=== PATIENT | male | born 1980 ===

== ENCOUNTER 2021-02-21 17:43 | Emergency (ER) | payer OTHER, SELFPAY ==
[2021-02-21 18:40] VITALS: BP 128/92; PULSE 79; RESP 18; TEMP 36.8; O2SAT 98
--- NOTE | 2021-02-21 20:00 | ED.MALEGU ---
HPI - Male Genitourinary General Chief complaint: Urogenital-Male Stated complaint: Groin pain Time Seen by Provider: 02/21/21 20:00 Source: patient Mode of arrival: ambulatory Limitations: no limitations History of Present Illness HPI Narrative: Patient complaining of pain in the left testicle for last 1 week after 2 lb dog jumped on his testicle no significant swelling patient does have history of epididymitis in the past pain got worse since yesterday no penile discharge no history of STDs lately no urinary complaint Related Data Previous Rx's Medication Instructions Recorded ciprofloxacin HCl 500 mg tablet 500 mg PO BID #20 tab 02/21/21 (Cipro) doxycycline hyclate 100 mg tablet 100 mg PO BID #20 tab 02/21/21 Allergies Allergy/AdvReac Type Severity Reaction Status Date / Time carisoprodol [From SOMA] Allergy Unknown SYNCOPE Unverified 02/21/21 18:39 Review of Systems Review of Systems: Yes all other systems are reviewed and are negative PMFSH Social History Social History Advance Directives: No Advance Directives Information Provided: Yes Physical Exam Vital Signs: Vital Signs: Last Vital Signs Temp 98.3 F 02/21/21 18:40 Pulse 79 02/21/21 18:40 Resp 18 02/21/21 18:40 BP 128/92 H 02/21/21 18:40 Pulse Ox 98 02/21/21 18:40 BMI result Body Mass Index 0.1 Const: General: healthy appearing, comfortable and no acute distress : Male genitals images: 1. Tenderness left epididymis area testicles are normal no fluid collection skin is normal no swelling or erythema no mass palpable no penile discharge MDM - Male Genitourinary MDM Narrative Medical decision making narrative: Patient clinically with left epididymitis will give him Cipro and doxycycline for broad coverage low risk for STDs discharge patient Discharge Plan Discharge Clinical Impression: Epididymitis Patient Disposition: Home, Self-Care Instructions: Epididymitis (ED) Additional Instructions: Scrotal support as advised Antibiotic as prescribed Ibuprofen for pain Report to the ER/PCP if worsening of swelling or pain Prescriptions: New doxycycline hyclate 100 mg tablet 100 mg PO BID Qty: 20 RF: 0 ciprofloxacin HCl [Cipro] 500 mg tablet 500 mg PO BID Qty: 20 RF: 0 Stand Alone Forms: Work/School Release Interventions: ED Discharge Assessment Last Done: 02/21/21 21:14 Discharge Date/Time: 02/21/21 21:20
[2021-02-21] MEDS: levoFLOXacin 500 MG TABLET PO (20:30)
== END 2021-02-21 21:20 | disposition home or self-care (01) ==
PROVIDERS: Emergency Provider Internal Medicine
DX: N45.1 Epididymitis (principal); N50.812 Left testicular pain
CPT/HCPCS: 99283

== ENCOUNTER 2021-06-23 10:19 | Outpatient (REF) | payer OTHER, SELFPAY ==
[2021-06-23 12:22] LABS: Prostate Specific Antigen Scr 2.62 ng/mL (<0.05-4.0)
== END 2021-06-23 10:20 | disposition home or self-care (01) ==
LOC: HO.HMGCLDS 10:19
PROVIDERS: Visit Provider Internal Medicine
DX: Z12.5 Encounter for screening for malignant neoplasm of prostate (principal); Z80.42 Family history of malignant neoplasm of prostate
CPT/HCPCS: 36415; 84153

== ENCOUNTER 2021-11-09 08:34 | Emergency (ER) | payer MEDICAID, SELFPAY ==
--- NOTE | ~2021-11-09 | XR_ITS ---
EXAMINATION: XR CHEST CLINICAL INFORMATION: Status post COVID. COMPARISON: 10/14/2014 chest radiographs. TECHNIQUE: 2 views of the chest were obtained. FINDINGS: No significant abnormality is noted involving the heart, lungs, mediastinum, bony thorax or soft tissues. XR/XR chest 2V IMPRESSION: No acute cardiopulmonary process.
[2021-11-09 08:50] VITALS: BP 141/89; PULSE 106; RESP 19; TEMP 36.6; O2SAT 94; BMI 19.8
[2021-11-09 10:17] LABS: MANUAL DIFF FLAG NO
[2021-11-09 10:19] LABS: Basophils Percent Auto 0.3 % (0-2); Eosinophils Percent Auto 0.2 % (0-4); Hematocrit 42.1 % (42.0-52.0); Hemoglobin 15.1 g/dl (14.0-18.0); Imm Gran Abs Auto 0.05 X10*3/uL (0.00-0.03); Imm Gran Pct Auto 0.5 % (0.0-0.4); Lymphocytes Absolute Auto 1.7 X10*3/uL (1.2-4.9); Lymphocytes Percent Auto 17.9 % (20-40); Mean Corpuscular HGB Conc 35.9 g/dl (31.0-36.0); Mean Corpuscular Hemoglobin 33.9 pg (27.0-33.0); Mean Corpuscular Volume 94.4 fL (80.0-98.0); Mean Platelet Volume 9.6 fL (9.4-12.4); Monocytes Absolute Auto 0.6 X10*3/uL (0.1-1.2); Monocytes Percent Auto 6.7 % (2-11); Neutrophils Absolute Auto 6.9 x10*3/uL (2.0-8.3); Neutrophils Percent Auto 74.4 % (45-73); Platelet Count 221 X10*3/uL (160-400); Red Blood Count 4.46 X10*6/uL (4.60-5.80); Red Cell Distribution Width 11.9 % (11.0-16.0); White Blood Count 9.3 X10*3/uL (4.8-10.8)
[2021-11-09 10:36] LABS: Alanine Aminotransferase 21 U/L (0-40); Albumin Level 4.5 g/dL (3.5-5.0); Alkaline Phosphatase 75 U/L (39-117); Anion Gap 19 (12-20); Aspartate Amino Transferase 36 U/L (5-37); Bilirubin Direct 0.2 mg/dL (0.0-0.5); Bilirubin Total 0.6 mg/dL (0.0-1.0); Blood Urea Nitrogen 15 mg/dL (9-16); Calcium 9.3 mg/dL (8.4-10.2); Carbon Dioxide 25 mmol/L (22-29); Chloride 100 mmol/L (96-108); Creatinine Clr Calc Pharmacy 86.4; Estimated Glomerular Filt Rate > 60; Glucose Random 176 mg/dL (60-115); Sodium 139 mmol/L (135-145); Total Protein 7.2 g/dL (6.5-8.0)
--- NOTE | 2021-11-09 11:14 | ECG_ITS ---
Test Reason : syncope Blood Pressure : / mmHG Vent. Rate : 075 BPM Atrial Rate : 075 BPM P-R Int : 160 ms QRS Dur : 098 ms QT Int : 382 ms P-R-T Axes : 072 070 060 degrees QTc Int : 426 ms Normal sinus rhythm Normal ECG When compared with ECG of 14-OCT-2014 21:10, No significant change was found Referred By: Zonia Cerda Electronically Signed By:CHARLES LAI
[2021-11-09 12:03] LABS: Troponin-I High Sensitivity 5.1 ng/L (<3.5-35.0)
[2021-11-09 12:38] LABS: D Dimer High Sensitivity 213 NG/ML
[2021-11-09 12:41] LABS: COVID-19 Test Positive (Negative)
--- NOTE | 2021-11-09 17:12 | ED_ITS ---
HPI - General Adult General Chief complaint: General Medical Stated complaint: COVID+ 8/12/Headache/body aches/Syncope Time Seen by Provider: 11/09/21 11:13 Source: patient Mode of arrival: ambulatory Limitations: no limitations History of Present Illness HPI narrative: Patient comes to the emergency room complaining of feeling weak. Patient states that about 10 days ago, he was informed that his friend who gives him a ride to work tested positive for COVID-19. Patient took a home test, unclear if it was positive. Patient states that he has been asymptomatic. However, yesterday patient started having nausea, headache, no chest pain or shortness of breath. This morning patient had 1 episode of vomiting, no diarrhea. In total, patient has been asymptomatic for 2 days. Starting yesterday. Related Data Previous Rx's Medication Instructions Recorded ibuprofen 600 mg tablet 600 mg PO TID PRN fever or pain 11/09/21 #20 tabs nirmatrelvir 300 mg (150 mg See Rx Instructions PO .COMPLEX 11/09/21 x2)-ritonavir 100 mg tablet,dose #30 ea pack(EUA) (Paxlovid) Allergies Allergy/AdvReac Type Severity Reaction Status Date / Time carisoprodol [From SOMA] Allergy Unknown SYNCOPE Unverified 06/23/21 09:50 Review of Systems Review of Systems: Constitutional : No Weight loss, No Fever, No Chills, No Night Sweats, complaining of fatigue and generalized malaise, generalized weakness ENT/Mouth : No Hearing loss, No Ear Pain, No Nasal Congestion, No Sinus Pain, No Hoarseness, No sore throat, No Rhinorrhea, No Swallowing Difficulty Eyes: No Eye Pain, No Swelling, No Redness, No Foreign Body, No Discharge, No Vision Changes Cardiovascular : No Chest Pain, No SOB, No Dyspnea on Exertion, No Orthopnea, No Edema, No Palpitations Respiratory : No Cough, No Sputum, No Wheezing, No Smoke Exposure, No Dyspnea Gastrointestinal : Nauseous, 1 episode of vomiting No Diarrhea, No Constipation, No abdominal Pain, No Hematochezia, No Melena Genitourinary : no irregular bleeding, No Dysuria, No Urinary Frequency, No He maturia, No Urinary Incontinence, No Urgency, No Flank Pain, No Urinary Flow Changes, No Hesitancy Musculoskeletal : No joint pain, No Myalgias, No Joint Swelling Skin : No Skin Lesions, No rash Neuro : No Weakness, No Numbness, No Paresthesias, No Loss of Consciousness, No Dizziness, No Headache Psych : No Anxiety/Panic, No Depression, No SI/HI/AH/VH, No Social Issues, Heme/Lymph: No Bruising, No Bleeding,No Lymphadenopathy Endocrine : No Polyuria, No Polydipsia, No Temperature Intolerance Physical Exam ED Vital Signs: Vital Signs - 24 hr 11/09/21 08:50 Temperature 98 F Pulse Rate 106 H Respiratory Rate 19 Blood Pressure 141/89 H Pulse Oximetry 94 Oxygen Delivery Method Room Air BMI result Body Mass Index 19.8 Const Other: Appearance: Alert. Oriented X3. No acute distress. Eyes: Pupils equal, round and reactive to light. ENT: Pharynx normal. Neck: Normal inspection. Neck supple. No lymph nodes noted. No crepitus CVS: Normal heart rate and rhythm. Pulses normal. Normal S1 and S2 Respiratory: No respiratory distress. Breath sounds normal. No Wheezing. No rales Abdomen: Soft and nontender. No rigidity. No distention. Skin: Skin warm and dry. Normal skin color. Normal skin turgor. Extremities: No lower extremity edema. No Lacerations. No Rash Neuro: Oriented X 3. No motor deficit. No sensory deficit. Moving all extremit ies. No slurred speech. CN 2 through 12 grossly intact Psych: calm, cooperative, normal affect Course Course Course Narrative: I discussed with the patient that he tested positive for COVID-19. Patient has been truly symptomatic for 2 days. Patient may benefit from Paxlovid Chest x-ray negative Medical Decision Making Lab Data Result diagrams: 11/09/21 10:06 11/09/21 10:06 Labs: Lab Results 11/09/21 11/09/21 11/09/21 Range/Units 10:06 10:06 10:06 WBC 9.3 (4.8-10.8) X10*3/uL RBC 4.46 L (4.60-5.80) X10*6/uL Hgb 15.1 (14.0-18.0) g/dl Hct 42.1 (42.0-52.0) % MCV 94.4 (80.0-98.0) fL MCH 33.9 H (27.0-33.0) pg MCHC 35.9 (31.0-36.0) g/dl RDW 11.9 (11.0-16.0) % Plt Count 221 (160-400) X10*3/uL MPV 9.6 (9.4-12.4) fL Immature Gran % (Auto) 0.5 H (0.0-0.4) % Neut % (Auto) 74.4 H (45-73) % Lymph % (Auto) 17.9 L (20-40) % [place] % (Auto) 6.7 (2-11) % Eos % (Auto) 0.2 (0-4) % Baso % (Auto) 0.3 (0-2) % Lymph # (Auto) 1.7 (1.2-4.9) X10*3/uL [place] # (Auto) 0.6 (0.1-1.2) X10*3/uL Eos # (Auto) 0.0 (0.0-0.4) X10*3/uL Baso # (Auto) 0.0 (0.0-0.2) X10*3/uL Abs Immat Gran (auto) 0.05 H (0.00-0.03) X10*3/uL Absolute Neuts (auto) 6.9 (2.0-8.3) x10*3/uL Absolute Nucleated RBC 0.000 (0.0-0.012) X10*3/uL Nucleated RBC % (auto) 0.0 (0.0-0.2) /100WBC D-Dimer High Sensitivty NG/ML Sodium 139 (135-145) mmol/L Potassium 5.0 (3.3-5.1) mmol/L Chloride 100 (96-108) mmol/L Carbon Dioxide 25 (22-29) mmol/L Anion Gap 19 (12-20) BUN 15 (9-16) mg/dL Creatinine 1.06 (0.5-1.4) mg/dL Estim Creat Clear Calc 86.4 Estimated GFR > 60 Random Glucose 176 H (60-115) mg/dL Calcium 9.3 (8.4-10.2) mg/dL Total Bilirubin 0.6 (0.0-1.0) mg/dL Direct Bilirubin 0.2 (0.0-0.5) mg/dL AST 36 (5-37) U/L ALT 21 (0-40) U/L Alkaline Phosphatase 75 (39-117) U/L Troponin I High Sens 5.1 (<3.5-35.0) ng/L Total Protein 7.2 (6.5-8.0) g/dL Albumin 4.5 (3.5-5.0) g/dL COVID-19 ([place]) (Negative) COVID-19 Clin Com 11/09/21 11/09/21 Range/Units 12:18 12:18 WBC (4.8-10.8) X10*3/uL RBC (4.60-5.80) X10*6/uL Hgb (14.0-18.0) g/dl Hct (42.0-52.0) % MCV (80.0-98.0) fL MCH (27.0-33.0) pg MCHC (31.0-36.0) g/dl RDW (11.0-16.0) % Plt Count (160-400) X10*3/uL MPV (9.4-12.4) fL Immature Gran % (Auto) (0.0-0.4) % Neut % (Auto) (45-73) % Lymph % (Auto) (20-40) % [place] % (Auto) (2-11) % Eos % (Auto) (0-4) % Baso % (Auto) (0-2) % Lymph # (Auto) (1.2-4.9) X10*3/uL [place] # (Auto) (0.1-1.2) X10*3/uL Eos # (Auto) (0.0-0.4) X10*3/uL Baso # (Auto) (0.0-0.2) X10*3/uL Abs Immat Gran (auto) (0.00-0.03) X10*3/uL Absolute Neuts (auto) (2.0-8.3) x10*3/uL Absolute Nucleated RBC (0.0-0.012) X10*3/uL Nucleated RBC % (auto) (0.0-0.2) /100WBC D-Dimer High Sensitivty 213 NG/ML Sodium (135-145) mmol/L Potassium (3.3-5.1) mmol/L Chloride (96-108) mmol/L Carbon Dioxide (22-29) mmol/L Anion Gap (12-20) BUN (9-16) mg/dL Creatinine (0.5-1.4) mg/dL Estim Creat Clear Calc Estimated GFR Random Glucose (60-115) mg/dL Calcium (8.4-10.2) mg/dL Total Bilirubin (0.0-1.0) mg/dL Direct Bilirubin (0.0-0.5) mg/dL AST (5-37) U/L ALT (0-40) U/L Alkaline Phosphatase (39-117) U/L Troponin I High Sens (<3.5-35.0) ng/L Total Protein (6.5-8.0) g/dL Albumin (3.5-5.0) g/dL COVID-19 ([place]) Positive A (Negative) COVID-19 Clin Com See Note Imaging Data Chest x-ray: Radiologist's impression: FINDINGS: No significant abnormality is noted involving the heart, lungs, mediastinum, bony thorax or soft tissues. XR/XR chest 2V IMPRESSION: No acute cardiopulmonary process. Discharge Plan Discharge Clinical Impression: COVID-19 Patient Disposition: Home, Self-Care Instructions: COVID-19 (Coronavirus Disease 2019) (ED) Additional Instructions: Please follow-up with your primary care physician tomorrow. If you have any worsening or new symptoms, please return to the emergency room or call 911 Prescriptions: New Paxlovid (EUA) 300 mg (150 mg x 2)-100 mg tablets,dose pack See Rx Instructions .ROUTE .COMPLEX Qty: 30 0RF Rx Instructions: take TWO 150 mg tablets of nirmatrelvir with ONE 100 mg tablet of ritonavir twice daily for 5 days ibuprofen 600 mg tablet 600 mg PO TID PRN (Reason: fever or pain) Qty: 20 0RF
[2021-11-09 19:52] VITALS: BP 132/84; PULSE 93; RESP 16; TEMP 37.1; O2SAT 98
== END 2021-11-09 19:52 | disposition home or self-care (01) ==
PROVIDERS: Emergency Provider Emergency Medicine
DX: U07.1 COVID-19 (principal); R51.9 Headache, unspecified
CPT/HCPCS: 36415; 71046; 80048; 80076; 84484; 85025; 85379; 87635; 93005; 99282; 99283

== ENCOUNTER 2022-09-24 11:39 | Outpatient (REF) | payer OTHER, SELFPAY ==
[2022-09-24 14:38] LABS: Basophils Percent Auto 0.3 % (0-2); Eosinophils Percent Auto 0.5 % (0-4); Hematocrit 44.9 % (42.0-52.0); Hemoglobin 15.4 g/dl (14.0-18.0); Imm Gran Abs Auto 0.02 X10*3/uL (0.00-0.03); Imm Gran Pct Auto 0.3 % (0.0-0.4); Lymphocytes Percent Auto 16.4 % (20-40); MANUAL DIFF FLAG SCAN; Mean Corpuscular HGB Conc 34.3 g/dl (31.0-36.0); Mean Corpuscular Hemoglobin 33.8 pg (27.0-33.0); Mean Corpuscular Volume 98.7 fL (80.0-98.0); Mean Platelet Volume 11.2 fL (9.4-12.4); Monocytes Absolute Auto 1.3 X10*3/uL (0.1-1.2); Monocytes Percent Auto 21.7 % (2-11); Neutrophils Absolute Auto 3.6 x10*3/uL (2.0-8.3); Neutrophils Percent Auto 60.8 % (45-73); Platelet Count 182 X10*3/uL (160-400); Red Blood Count 4.55 X10*6/uL (4.60-5.80); Red Cell Distribution Width 11.9 % (11.0-16.0); SCAN SMEAR FLAG 1; White Blood Count 5.9 X10*3/uL (4.8-10.8)
[2022-09-24 14:59] LABS: SLIDE REVIEW VERIFIED
== END 2022-09-24 11:40 | disposition home or self-care (01) ==
LOC: HO.HMGCLDS 11:39
PROVIDERS: PCP Nurse Practitioner Family; Visit Provider Nurse Practitioner Family
DX: Z00.00 Encounter for general adult medical examination without abnormal findings (principal); Z80.42 Family history of malignant neoplasm of prostate
CPT/HCPCS: 36415; 80053; 80061; 81001; 84153; 84443; 85025

== ENCOUNTER 2022-10-04 15:05 | Outpatient (AMB) | payer OTHER, SELFPAY ==
--- NOTE | 2022-10-04 12:11 | A.OFFVIS_ITS ---
Intake Vital Signs 10/04/22 15:09 Height 6 ft 1 in Weight 164 lb BMI 21.6 Intake Visit Reasons: family history of malignant neoplasm of prostate Intake Note: Ronald a 42 year old male presents today for a family history of malignant neoplasm of prostate. Patient states father diagnosed with prostate cancer and 2 uncles from prostate cancer. Allergies carisoprodol [From SOMA] Allergy (Unknown, Unverified 10/04/22 15:11) SYNCOPE HPI HPI Comments History of Present Illness Details 10/04/22? Ronald is a 42-year-old male who presents to the clinic for a family history of prostate cancer. Patient has a family history of prostate cancer in his father and 2 uncles. He had a PSA done on 04/20/18 which was 2.62 and a PSA done 09/24/22 which is 3.35. He states that he wakes up about 1 to 2 times to urinate at night. He admits that he drinks a lot of alcohol. He denies noticing any hematuria during the daytime. He denies any dysuria. Evaluation today?UA -- leukocytes: negative. Blood: negative. Prostate exam-- The prostate was mildly enlarged and an irregular area noted on the left apex. AUA symptom score -- 19 Plan: Start him on alfuzosin 10 mg daily. I discussed that his PSA?level at 3.35 is at higher limits of normal, and for his age, it is elevated. I recommend doing a prostate biopsy to identify if there is any cancer cells given his family history. We discussed in detail with the patient about the prostate biopsy and its possible outcomes and he voiced understanding. Patient would be given antibiotic therapy as an infection prophylaxis before the procedure. I am going to send Cipro to his pharmacy to start 24 hours before the prostate biopsy. Will repeat PSA. However will proceed with scheduling the biopsy will be scheduled pending blood work results. Recommended to limit his alcohol use. [facility] Family History Mother Substance use disorder Mental health disorder Father Substance use disorder Mental health disorder Maternal Aunt Substance use disorder Mental health disorder Paternal Uncle Substance use disorder Mental health disorder Paternal Aunt Substance use disorder Mental health disorder Maternal Uncle Substance use disorder Mental health disorder Brother Substance use disorder Mental health disorder Sister Substance use disorder Mental health disorder Social History Housing: House Patient Tobacco Use Status: Current everyday Tobacco user Cigarette Packs Per Day: 1 e-Cigarette/Vaping Use: Never Used Second Hand Smoke Exposure: Yes service: No Current occupational status: employed 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 Current occupational exposures/hazards: No Cognitive needs: No Hearing needs: No Vision needs: No Questionnaire AUA Symptom Score AUA Incomplete emptying - It does not feel like I empty my bladder all the way.: 0 - Not at all Frequency - I have to go again less than two hours after I finish urinating.: 3 - About half the time Intermittency - I stop and start again several times when I urinate.: 5 - Almost always Urgency - It is hard to wait when I have to urinate.: 5 - Almost always Weak stream - I have a weak urinary stream.: 3 - About half the time Straining - I have to push or strain to begin urination.: 2 - Less than half the time Nocturia - I get up to urinate after I go to bed until the time I get up in the morning.: 1 time AUA Symptom Score: 19 Quality of life due to urinary symptoms: If you were to spend the rest of your life with your urinary condition the way it is now, how would you feel about that?: Mixed: about equally satisfied and dissatisfied Source: Terry JIMENEZ, Fly TOBIN Jr, O'Stephanie MP, et al, and the Measurement Committee of the [employer]. The [place] [employer] symptom index for benign prostatic hyperplasia. J Urol. 1992; 148: 0327-3519. Copyright 1992 [place] [employer] Review of Systems Const All systems reviewed & are unremarkable except as noted in HPI and below Reports no additional complaints Eyes Reports no additional complaints ENT Reports no additional complaints Card Denies dyspnea Resp Denies cough and Denies dyspnea GI Reports no additional complaints Musc Reports no additional complaints Skin/Breast Denies rash and Denies unusual bruising Neuro Reports no additional complaints Psych Reports no additional complaints Endo Reports no additional complaints Ray/Lymph Reports no additional complaints Aller/Immun Reports no additional complaints Physical Exam Vital Signs: BMI result Body Mass Index 21.6 Const General: healthy appearing, no acute distress and well developed Orientation/consciousness: patient oriented x3 HEENT Head: Yes normocephalic and Yes atraumatic Eyes Conjunctivae: conjunctivae normal Neck Neck: Yes normal visual inspection Chest Chest palpation & inspection: normal inspection of the chest Resp Effort & Inspection: normal respiratory effort Cardio Rate: regular rate GI Inspection: Yes normal to inspection Palpation (GI): Soft to palpation Other: Prostate exam-- The prostate was mildly enlarged and an irregular area noted on the left apex. Skin General skin exam: no rashes or lesions noted Neuro General: patient oriented x3 Extrem General: No pedal edema Psych Appearance: grossly normal Affect: normal affect Office Procedures Post Void Residual Post Residual Void Post Void Residual (PVR): 9 49675-[id number] Void Residual by ultrasound Results AMB Urinalysis, Automated UA Leukoctes 0 Sabrina/uL Last Edit by Yadira Sheehan Bri on 10/04/22 15:25 UA Nitrite Negative Last Edit by Yadira Sheehan [facility] on 10/04/22 15:25 UA Urobilinogen 0.2 mg/dL Last Edit by Yadira Sheehan [facility] on 10/04/22 15:25 UA Protein 15 mg/dL Last Edit by Yadira Sheehan [facility] on 10/04/22 15:25 UA pH 6.0 Last Edit by Yadira Sheehan [facility] on 10/04/22 15:25 UA Blood 0 Balaji/uL Last Edit by Yadira Sheehan [facility] on 10/04/22 15:25 UA Specific [place] 1.010 Last Edit by Yadira Sheehan [facility] on 10/04/22 15:2 5 UA Ketone Negative Last Edit by Yadira Sheehan Bri on 10/04/22 15:25 UA Bilirubin 0 mg/dL Last Edit by Yadira Sheehan [facility] on 10/04/22 15:25 UA Glucose 0 mg/dL Last Edit by Yadira Sheehan [facility] on 10/04/22 15:25 Results Reviewed Results Reviewed: Laboratory Last Values Urine pH (Auto) 6.0 10/04/22 15:22 Specific [place] (Auto) 1.010 10/04/22 15:22 Urine Protein (Auto) 15 mg/dL 10/04/22 15:22 Glucose (UA)(Auto) 0 mg/dL 10/04/22 15:22 Urine Ketones (Auto) Negative 10/04/22 15:22 Urine Blood (Auto) 0 Balaji/uL 10/04/22 15:22 Urine Nitrite (Auto) Negative 10/04/22 15:22 Urine Bilirubin (Auto) 0 mg/dL 10/04/22 15:22 Urine Urobilinogen (Auto) 0.2 mg/dL 10/04/22 15:22 Leukocyte Esterase (Auto) 0 Sabrina/uL 10/04/22 15:22 Assessment & Plan Assessment & Plan (1) Family history of prostate cancer: Code(s): Z80.42 - Family history of malignant neoplasm of prostate (2) Elevated PSA: Code(s): R97.20 - Elevated prostate specific antigen [PSA] (3) BPH (benign prostatic hyperplasia): Code(s): N40.0 - Benign prostatic hyperplasia without lower urinary tract symptoms (4) History of prostatitis: Code(s): Z87.438 - Personal history of other diseases of male genital organs Plan Alfuzosin 10 mg daily. I discussed that his PSA?level at 3.35 is at higher limits of normal, and for his age, it is elevated. I recommend doing a prostate biopsy to identify if there is any cancer cells given his family history. We discussed in detail with the patient about the prostate biopsy and its possible outcomes and he voiced understanding. Patient would be given antibiotic therapy as an infection prophylaxis before the procedure. I am going to send Cipro to his pharmacy to start 24 hours before the prostate biopsy. Will repeat PSA. However will proceed with scheduling the biopsy will be scheduled pending blood work results. Recommended to limit his alcohol use. Orders: Orders Prothrombin Time INR 10/04/22 F10.10 - Alcohol abuse, uncomplicated AMB Urinalysis Automated 10/04/22 Z13.9 - Encounter for screening, unspecified AMB Post Void Residual by ultrasound 10/04/22 Z80.42 - Family history of malignant neoplasm of prostate Patient Instructions: The patient had an opportunity to ask questions regarding treatment plan. All questions were answered. Imaging, Laboratory studies and physical exam results were discussed and reviewed in detail. No major barriers to understanding were identified. The patient expressed understanding and agreement with the above treatment plan. The patient is aware they should contact our office by phone for worsening of their current condition or the appearance of new symptoms. Compliance is encouraged with any medications and followup testing that is ordered. It is a privilege to be allowed the opportunity to participate in the urologic care of your patient. If you have any questions or concerns regarding treatment for the above conditions please do not hesitate to contact me. The office telephone contact is [phone]. This note is constructed in part using voice recognition software. While every effort has been made to ensure accuracy manager radio errors may have been included. Yours sincerely, Kristopher Reza MD Quality Reporting (2019) Benign Prostatic Hyperplasia ([facility] 771) AUA symptom score: 19 Quality of life due to urinary symptoms: If you were to spend the rest of your life with your urinary condition the way it is now, how would you feel about that?: Mixed: about equally satisfied and dissatisfied Coding Level of Care Code New Pt Level 4 (34774) Diagnoses Family history of prostate cancer Z80.42 Elevated PSA R97.20 BPH (benign prostatic hyperplasia) N40.0 History of prostatitis Z87.438 CPT Codes Post Residual Void - PVR CPT Code: 13001-Ssod Void Residual by ultrasound ([id number])
[2022-10-04 15:09] VITALS: BMI 21.6
== END 2022-10-04 16:01 | disposition home or self-care (01) ==
PROVIDERS: PCP Nurse Practitioner Family; Visit Provider Urology
DX: Z80.42 Family history of malignant neoplasm of prostate (principal); R97.20 Elevated prostate specific antigen [PSA]; N40.0 Benign prostatic hyperplasia without lower urinary tract symptoms; Z87.438 Personal history of other diseases of male genital organs
CPT/HCPCS: 99204

== ENCOUNTER → 2022-10-04 15:05 | Outpatient (BNVA) | payer OTHER, SELFPAY | PROVIDERS: PCP Nurse Practitioner Family; Visit Provider Urology | DX: R97.20 Elevated prostate specific antigen [PSA] (principal); N40.0 Benign prostatic hyperplasia without lower urinary tract symptoms; Z87.438 Personal history of other diseases of male genital organs; Z80.42 Family history of malignant neoplasm of prostate; Z79.899 Other long term (current) drug therapy | CPT/HCPCS: 51798; 99202 ==

== ENCOUNTER 2022-10-06 08:40 | Outpatient (REF) | payer OTHER, SELFPAY ==
--- NOTE | ~2022-10-06 | US_ITS ---
EXAMINATION: US ABDOMEN COMPLETE CLINICAL INFORMATION: Elevated liver enzymes. COMPARISON: None available. TECHNIQUE: Real-time imaging of the abdominal viscera. FINDINGS: PANCREAS: Normal. ABDOMINAL AORTA: The abdominal aorta is normal caliber. There is mild atherosclerotic plaque seen within the distal abdominal aorta. INFERIOR VENA CAVA: Visualized portions are normal. LIVER: The liver is enlarged. The liver contour is normal. There is diffuse increased liver parenchymal echogenicity, consistent with hepatic steatosis. 1.4 x 1.5 x 1.4 cm simple cyst is seen in the right lobe. No imaging follow-up of this finding is recommended. There is no intrahepatic biliary duct dilatation seen. GALLBLADDER: Normal. The gallbladder is physiologically distended without evidence of stones, sludge, polyps, wall thickening or pericholecystic fluid. COMMON BILE DUCT: Normal in caliber measuring 0.43 cm in diameter. RIGHT KIDNEY: Normal. No hydronephrosis. No renal calculi or focal parenchymal lesions. The kidney measures 12.1 cm in maximum dimension. LEFT KIDNEY: Normal. No hydronephrosis. No renal calculi or focal parenchymal lesions. The kidney measures 10.6 cm in maximum dimension. SPLEEN: Normal. The spleen measures 9.4 cm in maximum dimension. FREE FLUID: None. US/US abdomen complete IMPRESSION: 1. Hepatic steatosis. 2. Mild atherosclerotic plaque is seen within the distal abdominal aorta.
== END 2022-10-06 08:41 | disposition home or self-care (01) ==
LOC: HO.HMGCX 08:40
PROVIDERS: PCP Nurse Practitioner Family; Visit Provider Nurse Practitioner Family
DX: R74.8 Abnormal levels of other serum enzymes (principal)
CPT/HCPCS: 76700

== ENCOUNTER 2022-10-19 08:00 | Outpatient (REF) | payer OTHER, SELFPAY ==
[2022-10-19 11:34] LABS: INTERNATIONAL NORM RATIO 0.8 (0.9-1.1); Prothrombin Time 9.8 SEC (11.1-13.3)
[2022-10-19 11:38] LABS: Hematocrit 44.8 % (42.0-52.0); Hemoglobin 15.5 g/dl (14.0-18.0); Imm Gran Pct Auto 0.3 % (0.0-0.4); Mean Corpuscular HGB Conc 34.6 g/dl (31.0-36.0); Mean Corpuscular Hemoglobin 34.1 pg (27.0-33.0); Mean Corpuscular Volume 98.7 fL (80.0-98.0); Mean Platelet Volume 10.5 fL (9.4-12.4); Neutrophils Percent Auto 33.2 % (45-73); Platelet Count 241 X10*3/uL (160-400); Red Blood Count 4.54 X10*6/uL (4.60-5.80); Red Cell Distribution Width 11.9 % (11.0-16.0); White Blood Count 3.9 X10*3/uL (4.8-10.8)
[2022-10-19 11:39] LABS: Basophils Absolute Auto 0.1 X10*3/uL (0.0-0.2); Basophils Percent Auto 1.3 % (0-2); Eosinophils Absolute Auto 0.1 X10*3/uL (0.0-0.4); Imm Gran Abs Auto 0.01 X10*3/uL (0.00-0.03); Immature Retic Fraction 5.8 % (2.3-13.4); Lymphocytes Absolute Auto 1.5 X10*3/uL (1.2-4.9); Lymphocytes Percent Auto 38.6 % (20-40); MANUAL DIFF FLAG SCAN; Monocytes Absolute Auto 0.9 X10*3/uL (0.1-1.2); Monocytes Percent Auto 23.6 % (2-11); Neutrophils Absolute Auto 1.3 x10*3/uL (2.0-8.3); Retic HGB Equivalent 38.8 pg (30.0-35.0); Reticulocyte Percent 1.3 % (0.5-1.8); Reticulocytes Absolute 0.059 X10*6/uL (0.026-0.095); SCAN SMEAR FLAG 1
[2022-10-19 11:58] LABS: Bilirubin Total 0.5 mg/dL (0.0-1.0)
[2022-10-19 12:18] LABS: SLIDE REVIEW VERIFIED
[2022-10-19 12:24] LABS: HBc Num1 0.11 S/CO (0.00-0.79); HBsAGNum1 0.39 S/CO (0.00-0.99); Hepatitis A Antibody IgM 0.18 Index (0-0.79); Hepatitis B Core Antibody Nonreactive (Nonreactive); Hepatitis B Surface Antigen Negative (Negative); ~HepC Num1 0.07 S/CO (0.00-0.79); ~Hepatitis A Antibody IgM Nonreactive (Nonreactive); ~Hepatitis B Surface Antibody NONREACTIVE (Nonreactive); ~Hepatitis C Antibody Nonreactive (Nonreactive)
[2022-10-19 12:30] LABS: Alanine Aminotransferase 60 U/L (0-40); Alkaline Phosphatase 64 U/L (39-117); Anion Gap 20 (12-20); Aspartate Amino Transferase 76 U/L (5-37); Bilirubin Direct 0.2 mg/dL (0.0-0.5); Bilirubin Total 0.5 mg/dL (0.0-1.0); Blood Urea Nitrogen 12 mg/dL (9-16); Calcium 10.1 mg/dL (8.4-10.2); Carbon Dioxide 25 mmol/L (22-29); Chloride 101 mmol/L (96-108); Estimated Glomerular Filt Rate > 60; Gamma Glutamyl Transpeptidase 79 U/L (11-51); Glucose Random 90 mg/dL (60-115); Potassium 3.4 mmol/L (3.3-5.1); Sodium 143 mmol/L (135-145); Total Protein 8.3 g/dL (6.5-8.0)
[2022-10-19 12:50] LABS: Appearance Urine Turbid; Color Urine Dark Yellow; Glucose Urine UA Negative (Negative); Leukocyte Esterase Urine Negative (Negative); Nitrite Urine Negative (Negative); Specific Gravity - Urine 1.025 (1.005-1.025); UMIC TRIGGER UACC YES; Urine Blood Negative (Negative); Urine Ketones Trace mg/dL (Negative); Urine Protein 30 (1+) mg/dL (Neg-Trace)
[2022-10-19 13:00] LABS: Lactate Dehydrogenase 262 U/L (118-273)
[2022-10-19 13:00] LABS: Bacteria Urine None Seen (None Seen); Calcium Oxalate Crystals Urine Present; Hyaline Casts Urine 0-2 /LPF (0-2); RBC Urine 0-2 /HPF (0-2); Squamous Epithelial Cell Urine 0-2 /HPF (0-2); WBC Urine 0-5 /HPF (0-5)
[2022-10-22 17:59] LABS: Hematocrit 43.5 % (38.5-50.0); Hemoglobin 15.5 g/dL (13.2-17.1); MCH 34.8 pg (27.0-33.0); MCV 97.8 fL (80.0-100.0); RBC 4.45 Million/uL (4.20-5.80); RDW 12.1 % (11.0-15.0)
[2022-10-24 20:23] LABS: Haptoglobin 127 mg/dL (43-212)
== END 2022-10-19 08:01 | disposition home or self-care (01) ==
LOC: HO.HMGCLDS 08:00
PROVIDERS: Absent Provider Urology; PCP Nurse Practitioner Family; Visit Provider Nurse Practitioner Family
DX: F10.10 Alcohol abuse, uncomplicated (principal); R17 Unspecified jaundice; R74.8 Abnormal levels of other serum enzymes
CPT/HCPCS: 36415; 80053; 81001; 81003; 82247; 82248; 82977; 83010; 83020; 83615; 85014; 85018; 85025; 85041; 85045; 85610; 86704; 86706; 86709; 86803; 86880; 87340

== ENCOUNTER 2022-10-20 14:32 | Outpatient (AMB) | payer OTHER, SELFPAY ==
[2022-10-20 14:41] VITALS: BP 111/77; PULSE 68; BMI 20.8
--- NOTE | 2022-10-20 14:41 | A.OFFVIS_ITS ---
Intake Vital Signs 10/20/22 14:41 Height 6 ft 1 in Weight 157 lb 6.561 oz BMI 20.8 BP 111/77 Blood Pressure Location Lt brachial Position Sitting Pulse 68 Intake Visit Reasons: colonoscopy screening Intake Note: venu presents in office as a new.patient for a colonoscopy screening PT CC: pt reports having diarrhea/constipation pt denies any other GI Issues Piper Installer Required: No Accompanied by: Mother Allergies carisoprodol [From [facility]] Allergy (Unknown, Unverified 11/02/22 14:50) SYNCOPE HPI colonoscopy screening HPI Details 42 year old? male with past medical history of ETOH use, history of prostatitis, BPH, family history of prostate CA is here today for pre colonoscopy screening.? Patient was sent to us by his PCP.? Patient denies any gastrointestinal symptoms in the past or at present.? Symptoms of IBS. Occasional postprandial loose stool and then constipation. Denies any personal or family history of gastrointestinal disease, colon polyps, or cancer.? Patient never been under anesthesia. ? Negative for history of sleep apnea.? Denies any history of cardiac, renal, pulmonary, or hepatic disease.?? No history of infectious? diseases like hepatitis A, B, C, HIV or tuberculosis.? Patient is not on any anticoagulation therapy. PFSH Family History Mother Substance use disorder Mental health disorder Father Substance use disorder Mental health disorder Maternal Aunt Substance use disorder Mental health disorder Paternal Uncle Substance use disorder Mental health disorder Paternal Aunt Substance use disorder Mental health disorder Maternal Uncle Substance use disorder Mental health disorder Brother Substance use disorder Mental health disorder Sister Substance use disorder Mental health disorder Social History Housing: House Patient Tobacco Use Status: Current everyday Tobacco user Cigarette Packs Per Day: 1 e-Cigarette/Vaping Use: Never Used Second Hand Smoke Exposure: Yes service: No Current occupational status: employed 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 Current occupational exposures/hazards: No Cognitive needs: No Hearing needs: No Vision needs: No Review of Systems Const Denies weight gain and Denies weight loss ENT Reports no additional complaints, Denies dysphagia and Denies odynophagia Card Reports no additional complaints Resp Reports no additional complaints GI Denies abdominal pain, Denies belching, Denies melena, Denies bloating, Reports constipation (Occasional), Denies dysphagia, Denies excessive flatus, Denies dyspepsia, Denies heartburn, Denies diarrhea, Reports loose stools (Occasional), Denies nausea, Denies odynophagia and Denies vomiting Reports no additional complaints Musc Reports no additional complaints Neuro Reports no additional complaints Psych Reports no additional complaints Endo Reports no additional complaints Physical Exam Vital Signs: Last Vital Signs Pulse 68 10/20/22 14:41 BP 111/77 10/20/22 14:41 BMI result Body Mass Index 20.8 Const General: healthy appearing, no acute distress and well developed Nutritional Appearance: well nourished Orientation/consciousness: patient oriented x3 HEENT Head: Yes normal to inspection, Yes normocephalic and Yes atraumatic Face and sinus: Yes normal facial exam Mouth: Normal oral and palatal mucosa present Throat: Yes posterior oropharynx normal, Yes tonsils normal and Yes uvula midline Eyes General: appearance normal, both eyes and all related structures Neck Neck: Yes normal visual inspection, Yes full ROM and Yes trachea midline Thyroid: Thyroid normal Resp Effort & Inspection: normal respiratory effort, able to speak in complete sentences, no tracheal deviation and symmetric chest movement Auscultation: clear to auscultation bilaterally Cardio Rate: regular rate Heart sounds: S1 normal heart sound present and S2 normal heart sound present GI Inspection: Yes normal to inspection and No distended Palpation (GI): Soft to palpation, not firm, nontender and No hepatosplenomegaly present Auscultation: normal bowel sounds General: Yes no CVA tenderness Back/Spine/Pelvis Back: no CVA tenderness Skin General skin exam: elasticity normal, turgor normal and dry skin Neuro General: patient oriented x3 Psych Appearance: grossly normal Mental Status: mental status grossly normal Speech and movement: Normal speech and movement present Assessment & Plan Assessment & Plan (1) Screening for colon cancer: Code(s): Z12.11 - Encounter for screening for malignant neoplasm of colon Plan: Patient denies any family history of colorectal cancer. No melena, hematochezia, unintentional weight loss or ribbon like stools per patient will return in 3 months so we can discuss prep. Patient will be due to go for colorectal screening in March. Patient was encouraged to stop drinking as he will be due to go for colonoscopy and he will need to be sober. Recommended to see someone to help him stop drinking like addiction medicine or go to inpatient detox if unable quit drinking on his own. (2) Elevated liver enzymes: Code(s): R74.8 - Abnormal levels of other serum enzymes Plan: Patient reports that he drinks alcohol on a daily basis. Patient was encouraged to try to quit. Elevated liver enzymes. Lab work done yesterday. I will see patient in 3 months, sooner on as needed basis. Patient is agreeable to this plan and verbalizes understanding of instructions. He was given the opportunity to ask questions and all questions answered. Thank you for allowing me to participate in his care Coding Level of Care Code New Pt Level 4 (64081) Diagnoses Screening for colon cancer Z12.11 Elevated liver enzymes R74.8 Time Spent (min) 45 Comment 30 minutes spent with patient and additional 15 minutes spent reviewing his records
== END 2022-10-20 15:11 | disposition home or self-care (01) ==
PROVIDERS: PCP Nurse Practitioner Family; Visit Provider Nurse Practitioner Family
DX: Z01.818 Encounter for other preprocedural examination (principal); Z12.11 Encounter for screening for malignant neoplasm of colon; R74.8 Abnormal levels of other serum enzymes
CPT/HCPCS: 99203

== ENCOUNTER → 2022-10-20 14:32 | Outpatient (BNVA) | payer OTHER, SELFPAY | PROVIDERS: PCP Nurse Practitioner Family; Visit Provider Nurse Practitioner Family ==

== ENCOUNTER 2022-11-02 14:42 | Outpatient (AMB) | payer OTHER, SELFPAY ==
--- NOTE | 2022-11-02 14:45 | A.OFFVIS_ITS ---
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 Treatment History: -No formal treatment history -Did abstain from alcohol for a few months a year or 2 ago after PCP reported elevated liver enzymes. Strong family history of AUD and RYAN Medical History -Denies seizure history -no chronic health issues -reports he has an upcoming prostate biopsy scheduled Denies any other substance use Occasional marijuana OUI when he was 18 years old Reports occasional tremors, sleep okay, appetite decreased at times PFS Family History Mother Substance use disorder Mental health disorder Father Substance use disorder Mental health disorder Maternal Aunt Substance use disorder Mental health disorder Paternal Uncle Substance use disorder Mental health disorder Paternal Aunt Substance use disorder Mental health disorder Maternal Uncle Substance use disorder Mental health disorder Brother Substance use disorder Mental health disorder Sister Substance use disorder Mental health disorder Social History Housing: House Patient Tobacco Use Status: Current everyday Tobacco user Cigarette Packs Per Day: 1 e-Cigarette/Vaping Use: Never Used Second Hand Smoke Exposure: Yes service: No Current occupational status: employed 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 Current occupational exposures/hazards: No Cognitive needs: No Hearing needs: No Vision needs: No Review of Systems Const Reports as per HPI and Reports no additional complaints Physical Exam Vital Signs: Last Vital Signs Pulse 74 11/02/22 14:48 BP 106/68 11/02/22 14:48 Pulse Ox 97 11/02/22 14:48 Oxygen Delivery Method Room Air 11/02/22 14:48 Const General: cooperative and no acute distress Nutritional Appearance: thin Orientation/consciousness: patient oriented x3 Neuro General: patient oriented x3 Psych Appearance: well kempt Mental Status: mental status grossly normal Speech and movement: Clear speech present Affect: normal affect Attitude: cooperative Thought process: Normal thought process present Thought content: Normal thought content present Insight: Fair insight present (Psych) Judgement: Good judgement present (Psych) Assessment & Plan Assessment & Plan (1) Alcohol use disorder, moderate, dependence: Code(s): F10.20 - Alcohol dependence, uncomplicated Plan: * reviewed medication treatment options. Patient agreeable to Naltrexone trial. Questions answered * risk reduction discussion and information provided * follow up 12/03 Medications: New naltrexone take 1/2 tab daily for 3 days then increase to one full tab daily 50 mg PO DAILY 30 tabs 1RF Coding Level of Care Code New Pt Level 4 (41866) Diagnoses Alcohol use disorder, moderate, dependence F10.20
[2022-11-02 14:48] VITALS: BP 106/68; PULSE 74; O2SAT 97
== END 2022-11-02 15:41 | disposition home or self-care (01) ==
LOC: HO.HCC 14:42
PROVIDERS: PCP Nurse Practitioner Family; Visit Provider Nurse Practitioner Psychiatric/Mental Health
DX: F10.20 Alcohol dependence, uncomplicated (principal)
CPT/HCPCS: 99204

== ENCOUNTER → 2022-11-02 14:42 | Outpatient (BNVA) | payer OTHER, SELFPAY | PROVIDERS: PCP Nurse Practitioner Family; Visit Provider Nurse Practitioner Psychiatric/Mental Health | DX: F10.20 Alcohol dependence, uncomplicated (principal) | CPT/HCPCS: 99202 ==

== ENCOUNTER 2022-11-12 07:14 | Outpatient (REF) | payer OTHER, SELFPAY ==
[2022-11-12 07:42] VITALS: BP 119/75; PULSE 86; RESP 16; TEMP 36.9; O2SAT 96; BMI 21.1
[2022-11-12 08:40] VITALS: BP 128/77; PULSE 94; RESP 16; O2SAT 97
--- NOTE | 2022-11-12 15:06 | W.PM.OPN ---
Operative Note Operative Note Date of Service: 11/12/22 Narrative: PreOperative Diagnosis:? ? Elevated PSA Post Operative Diagnosis:??Elevated PSA Procedure:?1. Transrectal ultrasound guided biopsy of the prostate 12 core 2. Transrectal ultrasound measurement of prostate 3. Transrectal ultrasound guided pudendal nerve block Surgeon:?Dr Kristopher Reza Anesthesia:? Local, Valium 5 mg PO Indications for procedure: Elevated PSA, FH prostate cancer Procedure: Preoperative antibiotics confirmed. After informed consent was verified the patient was placed on the procedure table in left lateral position. Patient identity confirmed. Safety pause time-out performed. Digital rectal exam performed to dilate rectal sphincter, iodine mixed with lubricant jelly 30 cc placed per rectum. Ultrasound probe was placed per rectum. The prostate was visualized. The prostate was measured width 4.18 cm, height 2.57 cm, length 4.05 cm with a volume of 22.8 mL. An ultrasound guided pudendal nerve block was performed using 10 cc of 1% lidocaine. A 12 core biopsy was performed from the left base, left mid, left apex and right base, mid, apex 2 biopsies from each section. The ultrasound probe was removed and digital palpation of the prostate for 1-2 minutes for hemostasis was performed. The patient tolerated the procedure well. Complications: None
== END 2022-11-12 07:15 | disposition home or self-care (01) ==
LOC: HO.MS 07:14
PROVIDERS: PCP Nurse Practitioner Family; Visit Provider Urology
PROC: (CPT 55700; principal; 2022-11-12 08:00)
DX: C61 Malignant neoplasm of prostate (principal); N42.32 Atypical small acinar proliferation of prostate; R97.20 Elevated prostate specific antigen [PSA]; Z80.42 Family history of malignant neoplasm of prostate
CPT/HCPCS: 55700; 76942; 88305; 88344

== ENCOUNTER → 2022-11-12 07:14 | Outpatient (BNV) | payer OTHER, SELFPAY | PROVIDERS: PCP Nurse Practitioner Family; Visit Provider Urology | DX: R97.20 Elevated prostate specific antigen [PSA] (principal) | CPT/HCPCS: 55700; 76942 ==

== ENCOUNTER 2022-11-26 11:51 | Outpatient (AMB) | payer OTHER, SELFPAY ==
--- NOTE | 2022-11-26 11:53 | A.OFFVIS_ITS ---
Intake Intake Visit Reasons: Biopsy results Intake Note: Patient presents today for a follow-up on Post Op, Biopsy Results: Meds- Alfuzosin Allergies to Antibiotic- No Known Allergies Blood Thinner- None Patient declined urinalysis Research Lab Assistant Required: No Accompanied by: Family/Other Allergies carisoprodol [From [facility]] Allergy (Unknown, Unverified 11/26/22 11:57) SYNCOPE HPI HPI Comments History of Present Illness Details Ronald is a 42-year-old male who presents today to the office for a follow-up. 11/26/2022? He is followed today for biopsy results. He was last seen by me on 10/04/2022 for benign prostatic hyperplasia. He was started on alfuzosin 10 mg daily at that time. He was educated that his PSA level at 3.35 is at higher limits of normal, for his age. He was recommend doing a prostate biopsy to identify if there is any cancer cells given his family history of prostate cancer in his father and uncle. He mentions having mild burning with urination post prostate bx. I reviewed the abdomen US results from 10/06/2022 Kidneys WNL I reviewed the prostate biopsy results from 11/12/2022 revealed low grade kady 3+3 +6 in the left base and right apex, atypical small acinar proliferation suspicious for prostatic adenocarcinoma. Discussed treatment options to include active surveillance, surgery, radical prostatectomy, radiation. Review of charts: Last visit: 10/04/2022? Patient has a family history of prostate cancer in his father and 2 uncles. He had a PSA done on 04/20/18 which was 2.62 and a PSA done 09/24/22 which is 3.35. He states that he wakes up about 1 to 2 times to urinate at night. He admits that he drinks a lot of alcohol. He denies noticing any hematuria during the daytime. He denies any dysuria. Evaluation today?UA -- leukocytes: negative. Blood: negative. Prostate exam-- The prostate was mildly enlarged and an irregular area noted on the left apex. AUA symptom score -- 19 Plan: Start him on alfuzosin 10 mg daily. Will repeat PSA. However will proceed with scheduling the biopsy will be scheduled pending blood work results. Recommended to limit his alcohol use. 11/26/2022: Plan: Prostate Cancer. Alberto son 3+3= 6 Active Surveillance discussed MRI of the prostate in 4 months, repeat PSA prior. Will send the prostate biopsy specimen to the Prolaris gene testing. I will call the patient once he gets the Prolaris gene testing results. [facility] Surgical History Hx of prostate biopsy Family History Mother Substance use disorder Mental health disorder Father Substance use disorder Mental health disorder Maternal Aunt Substance use disorder Mental health disorder Paternal Uncle Substance use disorder Mental health disorder Paternal Aunt Substance use disorder Mental health disorder Maternal Uncle Substance use disorder Mental health disorder Brother Substance use disorder Mental health disorder Sister Substance use disorder Mental health disorder Social History Housing: House Patient Tobacco Use Status: Current everyday Tobacco user Cigarette Packs Per Day: 1 e-Cigarette/Vaping Use: Never Used Second Hand Smoke Exposure: Yes service: No Current occupational status: employed 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 Current occupational exposures/hazards: No Cognitive needs: No Hearing needs: No Vision needs: No Review of Systems Const All systems reviewed & are unremarkable except as noted in HPI and below Reports no additional complaints Eyes Reports no additional complaints ENT Reports no additional complaints Card Denies dyspnea Resp Denies cough and Denies dyspnea GI Reports no additional complaints Musc Reports no additional complaints Skin/Breast Denies rash and Denies unusual bruising Neuro Reports no additional complaints Psych Reports no additional complaints Endo Reports no additional complaints Ray/Lymph Reports no additional complaints Aller/Immun Reports no additional complaints Results AMB Urinalysis, Automated UA Leukoctes 0 Sabrina/uL Last Edit by Marycarmen Simon Bri on 11/26/22 13:22 UA Nitrite Negative Last Edit by Marycarmen Simon COUNTS INCLUDE 234 BEDS AT THE [facility] on 11/26/22 13:22 UA Urobilinogen 0.2 mg/dL Last Edit by Marycarmen Simon COUNTS INCLUDE 234 BEDS AT THE [facility] on 11/26/22 13:2 2 UA Protein 15 mg/dL Last Edit by Marycarmen Simon COUNTS INCLUDE 234 BEDS AT THE [facility] on 11/26/22 13:22 UA pH 6.0 Last Edit by Marycarmen Simon COUNTS INCLUDE 234 BEDS AT THE [facility] on 11/26/22 13:22 UA Blood 200 Balaji/uL Last Edit by Marycarmen Simon COUNTS INCLUDE 234 BEDS AT THE [facility] on 11/26/22 13:22 3+ Marycarmen Simon 11/26/22 13:22 UA Specific Guild 1.015 Last Edit by Marycarmen Simon COUNTS INCLUDE 234 BEDS AT THE [facility] on 11/26/22 13: 22 UA Ketone Negative Last Edit by Marycarmen Simon COUNTS INCLUDE 234 BEDS AT THE [facility] on 11/26/22 13:22 UA Bilirubin 0 mg/dL Last Edit by Marycarmen Simon COUNTS INCLUDE 234 BEDS AT THE [facility] on 11/26/22 13:22 UA Glucose 0 mg/dL Last Edit by Marycarmen Simon COUNTS INCLUDE 234 BEDS AT THE [facility] on 11/26/22 13:22 Results Reviewed Results Reviewed: Laboratory Last Values Urine pH (Auto) 6.0 11/26/22 13:21 Specific Guild (Auto) 1.015 11/26/22 13:21 Urine Protein (Auto) 15 mg/dL 11/26/22 13:21 Glucose (UA)(Auto) 0 mg/dL 11/26/22 13:21 Urine Ketones (Auto) Negative 11/26/22 13:21 Urine Blood (Auto) 200 Balaji/uL 11/26/22 13:21 Urine Nitrite (Auto) Negative 11/26/22 13:21 Urine Bilirubin (Auto) 0 mg/dL 11/26/22 13:21 Urine Urobilinogen (Auto) 0.2 mg/dL 11/26/22 13:21 Leukocyte Esterase (Auto) 0 Sabrina/uL 11/26/22 13:21 Date of Service: 10/06/22 EXAMINATION: US ABDOMEN COMPLETE CLINICAL INFORMATION:? Elevated liver enzymes. COMPARISON:? None available. FINDINGS: PANCREAS: Normal. ABDOMINAL AORTA: The abdominal aorta is normal caliber. There is mild atherosclerotic plaque seen within the distal abdominal aorta. INFERIOR VENA CAVA: Visualized portions are normal. LIVER: The liver is enlarged. The liver contour is normal. There is diffuse increased liver parenchymal echogenicity, consistent with hepatic steatosis.? 1.4 x 1.5 x 1.4 cm simple cyst is seen in the right lobe. No imaging follow-up of this finding is recommended. There is no intrahepatic biliary duct dilatation seen. GALLBLADDER: Normal. The gallbladder is physiologically distended without evidence of stones, sludge, polyps, wall thickening or pericholecystic fluid. COMMON BILE DUCT: Normal in caliber measuring 0.43 cm in diameter. RIGHT KIDNEY: Normal. No hydronephrosis. No renal calculi or focal parenchymal lesions. The kidney measures 12.1 cm in maximum dimension. LEFT KIDNEY: Normal. No hydronephrosis. No renal calculi or focal parenchymal lesions. The kidney measures 10.6 cm in maximum dimension. SPLEEN: Normal. The spleen measures 9.4 cm in maximum dimension.? FREE FLUID: None. IMPRESSION:? 1.? Hepatic steatosis. 2.? Mild atherosclerotic plaque is seen within the distal abdominal aorta. Date of service: 11/12/2022-- Diagnosis A: Left base lateral: Benign prostatic tissue; no malignancy identified. B: Left base medial: Atypical small acinar proliferation suspicious for prostatic adenocarcinoma, Angela score 3+3=6. C: Left mid lateral: Benign prostatic tissue; no malignancy identified. D: Left mid medial: Benign prostatic tissue; no malignancy identified. E: Left apex lateral: Benign prostatic tissue; no malignancy identified. F: Left apex medial: Benign prostatic tissue; no malignancy identified. G: Right base lateral: Benign prostatic tissue; no malignancy identified. H: Right base medial: Benign prostatic tissue; no malignancy identified. I: Right mid lateral: Benign prostatic tissue; no malignancy identified. J: Right mid medial: Benign prostatic tissue; no malignancy identified. K: Right apex lateral: Benign prostatic tissue; no malignancy identified. L: Right apex medial: Atypical small acinar proliferation suspicious for prostatic adenocarcinoma, Angela score 3+3=6. Clinical History Elevated PSA Microscopic Description A-L. Microscopic sections reviewed. PIN4 multiplex immunostains support the diagnoses in B and L. Material Received A: Left base lateral B: Left base medial C: Left mid lateral D: Left mid medial Assessment & Plan Assessment & Plan (1) Adenocarcinoma of prostate: Code(s): C61 - Malignant neoplasm of prostate (2) BPH (benign prostatic hyperplasia): Code(s): N40.0 - Benign prostatic hyperplasia without lower urinary tract symptoms Plan MRI of the prostate in 4 months, repeat PSA prior. Will send the prostate biopsy specimen to the Prolaris gene testing. I will call the patient once he gets the Prolaris gene testing results. Orders: Orders AMB Urinalysis Automated 11/26/22 Z13.9 - Encounter for screening, unspecified PSA,Total (Free>4and<10) 4 Months C61 - Malignant neoplasm of prostate, N40.0 - Benign prostatic hyperplasia without lower urinary tract symptoms MR pelvis wo/w con 4 Months C61 - Malignant neoplasm of prostate Patient Instructions: The patient had an opportunity to ask questions regarding treatment plan. All questions were answered. Imaging, Laboratory studies and physical exam results were discussed and reviewed in detail. No major barriers to understanding were identified. The patient expressed understanding and agreement with the above treatment plan.? ? ? The patient is aware they should contact our office by phone for worsening of their current condition or the appearance of new symptoms. Compliance is encouraged with any medications and followup testing that is ordered.? ? ? It is a privilege to be allowed the opportunity to participate in the urologic care of your patient. If you have any questions or concerns regarding treatment for the above conditions please do not hesitate to contact me. The office telephone contact is [phone].? ? ? This note is constructed in part using voice recognition software. While every effort has been made to ensure accuracy tank car repairer errors may have been included.? ? ? Yours sincerely,? ? ? Kristopher Reza MD? ? Coding Level of Care Code Est Pt Level 4 (90895) Diagnoses Adenocarcinoma of prostate C61 BPH (benign prostatic hyperplasia) N40.0 Time Spent (min) 29
== END 2022-11-26 12:33 | disposition home or self-care (01) ==
PROVIDERS: PCP Nurse Practitioner Family; Visit Provider Urology
DX: Z13.9 Encounter for screening, unspecified (principal)
CPT/HCPCS: 99214

== ENCOUNTER → 2022-11-26 11:51 | Outpatient (BNVA) | payer OTHER, SELFPAY | PROVIDERS: PCP Nurse Practitioner Family; Visit Provider Urology | DX: C61 Malignant neoplasm of prostate (principal); N40.0 Benign prostatic hyperplasia without lower urinary tract symptoms | CPT/HCPCS: 81003; 99212 ==

== ENCOUNTER 2022-12-03 16:10 | Outpatient (AMB) | payer OTHER, SELFPAY ==
--- NOTE | 2022-12-03 16:11 | A.OFFVIS_ITS ---
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 Has decreased drinking substantially and is no longer drinking daily Did however have 2 very serious life events occur---his father and he was told he has prostate cancer. He is reporting complete surprise with himself that he didn't dive into the bottle after both of those things Discussed leaning on family for support [facility] Surgical History Hx of prostate biopsy Family History Mother Substance use disorder Mental health disorder Father Substance use disorder Mental health disorder Maternal Aunt Substance use disorder Mental health disorder Paternal Uncle Substance use disorder Mental health disorder Paternal Aunt Substance use disorder Mental health disorder Maternal Uncle Substance use disorder Mental health disorder Brother Substance use disorder Mental health disorder Sister Substance use disorder Mental health disorder Social History Housing: House Patient Tobacco Use Status: Current everyday Tobacco user Cigarette Packs Per Day: 1 e-Cigarette/Vaping Use: Never Used Second Hand Smoke Exposure: Yes service: No Current occupational status: employed 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 Current occupational exposures/hazards: No Cognitive needs: No Hearing needs: No Vision needs: No Review of Systems Const Reports as per HPI and Reports no additional complaints Physical Exam Vital Signs: Last Vital Signs Pulse 64 12/03/22 16:17 BP 122/70 12/03/22 16:17 Pulse Ox 99 12/03/22 16:17 Oxygen Delivery Method Room Air 12/03/22 16:17 Const General: cooperative and no acute distress Nutritional Appearance: thin Orientation/consciousness: patient oriented x3 Neuro General: patient oriented x3 Psych Appearance: well kempt Mental Status: mental status grossly normal Speech and movement: Clear speech present Affect: normal affect Attitude: cooperative Thought process: Normal thought process present Thought content: Normal thought content present Insight: Fair insight present (Psych) Judgement: Good judgement present (Psych) Assessment & Plan Assessment & Plan (1) Alcohol use disorder, moderate, dependence: Code(s): F10.20 - Alcohol dependence, uncomplicated Plan: * continue nal;trexone * risk reduction discussion * follow up 2 weeks Coding Level of Care Code Est Pt Level 3 (91856) Diagnoses Alcohol use disorder, moderate, dependence F10.20
[2022-12-03 16:17] VITALS: BP 122/70; PULSE 64; O2SAT 99
== END 2022-12-03 16:42 | disposition home or self-care (01) ==
LOC: HO.HCC 16:10
PROVIDERS: PCP Nurse Practitioner Family; Visit Provider Nurse Practitioner Psychiatric/Mental Health
DX: F10.20 Alcohol dependence, uncomplicated (principal)
CPT/HCPCS: 99213

== ENCOUNTER → 2022-12-03 16:10 | Outpatient (BNVA) | payer OTHER, SELFPAY | PROVIDERS: PCP Nurse Practitioner Family; Visit Provider Nurse Practitioner Psychiatric/Mental Health | DX: F10.20 Alcohol dependence, uncomplicated (principal) | CPT/HCPCS: 99212 ==

== ENCOUNTER 2023-01-07 15:51 | Outpatient (AMB) | payer OTHER, SELFPAY ==
--- NOTE | 2023-01-07 15:52 | MHC.OFFVIS ---
Intake Vital Signs 01/07/23 15:56 BP 136/84 Blood Pressure Location Lt radial Position Sitting Pulse 91 Pulse Source Pulse Oximeter Pulse Oximetry (%) 97 Oxygen Delivery Method Room Air Intake Visit Reasons: MAT Visit Intake Note: the patient present for a mat visit Face Burler Required: No Allergies carisoprodol [From SOMA] Allergy (Unknown, Unverified 01/07/23 15:57) SYNCOPE Do you need a note to return to daycare/school/sports/work: No HPI MAT Visit HPI Details Pt presents for follow up for AUD. States past month has been ok for him, states he had a moment of clarity of this sucks States this happened after he attempted to take a shower in an all glass shower, states he had the realization that he could have fallen and seriously hurt himself. Reports he has not had a drink in over a week and is now taking his naltrexone every day. Reports he is sleeping better, and food tastes better. Discussed vivitrol with pt and provided education about it, pt going to think about it. [facility] Surgical History Hx of prostate biopsy Family History Mother Substance use disorder Mental health disorder Father Substance use disorder Mental health disorder Maternal Aunt Substance use disorder Mental health disorder Paternal Uncle Substance use disorder Mental health disorder Paternal Aunt Substance use disorder Mental health disorder Maternal Uncle Substance use disorder Mental health disorder Brother Substance use disorder Mental health disorder Sister Substance use disorder Mental health disorder Social History Housing: House Patient Tobacco Use Status: Current everyday Tobacco user Cigarette Packs Per Day: 1 e-Cigarette/Vaping Use: Never Used Second Hand Smoke Exposure: Yes service: No Current occupational status: employed 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 Current occupational exposures/hazards: No Cognitive needs: No Hearing needs: No Vision needs: No Review of Systems Const Reports as per HPI Physical Exam Vital Signs: Last Vital Signs Pulse 91 01/07/23 15:56 BP 136/84 01/07/23 15:56 Pulse Ox 97 01/07/23 15:56 Oxygen Delivery Method Room Air 10/20/23 15:56 Const General: cooperative, no acute distress and alert Nutritional Appearance: average body habitus Orientation/consciousness: patient oriented x3 Resp Effort & Inspection: normal respiratory effort Skin General skin exam: no rashes or lesions noted Neuro General: patient oriented x3 Psych Appearance: grossly normal Mental Status: mental status grossly normal Speech and movement: Normal speech and movement present and Clear speech present Affect: normal affect Attitude: cooperative Assessment & Plan Assessment & Plan (1) Alcohol use disorder, moderate, dependence: Code(s): F10.20 - Alcohol dependence, uncomplicated Plan: Continue taking naltrexone. Risk reduction discussed, discussed incorporating thiamine and folate into daily regimen. Follow up in 2 weeks. Plan reviewed with FRAN Mcdonald Coding Level of Care Code Est Pt Level 3 (93746) Diagnoses Alcohol use disorder, moderate, dependence F10.20
[2023-01-07 15:56] VITALS: BP 136/84; PULSE 91; O2SAT 97
== END 2023-01-07 16:27 | disposition home or self-care (01) ==
PROVIDERS: PCP Nurse Practitioner Family; Visit Provider Nurse Practitioner Psychiatric/Mental Health
DX: F10.20 Alcohol dependence, uncomplicated (principal)
CPT/HCPCS: 99213

== ENCOUNTER → 2023-01-07 15:51 | Outpatient (BNVA) | payer OTHER, SELFPAY | PROVIDERS: PCP Nurse Practitioner Family; Visit Provider Nurse Practitioner Psychiatric/Mental Health | DX: F10.20 Alcohol dependence, uncomplicated (principal) | CPT/HCPCS: 99212 ==

== ENCOUNTER 2023-02-04 16:04 | Outpatient (AMB) | payer OTHER, SELFPAY ==
[2023-02-04 16:13] VITALS: BP 126/82; PULSE 74; O2SAT 99
--- NOTE | 2023-02-04 16:13 | A.OFFVIS_ITS ---
Intake Vital Signs 02/04/23 16:13 BP 126/82 Blood Pressure Location Lt radial Position Sitting Pulse 74 Pulse Source Pulse Oximeter Pulse Oximetry (%) 99 Oxygen Delivery Method Room Air Intake Visit Reasons: MAT Visit Intake Note: the patient presents for a mat visit Maritime Officer Required: No Allergies carisoprodol [From SOMA] Allergy (Unknown, Unverified 02/04/23 16:14) SYNCOPE Do you need a note to return to daycare/school/sports/work: No HPI MAT Visit HPI Details Pt presents for AUD follow up and tx States he has thought this past month about getting the vivitrol shot and would like to move forward with getting it. He feels as though the naltrexone has been effective for him when he takes it, but has not been taking it consistently. He is desiring to get the shot to maintain a consistent level of the medication in his system. Denies side effects, reports his cravings have greatly decreased, says his desire is low and tolerance is low Expressing hope that the vivitrol will help continue the progress he is making. T/w reminded pt that the injection is not a magic bullet and it will take some work as well. [facility] Surgical History Hx of prostate biopsy Family History Mother Substance use disorder Mental health disorder Father Substance use disorder Mental health disorder Maternal Aunt Substance use disorder Mental health disorder Paternal Uncle Substance use disorder Mental health disorder Paternal Aunt Substance use disorder Mental health disorder Maternal Uncle Substance use disorder Mental health disorder Brother Substance use disorder Mental health disorder Sister Substance use disorder Mental health disorder Social History Housing: House Patient Tobacco Use Status: Current everyday Tobacco user Cigarette Packs Per Day: 1 e-Cigarette/Vaping Use: Never Used Second Hand Smoke Exposure: Yes service: No Current occupational status: employed 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 Current occupational exposures/hazards: No Cognitive needs: No Hearing needs: No Vision needs: No Review of Systems Const Reports as per HPI Physical Exam Vital Signs: Last Vital Signs Pulse 74 02/04/23 16:13 BP 126/82 11/17/23 16:13 Pulse Ox 99 02/04/23 16:13 Oxygen Delivery Method Room Air 02/04/23 16:13 Const General: cooperative, comfortable and no acute distress Resp Effort & Inspection: normal respiratory effort Skin General skin exam: no rashes or lesions noted Psych Appearance: grossly normal Mental Status: mental status grossly normal Affect: normal affect Assessment & Plan Assessment & Plan (1) Alcohol use disorder, moderate, dependence: Code(s): F10.20 - Alcohol dependence, uncomplicated Plan: Continue taking naltrexone, and office will contact pt when injection arrives to make an appointment. Risk reduction discussed with pt Medications: New naltrexone microspheres ER (Vivitrol) 380 mg IM Q4W 5 ea 0RF Coding Level of Care Code Est Pt Level 3 (97979) Diagnoses Alcohol use disorder, moderate, dependence F10.20
== END 2023-02-04 16:26 | disposition home or self-care (01) ==
PROVIDERS: PCP Nurse Practitioner Family; Visit Provider Nurse Practitioner Psychiatric/Mental Health
DX: F10.20 Alcohol dependence, uncomplicated (principal)
CPT/HCPCS: 99213

== ENCOUNTER → 2023-02-04 16:04 | Outpatient (BNVA) | payer OTHER, SELFPAY | PROVIDERS: PCP Nurse Practitioner Family; Visit Provider Nurse Practitioner Psychiatric/Mental Health | DX: F10.20 Alcohol dependence, uncomplicated (principal) | CPT/HCPCS: 99212 ==

== ENCOUNTER 2023-02-17 14:47 | Outpatient (AMB) | payer OTHER, SELFPAY ==
[2023-02-17 15:15] VITALS: BP 128/70; PULSE 85; O2SAT 97
--- NOTE | 2023-02-17 15:15 | MHC.AM.SUB ---
Intake Vital Signs 02/17/23 15:15 BP 128/70 Blood Pressure Location Lt brachial Position Sitting Pulse 85 Pulse Source Pulse Oximeter Pulse Oximetry (%) 97 Oxygen Delivery Method Room Air Intake Visit Reasons: Lina Inj Allergies carisoprodol [From SOMA] Allergy (Unknown, Unverified 02/23/23 13:09) SYNCOPE HPI Lina Inj HPI Details Pt presents for his first lina injection Has been tolerating the natrexone well Reports he had a few drinks over gi, but that was all. He states that he has all but lost interest in drinking. PFSH Surgical History Hx of prostate biopsy Family History Mother Substance use disorder Mental health disorder Father Substance use disorder Mental health disorder Maternal Aunt Substance use disorder Mental health disorder Paternal Uncle Substance use disorder Mental health disorder Paternal Aunt Substance use disorder Mental health disorder Maternal Uncle Substance use disorder Mental health disorder Brother Substance use disorder Mental health disorder Sister Substance use disorder Mental health disorder Social History Housing: House Patient Tobacco Use Status: Current everyday Tobacco user Cigarette Packs Per Day: 1 e-Cigarette/Vaping Use: Never Used Second Hand Smoke Exposure: Yes service: No Current occupational status: employed 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 Current occupational exposures/hazards: No Cognitive needs: No Hearing needs: No Vision needs: No Review of Systems Const Reports as per HPI Physical Exam Vital Signs: Last Vital Signs Pulse 85 02/17/23 15:15 BP 128/70 02/17/23 15:15 Pulse Ox 97 02/17/23 15:15 Oxygen Delivery Method Room Air 02/17/23 15:15 Const General: cooperative and no acute distress Nutritional Appearance: average body habitus Resp Effort & Inspection: normal respiratory effort Psych Appearance: grossly normal Mental Status: mental status grossly normal Speech and movement: Normal speech and movement present Affect: normal affect Office Meds Vivitrol 380 mg intramuscular suspension,extended release Performing Provider: Libia Mcdonald NP Performing Location: [facility] Administered by: Libia Mcdonald NP on 02/17/23 15:21 Dose Route Admin Location Dispensed Lot Number Expiration Date NDC Hydrological Technical Officer 380 mg IM RG 380 mg 2023-3015t 03/20/25 95089-883-70 [employer] Comments: Pt tolerated injection well, reviewed signs of infection, encouraged to call [facility] with questions or concerns. Assessment & Plan Assessment & Plan (1) Alcohol use disorder, moderate, dependence: Code(s): F10.20 - Alcohol dependence, uncomplicated Plan Tolerated injection Follow up in 4 weeks Orders: Orders AMB Naltrexone Injection Patient Supplied 02/17/23 F10.20 - Alcohol dependence, uncomplicated Coding Level of Care Code Est Pt Level 3 (96984) Diagnoses Alcohol use disorder, moderate, dependence F10.20
== END 2023-02-17 16:21 | disposition home or self-care (01) ==
PROVIDERS: PCP Nurse Practitioner Family; Visit Provider Nurse Practitioner Family
DX: F10.20 Alcohol dependence, uncomplicated (principal)
CPT/HCPCS: 99213

== ENCOUNTER → 2023-02-17 14:47 | Outpatient (BNVA) | payer OTHER, SELFPAY | PROVIDERS: PCP Nurse Practitioner Family; Visit Provider Nurse Practitioner Family | DX: F10.20 Alcohol dependence, uncomplicated (principal); F17.210 Nicotine dependence, cigarettes, uncomplicated; Z51.81 Encounter for therapeutic drug level monitoring; Z79.899 Other long term (current) drug therapy | CPT/HCPCS: 96372; 99212; J2315 ==

== ENCOUNTER 2023-02-23 13:02 | Outpatient (AMB) | payer OTHER, SELFPAY ==
--- NOTE | 2023-02-23 13:05 | MHC.OFFVIS ---
Intake Vital Signs 02/23/23 13:09 Height 6 ft 1 in Weight 165 lb 5.547 oz BMI 21.8 BP 97/64 Blood Pressure Location Lt brachial Position Sitting Respiration 71 H Intake Visit Reasons: re-discuss colonoscopy Intake Note: Ronald presents in the office as a follow up. CC: He has had so many appts that he is a little confused. He states that his PCP ordered blood work and was told he needs to have a colonoscopy. His urologist told him that he needed a biopsy - he had his prostate biopsy and just a little confused as to why he is here. Allergies carisoprodol [From SOMA] Allergy (Unknown, Unverified 02/23/23 13:09) SYNCOPE HPI re-discuss colonoscopy HPI Details LAST VISIT Screening for colon cancer Patient denies any family history of colorectal cancer. No melena, hematochezia, unintentional weight loss or ribbon like stools per patient will return in 3 months so we can discuss prep. Patient will be due to go for colorectal screening in March. Patient was encouraged to stop drinking as he will be due to go for colonoscopy and he will need to be sober. Recommended to see someone to help him stop drinking like addiction medicine or go to inpatient detox if unable quit drinking on his own. Elevated liver enzymes Patient reports that he drinks alcohol on a daily basis. Patient was encouraged to try to quit. Elevated liver enzymes. Lab work done yesterday. I will see patient in 3 months, sooner on as needed basis. Patient is agreeable to this plan and verbalizes understanding of instructions. He was given the opportunity to ask questions and all questions answered. TODAY'S VISIT Patient is here today for follow-up and to discuss going for colonoscopy. Patient reports that he started seeing Addiction Medicine where he is getting his Vivitrol injections. Patient reports that he has been feeling better. Has trying to stop drinking alcohol. Only has few naps a week. Patient has been seen by urologist and is scheduled in near future for MRI to evaluate his prostate. Patient might need to go for surgery. No family history colorectal cancer. Family history of prostate CA. Patient denies any melena, hematochezia, unintentional weight loss or ribbon like stools. Patient reports occasional dyspepsia without dysphagia or odynophagia. Patient denies any nausea or vomiting. No history of sleep apnea. Not on any anticoagulation medication. Denies any cardiac or respiratory symptoms. ? PFSH Surgical History Hx of prostate biopsy Family History Mother Substance use disorder Mental health disorder Father Substance use disorder Mental health disorder Maternal Aunt Substance use disorder Mental health disorder Paternal Uncle Substance use disorder Mental health disorder Paternal Aunt Substance use disorder Mental health disorder Maternal Uncle Substance use disorder Mental health disorder Brother Substance use disorder Mental health disorder Sister Substance use disorder Mental health disorder Social History Housing: House Patient Tobacco Use Status: Current everyday Tobacco user Cigarette Packs Per Day: 1 e-Cigarette/Vaping Use: Never Used Second Hand Smoke Exposure: Yes service: No Current occupational status: employed 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 Current occupational exposures/hazards: No Cognitive needs: No Hearing needs: No Vision needs: No Review of Systems Const Denies weight gain and Denies weight loss ENT Reports no additional complaints, Denies dysphagia and Denies odynophagia Card Reports no additional complaints Resp Reports no additional complaints GI Denies abdominal pain, Denies belching, Denies melena, Reports bloating, Denies change in bowel habits, Denies dysphagia, Denies excessive flatus, Denies dyspepsia, Denies heartburn, Denies diarrhea, Denies loose stools, Denies nausea, Denies odynophagia and Denies vomiting Reports difficulty urinating Musc Reports no additional complaints Neuro Reports no additional complaints Psych Reports no additional complaints Endo Reports no additional complaints Physical Exam Vital Signs: Last Vital Signs Resp 71 H 02/23/23 13:09 BP 97/64 02/23/23 13:09 BMI result Body Mass Index 21.8 Const General: healthy appearing, no acute distress and well developed Nutritional Appearance: well nourished Orientation/consciousness: patient oriented x3 HEENT Head: Yes normal to inspection, Yes normocephalic and Yes atraumatic Face and sinus: Yes normal facial exam Mouth: Normal oral and palatal mucosa present Throat: Yes posterior oropharynx normal, Yes tonsils normal and Yes uvula midline Eyes General: appearance normal, both eyes and all related structures Neck Neck: Yes normal visual inspection, Yes full ROM and Yes trachea midline Thyroid: Thyroid normal Resp Effort & Inspection: normal respiratory effort, able to speak in complete sentences, no tracheal deviation and symmetric chest movement Auscultation: clear to auscultation bilaterally Cardio Rate: regular rate GI Inspection: Yes normal to inspection and No distended Palpation (GI): Soft to palpation, not firm, nontender and No hepatosplenomegaly present Auscultation: normal bowel sounds General: Yes no CVA tenderness Back/Spine/Pelvis Back: no CVA tenderness Skin General skin exam: elasticity normal, turgor normal and dry skin Neuro General: patient oriented x3 Psych Appearance: grossly normal Mental Status: mental status grossly normal Speech and movement: Normal speech and movement present Affect: normal affect Attitude: cooperative Thought process: Normal thought process present Thought content: Normal thought content present Insight: Good insight present (Psych) Judgement: Good judgement present (Psych) Results Reviewed Results Reviewed: Laboratory Tests 10/19/22 08:18 GGT 79 H AST 76 H ALT 60 H Assessment & Plan Assessment & Plan (1) Screening for colon cancer: Code(s): Z12.11 - Encounter for screening for malignant neoplasm of colon (2) GERD (gastroesophageal reflux disease): Code(s): K21.9 - Gastro-esophageal reflux disease without esophagitis Qualifiers: Esophagitis presence: esophagitis presence not specified Qualified Code(s): K21.9 - Gastro-esophageal reflux disease without esophagitis (3) Alcohol use disorder, moderate, dependence: Code(s): F10.20 - Alcohol dependence, uncomplicated (4) Elevated liver enzymes: Code(s): R74.8 - Abnormal levels of other serum enzymes Plan Patient will be sent for upper endoscopy as well. To rule out esophagitis, gastritis, duodenitis, duodenal, gastric ulcers, Chaudhari's. Patient might need to be put on PPI. Currently he only has symptoms of acid reflux and dyspepsia occasionally. Encouraged to stop drinking. Continue with addiction medicine for Vivitrol injections. Will recheck his liver enzymes after the procedure. Patient was also encouraged to stay away from cocaine. He is aware that he will be tested before going for the procedure. Patient was encouraged to avoid dietary triggers. What to expect before during and after the procedure discussed with patient. He is agreeable to this plan and verbalizes understanding of instructions. Clear liquid diet and good bowel prep discussed with patient. He was given the opportunity to ask questions and all questions answered. Thank you for allowing me to participate in his care Medications: New polyethylene glycol 3350 (Miralax) As directed by gastroenterology department at [facility] 238 grams PO ONCE 238 grams 0RF Z12.11 - Encounter for screening for malignant neoplasm of colon bisacodyl (Dulcolax (bisacodyl)) take 4 tabs at noon the day before your colonoscopy 20 mg (4 x 5 mg) PO ONCE 4 tabs 0RF 1 day Z12.11 - Encounter for screening for malignant neoplasm of colon Coding Level of Care Code Est Pt Level 4 (57988) Diagnoses Screening for colon cancer Z12.11 Gastroesophageal reflux disease, unspecified whether esophagitis present K21.9 Esophagitis presence: esophagitis presence not specified Alcohol use disorder, moderate, dependence F10.20 Elevated liver enzymes R74.8 Time Spent (min) 45 Comment 25 minutes spent with patient and additional 10 minutes spent reviewing his records
[2023-02-23 13:09] VITALS: BP 97/64; RESP 71; BMI 21.8
== END 2023-02-23 13:45 | disposition home or self-care (01) ==
PROVIDERS: PCP Nurse Practitioner Family; Visit Provider Nurse Practitioner Family
DX: Z12.11 Encounter for screening for malignant neoplasm of colon (principal); K21.9 Gastro-esophageal reflux disease without esophagitis; F10.20 Alcohol dependence, uncomplicated; R74.8 Abnormal levels of other serum enzymes; Z01.818 Encounter for other preprocedural examination
CPT/HCPCS: 99214

== ENCOUNTER → 2023-02-23 13:02 | Outpatient (BNVA) | payer OTHER, SELFPAY | PROVIDERS: PCP Nurse Practitioner Family; Visit Provider Nurse Practitioner Family | DX: Z12.11 Encounter for screening for malignant neoplasm of colon (principal); K21.9 Gastro-esophageal reflux disease without esophagitis; R74.8 Abnormal levels of other serum enzymes; F10.20 Alcohol dependence, uncomplicated | CPT/HCPCS: 99212 ==

== ENCOUNTER 2023-03-17 16:00 | Outpatient (AMB) | payer OTHER, SELFPAY ==
--- NOTE | 2023-03-17 16:00 | AM.OFFVISNUR ---
Intake Vital Signs 03/17/23 16:06 BP 114/72 Blood Pressure Location Lt radial Position Sitting Pulse 76 Pulse Source Pulse Oximeter Pulse Oximetry (%) 98 Oxygen Delivery Method Room Air Intake Visit Reasons: Lina Inj Intake Note: The patient presents for a lina inj Sandblaster Stone Required: No Allergies carisoprodol [From [facility]] Allergy (Unknown, Unverified 03/17/23 16:08) SYNCOPE Do you need a note to return to daycare/school/sports/work: No Office Meds Vivitrol 380 mg intramuscular suspension,extended release Performing Provider: Libia Mdconald NP Performing Location: [facility] Administered by: Ofe Kirby RN on 03/17/23 16:36 Dose Route Admin Location Dispensed Lot Number Expiration Date [facility] Outside Sales Representative Insurance 380 mg IM LG 380 mg 2023-3020T 06/18/25 79201-695-20 [employer] Comments: Patient denies concerns about previous injection and tolerated injection well. Educated on signs and symptoms of infection, encouraged to call [facility] with any questions or concerns, Pt verbalized understanding. Coding Assessment & Plan Assessment & Plan Orders: Orders AMB Naltrexone Injection Patient Supplied Today F10.20 - Alcohol dependence, uncomplicated Medications: New folic acid 1 mg PO DAILY 30 tabs 3RF thiamine HCl (vitamin B1) 100 mg PO DAILY 30 tabs 3RF
[2023-03-17 16:06] VITALS: BP 114/72; PULSE 76; O2SAT 98
--- NOTE | 2023-03-17 16:39 | AM.OFFVISNUR ---
Intake Vital Signs 03/17/23 16:06 BP 114/72 Blood Pressure Location Lt radial Position Sitting Pulse 76 Pulse Source Pulse Oximeter Pulse Oximetry (%) 98 Oxygen Delivery Method Room Air Intake Visit Reasons: Lina Inj Allergies carisoprodol [From SOMA] Allergy (Unknown, Unverified 03/17/23 16:08) SYNCOPE Nursing Note Pt presented today for 4 week AUD follow-up and Vivitrol injection. Pt reports that he feels that the past month has been a breeze especially for being February. Pt has attended a couple of holiday parties and had a max of 2 drinks and reports that his last drink was 5 days ago. Pt states that he doesn't know if the injection is the reason but will continue with injections with the hope that it is. Pt educated on timing of the injections and vitamin supplements to take in conjunction with the injection (folic acid and vitamin B), which were called into the pharmacy and he will potato picker. Follow up appointment in 4 weeks. Office Meds Vivitrol 380 mg intramuscular suspension,extended release Performing Provider: Libia Mcdonald NP Performing Location: [facility] Administered by: Ofe Kirby RN on 03/17/23 16:36 Dose Route Admin Location Dispensed Lot Number Expiration Date [facility] Store Mgr 380 mg IM LG 380 mg 2023-3020T 06/18/25 [id number] [employer] Comments: Patient denies concerns about previous injection and tolerated injection well. Educated on signs and symptoms of infection, encouraged to call [facility] with any questions or concerns, Pt verbalized understanding. Coding Assessment & Plan Assessment & Plan Orders: Orders AMB Naltrexone Injection Patient Supplied Today F10.20 - Alcohol dependence, uncomplicated Medications: New folic acid 1 mg PO DAILY 30 tabs 3RF thiamine HCl (vitamin B1) 100 mg PO DAILY 30 tabs 3RF
== END 2023-03-17 16:39 | disposition home or self-care (01) ==
PROVIDERS: PCP Nurse Practitioner Family
DX: F10.20 Alcohol dependence, uncomplicated (principal)

== ENCOUNTER → 2023-03-17 16:00 | Outpatient (BNVA) | payer OTHER, SELFPAY | PROVIDERS: PCP Nurse Practitioner Family | DX: F10.20 Alcohol dependence, uncomplicated (principal); Z79.899 Other long term (current) drug therapy | CPT/HCPCS: 96372; J2315 ==

== ENCOUNTER 2023-04-19 15:57 | Outpatient (AMB) | payer OTHER, SELFPAY ==
--- NOTE | 2023-04-19 16:07 | A.OFFVISCC_ITS ---
Intake Vital Signs 04/19/23 16:12 BP 136/74 Blood Pressure Location Lt radial Position Sitting Pulse 70 Pulse Source Pulse Oximeter Pulse Oximetry (%) 98 Oxygen Delivery Method Room Air Intake Visit Reasons: diamante inj Intake Note: THE PATIENT PRESENTS FOR A DIAMANTE INJ Bisque Kiln Placer Required: No Allergies carisoprodol [From [facility]OMA] Allergy (Unknown, Unverified 04/19/23 16:08) SYNCOPE Do you need a note to return to daycare/school/sports/work: No HPI diamante inj HPI Details Patient presents for vivitrol injection He reports he has had a few beers over the past month, has only had 1-2 at any given time He expressed shame over this, and was reminded by t/w how far he has come He has no concerns related to the injection at this time [facility] Surgical History Hx of prostate biopsy Family History Mother Substance use disorder Mental health disorder Father Substance use disorder Mental health disorder Maternal Aunt Substance use disorder Mental health disorder Paternal Uncle Substance use disorder Mental health disorder Paternal Aunt Substance use disorder Mental health disorder Maternal Uncle Substance use disorder Mental health disorder Brother Substance use disorder Mental health disorder Sister Substance use disorder Mental health disorder Social History Housing: House Patient Tobacco Use Status: Current everyday Tobacco user Cigarette Packs Per Day: 1 e-Cigarette/Vaping Use: Never Used Second Hand Smoke Exposure: Yes service: No Current occupational status: employed 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 Current occupational exposures/hazards: No Cognitive needs: No Hearing needs: No Vision needs: No Review of Systems Const Reports as per HPI Physical Exam Vital Signs: Last Vital Signs Pulse 70 04/19/23 16:12 BP 136/74 04/19/23 16:12 Pulse Ox 98 04/19/23 16:12 Oxygen Delivery Method Room Air 04/19/23 16:12 Const General: cooperative and no acute distress Resp Effort & Inspection: normal respiratory effort Psych Appearance: grossly normal Mental Status: mental status grossly normal Speech and movement: Normal speech and movement present Affect: normal affect Attitude: cooperative Office Meds Vivitrol 380 mg intramuscular suspension,extended release Performing Provider: Libia Mcdonald NP Performing Location: [facility] Administered by: Libia Mcdonald NP on 04/19/23 16:30 Dose Route Admin Location Dispensed Lot Number Expiration Date NDC Supervising Editor News Reel 380 mg IM RG 380 mg 2023-3023T 06/18/25 [id number] [employer] Comments: Pt tolerated injection well. Reviewed signs and symptoms of infection with him, instructed him to call [facility] with any questions or concerns. Assessment & Plan Assessment & Plan (1) Alcohol use disorder, moderate, dependence: Code(s): F10.20 - Alcohol dependence, uncomplicated Plan -Tolerated injection well -Relapse prevention discussed -Follow up in 4 weeks Orders: Orders AMB Naltrexone Injection Patient Supplied 04/19/23 F10.20 - Alcohol dependence, uncomplicated Coding Level of Care Code Est Pt Level 3 (19728) Diagnoses Alcohol use disorder, moderate, dependence F10.20
[2023-04-19 16:12] VITALS: BP 136/74; PULSE 70; O2SAT 98
== END 2023-04-19 16:39 | disposition home or self-care (01) ==
PROVIDERS: PCP Nurse Practitioner Family
DX: F10.20 Alcohol dependence, uncomplicated (principal)
CPT/HCPCS: 99213

== ENCOUNTER → 2023-04-19 15:57 | Outpatient (BNVA) | payer OTHER, SELFPAY | PROVIDERS: PCP Nurse Practitioner Family | DX: F10.20 Alcohol dependence, uncomplicated (principal) | CPT/HCPCS: 96372; 99212; J2315 ==

== ENCOUNTER 2023-05-02 19:49 | Emergency (ER) | payer OTHER, SELFPAY ==
[2023-05-02 19:52] VITALS: BP 152/90; PULSE 87; RESP 18; TEMP 36.4; O2SAT 98; BMI 19.8
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
[2023-05-02] MEDS: cefuroxime axetiL 250 MG TABLET PO (20:10)
[2023-05-02] MEDS: Diphth,Pertus(ACell),Tet Adult 0.5 ML SYRINGE IM (20:10)
[2023-05-02] MEDS: Bacitracin Oint 0.9 GM PACKET 1 APPL TOPICAL (20:14)
--- NOTE | 2023-05-02 20:19 | PC.NURSE ---
hand cleaned up and placed in dressing, first dose antibiotic given in ED , discharged from triage room
== END 2023-05-02 20:20 | disposition home or self-care (01) ==
PROVIDERS: Emergency Provider Emergency Medicine Emergency Medical Services; PCP Nurse Practitioner Family
DX: S60.512A Abrasion of left hand, initial encounter (principal); T23.102A Burn of first degree of left hand, unspecified site, initial encounter; X08.8XXA Exposure to other specified smoke, fire and flames, initial encounter; Y92.9 Unspecified place or not applicable; Y99.8 Other external cause status; Z23 Encounter for immunization
CPT/HCPCS: 16025; 90471; 90715; 99282; 99284

== ENCOUNTER 2023-05-13 09:19 | Outpatient (AMB) | payer OTHER, SELFPAY ==
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
== END 2023-05-13 10:10 | disposition home or self-care (01) ==
PROVIDERS: PCP Nurse Practitioner Family; Visit Provider Urology
DX: C61 Malignant neoplasm of prostate (principal)
CPT/HCPCS: 99214

== ENCOUNTER → 2023-05-13 09:19 | Outpatient (BNVA) | payer OTHER, SELFPAY | PROVIDERS: PCP Nurse Practitioner Family; Visit Provider Urology | DX: C61 Malignant neoplasm of prostate (principal) | CPT/HCPCS: 81003; 99212 ==

== ENCOUNTER 2023-05-13 10:17 | Outpatient (REF) | payer OTHER, SELFPAY ==
[2023-05-13 14:16] LABS: PSA,Total (Free>4and<10) 2.09 ng/mL (0.00-4.00)
== END 2023-05-13 10:18 | disposition home or self-care (01) ==
LOC: HO.10HDL 10:17
PROVIDERS: Visit Provider Urology
DX: C61 Malignant neoplasm of prostate (principal)
CPT/HCPCS: 36415; 84153

== ENCOUNTER 2023-05-19 12:50 | Day surgery (SDC) | payer OTHER, SELFPAY ==
[2023-05-17 14:47] VITALS: BMI 21.8
--- NOTE | 2023-05-18 10:56 | P.CONAN_ITS ---
Documented by User: Ana Marinelli NP 05/18/23 10:56 HPI - Anesthesia Eval Consult details Narrative: 43yo M for Upper Endoscopy and Colonoscopy Naltrexone injection for ETOH use disorder. Last injection 04/19/23 [facility] Active Problems Active Problems: All Active Problems (Updated 05/17/23 @ 14:48 by Pina Muñoz, BEN) Adenocarcinoma of prostate (Acute) Alcohol use disorder, moderate, dependence (Acute) History of prostatitis (Acute) BPH (benign prostatic hyperplasia) (Acute) Elevated PSA (Acute) Elevated bilirubin (Acute) Elevated liver enzymes (Acute) Alcohol abuse (Acute) Screening for colon cancer (Acute) Physical exam (Acute) COVID-19 (Acute) Family history of prostate cancer (Acute) Past Medical History Medical History Tobacco dependence Alcohol dependence BPH (benign prostatic hyperplasia) Family History Family History Mother Substance use disorder Mental health disorder Father Substance use disorder Mental health disorder Maternal Aunt Substance use disorder Mental health disorder Paternal Uncle Substance use disorder Mental health disorder Paternal Aunt Substance use disorder Mental health disorder Maternal Uncle Substance use disorder Mental health disorder Brother Substance use disorder Mental health disorder Sister Substance use disorder Mental health disorder Surgical History Surgical History Hx of prostate biopsy Social History Social History Housing: House Patient Tobacco Use Status: Current everyday Tobacco user Cigarette Packs Per Day: 1 Cigarettes Per Day: 20.0 e-Cigarette/Vaping Use: Never Used Second Hand Smoke Exposure: Yes Use of substances other than those prescribed or required for medical reasons: Yes Are you DNR?: No Advance Directives: No Advance Directives Information Provided: Yes service: No Current occupational status: employed 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 Last injection 04/19/23 [facility] Active Problems Active Problems: All Active Problems (Updated 05/19/23 @ 13:36 by Ingrid Whitt MD) Adenocarcinoma of prostate (Acute) Alcohol use disorder, moderate, dependence (Acute) History of prostatitis (Acute) BPH (benign prostatic hyperplasia) (Acute) Elevated PSA (Acute) Elevated bilirubin (Acute) Elevated liver enzymes (Acute) Alcohol abuse (Acute). On naltrexone Screening for colon cancer (Acute) Physical exam (Acute) COVID-19 (Acute) Family history of prostate cancer (Acute) Past Medical History Medical History Tobacco dependence Alcohol dependence BPH (benign prostatic hyperplasia) Family History Family History Mother Substance use disorder Mental health disorder Father Substance use disorder Mental health disorder Maternal Aunt Substance use disorder Mental health disorder Paternal Uncle Substance use disorder Mental health disorder Paternal Aunt Substance use disorder Mental health disorder Maternal Uncle Substance use disorder Mental health disorder Brother Substance use disorder Mental health disorder Sister Substance use disorder Mental health disorder Family history of problems with anesthesia: No Surgical History Surgical History Hx of prostate biopsy History of Problems with Anesthesia: No (Never had general anesthesia. 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 Current occupational exposures/hazards: No Cognitive needs: No Hearing needs: No Vision needs: No Meds Allergies Allergy/AdvReac Type Severity Reaction Status Date / Time carisoprodol [From SOMA] Allergy Unknown SYNCOPE Verified 05/19/23 13:15 Exam Height,Weight and Vital Signs: Height 6 ft 1 in Weight 74.843 kg Vital Signs Temp Pulse Resp BP Pulse Ox O2 Del Method 05/19/23 13:42 99.0 F 85 16 144/85 H 100 Room Air Airway Mallampati Class: II TM Dist: >3cm Neck ROM: Full Heart: RRR Lungs: CTAB Assessment and Plan Assessment Anesthesia Assessment: Anesthesia Plan Discussed and Chart Reviewed Final Anesthetic Review Family History of Problems with Anesthesia: No History of Problems with Anesthesia: No (Never had general anesthesia. Just local.) NPO: Yes ASA Class: III Final Preanesthetic Review: No Changes in Pt Med Stat, Meds/Allgs Chart Reviewed, Consent Obtained/Reviewed and Anes Risks/Benef Reviewed Patient Risk: Intermediate Procedure Risk: Low Assessment/Block/Sedation in SS: Assess/Block/Sedation-SS Anesthetic Plan Anesthetic Plan: MAC: and TIVA Disposition: Standard PACU
[2023-05-19 13:41] VITALS: BMI 20.4
[2023-05-19 13:42] VITALS: BP 144/85; PULSE 85; RESP 16; TEMP 37.2; O2SAT 100
--- NOTE | 2023-05-19 13:48 | MHC.SHP ---
Pre-Procedural Eval Section A - 24 Hr Update-Section A only Date of Service: 05/19/23 Section B - Complete if H&P > 30 days Chief Complaint: Encounter for screening for malignant neoplasm of Details of Present Illness: gerd and screening Relevant Family History (Specify if Yes): Yes Relevant Social History: Tobacco Use (alcohol use and smoker ) Present Medications: see Short Stay Collaborative assessment Medical History: Significant History (Tobacco dependence Alcohol dependence BPH (benign prostatic hyperplasia)) History of Previous Operations: Relevant previous surgery/procedure and date(s) (Hx of prostate biopsy) Allergies: Allergies Allergy/AdvReac Type Severity Reaction Status Date / Time carisoprodol [From SOMA] Allergy Unknown SYNCOPE Verified 05/19/23 13:15 Review of Systems Sugical H&P ROS: Negative: Constitution, Cardiovascular, Respiratory, Neurological, Psychiatric, Hem-Onc, Allergic/Immunologic, Gastrointestinal, Genitourinary, Musculoskeletal, Integumentary, Endocrine and Eyes/Ears/Nose/Throat Exam Surgical H&P Exam: Normal: HEENT, Normal: Heart, Normal: Lungs, Normal: Extremities, Normal: Abdomen, Normal: Skin and Normal: Neurological Plan Diagnosis/Plan: Unchanged I have reviewed the history and physical and performed a pertinent physical examination on my patient. No changes have occurred unless specified. EGD for GERD Time Spent With Patient Time: Total time managing care of this patient today ____ minutes.
[2023-05-19] MEDS: Lactated Ringers 1,000 ML 100 ML IVCONT (14:03)
--- NOTE | 2023-05-19 14:24 | P.OP_ITS ---
Operative Note Operative Note Date of Service: 05/19/23 Narrative: Operative Information Procedure Description: EGD, Colonoscopy Indication: GERD< screening Anesthesia: MAC FLEXIBLE TRANSORAL UPPER GASTROINTESTINAL ENDOSCOPY AND COLONOSCOPY PROCEDURE NOTE UPPER ENDOSCOPY Consent: Indications for the procedure and potential complications of bleeding, perforation, reaction to medications and missed diagnosis were discussed with the patient and informed consent was obtained. Instrument: Olympus GIF H 190 J mid size upper endoscope Monitoring: Vital signs and clinical assessment, continuous EKG monitoring, Pulse oximetry, Carbon Dioxide monitoring and blood pressure monitoring were done throughout the procedure. Procedure: The patient was placed in the left lateral decubitis position and pre-procedure medications were administered and a bite block was placed. The endoscope was inserted into the mouth and advanced under direct vision to the third part of duodenum. A careful inspection was made as the upper endoscope was withdrawn including a retroflexed examination of the proximal stomach; Findings and interventions are described below. Findings: Larynx:normal Esophagus: GE junction at 44 cm, diaphragm hiatus at 47 cm, normal mucosa, 3 cm sliding hiatal hernia noted Stomach: Mild gastritis. Grade 3 flap valve on retroflexed examination of the cardia. Duodenum: Normal bulb and descending duodenum, Intervention: none COLONOSCOPY Instrument: Olympus variable stiffness pediatric scope 190L Colonoscopy Monitoring: Vital signs and clinical assessment, continuous EKG monitoring, Pulse oximetry, Carbon Dioxide monitoring and blood pressure monitoring were done throughout the procedure. Colon withdrawal time was 30 minutes. Procedure: The patient was placed in the left lateral decubitis position and pre-procedure medications were administered. After a digital rectal examination of the ano-rectum, the video colonoscope was inserted into the rectum and advanced through the colon to the cecum/TI. The colonoscope was slowly withdrawn in a retrograde panoramic fashion and the colon mucosa was carefully examined including a retroflexed view of the rectum. Findings and interventions are described below. Procedure Difficulty:moderate Findings: Terminal Ileum-normal Cecum: x 2 sessile polyps 8-9 mm removed with cold snare Ascending Colon: x2 sessile polyps 10 mm removed with cold snare Transverse Colon -normal Descending Colon:normal Sigmoid Colon: mild diverticulosis, 10 mm semi peducnulated polyp injected with 1 cc of epinephrine and removed with cold snare Rectum: Retroflexion with medium sized internal hemorrhoids, grade I, proximal pedunculated polyp 15-18 mm removed with hot snare with x 2 clips applied to base of stalk Anorectum - normal Colon preparation: [place] Bowel Preparation Scale Right colon; 2 Transverse colon: 2 Left colon; 2 (0 = Unprepared colon segment with mucosa not seen due to solid stool that cannot be cleared. 1 = Portion of mucosa of the colon segment seen, but other areas of the colon segment not well seen due to staining, residual stool and/or opaque liquid. 2 = Minor amount of residual staining, small fragments of stool and/or opaque liquid, but mucosa of colon segment seen well. 3 = Entire mucosa of colon segment seen well with no residual staining, small fragments of stool or opaque liquid) Impression and Post Procedure Diagnosis: Endoscopy Findings: hiatal hernia mild gastritis Colonoscopy Findings: diverticulosis colon polyps internal hemorrhoids Plan: Await Pathology results Repeat Colonoscopy in 6 months due to large polyp or earlier if clinically indicated High fiber diet leaflet avoid straining at stool, epsom salts and sitz bath, anusol supps or cream reflux precautions Above findings were reviewed with the patient and relevant handouts were provided if indicated.
[2023-05-19 15:30] VITALS: BP 108/69; PULSE 74; RESP 16; TEMP 36.4; O2SAT 99
[2023-05-19 15:45] VITALS: BP 127/82; PULSE 64; RESP 16; O2SAT 99
[2023-05-19 16:00] VITALS: BP 137/88; PULSE 58; RESP 16; TEMP 36.1; O2SAT 99
[2023-05-19 16:12] VITALS: BP 136/90; PULSE 53; RESP 16; TEMP 36.1; O2SAT 99
== END 2023-05-19 16:23 | disposition home or self-care (01) ==
PROVIDERS: PCP Nurse Practitioner Family; Visit Provider Internal Medicine Gastroenterology
PROC: (CPT 43235; principal; 2023-05-19 15:00)
DX: K29.60 Other gastritis without bleeding (principal); K44.9 Diaphragmatic hernia without obstruction or gangrene; K21.9 Gastro-esophageal reflux disease without esophagitis; Z12.11 Encounter for screening for malignant neoplasm of colon; D12.0 Benign neoplasm of cecum; D12.4 Benign neoplasm of descending colon; D12.5 Benign neoplasm of sigmoid colon; D12.8 Benign neoplasm of rectum; K57.30 Diverticulosis of large intestine without perforation or abscess without bleeding; K64.0 First degree hemorrhoids; C61 Malignant neoplasm of prostate; R74.8 Abnormal levels of other serum enzymes; F10.20 Alcohol dependence, uncomplicated; F17.210 Nicotine dependence, cigarettes, uncomplicated
CPT/HCPCS: 43235; 45385; 45381; 88305; J0171; J1596; J2250; J2704

== ENCOUNTER → 2023-05-19 12:50 | Outpatient (BNV) | payer OTHER, SELFPAY | PROVIDERS: PCP Nurse Practitioner Family; Visit Provider Internal Medicine Gastroenterology | DX: K44.9 Diaphragmatic hernia without obstruction or gangrene (principal); K29.70 Gastritis, unspecified, without bleeding; Z12.11 Encounter for screening for malignant neoplasm of colon; K63.5 Polyp of colon; K57.90 Diverticulosis of intestine, part unspecified, without perforation or abscess without bleeding; K64.8 Other hemorrhoids | CPT/HCPCS: 43235; 45381; 45385 ==

== ENCOUNTER 2023-06-29 14:58 | Outpatient (AMB) | payer OTHER, SELFPAY ==
[2023-06-29 15:02] VITALS: BP 113/69; PULSE 64; BMI 22.3
--- NOTE | 2023-06-29 15:02 | A.OFFVIS_ITS ---
Intake Vital Signs 06/29/23 15:02 Height 6 ft 1 in Weight 169 lb 5.04 oz BMI 22.3 BP 113/69 Blood Pressure Location Lt brachial Position Sitting Pulse 64 Intake Visit Reasons: s/p egd/colon Intake Note: Patient returns in follow up s/p EGD and colonoscopy on 05/19/[address] Juan. CC: Patient reports a lot of gas after procedure but states other than that he has been doing well. Denies any new GI concerns today. 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 To rule out esophagitis, gastritis, duodenitis, duodenal, gastric ulcers, Chaudhari's. Patient might need to be put on PPI. Currently he only has symptoms of acid reflux and dyspepsia occasionally. Encouraged to stop drinking. Continue with addiction medicine for Vivitrol injections. Will recheck his liver enzymes after the procedure. Patient was also encouraged to stay away from cocaine. He is aware that he will be tested before going for the procedure. Patient was encouraged to avoid dietary triggers. What to expect before during and after the procedure discussed with patient. He is agreeable to this plan and verbalizes understanding of instru ctions. Clear liquid diet and good bowel prep discussed with patient. He was given the opportunity to ask questions and all questions answered. ? Thank you for allowing me to participate in his care Medications New polyethylene glycol 3350 (Miralax) As directed by gastroenterology department at [facility] 238 grams PO ONCE 238 grams 0RF Z12.11 bisacodyl (Dulcolax (bisacodyl)) take 4 tabs at noon the day before your colonoscopy 20 mg (4 x 5 mg) PO ONCE 4 tabs 0RF 1 da y Z12.11 UPPER ENDOSCOPY AND COLONOSCOPY Findings: Larynx:normal Esophagus: GE junction at 44 cm, diaphragm hiatus at 47 cm, normal mucosa, 3 cm sliding hiatal hernia noted Stomach: Mild gastritis. Grade 3 flap valve on retroflexed examination of the cardia. Duodenum: Normal bulb and descending duodenum, Intervention: none COLONOSCOPY Instrument: Olympus variable stiffness pediatric scope 190L Colonoscopy Monitoring: Vital signs and clinical assessment, continuous EKG monitoring, Pulse oximetry, Carbon Dioxide monitoring and blood pressure monitoring were done throughout the procedure. Colon withdrawal time was 30 minutes. Procedure: The patient was placed in the left lateral decubitis position and pre-procedure medications were administered. After a digital rectal examination of the ano-rectum, the video colonoscope was inserted into the rectum and advanced through the colon to the cecum/TI. The colonoscope was slowly withdrawn in a retrograde panoramic fashion and the colon mucosa was carefully examined including a retroflexed view of the rectum. Findings and interventions are described below. Procedure Difficulty:moderate Findings: Terminal Ileum-normal Cecum: x 2 sessile polyps 8-9 mm removed with cold snare Ascending Colon: x2 sessile polyps 10 mm removed with cold snare Transverse Colon -normal Descending Colon:normal Sigmoid Colon: mild diverticulosis, 10 mm semi peducnulated polyp injected with 1 cc of epinephrine and removed with cold snare Rectum: Retroflexion with medium sized internal hemorrhoids, grade I, proximal pedunculated polyp 15-18 mm removed with hot snare with x 2 clips applied to base of stalk Anorectum - normal Colon preparation: [place] Bowel Preparation Scale Right colon; 2 Transverse colon: 2 Left colon; 2 (0 = Unprepared colon segment with mucos a not seen due to solid stool that cannot be cleared. 1 = Portion of mucosa of the colon segme nt seen, but other areas of the colon segment not well seen due to staining, residual stool and/or opaque liquid. 2 = Minor amount of residual staining, s mall fragments of stool and/or opaque liquid, but mucosa of colon segment seen well. 3 = Entire mucosa of colon segment seen well with no residual staining, small fragments of stool or opaque liquid) Impression and Post Procedure Diagnosis: Endoscopy Findings: hiatal hernia mild gastritis Colonoscopy Findings: diverticulosis colon polyps internal hemorrhoids Plan: Await Pathology results Repeat Colonoscopy in 6 months due to large polyp or earlier if clinically indicated High fiber diet leaflet avoid straining at stool, epsom salts and sitz bath, anusol supps or cream reflux precautions PATHOLOGY RESULTS Diagnosis A. Colon, cecal polyp: Tubular adenoma; negative for high-grade dysplasia and carcinoma. B. Colon, descending, polyps: Tubular adenomas (multiple pieces); negative for high-grade dysplasia and carcinoma. C. Colon, sigmoid, polyps: Tubular adenomas with serrated features (2 pieces); negative for high-grade dysplasia and carcinoma. D. Colon, rectal polyp: Tubular adenoma with hemorrhage, hyperplastic epithelium, and features of mucosal prolapse, completely excised; negative for high-grade dysplasia and carc inoma TODAY'S VISIT Patient is here today for follow-up and to discuss colonoscopy and upper endoscopy results. Patient denies any ill effects from the prep, anesthesia or procedure itself. Reports to be feeling well. Upper endoscopy and colonoscopy discussed with patient. Mild gastritis found and 3 cm sliding hiatal hernia. Patient reports occasional dyspepsia without dysphagia or odynophagia. Occasional epigastric burning. Not on any PPI or H2 helen currently. History of alcohol dependence. Currently patient reports that he is drinking alcohol. History of smoking and current tobacco use. Five tubular adenomas found 1 large in the rectum without high-grade dysplasia or carcinoma. Recommendation was made for patient to return for colonoscopy in 6 months to re-evaluate the polypectomy sites. Patient denies any melena, hematochezia, unintentional weight loss or ribbon like stools. Denies any abdominal pain or discomfort. [facility], [facility] Medical History (Updated 06/29/23 @ 15:32 by Jannet Moon, [facility]-) Sliding hiatal hernia Tubular adenoma of colon Tobacco dependence Alcohol dependence BPH (benign prostatic hyperplasia) Surgical History (Updated 06/29/23 @ 15:07 by WINSOME Moreira) History of esophagogastroduodenoscopy (EGD) H/O colonoscopy Hx of prostate biopsy Family History Mother Substance use disorder Mental health disorder Father Substance use disorder Mental health disorder Maternal Aunt Substance use disorder Mental health disorder Paternal Uncle Substance use disorder Mental health disorder Paternal Aunt Substance use disorder Mental health disorder Maternal Uncle Substance use disorder Mental health disorder Brother Substance use disorder Mental health disorder Sister Substance use disorder Mental health disorder Social History (Reviewed 06/29/23 @ 15:04 by HOLLIE Moreira Housing: House Patient Tobacco Use Status: Current everyday Tobacco user Cigarette Packs Per Day: 1 Cigarettes Per Day: 20.0 e-Cigarette/Vaping Use: Never Used Second Hand Smoke Exposure: Yes service: No Current occupational status: employed 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 Current occupational exposures/hazards: No Cognitive needs: No Hearing needs: No Vision needs: No Review of Systems Const Denies weight gain and Denies weight loss ENT Reports no additional complaints, Denies dysphagia and Denies odynophagia Card Reports no additional complaints Resp Reports no additional complaints GI Denies abdominal pain, Denies belching, Denies melena, Denies bloating, Denies change in bowel habits, Denies dysphagia, Denies excessive flatus, Denies dyspepsia, Denies heartburn, Denies diarrhea, Denies loose stools, Denies nausea, Denies odynophagia and Denies vomiting Reports no additional complaints Musc Reports no additional complaints Neuro Reports no additional complaints Psych Reports no additional complaints Endo Reports no additional complaints Physical Exam Vital Signs: BMI result Body Mass Index 22.3 Const General: healthy appearing, no acute distress and well developed Nutritional Appearance: well nourished Orientation/consciousness: patient oriented x3 Resp Effort & Inspection: normal respiratory effort, able to speak in complete sentences, no tracheal deviation and symmetric chest movement Auscultation: clear to auscultation bilaterally Cardio Rate: regular rate GI Inspection: Yes normal to inspection and No distended Palpation (GI): Soft to palpation, not firm, nontender and No hepatosplenomegaly present Auscultation: normal bowel sounds General: Yes no CVA tenderness Back/Spine/Pelvis Back: no CVA tenderness Skin General skin exam: elasticity normal, turgor normal and dry skin Neuro General: patient oriented x3 Psych Appearance: grossly normal Mental Status: mental status grossly normal Assessment & Plan Assessment & Plan (1) Tubular adenoma of colon: Code(s): D12.6 - Benign neoplasm of colon, unspecified (2) Sliding hiatal hernia: Code(s): K44.9 - Diaphragmatic hernia without obstruction or gangrene (3) GERD (gastroesophageal reflux disease): Code(s): K21.9 - Gastro-esophageal reflux disease without esophagitis (4) Status post colonoscopy: Code(s): Z98.890 - Other specified postprocedural states Plan Moderate-sized tubular adenoma in the rectum, 2 clips placed, 5 more tubular adenomas found 2 in ascending colon and 2 in the cecum. No high-grade dysplasia or carcinoma found. Recommendation was made to repeat colonoscopy in 6 months for surveillance. Mild gastritis found, will start patient on omeprazole in the morning and famotidine at bedtime. Currently patient does not have symptoms daily, however occasional. Patient had no issues with prep. What to expect before during and after procedure discussed with patient. Stressed the importance of good bowel prep and clear liquid diet. I will see patient after the procedure, sooner on as needed basis. Patient is agreeable to this plan and verbalizes understanding of instructions. He was given the opportunity to ask questions all questions answered. Thank you for allowing me to participate in his care Medications: New famotidine (Pepcid) 20 mg PO BEDTIME 30 tabs 3RF K21.9 - Gastro-esophageal reflux disease without esophagitis omeprazole 20 mg PO DAILY 30 caps 3RF K21.9 - Gastro-esophageal reflux disease without esophagitis bisacodyl (Dulcolax (bisacodyl)) take 4 tabs at noon the day before your colonoscopy 20 mg (4 x 5 mg) PO ONCE 1 day 4 tabs 0RF Z12.11 - Encounter for screening for malignant neoplasm of colon polyethylene glycol 3350 (Miralax) As directed by gastroenterology department at [facility] 238 grams PO ONCE 238 grams 0RF Z12.11 - Encounter for screening for malignant neoplasm of colon Coding Level of Care Code Est Pt Level 3 (25763) Diagnoses Tubular adenoma of colon D12.6 Sliding hiatal hernia K44.9 GERD (gastroesophageal reflux disease) K21.9 Status post colonoscopy Z98.890 Time Spent (min) 25 Comment 15 minutes spent with patient and additional 10 minutes spent reviewing his records
== END 2023-06-29 15:34 | disposition home or self-care (01) ==
PROVIDERS: PCP Nurse Practitioner Family; Visit Provider Nurse Practitioner Family
DX: D12.6 Benign neoplasm of colon, unspecified (principal); K44.9 Diaphragmatic hernia without obstruction or gangrene; K21.9 Gastro-esophageal reflux disease without esophagitis; Z98.890 Other specified postprocedural states
CPT/HCPCS: 99213

== ENCOUNTER → 2023-06-29 14:58 | Outpatient (BNVA) | payer OTHER, SELFPAY | PROVIDERS: PCP Nurse Practitioner Family; Visit Provider Nurse Practitioner Family | DX: D12.6 Benign neoplasm of colon, unspecified (principal); K44.9 Diaphragmatic hernia without obstruction or gangrene; K21.9 Gastro-esophageal reflux disease without esophagitis; Z98.890 Other specified postprocedural states | CPT/HCPCS: 99212 ==

== ENCOUNTER 2023-09-06 14:55 | Outpatient (AMB) | payer OTHER, SELFPAY ==
[2023-09-06 15:03] VITALS: BP 120/80; PULSE 68; O2SAT 97; BMI 20.6
--- NOTE | 2023-09-06 15:03 | MHC.PC.OV ---
Vital Signs 09/06/23 15:03 Height 6 ft 1 in Weight 156 lb BMI 20.6 BP 120/80 Blood Pressure Location Rt brachial Position Sitting Pulse 68 Pulse Source Pulse Oximeter Pulse Oximetry (%) 97 Oxygen Delivery Method Room Air Intake Visit Reasons: Annual PE- NEEDS PHQ9 Intake Note: Patient here for physical exam. Colon: 2023 Allergies carisoprodol [From SOMA] Allergy (Unknown, Verified 09/06/23 15:14) SYNCOPE Medication List - Last Reconciled 09/06/23 by ALEXSANDRA Kapoor bisacodyl (Dulcolax (bisacodyl)) 20 mg (4 x 5 mg) PO ONCE 1 day famotidine (Pepcid) 20 mg PO BEDTIME fluticasone propionate 50 mcg/actuation (Allergy Relief (fluticasone)) 1 spray intranasal BID folic acid 1 mg PO DAILY naltrexone microspheres ER (Vivitrol) 380 mg IM Q4W omeprazole 20 mg PO DAILY polyethylene glycol 3350 (Miralax) 238 grams PO ONCE thiamine HCl (vitamin B1) 100 mg PO DAILY Tobacco use date assessed: 09/06/23 Dental Screening Dental Screen Date: 09/06/23 Did you have a dental visit in the last 12 months?: No Did you have a dental problem in the last 6 months where you did not have access to dental care?: No Was dental information given to patient?: No HPI Annual PE- NEEDS PHQ9 HPI Details Pt is here for a PE. Will order labs. Colon screen is scheduled. Pt follows up with urology. Pt reports dermatitis to his upper mid back. Will send betamethasone. 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 abuse) [facility] Medical History Sliding hiatal hernia Tubular adenoma of colon Tobacco dependence Alcohol dependence BPH (benign prostatic hyperplasia) Surgical History History of esophagogastroduodenoscopy (EGD) H/O colonoscopy Hx of prostate biopsy Family History Mother Substance use disorder Mental health disorder Father Substance use disorder Mental health disorder Maternal Aunt Substance use disorder Mental health disorder Paternal Uncle Substance use disorder Mental health disorder Paternal Aunt Substance use disorder Mental health disorder Maternal Uncle Substance use disorder Mental health disorder Brother Substance use disorder Mental health disorder Sister Substance use disorder Mental health disorder Social History Housing: House Patient Tobacco Use Status: Current everyday Tobacco user Cigarette Packs Per Day: 1 Cigarettes Per Day: 20.0 e-Cigarette/Vaping Use: Never Used Second Hand Smoke Exposure: Yes service: No Current occupational status: employed 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 60794 - PHQ-9 Billing: Patient declined-do not bill Source: Developed by Drs. Gary Flores, Steph Marc, Robert Solis and colleagues, with an educational jennie from [employer]. Thrive Questionnaire Date Thrive assessed: 09/01/22 AUDIT C Alcohol Use Questionnaire (AUDIT-C) 1. How often do you have a drink containing alcohol?: Never 3. How often do you have six or more drinks on one occasion?: Never Total Score: 0 Score Reviewed/Action Taken: No ADAIR-7 AMB Questionnaire ADAIR-7 Date ADAIR - 7 assessed: 09/01/22 Source: Developed by Drs. Gary Flores, Steph Marc, Robert Solis and colleagues, with an educational jennie from [employer]. ADAIR-7 Assessment Billing ADAIR-7 Assessment Tool: pt declined-do not bill Review of Systems Const Denies chills and Denies fever(s) Eyes Denies blurry vision ENT Denies vertigo, Denies dizziness and Denies sore throat Card Denies chest pain at rest, Denies chest pain with activity, Denies diaphoresis, Denies dyspnea and Denies dyspnea on exertion Resp Denies cough, Denies dyspnea, Denies dyspnea on exertion and Denies wheezing GI Denies abdominal pain, Denies melena, Denies hematochezia, Denies constipation, Denies diarrhea and Denies loose stools Denies hematuria Musc Denies numbness and Denies tingling Skin/Breast Denies lesions Neuro Denies vertigo, Denies dizziness, Denies numbness and Denies tingling Psych Denies anxiety, Denies depression, Denies homicidal ideation, Denies suicidal ideation and Denies other (substance abuse) Aller/Immun Denies wheezing Physical exam (Primary Care) Vital Signs: Last Vital Signs Pulse 68 09/06/23 15:03 BP 120/80 09/06/23 15:03 Pulse Ox 97 09/06/23 15:03 Oxygen Delivery Method Room Air 09/06/23 15:03 BMI result Body Mass Index 20.6 Tobacco/Smoking Status: Tobacco use Status Tobacco use date assessed 09/06/23 09/06/23 15:06 Patient Tobacco Use Status Current everyday Tobacco 09/06/23 15:03 e-Cigarette/Vaping Use Never Used 09/06/23 15:03 Thrive Assessment: Date of Thrive Assessment Date Thrive assessed 09/01/22 09/06/23 15:03 Const General: cooperative Nutritional Appearance: well nourished Orientation/consciousness: patient oriented x3 HENMT Head: Yes normal to inspection, Yes normocephalic and Yes atraumatic Ears: TM's normal bilaterally Eyes General: appearance normal, both eyes and all related structures Alignment and Position: alignment normal and position normal Neck Neck: Yes normal visual inspection and Yes no lymphadenopathy Thyroid: Thyroid normal Resp Effort & Inspection: normal respiratory effort Auscultation: clear to auscultation bilaterally Cardio Rate: regular rate Rhythm: regular rhythm Heart sounds: S1 normal heart sound present, S2 normal heart sound present and no murmurs GI Palpation (GI): Soft to palpation and nontender Auscultation: normal bowel sounds Male General Exam: Yes normal external exam Penis: normal penis Scrotum: scrotum normal, testes descended bilaterally and no inguinal hernias Testes: no testicular mass Skin Other: upper mid back with large macular, faintly erythematous dry patch Rashes: no rashes Neuro General: patient oriented x3, moves all extremities, no focal motor deficits and deep tendon reflexes 2+ bilaterally Romberg Test: Negative Psych Appearance: grossly normal Mental Status: mental status grossly normal Speech and movement: Normal speech and movement present Affect: normal affect Attitude: cooperative Thought process: Normal thought process present Thought content: Normal thought content present Insight: Good insight present (Psych) Judgement: Good judgement present (Psych) Assessment and Plan Assessment & Plan (1) Encounter for routine adult physical exam with abnormal findings: Code(s): Z00.01 - Encounter for general adult medical examination with abnormal findings Plan: Labs ordered (2) Dermatitis: Code(s): L30.9 - Dermatitis, unspecified Plan: Betamethasone sent Plan The patient agreed to the use of a medical authorization specialist for this encounter. Scribed for KAMILA Chinchilla-TORIBIO by Angelia Shore medical authorization specialist, on 09/06/2023 at 15:10 EST. Orders: Orders UA CC w/rflx Micro + Cult Today Z00.00 - Encounter for general adult medical examination without abnormal findings Lipid Panel Today Z00.00 - Encounter for general adult medical examination without abnormal findings Complete Blood Count Auto Diff Today Z00.00 - Encounter for general adult medical examination without abnormal findings Comprehensive [place]. Panel Fast Today Z00.00 - Encounter for general adult medical examination without abnormal findings TSH reflex Free T4 Today Z00.00 - Encounter for general adult medical examination without abnormal findings Medications: New betamethasone valerate 0.1% 1 appl topical DAILY PRN 45 grams 1RF skin irritation Coding Level of Care Code Est Pt Prev Care 40-64y(85421) Diagnoses Encounter for routine adult physical exam with abnormal findings Z00.01 Dermatitis L30.9
== END 2023-09-06 15:42 | disposition home or self-care (01) ==
PROVIDERS: PCP Nurse Practitioner Family; Visit Provider Nurse Practitioner Family
DX: Z00.01 Encounter for general adult medical examination with abnormal findings (principal); L30.9 Dermatitis, unspecified
CPT/HCPCS: 99212; 99396

== ENCOUNTER 2023-10-02 13:06 | Emergency (ER) | payer OTHER, SELFPAY ==
--- NOTE | ~2023-10-02 | CT_ITS ---
CT HEAD WITHOUT CONTRAST CLINICAL HISTORY: Headache TECHNIQUE: CT of the brain was performed from the skull base through the vertex using a routine non-contrast protocol. All CT exams at this location are performed using dose optimization techniques as appropriate to a performed exam including at least one of the following: * Automated exposure control * Adjustment of the mA and/or kV according to patient size (this includes techniques or standardized protocols for targeted exams where dose is matched to indication / reason for exam; i/e/ extremities or head) * Use of iterative reconstructive technique DLP: 759 mGy-cm COMPARISON: 12/30/2015 RESULTS: There is no evidence of acute intracranial hemorrhage, acute large vessel infarct, midline shift or mass effect. The erwin-white differentiation is preserved. The ventricles and sulci are within normal limits in size and configuration. There is no evidence of hydrocephalus. There are no extraaxial collections. Osseous structures are intact. Paranasal sinuses and mastoid air cells are well aerated. CT/CT head/brain wo IV con IMPRESSION: Unremarkable non-contrast CT of the brain.
[2023-10-02 13:14] VITALS: BP 149/69; PULSE 108; RESP 18; TEMP 36.9; O2SAT 100; BMI 19.0
--- NOTE | 2023-10-02 13:18 | ECG_ITS ---
Test Reason : left sided neck pain with headache Blood Pressure : / mmHG Vent. Rate : 081 BPM Atrial Rate : 081 BPM P-R Int : 148 ms QRS Dur : 100 ms QT Int : 370 ms P-R-T Axes : 072 070 067 degrees QTc Int : 429 ms Normal sinus rhythm with sinus arrhythmia Normal ECG When compared with ECG of 09-NOV-2021 12:10, No significant change was found Referred By: Gianfranco Velazquez Electronically Signed By:RIA DE LEON MD
--- NOTE | 2023-10-02 13:20 | ED_ITS ---
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 He takes no thinners and denies falls. He was told by a carlos his head looked swollen he denies known rash or bite. He had a very severe headache that woke him up at 5am yesterday and resolved 7am this morning. The headache is now gone. He has never had a headache before. MD complaint: headache, swollen scalp Onset (ago): day(s) (yesterday AM) Location: head Radiation: non-radiation Severity: moderate Quality: other (pain resolved) Pain Consistency: now resolved Relieving factors: none Exacerbating factors: none Associated symptoms: other (rash and had neck pain) Treatments prior to arrival: none Related Data Previous Rx's ?Medication ?Instructions ?Recorded fluticasone propionate 50 1 spray intranasal BID #16 grams 09/01/22 mcg/actuation nasal spray,suspension (Allergy Relief (fluticasone)) naltrexone microspheres 380 mg 380 mg IM Q4W #1 ea 02/24/23 intramuscular suspension,extended release (Vivitrol) thiamine HCl (vitamin B1) 100 mg 100 mg PO DAILY #30 tabs 03/17/23 tablet folic acid 1 mg tablet 1 mg PO DAILY #90 tabs 06/14/23 bisacodyl 5 mg tablet,delayed 20 mg (4 x 5 mg) PO ONCE 1 day #4 06/29/23 release (Dulcolax (bisacodyl)) tabs famotidine 20 mg tablet (Pepcid) 20 mg PO BEDTIME #30 tabs 06/29/23 omeprazole 20 mg capsule,delayed 20 mg PO DAILY #30 caps 06/29/23 release polyethylene glycol 3350 17 238 g PO ONCE #238 grams 06/29/23 gram/dose oral powder (Miralax) betamethasone valerate 0.1 % 1 appl topical DAILY PRN skin 09/06/23 topical cream irritation #45 grams cephalexin 500 mg capsule 500 mg PO QID 7 days #28 caps 10/02/23 prednisone 20 mg tablet 40 mg (2 x 20 mg) PO DAILY 5 days 10/02/23 #10 tabs Allergies Allergy/AdvReac Type Severity Reaction Status Date / Time carisoprodol [From SOMA] Allergy Unknown SYNCOPE Verified 10/02/23 13:17 Review of Systems 2 Review of Systems: Constitutional : No Fever, No Chills, No Fatigue ENT/Mouth : No sore throat, No Rhinorrhea Eyes: No Eye Pain, No Swelling, No Redness Cardiovascular : No Chest Pain, No SOB, No Dyspnea on Exertion Respiratory : No Cough, No Sputum Gastrointestinal : No Nausea, No Vomiting, No Diarrhea, No abdominal Pain Genitourinary : No Dysuria, No Urinary Frequency, No Hematuria, Musculoskeletal : No joint pain, No Myalgias, No Joint Swelling, pos neck pain Skin : No Skin Lesions, pos rash Neuro : No Weakness, No Numbness, No Dizziness, positive Headache Psych : No Anxiety/Panic, No Depression All other systems reviewed and are negative [facility] Past Medical History Attestation statement: The following information was validated with the patient. Source: old records reviewed Medical History Sliding hiatal hernia Tubular adenoma of colon Tobacco dependence Alcohol dependence BPH (benign prostatic hyperplasia) Surgical History History of esophagogastroduodenoscopy (EGD) H/O colonoscopy Hx of prostate biopsy Family History Family History Mother Substance use disorder Mental health disorder Father Substance use disorder Mental health disorder Maternal Aunt Substance use disorder Mental health disorder Paternal Uncle Substance use disorder Mental health disorder Paternal Aunt Substance use disorder Mental health disorder Maternal Uncle Substance use disorder Mental health disorder Brother Substance use disorder Mental health disorder Sister Substance use disorder Mental health disorder Social History Social History Housing: House Patient Tobacco Use Status: Current everyday Tobacco user Cigarette Packs Per Day: 1 Cigarettes Per Day: 20.0 e-Cigarette/Vaping Use: Never Used Second Hand Smoke Exposure: Yes Advance Directives: No Advance Directives Information Provided: No service: No Current occupational status: employed 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 Oriented X3. No acute distress. Eyes: Pupils equal, round and reactive to light. ENT: Pharynx normal. scalp red raised large area on scalp - there are no vesicles there is one punctate red open area near the scalp it is red and warm to touch Neck: Normal inspection. Neck supple. no meningeal signs CVS: Normal heart rate and rhythm. Pulses normal. Respiratory: No respiratory distress. Breath sounds normal. Abdomen: Soft and nontender. Skin: Skin warm and dry. Normal skin color. Normal skin turgor. Extremities: No lower extremity edema. No calf ttp Neuro: Oriented X 3. No motor deficit. No sensory deficit. Course Course Course Narrative: rme: DONE BY KATHY HUYNH. PATIENT STATES WORST HEADACHE OF HIS LIFE BEGAN LAST NIGHT AROUND 17:00. PATIENT STATES CRYING KNEELING TO THE GROUND COLOR SEVERITY OF THE HEADACHE. PATIENT STATES PAIN HEADACHE NOW OR 2. PATIENT WAS SEEN AT URGENT CARE REFERRED TO ED FOR EVALUATION. PATIENT STATES HEAD HAD FELT SWOLLEN. ON EXAM SCALP LOOK ERYTHEMATOUS PATIENT STATES HISTORY OF ROSACEA PROBABLY MILD ROSACEA EXACERBATION. WILL DO LABS AND HEAD CT SCAN ORDERED. PATIENT STATES LEFT-SIDED NECK PAIN SO WILL ADD EKG. NO CERVICAL SPINE TENDERNESS ON PALPATION. VITAL SIGNS STABLE. NIH SCORE IS 0. Medications Administered Discontinued Medications Generic Name Dose Route Start Last Admin Trade Name Freq PRN Reason Stop Dose Admin Cephalexin HCl 500 mg 10/02/23 15:08 10/02/23 15:20 Cephalexin 500 Mg Capsule PO 10/02/23 15:09 500 mg ONCE ONE Administration Prednisone 40 mg 10/02/23 15:08 10/02/23 15:20 Prednisone 20 Mg Tablet PO 10/02/23 15:09 40 mg ONCE ONE Administration Medical Decision Making Medical Decision Making [facility] Narrative: 43 yo male with PMH of alcohol use disorder denies withdrawal symptoms, BPH, rosacea, GERD here with headache yesterday that was severe now resolved without deficits, trauma, meningeal signs - CT head ordered he denies falls and reports his pain resolved at 7am today. He also has area on scalp that is concerning for localized reaction that may have turned cellulitic he denies systemic symptoms, denies ETOH withdrawal symptoms. At this time labs, CT head possible start on prednisone/abx pending CT scan work up. May need further workup of headache given he states it was severe will discuss with patient. Differential Diagnosis Differential Diagnoses: The differential diagnosis associated with the presentation includes ICH, allergic rxn/cellulitis Admission/Observation Consideration of admission/observation: Escalation of care including admission/observation considered work up reassuring but did discuss LP and further workup for SAH he declines he states he wants to go home with medications will return for worsening symptoms and will not be alone Lab Data [facility] Lab Attestation statement: I reviewed the patient's lab results. 10/02/23 13:30 10/02/23 13:30 Labs: Lab Results 10/02/23 Range/Units 13:30 WBC 8.8 (4.8-10.8) X10*3/uL RBC 4.44 L (4.60-5.80) X10*6/uL Hgb 15.6 (14.0-18.0) g/dl Hct 42.6 (42.0-52.0) % MCV 95.9 (80.0-98.0) fL MCH 35.1 H (27.0-33.0) pg MCHC 36.6 H (31.0-36.0) g/dl RDW 12.3 (11.0-16.0) % Plt Count 119 L D (160-400) X10*3/uL MPV 9.6 (9.4-12.4) fL Immature Gran % (Auto) 0.5 H (0.0-0.4) % Neut % (Auto) 78.0 H (45-73) % Lymph % (Auto) 7.4 L (20-40) % [place] % (Auto) 13.9 H (2-11) % Eos % (Auto) 0.0 (0-4) % Baso % (Auto) 0.2 (0-2) % Lymph # (Auto) 0.7 L (1.2-4.9) X10*3/uL [place] # (Auto) 1.2 (0.1-1.2) X10*3/uL Eos # (Auto) 0.0 (0.0-0.4) X10*3/uL Baso # (Auto) 0.0 (0.0-0.2) X10*3/uL Abs Immat Gran (auto) 0.04 H (0.00-0.03) X10*3/uL Absolute Neuts (auto) 6.9 (2.0-8.3) x10*3/uL Absolute Nucleated RBC 0.000 (0.0-0.012) X10*3/uL Nucleated RBC % (auto) 0.0 (0.0-0.2) /100WBC PT 9.7 L (11.1-13.3) SEC INR 0.8 L (0.9-1.1) APTT 25.2 L (26.0-36.8) SEC Sodium 136 (135-145) mmol/L Potassium 3.5 (3.3-5.1) mmol/L Chloride 97 (96-108) mmol/L Carbon Dioxide 27 (22-29) mmol/L Anion Gap 16 (12-20) BUN 10 (9-16) mg/dL Creatinine 0.84 (0.5-1.4) mg/dL Estim Creat Clear Calc 105.5 Estimated GFR > 60 Random Glucose 110 (60-115) mg/dL Calcium 10.2 (8.4-10.2) mg/dL Total Bilirubin 1.1 H (0.0-1.0) mg/dL AST 33 (5-37) U/L ALT 20 (0-40) U/L Alkaline Phosphatase 78 (39-117) U/L Troponin I High Sens 4.2 (<3.5-35.0) ng/L Total Protein 8.1 H (6.5-8.0) g/dL Albumin 4.9 (3.5-5.0) g/dL Ethyl Alcohol 37 mg/dL Independent Interpretation I performed an independent interpretation of an: EKG and CT Scan (no bleeding) Interpretation: Rate: 81 Rhythm: NSR [place]: normal Normal P waves. Normal JACKI. Normal QRS complex. ST T wave : normal no NIKITA qTC: 429 prior studies: The study has been interpreted contemporaneously by me. . Radiology Impression Discussion of test interpretation with radiology: I have reviewed the radiologist's reading. External Record Review External record reviewed: Inpatient record Prescription Management I considered prescription management with: Antibiotic and Other Discharge Plan Discharge Clinical Impression: Superficial swelling of scalp Acute headache Qualifiers: Headache type: unspecified Intractability: not intractable Qualified Code(s): R 51.9 - Headache, unspecified Patient Disposition: Home, Self-Care Instructions: Acute Headache (ED), Dermatitis (ED) Additional Instructions: labs reassuring very small drop in platelets can be related to illness or alcohol use - repeat next week with primary care doctor CT head negative but we discussed further workup of possible bleeding in brain but you declined - you can return for any worsening symptoms or concerns such as worsening headache, confusion, fainting, numbness, weakness or any other concerns start prednisone tomorrow. 2nd dose of cephalexin tomorrow. Prescriptions: New prednisone 20 mg tablet 40 mg PO DAILY 5 Days Qty: 10 0RF cephalexin 500 mg capsule 500 mg PO QID 7 Days Qty: 28 0RF No Action Vivitrol 380 mg suspension,extended rel recon 380 mg IM Q4W Qty: 1 5RF folic acid 1 mg tablet 1 mg PO DAILY Qty: 90 1RF fluticasone propionate [Allergy Relief (fluticasone)] 50 mcg/actuation spray,suspension 1 spray intranasal BID Qty: 16 3RF Rx Instructions: administer into each nostril betamethasone valerate 0.1 % cream 1 appl topical DAILY PRN (Reason: skin irritation) Qty: 45 1RF thiamine HCl (vitamin B1) 100 mg tablet 100 mg PO DAILY Qty: 30 3RF famotidine [Pepcid] 20 mg tablet 20 mg PO BEDTIME Qty: 30 3RF omeprazole 20 mg capsule,delayed release(DR/EC) 20 mg PO DAILY Qty: 30 3RF bisacodyl [Dulcolax (bisacodyl)] 5 mg tablet,delayed release (DR/EC) 20 mg PO ONCE 1 Days Qty: 4 0RF Rx Instructions: take 4 tabs at noon the day before your colonoscopy polyethylene glycol 3350 [Miralax] 17 gram/dose powder 238 g PO ONCE Qty: 238 0RF Rx Instructions: As directed by gastroenterology department at [facility] Stand Alone Forms: Work/School Release Interventions: ED Discharge Assessment Last Done: 10/02/23 15:29 Discharge Date/Time: 10/02/23 15:30 Print Language: Sami
[2023-10-02 13:37] LABS: MANUAL DIFF FLAG NO
[2023-10-02 13:44] LABS: INTERNATIONAL NORM RATIO 0.8 (0.9-1.1); Prothrombin Time 9.7 SEC (11.1-13.3)
[2023-10-02 13:46] LABS: Partial Thromboplastin Time 25.2 SEC (26.0-36.8)
[2023-10-02 13:48] LABS: Basophils Percent Auto 0.2 % (0-2); Hematocrit 42.6 % (42.0-52.0); Hemoglobin 15.6 g/dl (14.0-18.0); Imm Gran Abs Auto 0.04 X10*3/uL (0.00-0.03); Imm Gran Pct Auto 0.5 % (0.0-0.4); Lymphocytes Absolute Auto 0.7 X10*3/uL (1.2-4.9); Lymphocytes Percent Auto 7.4 % (20-40); Mean Corpuscular HGB Conc 36.6 g/dl (31.0-36.0); Mean Corpuscular Hemoglobin 35.1 pg (27.0-33.0); Mean Corpuscular Volume 95.9 fL (80.0-98.0); Monocytes Absolute Auto 1.2 X10*3/uL (0.1-1.2); Monocytes Percent Auto 13.9 % (2-11); Neutrophils Absolute Auto 6.9 x10*3/uL (2.0-8.3); Red Blood Count 4.44 X10*6/uL (4.60-5.80); Red Cell Distribution Width 12.3 % (11.0-16.0); White Blood Count 8.8 X10*3/uL (4.8-10.8)
--- NOTE | 2023-10-02 13:56 | PC.NURSE ---
Pt comes from home for a headache, he states its the worst headache he's had in his life and that he normally doesn't get headaches. Started yesterday around 5pm and feels tight around his entire head. Redness/swelling noted to the top of his head, pt states he sometimes hits his head on the ceiling at home because he is tall and thinks it could possibly be from that. Denies cp/sob/dizziness, he is eating/drinking and going to the bathroom ok, no bladder problems. A/ox4, respirations even and unlabored, lung sounds cta bilaterally, s1 and s2 heard, abdomen soft and non-tender, labs drawn and sent, awaiting further orders at this time.
[2023-10-02 13:58] LABS: Alanine Aminotransferase 20 U/L (0-40); Albumin Level 4.9 g/dL (3.5-5.0); Alkaline Phosphatase 78 U/L (39-117); Anion Gap 16 (12-20); Aspartate Amino Transferase 33 U/L (5-37); Bilirubin Total 1.1 mg/dL (0.0-1.0); Blood Urea Nitrogen 10 mg/dL (9-16); Calcium 10.2 mg/dL (8.4-10.2); Carbon Dioxide 27 mmol/L (22-29); Chloride 97 mmol/L (96-108); Creatinine Clr Calc Pharmacy 105.5; Estimated Glomerular Filt Rate > 60; Glucose Random 110 mg/dL (60-115); Potassium 3.5 mmol/L (3.3-5.1); Sodium 136 mmol/L (135-145); Total Protein 8.1 g/dL (6.5-8.0)
[2023-10-02 14:05] LABS: Troponin-I High Sensitivity 4.2 ng/L (<3.5-35.0)
[2023-10-02 14:13] LABS: Mean Platelet Volume 9.6 fL (9.4-12.4); Platelet Count 119 X10*3/uL (160-400)
[2023-10-02 14:22] LABS: Ethanol 37 mg/dL
[2023-10-02] MEDS: cephALEXin 500 MG CAPSULE PO (15:20)
[2023-10-02] MEDS: predniSONE 20 MG TABLET 40 MG PO (15:20)
[2023-10-02 15:22] VITALS: BP 139/83; PULSE 84; RESP 18; TEMP 36.6; O2SAT 100
[2023-10-02 15:29] VITALS: BP 139/83; PULSE 84; RESP 18; TEMP 36.7; O2SAT 98
== END 2023-10-02 15:30 | disposition home or self-care (01) ==
PROVIDERS: Physician Assistant; Emergency Provider Emergency Medicine; PCP Nurse Practitioner Family
DX: R22.0 Localized swelling, mass and lump, head (principal); I49.9 Cardiac arrhythmia, unspecified; R51.9 Headache, unspecified; M54.2 Cervicalgia; R21 Rash and other nonspecific skin eruption; F17.210 Nicotine dependence, cigarettes, uncomplicated; Z79.899 Other long term (current) drug therapy
CPT/HCPCS: 36415; 70450; 80053; 80307; 84484; 85025; 85610; 85730; 93005; 99284; 99285

== ENCOUNTER → 2023-10-02 13:18 | Outpatient (BNV) | payer OTHER, SELFPAY | PROVIDERS: Emergency Provider Emergency Medicine; PCP Nurse Practitioner Family; Visit Provider Internal Medicine Cardiovascular Disease | DX: M54.2 Cervicalgia (principal); R51.9 Headache, unspecified | CPT/HCPCS: 93010 ==

== ENCOUNTER 2023-10-20 08:40 | Outpatient (AMB) | payer OTHER, SELFPAY ==
--- NOTE | 2023-10-20 08:47 | MHC.OFFVIS ---
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 The patient is on active surveillance, he had MRI done which did not indicate any clinically significant lesions. He had blood work done on 10/02/2023 however the PSA was not evaluated. He will have a PSA done today. He denies any urinary symptoms. Review of chart: 05/13/2023-- Ronald is a 42-year-old male who presents today to the office for a follow-up. He presents with his mother to discuss MRI of the prostate results. The patient did not have blood work for PSA done. I have discussed with the patient that the MRI does not note any clinically significant lesion in the area the prior positive prostate biopsies. There are no clinically significant lesions noted on the MRI of the prostate. I have discussed continued active surveillance. The patient has a history of alcohol dependence disorder and anxiety. I have discussed that he would like to have a 2nd opinion that we can do a referral. Right now he is comfortable with the treatment plan. 11/26/2022? He is followed today for biopsy results. He was last seen by me on 10/04/2022 for benign prostatic hyperplasia. He was started on alfuzosin 10 mg daily at that time. He was educated that his PSA level at 3.35 is at higher limits of normal, for his age. He was recommend doing a prostate biopsy to identify if there is any cancer cells given his family history of prostate cancer in his father and uncle. He mentions having mild burning with urination post prostate bx. I reviewed the abdomen US results from 10/06/2022 Kidneys WNL I reviewed the prostate biopsy results from 11/12/2022 revealed low grade kady 3+3 +6 in the left base and right apex, atypical small acinar proliferation suspicious for prostatic adenocarcinoma. Discussed treatment options to include active surveillance, surgery, radical prostatectomy, radiation. 10/04/2022? Patient has a family history of prostate cancer in his father and 2 uncles. He had a PSA done on 04/20/18 which was 2.62 and a PSA done 09/24/22 which is 3.35. He states that he wakes up about 1 to 2 times to urinate at night. He admits that he drinks a lot of alcohol. He denies noticing any hematuria during the daytime. He denies any dysuria. Evaluation today?UA -- leukocytes: negative. Blood: negative. Prostate exam-- The prostate was mildly enlarged and an irregular area noted on the left apex. AUA symptom score -- 19 Plan: Start him on alfuzosin 10 mg daily. Will repeat PSA. However will proceed with scheduling the biopsy will be scheduled pending blood work results. Recommended to limit his alcohol use. PFSH Medical History Sliding hiatal hernia Tubular adenoma of colon Tobacco dependence Alcohol dependence BPH (benign prostatic hyperplasia) Surgical History History of esophagogastroduodenoscopy (EGD) H/O colonoscopy Hx of prostate biopsy Family History Mother Substance use disorder Mental health disorder Father Substance use disorder Mental health disorder Maternal Aunt Substance use disorder Mental health disorder Paternal Uncle Substance use disorder Mental health disorder Paternal Aunt Substance use disorder Mental health disorder Maternal Uncle Substance use disorder Mental health disorder Brother Substance use disorder Mental health disorder Sister Substance use disorder Mental health disorder Social History Housing: House Patient Tobacco Use Status: Current everyday Tobacco user Cigarette Packs Per Day: 1 Cigarettes Per Day: 20.0 e-Cigarette/Vaping Use: Never Used Second Hand Smoke Exposure: Yes service: No Current occupational status: employed 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 Current occupational exposures/hazards: No Cognitive needs: No Hearing needs: No Vision needs: No Review of Systems Const All systems reviewed & are unremarkable except as noted in HPI and below Reports no additional complaints Eyes Reports no additional complaints ENT Reports no additional complaints Card Reports no additional complaints Resp Reports no additional complaints GI Reports no additional complaints Reports as per HPI Musc Reports no additional complaints Skin/Breast Reports system reviewed and no additional complaints, except as documented Neuro Reports no additional complaints Psych Reports no additional complaints Endo Reports no additional complaints Ray/Lymph Reports no additional complaints Aller/Immun Reports no additional complaints Results AMB Urinalysis, Automated UA Leukoctes 0 Asbrina/uL Last Edit by WINSOME Bailey on 10/20/23 09:13 UA Nitrite Negative Last Edit by Natasha Rodriguez CCM on 10/20/23 09:13 UA Urobilinogen 0.2 mg/dL Last Edit by WINSOME Bailey on 10/20/23 09:13 UA Protein 30 mg/dL Last Edit by Natasha Rodriguez CCM on 10/20/23 09:13 UA pH 5.5 Last Edit by Natasha Rodriguez [facility] on 10/20/23 09:13 UA Blood 0 Balaji/uL Last Edit by Natasha Rodriguez [facility] on 10/20/23 09:13 UA Specific [place] 1.030 Last Edit by Natasha Rodriguez CCM on 10/20/23 09:13 UA Ketone Negative Last Edit by WINSOME Bailey on 10/20/23 09:13 UA Bilirubin 1 mg/dL Last Edit by Natasha Rodriguez [facility] on 10/20/23 09:13 UA Glucose 0 mg/dL Last Edit by Natasha Rodriguez [facility] on 10/20/23 09:13 Results Reviewed Results Reviewed: Laboratory Last Values Urine pH (Auto) 5.5 10/20/23 09:12 Specific [place] (Auto) 1.030 10/20/23 09:12 Urine Protein (Auto) 30 mg/dL 10/20/23 09:12 Glucose (UA)(Auto) 0 mg/dL 10/20/23 09:12 Urine Ketones (Auto) Negative 10/20/23 09:12 Urine Blood (Auto) 0 Balaji/uL 10/20/23 09:12 Urine Nitrite (Auto) Negative 10/20/23 09:12 Urine Bilirubin (Auto) 1 mg/dL 10/20/23 09:12 Urine Urobilinogen (Auto) 0.2 mg/dL 10/20/23 09:12 Leukocyte Esterase (Auto) 0 Sabrina/uL 10/20/23 09:12 Assessment & Plan Assessment & Plan (1) Adenocarcinoma of prostate: Code(s): C61 - Malignant neoplasm of prostate Category: Medical Plan Prostate Cancer. [place] 3+3= 6 diagnosed 11/12/2022 Active Surveillance PSA today. Orders: Orders AMB Urinalysis Automated Today Z13.9 - Encounter for screening, unspecified PSA,Total (Free>4and<10) Today C61 - Malignant neoplasm of prostate Patient Instructions: The patient had an opportunity to ask questions regarding treatment plan. The patient expressed understanding and agreement with the above treatment plan. The patient is aware they should contact our office by phone for worsening of their current condition or the appearance of new symptoms. Compliance is encouraged with any medications and followup testing that is ordered. It is a privilege to be allowed the opportunity to participate in the urologic care of your patient. If you have any questions or concerns regarding treatment for the above conditions please do not hesitate to contact me. The office telephone contact is [phone]. This note is constructed in part using voice recognition software. While every effort has been made to ensure accuracy um specialist errors may have been included. Yours sincerely, Kristopher Reza MD Coding Level of Care Code Est Pt Level 3 (21127) Diagnoses Adenocarcinoma of prostate C61
== END 2023-10-20 09:38 | disposition home or self-care (01) ==
PROVIDERS: PCP Nurse Practitioner Family; Visit Provider Urology
DX: Z13.9 Encounter for screening, unspecified (principal); C61 Malignant neoplasm of prostate
CPT/HCPCS: 99213

== ENCOUNTER → 2023-10-20 08:40 | Outpatient (BNVA) | payer OTHER, SELFPAY | PROVIDERS: PCP Nurse Practitioner Family; Visit Provider Urology | DX: C61 Malignant neoplasm of prostate (principal) | CPT/HCPCS: 81003; 99212 ==

== ENCOUNTER 2023-10-20 10:13 | Outpatient (REF) | payer OTHER, SELFPAY ==
[2023-10-20 13:40] LABS: PSA,Total (Free>4and<10) 3.17 ng/mL (0.00-4.00)
== END 2023-10-20 10:14 | disposition home or self-care (01) ==
LOC: HO.HMGCLDS 10:13
PROVIDERS: PCP Nurse Practitioner Family; Visit Provider Urology
DX: C61 Malignant neoplasm of prostate (principal)
CPT/HCPCS: 36415; 84153

== ENCOUNTER 2023-12-09 06:02 | Inpatient (IN) | payer OTHER, SELFPAY ==
[2023-12-09] VITALS (13 sets, daily range): BP systolic 108–164; BP diastolic 64–85; PULSE 57–80; RESP 14–20; TEMP 36.4–37.6; O2SAT 96–100; BMI 19.3
--- NOTE | ~2023-12-09 | CT_ITS ---
EXAMINATION: CT ABDOMEN AND PELVIS WITH CONTRAST CLINICAL INFORMATION: Lower abdominal pain. Leukocytosis. COMPARISON: Abdominal ultrasound October 06, 2022 TECHNIQUE: Multidetector volumetric images were obtained from the superior aspect of the liver through the pubic symphysis following administration 85 mL of Omnipaque 350 intravenous contrast. Sagittal and coronal reformatted images were obtained on the technologist's workstation. Oral contrast: No This CT examination was performed using dose optimization techniques as appropriate, variously including the following: *Automated exposure control *Adjustment of mA and/or kV according to patient size (this includes techniques or standardized protocols for targeted exams where dose is matched to indication/reason for exam; i.e. extremities or head) *Use of iterative reconstruction technique DLP: 395 mGy-cm FINDINGS: LUNG BASES: No pleural or pericardial effusion. LIVER, GALLBLADDER, AND BILIARY TREE: The liver is normal in size and contour. Several scattered hypodensities too small to characterize. No biliary ductal dilatation is present. The gallbladder is unremarkable with no evidence of radiopaque gallstones, gallbladder wall thickening, or obvious pericholecystic inflammatory changes. PANCREAS: Suspected pancreas divisum. SPLEEN: Not enlarged. ADRENAL GLANDS: No adrenal mass. KIDNEYS AND URETERS: The kidneys are normal in size, shape, and attenuation. No hydronephrosis, hydroureter, or calculi seen. No perinephric stranding. BLADDER: Relatively decompressed. GASTROINTESTINAL TRACT: Irregular soft tissue thickening involving the rectosigmoid colon with pericolonic inflammatory changes. There is an intramural abscess measuring 4.4 x 3.7 cm containing gas. There is underlying diverticular disease of the colon. No small bowel obstruction. Appendix is within normal limits. ABDOMINAL WALL: No significant hernia is appreciated. LYMPH NODES: There is haziness of the omentum and peritoneum. Few subcentimeter retroperitoneal and mesenteric lymph nodes. VASCULAR: Normal caliber abdominal aorta. PELVIC VISCERA: Unremarkable. OSSEOUS STRUCTURES: No destructive bone lesions. CT/CT abdomen pelvis w IV con IMPRESSION: Irregular soft tissue thickening of the rectosigmoid colon with mild pericolonic inflammatory changes. There is an intramural abscess measuring 4.4 x 3.7 x 4.8 cm containing gas. While this could represent acute diverticulitis with superimposed intramural abscess one cannot exclude the possibility of a necrotic tumor particularly given the lack of extensive surrounding inflammatory changes. PET/CT may be considered. Findings were reviewed and discussed with the ordering physician Caro Rodriguez DO at 11:30 AM on 12/09/2023. Electronically signed by: Randall Foster MD 12/09/2023 11:27 AM EDT
[2023-12-09 07:00] LABS: Basophils Absolute Auto 0.1 X10*3/uL (0.0-0.2); Basophils Percent Auto 0.7 % (0-2); Eosinophils Absolute Auto 0.1 X10*3/uL (0.0-0.4); Eosinophils Percent Auto 0.5 % (0-4); Hematocrit 43.5 % (42.0-52.0); Hemoglobin 15.3 g/dl (14.0-18.0); Imm Gran Abs Auto 0.14 X10*3/uL (0.00-0.03); Imm Gran Pct Auto 0.7 % (0.0-0.4); Lymphocytes Absolute Auto 1.6 X10*3/uL (1.2-4.9); MANUAL DIFF FLAG SCAN; Mean Corpuscular HGB Conc 35.2 g/dl (31.0-36.0); Mean Corpuscular Hemoglobin 35.4 pg (27.0-33.0); Mean Corpuscular Volume 100.7 fL (80.0-98.0); Monocytes Absolute Auto 1.9 X10*3/uL (0.1-1.2); Monocytes Percent Auto 9.5 % (2-11); Neutrophils Absolute Auto 15.8 x10*3/uL (2.0-8.3); Neutrophils Percent Auto 80.6 % (45-73); PLT CLUMP 1; Red Blood Count 4.32 X10*6/uL (4.60-5.80); Red Cell Distribution Width 12.6 % (11.0-16.0); SCAN SMEAR FLAG 1
--- NOTE | 2023-12-09 07:12 | ED.GENADULT ---
HPI - General Adult General Chief complaint: General Medical Stated complaint: groin and back pain Time Seen by Provider: 12/09/23 07:08 Source: patient Mode of arrival: ambulatory Limitations: no limitations History of Present Illness ED Provider: EVERT MAURO narrative: 43 yo male with PMH of ETOH abuse, BPH, here with c/o doing prep tuesday night for colonoscopy yesterday has hx of tubular adenomas. He could not get through the prep he has severe lower abdominal pain. He has intense waves of cramps and then tries to pass gas but cannot. He has had n/v x 1. He notes the pain wraps around the groin to lower back. He notes no dysuria, fevers, scrotal pain or rash. He has not had this before. He denies abdominal surgery in the past to andrew suggs MD complaint: abdominal pain Onset (ago): day(s) (1) Location: abdomen Radiation: back Severity: severe Quality: stabbing Pain Consistency: intermittent Relieving factors: none Exacerbating factors: none Associated symptoms: loss of appetite, malaise and nausea/vomiting Treatments prior to arrival: none Related Data Previous Rx's ?Medication ?Instructions ?Recorded fluticasone propionate 50 1 spray intranasal BID #16 grams 09/01/22 mcg/actuation nasal spray,suspension (Allergy Relief (fluticasone)) naltrexone microspheres 380 mg 380 mg IM Q4W #1 ea 02/24/23 intramuscular suspension,extended release (Vivitrol) thiamine HCl (vitamin B1) 100 mg 100 mg PO DAILY #30 tabs 03/17/23 tablet folic acid 1 mg tablet 1 mg PO DAILY #90 tabs 06/14/23 polyethylene glycol 3350 17 238 g PO ONCE #238 grams 06/29/23 gram/dose oral powder (Miralax) betamethasone valerate 0.1 % 1 appl topical DAILY PRN skin 09/06/23 topical cream irritation #45 grams cephalexin 500 mg capsule 500 mg PO QID 7 days #28 caps 10/02/23 prednisone 20 mg tablet 40 mg (2 x 20 mg) PO DAILY 5 days 10/02/23 #10 tabs famotidine 20 mg tablet (Pepcid) 20 mg PO BEDTIME #30 tabs 10/06/23 omeprazole 20 mg capsule,delayed 20 mg PO DAILY #30 caps 10/06/23 release bisacodyl 5 mg tablet,delayed 20 mg (4 x 5 mg) PO ONCE 1 day #4 12/07/23 release (Dulcolax (bisacodyl)) tabs Allergies Allergy/AdvReac Type Severity Reaction Status Date / Time carisoprodol [From [facility]] Allergy Unknown SYNCOPE Verified 12/09/23 06:15 Review of Systems Review of Systems: Constitutional : No Weight loss, No Fever, No Chills ENT/Mouth : No sore throat, No Rhinorrhea Eyes: No Swelling, No Redness Cardiovascular : No Chest Pain, No SOB, NoEdema Respiratory : No Cough, No Sputum, No Wheezing Gastrointestinal : Positive Nausea, Positive Vomiting, no Diarrhea, positive abdominal Pain, No Hematochezia, No Melena Genitourinary : No Dysuria, No Urinary Frequency, No Hematuria, No Urgency Musculoskeletal : No joint pain, No Myalgias, No Joint Swelling Skin : No Skin Lesions, No rash Neuro : No Weakness, No Numbness, No Dizziness, No Headache Psych : No Anxiety/Panic, No Depression All other systems reviewed and are negative. [facility] Past Medical History Attestation statement: The following information was validated with the patient. Source: old records reviewed Medical History Sliding hiatal hernia Tubular adenoma of colon Tobacco dependence Alcohol dependence BPH (benign prostatic hyperplasia) Surgical History History of esophagogastroduodenoscopy (EGD) H/O colonoscopy Hx of prostate biopsy Family History Family History Mother Substance use disorder Mental health disorder Father Substance use disorder Mental health disorder Maternal Aunt Substance use disorder Mental health disorder Paternal Uncle Substance use disorder Mental health disorder Paternal Aunt Substance use disorder Mental health disorder Maternal Uncle Substance use disorder Mental health disorder Brother Substance use disorder Mental health disorder Sister Substance use disorder Mental health disorder Social History Social History Housing: House Patient Tobacco Use Status: Current everyday Tobacco user Cigarette Packs Per Day: 1 Cigarettes Per Day: 20.0 e-Cigarette/Vaping Use: Never Used Second Hand Smoke Exposure: Yes Advance Directives: Yes Advance Directives Information Provided: Yes Advance Directives on File: No service: No Current occupational status: employed 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 Oriented X3. No acute distress. Eyes: Pupils equal, round and reactive to light. ENT: Pharynx normal. Neck: Normal inspection. Neck supple. CVS: Normal heart rate and rhythm. Pulses normal. Respiratory: No respiratory distress. Breath sounds normal. Abdomen: Soft and mild ttp in lower abdomen but then had episode of colicky intermittent severe pain Skin: Skin warm and dry. Normal skin color. Extremities: No lower extremity edema. Neuro: Oriented X 3. No motor deficit. No sensory deficit. Course Course Course Narrative: infection suspected at 1126am IV zosyn ordered. hx of ETOH abuse but no seizures started on phenobarb colonoscopy in 2023 no sigmoid or rectal mass Medications Administered Discontinued Medications Generic Name Dose Route Start Last Admin Trade Name Freq PRN Reason Stop Dose Admin Lactated Ringer's 1,000 mls @ 999 mls/hr 12/09/23 07:44 12/09/23 09:27 Lr IV 12/09/23 08:44 Infused .Q1H1M ONE Infusion Iohexol 100 ml 12/09/23 09:03 12/09/23 09:04 Iohexol 350 Mg/Ml 100 Ml Infus..Btl IV 12/09/23 09:04 85 ml ONCE ONE Administration Morphine Sulfate 4 mg 12/09/23 07:44 12/09/23 08:05 Morphine Sulfate 4 Mg/Ml Cartridge IVPUSH 12/09/23 07:45 4 mg ONCE ONE Administration Protocol Ondansetron HCl 4 mg 12/09/23 07:44 12/09/23 08:04 Ondansetron Hcl 4 Mg/2 Ml Vial IVPUSH 12/09/23 07:45 4 mg ONCE ONE Administration Medical Decision Making Medical Decision Making MDM Narrative: 43 yo male with PMH of ETOH abuse, BPH, here with c/o lower abdominal pain that comes in waves and has n/v after colonoscopy prep he denies fevers but feels warm to the touch. Denies symptoms at this time will need basic labs, lactic acid, cultures, IVF and IV morphine for pain. CT scan for colitis/diverticulitis/appendicitis. UA for UTI ordered. Differential Diagnosis Differential Diagnoses: The differential diagnosis associated with the presentation includes appendicitis, colitis, diverticulitis, withdrawal, UTI Admission/Observation Consideration of admission/observation: Escalation of care including admission/observation considered admit for surgery/GI workup and IV antibiotics Consult Healthcare Provider Management of the patient was discussed with: Slip Filler message sent to Dr. Bueno Lab Data [facility] Lab Attestation statement: I reviewed the patient's lab results. 12/09/23 06:48 12/09/23 07:53 Labs: Lab Results 12/09/23 12/09/23 Range/Units 06:48 07:53 WBC 19.6 H (4.8-10.8) X10*3/uL RBC 4.32 L (4.60-5.80) X10*6/uL Hgb 15.3 (14.0-18.0) g/dl Hct 43.5 (42.0-52.0) % MCV 100.7 H (80.0-98.0) fL MCH 35.4 H (27.0-33.0) pg MCHC 35.2 (31.0-36.0) g/dl RDW 12.6 (11.0-16.0) % Plt Count 328 D (160-400) X10*3/uL MPV 9.8 (9.4-12.4) fL Immature Gran % (Auto) 0.7 H (0.0-0.4) % Neut % (Auto) 80.6 H (45-73) % Lymph % (Auto) 8.0 L (20-40) % [place] % (Auto) 9.5 (2-11) % Eos % (Auto) 0.5 (0-4) % Baso % (Auto) 0.7 (0-2) % Lymph # (Auto) 1.6 (1.2-4.9) X10*3/uL [place] # (Auto) 1.9 H (0.1-1.2) X10*3/uL Eos # (Auto) 0.1 (0.0-0.4) X10*3/uL Baso # (Auto) 0.1 (0.0-0.2) X10*3/uL Abs Immat Gran (auto) 0.14 H (0.00-0.03) X10*3/uL Absolute Neuts (auto) 15.8 H (2.0-8.3) x10*3/uL Absolute Nucleated RBC 0.000 (0.0-0.012) X10*3/uL Nucleated RBC % (auto) 0.0 (0.0-0.2) /100WBC Smear Tech's Comments VERIFIED Sodium 138 (135-145) mmol/L Potassium 3.4 (3.3-5.1) mmol/L Chloride 96 (96-108) mmol/L Carbon Dioxide 32 H (22-29) mmol/L Anion Gap 13 (12-20) BUN 10 (9-16) mg/dL Creatinine 0.88 (0.5-1.4) mg/dL Estim Creat Clear Calc 102.0 Estimated GFR > 60 Random Glucose 144 H (60-115) mg/dL Lactic Acid 1.5 (0.5-2.0) mmol/L Calcium 10.0 (8.4-10.2) mg/dL Total Bilirubin 0.6 (0.0-1.0) mg/dL AST 15 (5-37) U/L ALT 13 (0-40) U/L Alkaline Phosphatase 61 (39-117) U/L Total Protein 7.7 (6.5-8.0) g/dL Albumin 4.0 (3.5-5.0) g/dL Lipase 12 (8-78) U/L Influenza Type A (PCR) NEGATIVE (Negative) Influenza Type B (PCR) NEGATIVE (Negative) RSV RNA Qual (PCR) NEGATIVE (Negative) SARS-CoV-2 RNA (RT-PCR) NEGATIVE (Negative) Independent Interpretation I performed an independent interpretation of an: CT Scan Radiology Impression Discussion of test interpretation with radiology: I discussed test interpretation with the radiologist and I have reviewed the radiologist's reading. Radiologist Impression: 1124am call from radiology soft tissue of thickening of rectosigmoid colon not a mass could be inflammation of that area abscess intramural localized within colon measures 5cm ?diverticulitis vs mass that is necrosed now with infection and abscess External Record Review External record reviewed: Inpatient record and Office record Critical Care Time Critical Care Time Critical Care Time: Yes Total Critical Care Time: 45 Attestation: review of records, IV morphine with improvement in pain, IVF, consult, admission I attest to this time spent taking care of the patient Discharge Plan Discharge Clinical Impression: Abscess of sigmoid colon, Elevated WBC count, Abdominal pain Patient Disposition: Admitted As Inpatient Prescriptions: No Action Vivitrol 380 mg suspension,extended rel recon 380 mg IM Q4W Qty: 1 5RF folic acid 1 mg tablet 1 mg PO DAILY Qty: 90 1RF famotidine [Pepcid] 20 mg tablet 20 mg PO BEDTIME Qty: 30 3RF omeprazole 20 mg capsule,delayed release(DR/EC) 20 mg PO DAILY Qty: 30 3RF bisacodyl [Dulcolax (bisacodyl)] 5 mg tablet,delayed release (DR/EC) 20 mg PO ONCE 1 Days Qty: 4 0RF Rx Instructions: take 4 tabs at noon the day before your colonoscopy prednisone 20 mg tablet 40 mg PO DAILY 5 Days Qty: 10 0RF cephalexin 500 mg capsule 500 mg PO QID 7 Days Qty: 28 0RF fluticasone propionate [Allergy Relief (fluticasone)] 50 mcg/actuation spray,suspension 1 spray intranasal BID Qty: 16 3RF Rx Instructions: administer into each nostril betamethasone valerate 0.1 % cream 1 appl topical DAILY PRN (Reason: skin irritation) Qty: 45 1RF thiamine HCl (vitamin B1) 100 mg tablet 100 mg PO DAILY Qty: 30 3RF polyethylene glycol 3350 [Miralax] 17 gram/dose powder 238 g PO ONCE Qty: 238 0RF Rx Instructions: As directed by gastroenterology department at [facility] Print Language: Luxembourgish
[2023-12-09 07:33] LABS: Mean Platelet Volume 9.8 fL (9.4-12.4); Platelet Count 328 X10*3/uL (160-400); White Blood Count 19.6 X10*3/uL (4.8-10.8)
[2023-12-09 07:34] LABS: Influenza A PCR NEGATIVE (Negative); Influenza B PCR NEGATIVE (Negative); Resp Syncy Virus RNA Qual PCR NEGATIVE (Negative); SARS COV2 PCR INHOUSE NEGATIVE (Negative); SLIDE REVIEW VERIFIED
[2023-12-09] MEDS: Lactated Ringers 1,000 ML 999 ML IV (08:03)
[2023-12-09] MEDS: ondansetron HCL 4 MG/2 ML VIAL IVPUSH (08:04)
[2023-12-09] MEDS: Morphine Sulfate 4 MG/ML CARTRIDGE IVPUSH (08:05)
[2023-12-09 08:11] LABS: Lactic Acid 1.5 mmol/L (0.5-2.0)
[2023-12-09 08:14] LABS: Alanine Aminotransferase 13 U/L (0-40); Alkaline Phosphatase 61 U/L (39-117); Anion Gap 13 (12-20); Aspartate Amino Transferase 15 U/L (5-37); Bilirubin Total 0.6 mg/dL (0.0-1.0); Blood Urea Nitrogen 10 mg/dL (9-16); Carbon Dioxide 32 mmol/L (22-29); Chloride 96 mmol/L (96-108); Estimated Glomerular Filt Rate > 60; Glucose Random 144 mg/dL (60-115); Lipase 12 U/L (8-78); Potassium 3.4 mmol/L (3.3-5.1); Sodium 138 mmol/L (135-145); Total Protein 7.7 g/dL (6.5-8.0)
[2023-12-09] MEDS: iohexoL 350 MG/ML 100 ML INFUS..BTL IV (09:04)
[2023-12-09] MEDS: Piperacillin Sodium/Tazobactam 3.375 GM in 0.9 % Sodium Chloride 50 ML IV ×3 (11:39→23:11)
[2023-12-09] MEDS: Lactated Ringers 1,000 ML 100 ML IVCONT ×3 (11:43→19:17)
[2023-12-09] MEDS: Thiamine HCL 200 MG in 0.9 % Sodium Chloride 100 ML 204 MG IV (12:03)
[2023-12-09] MEDS: Nicotine 21 MG PATCH.TD24 TRANSDERMA (12:05)
[2023-12-09] MEDS: PHENobarbitaL sodium 130 MG/ML IM ONCE 270 MG IM (12:07)
--- NOTE | 2023-12-09 12:50 | P.HPGS_ITS ---
History of Present Illness History of Present Illness Date of Service: 12/09/23 <Savita Mcallister PA-C - Last Filed: 12/09/23 13:03> 12/14/23 <Joel Bueno MD - Last Filed: 12/14/23 10:12> Chief complaint: diverticulitis with abscess <Savita Mcallister PA-C - Last Filed: 12/09/23 13:03> Narrative: Ronald Wooten is a 43 year old male with PMH of prostate CA, ETOH abuse, smoker who presented to the ED with complaints of lower abdominal pain. He reports about a week and a half ago he did heavy lifting at work and developed b/l groin pain. Over the next week or so the pain gradually worsened and spread into his lower abdomen and back. He was scheduled for a colonoscopy yesterday and attempted to do his prep on Tuesday night. He reports the pain worsened with every bowel movement. Due to the pain he did not show up for his colonoscopy yesterday. This morning the pain became severe and he felt he could no longer manage the pain at home and he sought evaluation in the ED. Work up included CBC, BMP, LFTs which was significant for 19.6. CT scan abd/pelvis was obtained which showed soft tissue thickening involving the rectosigmoid colon with pericolonic inflammatory changes and an intramural abscess measuring 4.4 x 3.7 cm containing gas. He denies fever, chills, nausea, vomiting, hematochezia, melena. He had a colonoscopy here in 05/14 and had multiple larger polyps removed, all negative for malignancy. He was told to have repeat colonoscopy in 6 months due to the polyp size. He reports persistent severe abd pain today. He reports smoking a half a pack to a pack of cigarettes a day and drinking 3-6 beers daily with up to 12 beers on the weekend with a few vodka nips. He denies prior ab dominal surgery. <Savita Mcallister PA-C - Last Filed: 12/09/23 13:03> Review of Systems Constitutional: Constitutional: Denies chills and Denies fever(s) <Savita Mcallister PA-C - Last Filed: 12/09/23 13:03> ENT: Denies dizziness <Savita Mcallister PA-C Last Filed: 12/09/23 13:03> Cardiovascular: Cardiovascular: Denies chest pain and Denies dyspnea <Savita Mcallister PA-C Last Filed: 12/09/23 13:03> Respiratory: Respiratory: Denies dyspnea <Savita Mcallisetr PA-C Last Filed: 12/09/23 13:03> Gastrointestinal: Gastrointestinal: Reports as per HPI <Savita Mcallister PA-C Last Filed: 12/09/23 13:03> Genitourinary: Genitourinary: Denies hematuria and Denies dysuria <Savita Mcallister PA-C Last Filed: 12/09/23 13:03> Integumentary/Breasts: Skin/Breast: Denies rash and Denies jaundice <Savita Mcallister PA-C Last Filed: 12/09/23 13:03> Neurologic: Denies dizziness <Savita Mcallister PA-C Last Filed: 12/09/23 13:03> [facility] Past Medical History Medical History: Medical History Sliding hiatal hernia Tubular adenoma of colon Tobacco dependence Alcohol dependence BPH (benign prostatic hyperplasia) <RODO Bowden Last Filed: 12/09/23 13:03> Family History Family History: Family History Mother Substance use disorder Mental health disorder Father Substance use disorder Mental health disorder Maternal Aunt Substance use disorder Mental health disorder Paternal Uncle Substance use disorder Mental health disorder Paternal Aunt Substance use disorder Mental health disorder Maternal Uncle Substance use disorder Mental health disorder Brother Substance use disorder Mental health disorder Sister Substance use disorder Mental health disorder <Savita Mcallister PA-C Last Filed: 12/09/23 13:03> Surgical History Surgical History: Surgical History History of esophagogastroduodenoscopy (EGD) H/O colonoscopy Hx of prostate biopsy <RODO Bowden Last Filed: 12/09/23 13:03> Social History Social History: Social History Household Members: Significant Other Housing: Apartment Are you a primary dog day care attendant to a significant other at home: No Do you presently have visiting nurse or other home services: No Alcohol intake: current Alcohol intake frequency: 3 or more drinks per day Alcohol type: beer and hard liquor Patient Tobacco Use Status: Current everyday Tobacco user Tobacco use type: Cigarette Cigarette Packs Per Day: 1 Cigarettes Per Day: 20.0 e-Cigarette/Vaping Use: Never Used Second Hand Smoke Exposure: Yes Substance Use Type: Marijuana service: No Current occupational status: employed 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 Current occupational exposures/hazards: No Cognitive needs: No Hearing needs: No Vision needs: No <Savita Mcallister PA-C - Last Filed: 12/09/23 13:03> Meds Allergies/Adverse reactions: Allergies Allergy/AdvReac Type Severity Reaction Status Date / Time carisoprodol [From SOMA] Allergy Unknown SYNCOPE Verified 12/09/23 06:15 <Savita Mcallister PA-C - Last Filed: 12/09/23 13:03> Active Medications: Current Medications Calcium Carbonate (Calcium Carbonate 750 Mg Tab.Chew) 750 mg PO Q4H PRN PRN Reason: Heartburn Hydromorphone HCl (Hydromorphone Hcl 1 Mg/Ml Syringe) 0.5 mg IVPUSH Q4H PRN; Protocol PRN Reason: Pain, Severe (Pain Scale 7-10) Lactated Ringer's (Lr) 1,000 mls @ 100 mls/hr IVCONT .Q10H [facility] Last Admin: 12/09/23 11:43 Dose: 100 mls/hr Piperacillin Sod/Tazobactam (Sod 3.375 gm/ Sodium Chloride) 50 mls @ 100 mls/hr IV Q6H [facility] Melatonin (Melatonin 3 Mg Tablet) 6 mg PO BEDTIME PRN PRN Reason: Insomnia Nicotine (Nicotine 21 Mg Patch.Td24) 21 mg TRANSDERMA DAILY [facility] Ondansetron HCl (Ondansetron Hcl 4 Mg/2 Ml Vial) 4 mg IVPUSH Q8H PRN PRN Reason: Nausea and Vomiting Pharmacy Consult (Consult Rx Etoh Phenob Im/Po) 1 each MISCELLANE ONCE PRN; Protocol PRN Reason: Consult order Phenobarbital (Phenobarbital 15 Mg Tablet) 45 mg PO BID [facility] Stop: 12/11/23 21:01 Phenobarbital (Phenobarbital 30 Mg Tablet) 30 mg PO BID [facility] Stop: 12/13/23 21:01 Phenobarbital (Phenobarbital 30 Mg Tablet) 30 mg PO DAILY [facility] Stop: 12/15/23 09:01 Phenobarbital Sodium (Phenobarbital Sodium 130 Mg/Ml Vial Im Q3hx2) 200 mg IM Q3H [facility] Stop: 12/09/23 18:01 Sodium Chloride (0.9 % Sodium Chloride Flush 3 Ml Syringe) 3 ml IVFLUSH QSHIFT [facility] <RODO Bowden Last Filed: 12/09/23 13:03> Home medications: Home Medications ?Medication ?Instructions ?Recorded ?Confirmed ?Last Taken ?Type ibuprofen 200 mg tablet 600 mg PO Q6H PRN Pain 12/09/23 12/09/23 Unknown History <RODO Bowden Last Filed: 12/09/23 13:03> Physical Exam Vital Signs: Vital Signs: Last Vital Signs Temp 98.5 F 12/09/23 11:44 Pulse 57 12/09/23 11:44 Resp 16 12/09/23 11:44 BP 114/64 12/09/23 11:44 Pulse Ox 99 12/09/23 11:44 O2 Del Method Room Air 12/09/23 11:44 BMI result Body Mass Index 19.3 <RODO Bowden Last Filed: 12/09/23 13:03> Const: General: comfortable, no acute distress and alert <RODO Bowden Last Filed: 12/09/23 13:03> Orientation/consciousness: patient oriented x3 <RODO Bowden Last Filed: 12/09/23 13:03> Neck: Neck: No JVD <RODO Bowden Last Filed: 12/09/23 13:03> Resp: Effort & Inspection: normal respiratory effort <RODO Bowden Last Filed: 12/09/23 13:03> Cardio: Rate: regular rate <RODO Bowden Last Filed: 12/09/23 13:03> GI: Inspection: Yes normal to inspection, No distended and No scar <RODO Bowden Last Filed: 12/09/23 13:03> Palpation (GI): Soft to palpation, Tenderness to palpation present (GI) (moderate suprapubic tenderness) with no rebound tenderness, Guarding due to palpation present (GI) (voluntary guarding diffusely) and not rigid <RODO Bowden Last Filed: 12/09/23 13:03> Skin: General skin exam: no rashes or lesions noted <RODO Bowden Last Filed: 12/09/23 13:03> Neuro: General: patient oriented x3 and moves all extremities <RODO Bowden Last Filed: 12/09/23 13:03> Results Results Labs: Short CBC 12/09/23 Range/Units 06:48 WBC 19.6 H (4.8-10.8) X10*3/uL Hgb 15.3 (14.0-18.0) g/dl Hct 43.5 (42.0-52.0) % Plt Count 328 D (160-400) X10*3/uL BMP 12/09/23 07:53 Sodium 138 Potassium 3.4 Chloride 96 Carbon Dioxide 32 H BUN 10 Creatinine 0.88 Calcium 10.0 Liver Function 12/09/23 Range/Units 07:53 Total Bilirubin 0.6 (0.0-1.0) mg/dL AST 15 (5-37) U/L ALT 13 (0-40) U/L Alkaline Phosphatase 61 (39-117) U/L Albumin 4.0 (3.5-5.0) g/dL <RODO Bowden Last Filed: 12/09/23 13:03> Abdomen CT scan report/results: report reviewed and image reviewed <RODO Bowden Last Filed: 12/09/23 13:03> Assessment and Plan (1) Diverticulitis of intestine with abscess: Status: Acute <RODO Bowden Last Filed: 12/09/23 13:03> He has been having abdominal pain for more than a week, worsening steadily Significantly tender in lower abdomen I have reviewed his CAT scan - note of a large intramural abscess inflammatory changes consistent with diverticular abscess in the distal sigmoid Colonoscopy in April shows large polyp in the vicinity of the same segment but benign Reviewed with Dr. Juan Large abscess unlikely to resolve with antibiotics alone I explained to him it is best to proceed with sigmoid resection, hand assisted laparoscopic, with a stoma I reviewed with him the technique of the planned procedure I extensively explained the risks, benefits, and alternatives He has agreed to proceed As per his mom - patient was a heavy drinker We will consult hospitalist service Withdrawal precautions I have seen examined the patient independently <Joel Beuno MD - Last Filed: 12/14/23 10:12> 43 year old male with PMH of prostate CA, ETOH abuse, smoker presenting with lower abdominal pain for a week and a half with acute worsening over the past few days, leukocytosis and CT scan demonstrating soft tissue thickening involving the rectosigmoid colon with pericolonic inflammatory changes and an intramural abscess. Given the size of the abscess and it being intramural it was discussed that he would likely not improve without surgery. It was therefore recommended to proceed with KEATON sigmoid resection, likely end colostomy, possible ileostomy. He is in agreement and has been added onto the OR schedule for today. He has been made NPO, started on IVF and IV zosyn. <Savita Mcallister PA-C - Last Filed: 12/09/23 13:03> Quality Stroke Does the patient have a stroke diagnosis?: No <Savita Mcallister PA-C - Last Filed: 12/09/23 13:03> VTE Prior VTE?: No <Savita Mcallister PA-C - Last Filed: 12/09/23 13:03> VTE Risk Level:: Surgical - high <Savita Mcallister PA-C - Last Filed: 12/09/23 13:03> VTE Device Contraindication: N/A - Device Ordered <Savita Mcallister PA-C - Last Filed: 12/09/23 13:03> VTE Drug Contraindication: N/A - Med Ordered <Savita Mcallister PA-C - Last Filed: 12/09/23 13:03> Procedures Date of Service Date of Service: 12/09/23 <Savita Mcallister PA-C - Last Filed: 12/09/23 13:03> 12/14/23 <Joel Bueno MD - Last Filed: 12/14/23 10:12>
--- NOTE | 2023-12-09 13:00 | PHA.MEDREC ---
Addendum entered by Clive Carter 12/09/23 13:44: Reviewed by [facility] Original Note: Pharmacy Consult ? Medication Reconciliation Pharmacy has completed the medication reconciliation. Spoke to patient to confirm med list. Patient states he is not taking anything other then Ibuprofen 600 mg.
--- NOTE | 2023-12-09 15:03 | P.CONAN_ITS ---
HPI - Anesthesia Eval Consult details Narrative: 43 yo M presenting for hand assisted laparoscopic sigmoid resection. Daily smoker. Daily alcohol 6-8 drinks day. [facility] Active Problems Active Problems: All Active Problems Diverticulitis of intestine with abscess (Acute) Abdominal pain (Acute) Elevated WBC count (Acute) Abscess of sigmoid colon (Acute) Dermatitis (Acute) Encounter for routine adult physical exam with abnormal findings (Acute) Sliding hiatal hernia (Acute) Tubular adenoma of colon (Acute) Adenocarcinoma of prostate (Acute) Alcohol use disorder, moderate, dependence (Acute) History of prostatitis (Acute) BPH (benign prostatic hyperplasia) (Acute) Elevated PSA (Acute) Elevated bilirubin (Acute) Elevated liver enzymes (Acute) Alcohol abuse (Acute) Screening for colon cancer (Acute) Physical exam (Acute) COVID-19 (Acute) Family history of prostate cancer (Acute) Past Medical History Medical History Sliding hiatal hernia Tubular adenoma of colon Tobacco dependence Alcohol dependence BPH (benign prostatic hyperplasia) Family History Family History Mother Substance use disorder Mental health disorder Father Substance use disorder Mental health disorder Maternal Aunt Substance use disorder Mental health disorder Paternal Uncle Substance use disorder Mental health disorder Paternal Aunt Substance use disorder Mental health disorder Maternal Uncle Substance use disorder Mental health disorder Brother Substance use disorder Mental health disorder Sister Substance use disorder Mental health disorder Family history of problems with anesthesia: No Surgical History Surgical History History of esophagogastroduodenoscopy (EGD) H/O colonoscopy Hx of prostate biopsy History of Problems with Anesthesia: No (Never had general anesthesia. 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 Current occupational exposures/hazards: No Cognitive needs: No Hearing needs: No Vision needs: No Meds Allergies Allergy/AdvReac Type Severity Reaction Status Date / Time carisoprodol [From SOMA] Allergy Unknown SYNCOPE Verified 12/09/23 06:15 Active Medications: Current Medications Albuterol Sulfate (Albuterol Sulfate (0.083%) 2.5 Mg/3 Ml Vial.Neb) 2.5 mg INHALE ONCE PRN PRN Reason: Shortness of Breath/Wheezing Calcium Carbonate (Calcium Carbonate 750 Mg Tab.Chew) 750 mg PO Q4H PRN PRN Reason: Heartburn Hydromorphone HCl (Hydromorphone Hcl 1 Mg/Ml Syringe) 0.5 mg IVPUSH Q4H PRN; Protocol PRN Reason: Pain, Severe (Pain Scale 7-10) Lactated Ringer's (Lr) 1,000 mls @ 100 mls/hr IVCONT .Q10H [facility] Last Admin: 12/09/23 11:43 Dose: 100 mls/hr Piperacillin Sod/Tazobactam (Sod 3.375 gm/ Sodium Chloride) 50 mls @ 100 mls/hr IV Q6H [facility] Lactated Ringer's (Lr) 1,000 mls @ 100 mls/hr IVCONT .Q10H [facility] Melatonin (Melatonin 3 Mg Tablet) 6 mg PO BEDTIME PRN PRN Reason: Insomnia Nicotine (Nicotine 21 Mg Patch.Td24) 21 mg TRANSDERMA DAILY [facility] Ondansetron HCl (Ondansetron Hcl 4 Mg/2 Ml Vial) 4 mg IVPUSH Q8H PRN PRN Reason: Nausea and Vomiting Pharmacy Consult (Consult Rx Etoh Phenob Im/Po) 1 each MISCELLANE ONCE PRN; Protocol PRN Reason: Consult order Phenobarbital (Phenobarbital 15 Mg Tablet) 45 mg PO BID [facility] Stop: 12/11/23 21:01 Phenobarbital (Phenobarbital 30 Mg Tablet) 30 mg PO BID [facility] Stop: 12/13/23 21:01 Phenobarbital (Phenobarbital 30 Mg Tablet) 30 mg PO DAILY [facility] Stop: 12/15/23 09:01 Phenobarbital Sodium (Phenobarbital Sodium 130 Mg/Ml Vial Im Q3hx2) 200 mg IM Q3H [facility] Stop: 12/09/23 18:01 Sodium Chloride (0.9 % Sodium Chloride Flush 3 Ml Syringe) 3 ml IVFLUSH QSHIFT [facility] Home Medications ?Medication ?Instructions ?Recorded ?Confirmed ?Last Taken ?Type ibuprofen 200 mg tablet 600 mg PO Q6H PRN Pain 12/09/23 12/09/23 Unknown History Exam Exam Date and Time: 12/09/23 1500 Height,Weight and Vital Signs: Height 6 ft 2 in Weight 68.039 kg Last Vital Signs Temp 99.7 F 12/09/23 14:51 Pulse 68 12/09/23 14:51 Resp 16 12/09/23 14:51 BP 129/84 12/09/23 14:51 Pulse Ox 98 12/09/23 14:51 O2 Del Method Room Air 12/09/23 14:51 Pertinent Lab Results Pertinent Lab Results: Laboratory Tests 12/09/23 12/09/23 12/09/23 06:48 07:53 13:56 WBC 19.6 H RBC 4.32 L Hgb 15.3 Hct 43.5 MCV 100.7 H MCH 35.4 H MCHC 35.2 RDW 12.6 Plt Count 328 D MPV 9.8 Immature Gran % (Auto) 0.7 H Neut % (Auto) 80.6 H Lymph % (Auto) 8.0 L Swisher % (Auto) 9.5 Eos % (Auto) 0.5 Baso % (Auto) 0.7 Lymph # (Auto) 1.6 Swisher # (Auto) 1.9 H Eos # (Auto) 0.1 Baso # (Auto) 0.1 Abs Immat Gran (auto) 0.14 H Absolute Neuts (auto) 15.8 H Absolute Nucleated RBC 0.000 Nucleated RBC % (auto) 0.0 Smear Tech's Comments VERIFIED Sodium 138 Potassium 3.4 Chloride 96 Carbon Dioxide 32 H Anion Gap 13 BUN 10 Creatinine 0.88 Estim Creat Clear Calc 102.0 Estimated GFR > 60 Random Glucose 144 H Lactic Acid 1.5 Calcium 10.0 Total Bilirubin 0.6 AST 15 ALT 13 Alkaline Phosphatase 61 Total Protein 7.7 Albumin 4.0 Lipase 12 Influenza Type A (PCR) NEGATIVE Influenza Type B (PCR) NEGATIVE RSV RNA Qual (PCR) NEGATIVE SARS-CoV-2 RNA (RT-PCR) NEGATIVE Blood Type A Positive Antibody Screen NEGATIVE Airway Mallampati Class: II TM Dist: >3cm Neck ROM: Full Loose/Missing/Broken Teeth: No (patient denies any loose or broken teeth) Heart: S1S2 Lungs: CTAB Assessment and Plan Assessment Anesthesia Assessment: Anesthesia Plan Discussed and Chart Reviewed Final Anesthetic Review Family History of Problems with Anesthesia: No History of Problems with Anesthesia: No (Never had general anesthesia. Just local.) NPO: Yes ASA Class: III and Emergency Final Preanesthetic Review: No Changes in Pt Med Stat, Meds/Allgs Chart Reviewed, Consent Obtained/Reviewed and Anes Risks/Benef Reviewed Patient Risk: Intermediate Procedure Risk: Intermediate Anesthetic Plan Anesthetic Plan: GA, Regional Block (bilateral TAP block) and Agree w/ Assess. and Plan Disposition: Standard PACU
--- NOTE | 2023-12-09 17:08 | W.PM.OPN ---
Operative Note Operative Note Date of Service: 12/09/23 Narrative: Preop diagnosis: acute sigmoid diverticulitis, with large intramural abscess Preop diagnosis: Acute sigmoid diverticulitis, with intramural abscess, abscesses in the attached mesentery, marked induration, severe inflammatory process in the mesentery Procedure: Hand assisted laparoscopic sigmoid resection, extensive lysis of adhesions, end-colostomy Surgeon: Joel Bueno MD contact lens assistant: KATHY Mcallister The patient is a 43-year-old male, with abdominal pain for the past 10 days, worsening. He therefore a CT scan here in the earlier today showing a large intramural abscess in the sigmoid with severe inflammatory changes consistent with diverticulitis. In view of the size of the abscess, as well as the intramural nature, I explained to him it was unlikely that this will resolve with nonoperative treatment. I explained to him that it would be best to proceed with resection. He understood the technique of the planned procedure as well as the risks, benefits, and alternatives. He was brought to the operating room and placed in modified lithotomy position under general anesthesia via endotracheal tube. The abdomen and the perineum were prepped and draped in the usual sterile fashion. A Oleary catheter had been placed. A surgical time-out was done. A tap block was done by the anesthesiologist. I made a short low midline l incision using blade 15. This carried down through the full-thickness of the skin subcutaneous fat down to the fascia. The fascia was incised. The peritoneum was entered. I positioned the Praneeth wound retractor through the wound and applied the Gelfoam along with the insufflating port. We insufflated the pressure of 15 mm Hg. With laparoscopic visualization using a 30 degree 10 mm scope, inserted a 5/12 mm port epigastric area. We moved the camera into this epigastric port. The patient was placed in a steep head-down position. I inserted my hand through the GelPort. We examined laparoscopically. The distal sigmoid was very indurated with note of a very thickened, markedly inflamed mesentery. This sigmoid was also markedly tethered and adherent to the sidewall. I had to do careful lysis of adhesions using the LigaSure as well as my finger. This was done until was able to release the adhesions and mobilize this marked inflamed sigmoid. I extended my dissection into the left colon by dividing the ligamentous attachments along the white line of Toldt for mobilization. This was done using the LigaSure. I carefully mobilized more of the distal sigmoid and was able to feel the supple noninflamed segment past the area of inflammation closed with the rectosigmoid. I chose my point of transection in the proximal sigmoid. I used the LigaSure to create a mesenteric window. I divided the sigmoid through this mesenteric window using an Endo-SIDNEY 60 mm stapler. I also created a mesenteric window in the the distal sigmoid near the rectosigmoid junction using the LigaSure and used a similar Endo-SIDNEY 60 mm stapler to divide this . I then serially divided the attached mesentery using the LigaSure. In the area of the inflammation, the mesentery was very indurated, markedly inflamed . There was note of severe induration of the entire mesentery and sigmoid along with abscesses in the area. I therefore had to divide the mesentery slowly along this area to achieve good hemostasis using the LigaSure. Eventually I was able to complete transection. The specimen was sent . I copiously irrigated. I made sure that we had good hemostasis. Once hemostasis was confirmed, I proceeded to then do the colostomy. I created my stoma opening in the left lower quadrant which had been previously marked. I excised the discoid piece of skin left lower quadrant at the had been previously marked. I dissected with electrocautery through the subcutaneous fat into the anterior sheath. I divided the anterior sheath and did muscle-splitting of the rectus through the he is here sheath. I applied a small-sized Praneeth wound retractor. I used a [place] to pull up the stump of the sigmoid through the Praneeth wound retractor. The wound retractor was then removed. We proceeded to then close the fascia with a running Maxon 1 stitch on the midline. Prior to this we positioned a drain into the pelvis along the previous inflamed area. I secured the drain to the skin with colon 3-0 stitches We examined laparoscopically using the epigastric port. The closure at the midline appeared intact without any bowel caught by the sutures. There was no twisting of the colostomy. We proceeded to then mature the colostomy by excising the staple line. I applied a circumferential row of Polysorb 3-0 sutures through the full-thickness of the wall of the sigmoid into the subdermal layer. The stoma appeared viable at the end. Dressings were applied. The stoma appliance was placed and the procedure was completed The patient tolerated procedure well. There were no immediate complications. Initial final counts of sponges and instruments were correct. Estimated blood loss about 100 cc. The patient was extubated without difficulty and transferred to the recovery room with stable vital signs.
--- NOTE | 2023-12-09 18:06 | PM.EVENT ---
Event Note Date of Service: 12/09/23 Event Note: Seen postop Status post sigmoid resection, end colostomy for large intramural abscess, severe diverticulitis Good urine output Stable vital signs Adequate pain control for now KRYSTAL drain deep serosanguineous Pain management Discussed with hospitalist service with regards to heavy alcohol drinking Withdrawal precautions Family at bedside Time Spent With Patient Time: Total time managing care of this patient today ____ minutes.
[2023-12-09] MEDS: Calcium Carbonate 750 MG TAB.CHEW PO (18:27)
[2023-12-09] MEDS: Morphine Sulfate 4 MG/ML CARTRIDGE 3 MG IVPUSH (18:28)
[2023-12-09 20:16] LABS: Appearance Urine Clear; Color Urine Yellow; Glucose Urine UA Negative (Negative); Leukocyte Esterase Urine Negative (Negative); Nitrite Urine Negative (Negative); Specific Gravity - Urine >= 1.030 (1.005-1.025); UMIC TRIGGER UACC YES; Urine Blood Negative (Negative); Urine Ketones Trace mg/dL (Negative); Urine Protein 30 (1+) mg/dL (Neg-Trace)
[2023-12-09] MEDS: PHENobarbitaL sodium 130 MG/ML VIAL IM Q3Hx2 204 MG IM ×2 (20:17→23:02)
[2023-12-09 20:21] LABS: Bacteria Urine None Seen (None Seen); Hyaline Casts Urine 0-2 /LPF (0-2); RBC Urine 0-2 /HPF (0-2); Squamous Epithelial Cell Urine 0-2 /HPF (0-2); WBC Urine 0-5 /HPF (0-5)
[2023-12-09] MEDS: Acetaminophen 1,000 MG/100 ML PIGGYBACK 400 MG IV (23:12)
--- NOTE | 2023-12-10 00:27 | PM.EVENT ---
Event Note Date of Service: 12/10/23 Event Note: Patient is a 43-year-old male with a PMH significant for BPH, diverticulosis, colon polyps, alcohol use disorder, and current smoker who presented to the ED for evaluation of worsening lower abdominal pain x1 week. Workup in the ED significant for leukocytosis of 19.[address] of scan of abdomen and pelvis found soft tissue thickening involving the rectosigmoid colon with pericolonic inflammatory changes and an intramural abscess of 4.4 x 3.7 cm containing gas, consistent with diverticular abscess that was unlikely to resolve with antibiotics alone. Patient was then admitted to the hospital under general surgery services where he underwent sigmoid resection with end colostomy. Hospitalist consult for alcohol use disorder. Attempted to see patient this night, but found him asleep and resting comfortably in bed. Review of records indicates patient reportedly smokes up to 1 pack of cigarettes a day and drinks 3-6 beers daily with up to 12 beers and a few nips of vodka on the weekend. For concern for alcohol withdrawal patient has been placed on phenobarb protocol and will monitor on CIWA. Spoke to nursing who stated patient has been comfortable most of the night without signs of active withdrawal. Will attempt to see patient again tomorrow during the day. Time Spent With Patient Time: Total time managing care of this patient today ____ minutes.
[2023-12-10] MEDS: HYDROmorphone HCl 0.5 MG/0.5 ML SYRINGE IVPUSH ×2 (03:15→12:32)
[2023-12-10 03:25] VITALS: BP 130/69; PULSE 59; RESP 18; TEMP 36.7; O2SAT 99
[2023-12-10 03:43] VITALS: BP 121/65; PULSE 56; RESP 16; TEMP 37; O2SAT 100
[2023-12-10] MEDS: Acetaminophen 1,000 MG/100 ML PIGGYBACK 400 MG IV ×2 (06:00→13:04)
[2023-12-10] MEDS: Lactated Ringers 1,000 ML 100 ML IVCONT ×2 (06:01→13:04)
[2023-12-10] MEDS: Piperacillin Sodium/Tazobactam 3.375 GM in 0.9 % Sodium Chloride 50 ML IV ×3 (06:04→18:15)
[2023-12-10 07:13] VITALS: BP 130/71; PULSE 60; RESP 16; TEMP 37.1; O2SAT 99
[2023-12-10 08:45] LABS: Hematocrit 35.5 % (42.0-52.0); Hemoglobin 12.4 g/dl (14.0-18.0); Mean Corpuscular HGB Conc 34.9 g/dl (31.0-36.0); Mean Corpuscular Hemoglobin 34.4 pg (27.0-33.0); Mean Corpuscular Volume 98.6 fL (80.0-98.0); Mean Platelet Volume 9.6 fL (9.4-12.4); Platelet Count 348 X10*3/uL (160-400); Red Cell Distribution Width 12.3 % (11.0-16.0)
[2023-12-10] MEDS: PHENobarbitaL 15 MG TABLET 45 MG PO ×2 (08:55→22:07)
[2023-12-10] MEDS: Nicotine 21 MG PATCH.TD24 TRANSDERMA (08:57)
[2023-12-10] MEDS: oxyCODONE HCl Immed Release 5 MG TABLET 10 MG PO ×3 (09:14→22:14)
[2023-12-10 09:15] LABS: Anion Gap 10 (12-20); Blood Urea Nitrogen 8 mg/dL (9-16); Calcium 8.9 mg/dL (8.4-10.2); Carbon Dioxide 30 mmol/L (22-29); Chloride 97 mmol/L (96-108); Creatinine Clr Calc Pharmacy 119.6; Estimated Glomerular Filt Rate > 60; Glucose Random 142 mg/dL (60-115); Potassium 3.7 mmol/L (3.3-5.1); Sodium 133 mmol/L (135-145)
[2023-12-10] MEDS: Calcium Carbonate 750 MG TAB.CHEW PO (09:15)
--- NOTE | 2023-12-10 09:42 | MHC.CM.PN ---
Patient lives in a home w/ friend. Functionally independent. Denies use of DME or services. PCP Sundar Botello [employer] No HCP. CM provided education and offered assistance. Patient declined. DP: Home w/ new VNA for new colostomy. [facility] Awaiting response. Friend to transport. CM will continue to follow.
--- NOTE | 2023-12-10 09:42 | PM.PNGS ---
Subjective Subjective Date of Service: 12/10/23 Interval history: Status post Elizabeth's procedure for severe inflammatory changes intramural abscess this Says he has good pain control No events overnight No output yet from the colostomy Physical Exam Vital Signs: Vital Signs: Last Vital Signs Temp 98.8 F 12/10/23 07:13 Pulse 60 12/10/23 07:13 Resp 16 12/10/23 07:13 BP 130/71 12/10/23 07:13 Pulse Ox 99 12/10/23 07:13 O2 Del Method Room Air 12/10/23 07:13 O2 Flow Rate 6 12/09/23 17:17 BMI result Body Mass Index 19.3 Const: General: comfortable and no acute distress Resp: Effort & Inspection: normal respiratory effort Cardio: Rate: regular rate GI: Other: Stoma viable, no output yet, KRYSTAL drain with serosanguineous output, dressings dry Palpation (GI): Soft to palpation Objective Data Active Medications Albuterol Sulfate (Albuterol Sulfate (0.083%) 2.5 Mg/3 Ml Vial.Neb) 2.5 mg INHALE ONCE PRN PRN Reason: Shortness of Breath/Wheezing Calcium Carbonate (Calcium Carbonate 750 Mg Tab.Chew) 750 mg PO Q4H PRN PRN Reason: Heartburn Last Admin: 12/10/23 09:15 Dose: 750 mg Documented By: DONTE Hydromorphone HCl (Hydromorphone Hcl 0.5 Mg/0.5 Ml Syringe) 0.5 mg IVPUSH Q4H PRN; Protocol PRN Reason: Pain, Severe (Pain Scale 7-10) Last Admin: 12/10/23 03:15 Dose: 0.5 mg Documented By: CHRISTI Piperacillin Sod/Tazobactam (Sod 3.375 gm/ Sodium Chloride) 50 mls @ 100 mls/hr IV Q6H [facility] Last Infusion: 12/10/23 06:54 Dose: Infused Documented By: CHRISTI Lactated Ringer's (Lr) 1,000 mls @ 100 mls/hr IVCONT .Q10H [facility] Last Infusion: 12/10/23 06:55 Dose: 100 mls/hr Documented By: CHRISTI Acetaminophen (Ofirmev) 1,000 mg in 100 mls @ 400 mls/hr IV Q6H [facility] Stop: 12/10/23 12:14 Last Infusion: 12/10/23 06:18 Dose: Infused Documented By: CHRISTI Melatonin (Melatonin 3 Mg Tablet) 6 mg PO BEDTIME PRN PRN Reason: Insomnia Naloxone HCl (Naloxone Hcl 0.4 Mg/Ml Vial) 0.04 mg IVPUSH Q5M PRN PRN Reason: Excessive sedation or RR < 8 Nicotine (Nicotine 21 Mg Patch.Td24) 21 mg TRANSDERMA DAILY [facility] Last Admin: 12/10/23 08:57 Dose: 21 mg Documented By: DONTE Ondansetron HCl (Ondansetron Hcl 4 Mg/2 Ml Vial) 4 mg IVPUSH Q6H PRN PRN Reason: Nausea and Vomiting Oxycodone HCl (Oxycodone Hcl Immed Release 5 Mg Tablet) 10 mg PO Q4H PRN PRN Reason: Pain, Moderate(Pain Scale 4-6) Last Admin: 12/10/23 09:14 Dose: 10 mg Documented By: DONTE Pharmacy Consult (Consult Rx Etoh Phenob Im/Po) 1 each MISCELLANE ONCE PRN; Protocol PRN Reason: Consult order Phenobarbital (Phenobarbital 15 Mg Tablet) 45 mg PO BID [facility]; Protocol Stop: 12/11/23 21:01 Last Admin: 12/10/23 08:55 Dose: 45 mg Documented By: DONTE Phenobarbital (Phenobarbital 15 Mg Tablet) 15 mg PO BID [facility]; Protocol Stop: 12/13/23 21:01 Phenobarbital (Phenobarbital 15 Mg Tablet) 15 mg PO DAILY [facility]; Protocol Stop: 12/15/23 09:01 Sodium Chloride (0.9 % Sodium Chloride Flush 3 Ml Syringe) 3 ml IVFLUSH QSHIFT [facility] Last Admin: 12/10/23 08:56 Dose: Not Given Documented By: DONTE Non-Admin Reason: IV Running Labs 12/10/23 08:33 12/10/23 08:33 Labs: Laboratory Results - last 24 hr 12/09/23 12/09/23 12/10/23 13:56 19:22 08:33 MCV 98.6 H MCH 34.4 H MCHC 34.9 RDW 12.3 Plt Count 348 MPV 9.6 Absolute Nucleated RBC 0.000 Nucleated RBC % (auto) 0.0 Anion Gap 10 L Estim Creat Clear Calc 119.6 Estimated GFR > 60 Random Glucose 142 H Calcium 8.9 D Urine Color Yellow Urine Appearance Clear Urine pH 6.0 Ur Specific [place] >= 1.030 H Urine Protein 30 (1+) H Urine Glucose (UA) Negative Urine Ketones Trace Urine Blood Negative Urine Nitrite Negative Ur Leukocyte Esterase Negative Urine RBC 0-2 Urine WBC 0-5 Ur Squamous Epith Cells 0-2 Urine Bacteria None Seen Hyaline Casts 0-2 Blood Type A Positive Antibody Screen NEGATIVE Procedures Date of Service Date of Service: 12/10/23 Progress Note: A&P Assessment and plan (1) Diverticulitis of intestine with abscess: Status: Acute Assessment and Plan: Status post Elizabeth's procedure Doing well clinically Await return of GI function Clear liquids DC Oleary IV antibiotics Ambulate and out of bed Pain management Instructed on incentive spirometry Discussed with hospitalist with regards to withdrawal precautions in view of his alcohol history Labs okay Time Spent With Patient Time: Total time managing care of this patient today ____ minutes. Quality Stroke Does the patient have a stroke diagnosis?: No VTE Prior VTE?: No VTE Risk Level:: Surgical - high VTE Device Contraindication: N/A - Device Ordered VTE Drug Contraindication: N/A - Med Ordered
--- NOTE | 2023-12-10 10:27 | HO.POSTANES ---
Post Anesthesia Evaluation Post Anesthesia Evaluation Date of Service: 12/10/23 Vital Signs: Vital Signs Temp Pulse Resp BP Pulse Ox O2 Del Method 12/10/23 07:13 98.8 F 60 16 130/71 99 Room Air 12/10/23 03:43 98.6 F 56 16 121/65 100 Room Air 12/10/23 03:25 98.0 F 59 18 130/69 99 Room Air 12/09/23 22:55 97.5 F 68 18 144/78 H 98 Room Air Anesthesia: General Endotracheal-GETA Mental Status: Awake Pain Control: Satisfactory Nausea/Vomiting: None Hydration: Adequate Anesthesia-Related Issues: No Anes. Related Issues
--- NOTE | 2023-12-10 10:35 | MHC.RECOVRN ---
Pt had positive screen for unhealthy alcohol use on admission, subsequently met with t/w to discuss alcohol use and recovery supports/options. This news writer met with patient to discuss current alcohol use and concerns related to increased risk of alcohol related problems.? Pt reports drinking on a daily basis for a long time . Discussed how alcohol use has impacted health, including negative impact physical health including current hospital stay. Withdrawal History: None reported Treatment History: Pt reports receiving the shot in an outpatient setting but has not been recently Supports:?None identified. Discussed risk reduction strategies including drinking below the recommended limit. Provided pt with written resources including information on inpatient and outpatient treatment, MIGUEL, harm reduction, and recovery coaching. Pt plans to stop drinking and smoking on his own. Pt was in a a significant amount of discomfort today s/p colostomy. T/W will return tomorrow to review literature left and see if pt. has any other needs. Pt provided with t/w contact information if questions or concerns arise. Denies other questions or concerns at this time.
[2023-12-10 12:32] VITALS: RESP 18
--- NOTE | 2023-12-10 15:09 | HO.PM.IMPN ---
Subjective Subjective Date of Service: 12/10/23 Interval History: Patient is a 43 old male with a past medical history significant BPH, diverticulosis, colon polyps alcohol use disorder, and current smoker who was admitted under general surgery services for acute diverticulitis complicated with intramural abscess that required sigmoid resection with end colostomy. Medical follow-up for alcohol use disorder and concern for alcohol withdrawal The patient reports feels much better today Tolerating liquid diet Pain well-controlled No output in colostomy yet States has been drinking daily for at least the past 20 years Denies history of withdrawal No withdrawal symptoms: Denies headache, nausea, vomiting, anxiety, diaphoresis, auditory or visual hallucinations Overall is feeling comfortable and doing well Physical Exam Vital Signs: Vital Signs: Last Vital Signs Temp 98.8 F 12/10/23 07:13 Pulse 60 12/10/23 07:13 Resp 18 12/10/23 12:32 BP 130/71 12/10/23 07:13 Pulse Ox 99 12/10/23 07:13 O2 Del Method Room Air 12/10/23 07:13 O2 Flow Rate 6 12/09/23 17:17 BMI result Body Mass Index 19.3 General: AOx3, no acute distress Resp: CTA bilaterally CVS: S1, S2, RRR GI: +BS, no distention, mild tenderness at surgical sites. Ostomy in place with scant amount of serosanguineous fluid Skin: Warm, dry Neuro: Cranial nerves II-XII grossly intact bilaterally. Motor grossly intact bilaterally. No tremors or tongue fasciculations Extremities: No edema Psych: Appropriate affect Objective Data Active Medications Albuterol Sulfate (Albuterol Sulfate (0.083%) 2.5 Mg/3 Ml Vial.Neb) 2.5 mg INHALE ONCE PRN PRN Reason: Shortness of Breath/Wheezing Calcium Carbonate (Calcium Carbonate 750 Mg Tab.Chew) 750 mg PO Q4H PRN PRN Reason: Heartburn Last Admin: 12/10/23 09:15 Dose: 750 mg Documented By: DONTE Heparin Sodium (Porcine) (Heparin Sodium,Porcine 5,000 Unit/Ml Vial) 5,000 unit SUBCUT Q12H [facility] Hydromorphone HCl (Hydromorphone Hcl 0.5 Mg/0.5 Ml Syringe) 0.5 mg IVPUSH Q4H PRN; Protocol PRN Reason: Pain, Severe (Pain Scale 7-10) Last Admin: 12/10/23 12:32 Dose: 0.5 mg Documented By: DONTE Piperacillin Sod/Tazobactam (Sod 3.375 gm/ Sodium Chloride) 50 mls @ 100 mls/hr IV Q6H [facility] Last Infusion: 12/10/23 13:08 Dose: Infused Documented By: DONTE Lactated Ringer's (Lr) 1,000 mls @ 100 mls/hr IVCONT .Q10H [facility] Last Admin: 12/10/23 13:04 Dose: 100 mls/hr Documented By: DONTE Melatonin (Melatonin 3 Mg Tablet) 6 mg PO BEDTIME PRN PRN Reason: Insomnia Naloxone HCl (Naloxone Hcl 0.4 Mg/Ml Vial) 0.04 mg IVPUSH Q5M PRN PRN Reason: Excessive sedation or RR < 8 Nicotine (Nicotine 21 Mg Patch.Td24) 21 mg TRANSDERMA DAILY [facility] Last Admin: 12/10/23 08:57 Dose: 21 mg Documented By: DONTE Ondansetron HCl (Ondansetron Hcl 4 Mg/2 Ml Vial) 4 mg IVPUSH Q6H PRN PRN Reason: Nausea and Vomiting Oxycodone HCl (Oxycodone Hcl Immed Release 5 Mg Tablet) 10 mg PO Q4H PRN PRN Reason: Pain, Moderate(Pain Scale 4-6) Last Admin: 12/10/23 09:14 Dose: 10 mg Documented By: DONTE Pharmacy Consult (Consult Rx Etoh Phenob Im/Po) 1 each MISCELLANE ONCE PRN; Protocol PRN Reason: Consult order Phenobarbital (Phenobarbital 15 Mg Tablet) 45 mg PO BID [facility]; Protocol Stop: 12/11/23 21:01 Last Admin: 12/10/23 08:55 Dose: 45 mg Documented By: DONTE Phenobarbital (Phenobarbital 15 Mg Tablet) 15 mg PO BID [facility]; Protocol Stop: 12/13/23 21:01 Phenobarbital (Phenobarbital 15 Mg Tablet) 15 mg PO DAILY [facility]; Protocol Stop: 12/15/23 09:01 Sodium Chloride (0.9 % Sodium Chloride Flush 3 Ml Syringe) 3 ml IVFLUSH QSHIFT [facility] Last Admin: 12/10/23 08:56 Dose: Not Given Documented By: DONTE Non-Admin Reason: IV Running Labs 12/10/23 08:33 12/10/23 08:33 Labs: Laboratory Results - last 24 hr 12/09/23 12/10/23 19:22 08:33 MCV 98.6 H MCH 34.4 H MCHC 34.9 RDW 12.3 Plt Count 348 MPV 9.6 Absolute Nucleated RBC 0.000 Nucleated RBC % (auto) 0.0 Anion Gap 10 L Estim Creat Clear Calc 119.6 Estimated GFR > 60 Random Glucose 142 H Calcium 8.9 D Urine Color Yellow Urine Appearance Clear Urine pH 6.0 Ur Specific [place] >= 1.030 H Urine Protein 30 (1+) H Urine Glucose (UA) Negative Urine Ketones Trace Urine Blood Negative Urine Nitrite Negative Ur Leukocyte Esterase Negative Urine RBC 0-2 Urine WBC 0-5 Ur Squamous Epith Cells 0-2 Urine Bacteria None Seen Hyaline Casts 0-2 Microbiology Microbiology Results: Microbiology 12/09/23 07:53 Blood Culture - Preliminary Blood - Venous No growth after 24 hours. 12/09/23 07:53 Blood Culture - Preliminary Blood - Venous No growth after 24 hours. Assessment and Plan (1) Diverticulitis of intestine with abscess: Status: Acute (2) Alcohol use disorder, moderate, dependence: Status: Acute Plan Patient is a 43-year-old male with a PMH significant for BPH, diverticulosis, colon polyps, alcohol use disorder, and current smoker who presented to the ED for evaluation of worsening lower abdominal pain x1 week. Workup in the ED significant for leukocytosis of 19.[address] of scan of abdomen and pelvis found soft tissue thickening involving the rectosigmoid colon with pericolonic inflammatory changes and an intramural abscess of 4.4 x 3.7 cm containing gas, consistent with diverticular abscess that was unlikely to resolve with antibiotics alone. Patient was then admitted to the hospital under general surgery services where he underwent sigmoid resection with end colostomy. Hospitalist consult for alcohol use disorder. Diverticulitis with intestinal abscess S/P sigmoid resection with end colostomy Pain well-controlled, no output in ostomy yet Plan as per General surgery Alcohol use disorder Patient reports drinking 3-6 beers daily with 12 beers few nips of vodka weekend No history of withdrawal, but has been drinking daily x20 years Currently no signs of active withdrawal Continue phenobarb protocol Monitor on [facility] Addiction medicine consult Patient appears stable, comfortable, and not in active withdrawal. Will sign off for now. Thank you for allowing us to participate in the care of this patient. Please re-consult if any acute issue or need arises. Quality Stroke Does the patient have a stroke diagnosis?: No VTE Prior VTE?: No VTE Risk Level:: Surgical - high VTE Device Contraindication: N/A - Device Ordered VTE Drug Contraindication: N/A - Med Ordered
[2023-12-10 15:33] VITALS: BP 116/64; PULSE 59; RESP 16; TEMP 36.4; O2SAT 99
[2023-12-10 19:50] VITALS: BP 145/91; PULSE 70; RESP 17; TEMP 36.8; O2SAT 99
[2023-12-10] MEDS: Heparin Sodium,Porcine 5,000 UNIT/ML VIAL 5000 UNIT SUBCUT (22:06)
[2023-12-11] VITALS (10 sets, daily range): BP systolic 131–147; BP diastolic 70–91; PULSE 68–94; RESP 12–18; TEMP 36.1–37.1; O2SAT 92–99
[2023-12-11] MEDS: Lactated Ringers 1,000 ML 100 ML IVCONT ×2 (00:27→12:35)
[2023-12-11] MEDS: Piperacillin Sodium/Tazobactam 3.375 GM in 0.9 % Sodium Chloride 50 ML IV ×4 (00:29→18:12)
[2023-12-11] MEDS: HYDROmorphone HCl 0.5 MG/0.5 ML SYRINGE IVPUSH ×4 (00:39→18:11)
[2023-12-11] MEDS: Melatonin 3 MG TABLET 6 MG PO (00:42)
[2023-12-11] MEDS: oxyCODONE HCl Immed Release 5 MG TABLET 10 MG PO ×4 (04:05→20:29)
[2023-12-11] MEDS: Simethicone 80 MG TAB.CHEW PO (06:39)
[2023-12-11] MEDS: Calcium Carbonate 750 MG TAB.CHEW PO ×2 (08:52→15:22)
[2023-12-11] MEDS: PHENobarbitaL 15 MG TABLET 45 MG PO ×2 (08:52→21:48)
[2023-12-11] MEDS: Nicotine 21 MG PATCH.TD24 TRANSDERMA (08:53)
[2023-12-11] MEDS: 0.9 % Sodium Chloride Flush 3 ML SYRINGE IVFLUSH (08:54)
[2023-12-11] MEDS: Heparin Sodium,Porcine 5,000 UNIT/ML VIAL 5000 UNIT SUBCUT ×2 (09:02→21:47)
--- NOTE | 2023-12-11 10:05 | MHC.RECOVRN ---
T/W attempted to F/U with pt. from yesterdays conversation about MAT. Pt still in a lot of discomfort and resting upon my arrival. Report to ACS team for PRN F/U needs.
--- NOTE | 2023-12-11 10:09 | P.PNGS_ITS ---
Subjective Subjective Date of Service: 12/12/23 Interval history: Describes some incisional pain Says he has bloating No obvious output from the colostomy Getting out of bed to chair Voiding freely Physical Exam 2 Vital Signs: Vital Signs: Last Vital Signs Temp 97.6 F 12/11/23 08:02 Pulse 83 12/11/23 08:02 Resp 12 12/11/23 08:02 BP 136/83 12/11/23 08:02 Pulse Ox 95 12/11/23 08:02 O2 Del Method Room Air 12/11/23 08:02 O2 Flow Rate 6 12/09/23 17:17 BMI result Body Mass Index 19.3 Const: Other: On recliner, looks well General: no acute distress Resp: Effort & Inspection: normal respiratory effort Cardio: Rate: regular rate GI: Other: With the appropriate tenderness KRYSTAL drain with serosanguineous output Palpation (GI): Soft to palpation, not firm and no guarding Objective Data Active Medications Albuterol Sulfate (Albuterol Sulfate (0.083%) 2.5 Mg/3 Ml Vial.Neb) 2.5 mg INHALE ONCE PRN PRN Reason: Shortness of Breath/Wheezing Calcium Carbonate (Calcium Carbonate 750 Mg Tab.Chew) 750 mg PO Q4H PRN PRN Reason: Heartburn Last Admin: 12/11/23 08:52 Dose: 750 mg Documented By: DONTE Heparin Sodium (Porcine) (Heparin Sodium,Porcine 5,000 Unit/Ml Vial) 5,000 unit SUBCUT Q12H [facility] Last Admin: 12/11/23 09:02 Dose: 5,000 unit Documented By: DONTE Hydromorphone HCl (Hydromorphone Hcl 0.5 Mg/0.5 Ml Syringe) 0.5 mg IVPUSH Q4H PRN; Protocol PRN Reason: Pain, Severe (Pain Scale 7-10) Last Admin: 12/11/23 06:23 Dose: 0.5 mg Documented By: NIR Piperacillin Sod/Tazobactam (Sod 3.375 gm/ Sodium Chloride) 50 mls @ 100 mls/hr IV Q6H [facility] Last Infusion: 12/11/23 06:39 Dose: Infused Documented By: NIR Lactated Ringer's (Lr) 1,000 mls @ 100 mls/hr IVCONT .Q10H [facility] Last Admin: 12/11/23 00:27 Dose: 100 mls/hr Documented By: NIR Melatonin (Melatonin 3 Mg Tablet) 6 mg PO BEDTIME PRN PRN Reason: Insomnia Last Admin: 12/11/23 00:42 Dose: 6 mg Documented By: NIR Comments: unable to scan pt wristband Naloxone HCl (Naloxone Hcl 0.4 Mg/Ml Vial) 0.04 mg IVPUSH Q5M PRN PRN Reason: Excessive sedation or RR < 8 Nicotine (Nicotine 21 Mg Patch.Td24) 21 mg TRANSDERMA DAILY [facility] Last Admin: 12/11/23 08:53 Dose: 21 mg Documented By: DONTE Ondansetron HCl (Ondansetron Hcl 4 Mg/2 Ml Vial) 4 mg IVPUSH Q6H PRN PRN Reason: Nausea and Vomiting Oxycodone HCl (Oxycodone Hcl Immed Release 5 Mg Tablet) 10 mg PO Q4H PRN PRN Reason: Pain, Moderate(Pain Scale 4-6) Last Admin: 12/11/23 08:53 Dose: 10 mg Documented By: DONTE Pharmacy Consult (Consult Rx Etoh Phenob Im/Po) 1 each MISCELLANE ONCE PRN; Protocol PRN Reason: Consult order Phenobarbital (Phenobarbital 15 Mg Tablet) 45 mg PO BID [facility]; Protocol Stop: 12/11/23 21:01 Last Admin: 12/11/23 08:52 Dose: 45 mg Documented By: DONTE Phenobarbital (Phenobarbital 15 Mg Tablet) 15 mg PO BID [facility]; Protocol Stop: 12/13/23 21:01 Phenobarbital (Phenobarbital 15 Mg Tablet) 15 mg PO DAILY [facility]; Protocol Stop: 12/15/23 09:01 Sodium Chloride (0.9 % Sodium Chloride Flush 3 Ml Syringe) 3 ml IVFLUSH QSHIFT [facility] Last Admin: 12/11/23 08:54 Dose: 3 ml Documented By: DONTE Labs 12/12/23 05:29 12/12/23 05:29 Microbiology Microbiology Results: Microbiology 12/09/23 07:53 Blood Culture - Preliminary Blood - Venous No growth after 48 hours. 12/09/23 07:53 Blood Culture - Preliminary Blood - Venous No growth after 48 hours. Procedures Date of Service Date of Service: 12/12/23 Progress Note: A&P Assessment and plan (1) Diverticulitis of intestine with abscess: Status: Acute Assessment and Plan: Doing well clinically No output from the stoma Stoma appears viable Encouraged ambulation Pain management Withdrawal precautions Hospitalist service following Time Spent With Patient Time: Total time managing care of this patient today ____ minutes. Quality Stroke Does the patient have a stroke diagnosis?: No VTE Prior VTE?: No VTE Risk Level:: Surgical - high VTE Device Contraindication: N/A - Device Ordered VTE Drug Contraindication: N/A - Med Ordered
[2023-12-11] MEDS: ondansetron HCL 4 MG/2 ML VIAL IVPUSH (11:54)
--- NOTE | 2023-12-11 22:07 | PC.NURSE ---
almost immediately post last dose of phenobarbital pt vomited about 100cc greenish colored emesis with some particles of unknown substance- reported to MD Yoon. Reports feeling better, denies nausea now
[2023-12-12] MEDS: 0.9 % Sodium Chloride Flush 3 ML SYRINGE IVFLUSH (00:26)
[2023-12-12] MEDS: Piperacillin Sodium/Tazobactam 3.375 GM in 0.9 % Sodium Chloride 50 ML IV ×4 (00:26→18:46)
[2023-12-12 00:39] VITALS: RESP 18
[2023-12-12] MEDS: HYDROmorphone HCl 0.5 MG/0.5 ML SYRINGE IVPUSH ×5 (00:39→23:40)
[2023-12-12] MEDS: ondansetron HCL 4 MG/2 ML VIAL IVPUSH (00:39)
--- NOTE | 2023-12-12 02:56 | PC.NURSE ---
Addendum entered by Lilliana Shankar RN 12/12/23 05:53: Pt vomited approx 250mL emesis around 0440. This scientific technical writer messaged Dr Bueno - orders to make pt NPO and restart LR at 100mL/hr. Original Note: Pt noted to have vomited up 200-250mL bile when this RN into assess pt. Pt states he just vomited a few minutes ago and now the pain in his abd is worse. Pt given PRN dilaudid and PRN zofran, both with positive effect. Dr. Yoon notified via [employer] that pt had vomited and that his LR had fallen off. No new orders, IVF deferred to day team.
[2023-12-12 04:41] VITALS: RESP 18
[2023-12-12] MEDS: Lactated Ringers 1,000 ML 100 ML IVCONT ×2 (05:44→15:51)
[2023-12-12] MEDS: PHENobarbitaL 15 MG TABLET PO ×2 (06:52→21:07)
[2023-12-12] MEDS: oxyCODONE HCl Immed Release 5 MG TABLET 10 MG PO ×4 (06:52→21:05)
[2023-12-12] MEDS: Nicotine 21 MG PATCH.TD24 TRANSDERMA (06:53)
[2023-12-12 07:10] LABS: Hematocrit 41.1 % (42.0-52.0); Mean Corpuscular HGB Conc 34.1 g/dl (31.0-36.0); Mean Corpuscular Hemoglobin 33.7 pg (27.0-33.0); Platelet Count 386 X10*3/uL (160-400); Red Blood Count 4.15 X10*6/uL (4.60-5.80); Red Cell Distribution Width 12.4 % (11.0-16.0); White Blood Count 13.4 X10*3/uL (4.8-10.8)
[2023-12-12 07:31] VITALS: BP 128/77; PULSE 87; RESP 16; TEMP 36.7; O2SAT 93
[2023-12-12 07:53] LABS: Anion Gap 14 (12-20); Blood Urea Nitrogen 11 mg/dL (9-16); Carbon Dioxide 33 mmol/L (22-29); Chloride 91 mmol/L (96-108); Creatinine Clr Calc Pharmacy 108.1; Estimated Glomerular Filt Rate > 60; Glucose Random 120 mg/dL (60-115); Potassium 4.3 mmol/L (3.3-5.1); Sodium 134 mmol/L (135-145)
--- NOTE | 2023-12-12 07:54 | PM.PNGS ---
Subjective Subjective Date of Service: 12/12/23 <Savita Mcallister PA-C - Last Filed: 12/12/23 07:57> 12/12/23 <Joel Bueno MD - Last Filed: 12/12/23 09:18> Interval history: Vomited overnight a few times. C/o bloating. Only walked once yesterday. No flatus or stool via ostomy. <Savita Mcallister PA-C - Last Filed: 12/12/23 07:57> Physical Exam Vital Signs: Vital Signs: Last Vital Signs Temp 98.0 F 12/12/23 07:31 Pulse 87 12/12/23 07:31 Resp 16 12/12/23 07:31 BP 128/77 12/12/23 07:31 Pulse Ox 93 12/12/23 07:31 O2 Del Method Room Air 12/12/23 07:31 O2 Flow Rate 6 12/09/23 17:17 BMI result Body Mass Index 19.3 <Savita Mcallister PA-C - Last Filed: 12/12/23 07:57> Const: General: comfortable, no acute distress and alert <Savita Mcallister PA-C - Last Filed: 12/12/23 07:57> Orientation/consciousness: patient oriented x3 <RODO Bowden Last Filed: 12/12/23 07:57> Resp: Effort & Inspection: normal respiratory effort <Savita Mcallister PA-C - Last Filed: 12/12/23 07:57> GI: Other: ostomy pink centrally, no output KRYSTAL drain serous <Savita Mcallister PA-C - Last Filed: 12/12/23 07:57> Inspection: Yes distended and Yes incision (clean) <RODO Bowden Last Filed: 12/12/23 07:57> Palpation (GI): Soft to palpation, Tenderness to palpation present (GI) (mild incisional) and no guarding <RODO Bowden Last Filed: 12/12/23 07:57> Percussion: Yes tympanic to percussion <RODO Bowden Last Filed: 12/12/23 07:57> Skin: General skin exam: no rashes or lesions noted <Savita Mcallister PA-C - Last Filed: 12/12/23 07:57> Neuro: General: patient oriented x3 and moves all extremities <Savita Mcallister PA-C - Last Filed: 12/12/23 07:57> Objective Data Active Medications Albuterol Sulfate (Albuterol Sulfate (0.083%) 2.5 Mg/3 Ml Vial.Neb) 2.5 mg INHALE ONCE PRN PRN Reason: Shortness of Breath/Wheezing Calcium Carbonate (Calcium Carbonate 750 Mg Tab.Chew) 750 mg PO Q4H PRN PRN Reason: Heartburn Last Admin: 12/11/23 15:22 Dose: 750 mg Documented By: DONTE Heparin Sodium (Porcine) (Heparin Sodium,Porcine 5,000 Unit/Ml Vial) 5,000 unit SUBCUT Q12H [facility] Last Admin: 12/11/23 21:47 Dose: 5,000 unit Documented By: CRISTOFER Hydromorphone HCl (Hydromorphone Hcl 0.5 Mg/0.5 Ml Syringe) 0.5 mg IVPUSH Q4H PRN; Protocol PRN Reason: Pain, Severe (Pain Scale 7-10) Last Admin: 12/12/23 04:41 Dose: 0.5 mg Documented By: LIZ Piperacillin Sod/Tazobactam (Sod 3.375 gm/ Sodium Chloride) 50 mls @ 100 mls/hr IV Q6H [facility] Last Infusion: 12/12/23 06:15 Dose: Infused Documented By: LIZ Lactated Ringer's (Lr) 1,000 mls @ 100 mls/hr IVCONT .Q10H [facility] Last Admin: 12/12/23 05:44 Dose: 100 mls/hr Documented By: LIZ Melatonin (Melatonin 3 Mg Tablet) 6 mg PO BEDTIME PRN PRN Reason: Insomnia Last Admin: 12/11/23 00:42 Dose: 6 mg Documented By: NIR Comments: unable to scan pt wristband Metoclopramide HCl (Metoclopramide Hcl 10 Mg/2 Ml Vial) 10 mg IVPUSH Q6H PRN PRN Reason: Nausea and Vomiting Naloxone HCl (Naloxone Hcl 0.4 Mg/Ml Vial) 0.04 mg IVPUSH Q5M PRN PRN Reason: Excessive sedation or RR < 8 Nicotine (Nicotine 21 Mg Patch.Td24) 21 mg TRANSDERMA DAILY [facility] Last Admin: 12/12/23 06:53 Dose: 21 mg Documented By: SEFERINO Ondansetron HCl (Ondansetron Hcl 4 Mg/2 Ml Vial) 4 mg IVPUSH Q6H PRN PRN Reason: Nausea and Vomiting Last Admin: 12/12/23 00:39 Dose: 4 mg Documented By: LIZ Oxycodone HCl (Oxycodone Hcl Immed Release 5 Mg Tablet) 10 mg PO Q4H PRN PRN Reason: Pain, Moderate(Pain Scale 4-6) Last Admin: 12/12/23 06:52 Dose: 10 mg Documented By: SEFERINO Pharmacy Consult (Consult Rx Etoh Phenob Im/Po) 1 each MISCELLANE ONCE PRN; Protocol PRN Reason: Consult order Phenobarbital (Phenobarbital 15 Mg Tablet) 15 mg PO BID [facility]; Protocol Stop: 12/13/23 21:01 Last Admin: 12/12/23 06:52 Dose: 15 mg Documented By: SEFERINO Phenobarbital (Phenobarbital 15 Mg Tablet) 15 mg PO DAILY [facility]; Protocol Stop: 12/15/23 09:01 Sodium Chloride (0.9 % Sodium Chloride Flush 3 Ml Syringe) [facility] Last Admin: 12/12/23 06:57 Dose: Not Given Documented By: SEFERINO Non-Admin Reason: IV Running <Savita Mcallister PA-C - Last Filed: 12/12/23 07:57> Labs CBC & Chem 7: 12/12/23 05:29 12/12/23 05:29 <Savita Mcallister PA-C - Last Filed: 12/12/23 07:57> Labs: Laboratory Results - last 24 hr 12/12/23 05:29 MCV 99.0 H MCH 33.7 H MCHC 34.1 RDW 12.4 Plt Count 386 MPV 10.0 Absolute Nucleated RBC 0.000 Nucleated RBC % (auto) 0.0 Anion Gap 14 Estim Creat Clear Calc 108.1 Estimated GFR > 60 Random Glucose 120 H Calcium 10.0 D <RODO Bowden Last Filed: 12/12/23 07:57> Microbiology Microbiology Results: Microbiology 12/09/23 07:53 Blood Culture - Preliminary Blood - Venous No growth after 48 hours. 12/09/23 07:53 Blood Culture - Preliminary Blood - Venous No growth after 48 hours. <Savita Mcallister PA-C - Last Filed: 12/12/23 07:57> Procedures Date of Service Date of Service: 12/12/23 <Savita Mcallister PA-C - Last Filed: 12/12/23 07:57> 12/12/23 <Joel Bueno MD - Last Filed: 12/12/23 09:18> Progress Note: A&P Assessment and plan (1) Diverticulitis of intestine with abscess: Status: Acute <Savita Mcallister PA-C - Last Filed: 12/12/23 07:57> Assessment and Plan: Vomited this morning Otherwise looks well Abdomen soft and benign Incision clean No output from the stoma KRYSTAL drain with serous output Keep NPO for now, likely with delayed return of GI function Ambulate On withdrawal precautions Seen and examined independently <Joel Bueno MD - Last Filed: 12/12/23 09:18> Assessment and Plan: POd #3 s/p Hand assisted laparoscopic sigmoid resection, extensive lysis of adhesions, end-colostomy for Acute sigmoid diverticulitis, with intramural abscess, abscesses in the attached mesentery, marked induration, inflammatory process in the mesentery. Now with vomiting, no GI function. GI function slow to recover, will keep NPO for now given abd distention and vomiting. Ice chips ok. Cont IVF, IV abx. Encouraged to increase ambulation. Ostomy education. WBC cont to downtrend. Await return of GI function. <Savita Mcallister PA-C - Last Filed: 12/12/23 07:57> Time Spent With Patient Time: Total time managing care of this patient today ____ minutes. <Savita Mcallister PA-C - Last Filed: 12/12/23 07:57> Quality Stroke Does the patient have a stroke diagnosis?: No <Savita Mcallister PA-C - Last Filed: 12/12/23 07:57> VTE Prior VTE?: No <Savita Mcallister PA-C - Last Filed: 12/12/23 07:57> VTE Risk Level:: Surgical - high <Savita Mcallister PA-C - Last Filed: 12/12/23 07:57> VTE Device Contraindication: N/A - Device Ordered <Savita Mcallister PA-C - Last Filed: 12/12/23 07:57> VTE Drug Contraindication: N/A - Med Ordered <Savita Mcallister PA-C - Last Filed: 12/12/23 07:57>
[2023-12-12] MEDS: Heparin Sodium,Porcine 5,000 UNIT/ML VIAL 5000 UNIT SUBCUT ×2 (09:46→21:07)
[2023-12-12] MEDS: Acetaminophen 1,000 MG/100 ML PIGGYBACK 400 MG IV ×3 (12:37→23:41)
--- NOTE | 2023-12-12 13:12 | MHC.RECOVRN ---
Attempted to meet with pt to follow up after receiving resources. Pt reports he simply wants to sleep. Encouraged pt to let RN know if he would like to meet with [facility] to further discuss resources and supports.
--- NOTE | 2023-12-12 14:44 | HO.OSTOMY ---
Ostomy Consult: Initial Teaching 43yr old male admitted to [facility] on 12/09/23 see H&P for detailed history and admission. Consult for new ostomy teaching. ?He had an End Colostomy creation on 12/09/[address] Bueno. ?Upon entry into patient's room, he islying in his bed, he is alert and oriented x 3, he currently has no complaints. ?Introductions were completed, he is agreeable to continuing with teaching. ? We discussed his pain control at 5/10 at the current moment, he reports increasing the use of his IS and ambulating the entire unit (1x today so far). ?We began by discussing general knowledge about the Colostomy and questions he had. ?We discussed opening and closing the ostomy pouch. He was able to independently provide a return demonstration on an empty pouch. ?He had not yet emptied his pouch only bowel sweat is noted. We discussed the importance of emptying pouch when 1/3 to 1/2 full, how to empty pouch, and lining water with toilet paper to prevent splash back. With an empty Coloplast pouch he performed a demonstration. He was also educated on when to contact educational program director/Dr Bueno's office/seek emergency medical treatment. Patient was given some ostomy pouches for transition to home. Aware that Rx written for pouches and rings will be sent by Outpt nurse to [place] for home delivery. Reviewed written education with patient and left at bedside for further review. ?He did watch the education videos supplied by [facility]. Permission was granted for pouch assessment and no leak was noted. Stoma is dark red and appears viable through pouch. Due to no output from stoma pouch is not needed to be changed at this time. Will assess at tomorrows teaching. ?He reported having no questions at this time. ?Patient was made aware that I will return to bedside later in week for ongoing education - however to note patient seems to have a good understanding of care and material at this time. ?He will benefit from VNA services at time of discharge. ?All questions and concerns addressed at this time. Next teaching session goals: Demonstrate open and close independently Steps to a pouch change he is able to recall We discussed the following steps: 1. Empty pouch before pouch change 2. Remove pouch using push/pull technique from top to bottom 3. Cleanse stoma and skin with tap water only - no soap or baby wipes 4. Pat dry 5. Measure stoma and cut new pouch no more than 1/8 inch larger than stoma and no smaller than stoma 6. If instructed by your ostomy nurse stretch Anup seal to the size of the stoma and press onto skin around stoma (up to the edge of the stoma but not onto the stoma) 7. Press the new pouch into place and hold for several minutes (close pouch tail) 8. Empty pouch when 1/3 to 1/2 full 9. Change pouch twice weekly on a schedule (for example, every Tuesday and ) and as needed for any leaking (feels like intense itch or burn at edge of stoma) 10. May order pre-cut pouches (already cut to size of stoma) once stoma measures the same size consistently. ?
--- NOTE | 2023-12-12 15:13 | MHC.CM.PN ---
EMR REVIEWED AND PER MD, PT IS NOT MEDICALLY CLEARED FOR DC. (AWAITING BOWEL FUNCTION, ABLE TO TOLERATE ICE CHIPS ONLY) [facility] HAS ACCEPTED PT FOR OSTOMY TEACHING/OVERSIGHT ON DC. PT IS AGREEABLE TO THIS SERVICE. CM WILL CONTINUE TO FOLLOW FOR ANY CHANGE TO DC PLAN/NEEDS.
[2023-12-12 15:22] VITALS: BP 136/76; PULSE 75; RESP 20; TEMP 36.8; O2SAT 95
[2023-12-12 19:13] VITALS: BP 148/82; PULSE 80; RESP 20; TEMP 37.3; O2SAT 96
[2023-12-13] MEDS: Piperacillin Sodium/Tazobactam 3.375 GM in 0.9 % Sodium Chloride 50 ML IV ×5 (00:05→22:28)
[2023-12-13] MEDS: Lactated Ringers 1,000 ML 100 ML IVCONT ×3 (01:25→22:29)
[2023-12-13 04:16] VITALS: BP 143/73; PULSE 76; RESP 18; TEMP 37.1; O2SAT 96
[2023-12-13] MEDS: oxyCODONE HCl Immed Release 5 MG TABLET 10 MG PO ×4 (04:26→22:30)
[2023-12-13] MEDS: HYDROmorphone HCl 0.5 MG/0.5 ML SYRINGE IVPUSH ×3 (05:49→20:19)
[2023-12-13] MEDS: Acetaminophen 1,000 MG/100 ML PIGGYBACK 400 MG IV ×4 (06:28→22:30)
[2023-12-13 07:19] VITALS: BP 103/60; PULSE 72; RESP 16; TEMP 36.3; O2SAT 94
--- NOTE | 2023-12-13 08:23 | P.PNGS_ITS ---
Subjective Subjective Date of Service: 12/13/23 <Savita Mcallister PA-C - Last Filed: 12/13/23 08:26> 12/13/23 <Joel Bueno MD - Last Filed: 12/13/23 09:58> Interval history: Feels improved this morning. Denies nausea/vomiting since yesterday morning. Would like to try liquids again. Thinks he passed some flatus from ostomy. <Savita Mcallister PA-C - Last Filed: 12/13/23 08:26> Physical Exam 2 Vital Signs: Vital Signs: Last Vital Signs Temp 97.4 F 12/13/23 07:19 Pulse 72 12/13/23 07:19 Resp 16 12/13/23 07:19 BP 103/60 12/13/23 07:19 Pulse Ox 94 12/13/23 07:19 O2 Del Method Room Air 12/13/23 07:19 O2 Flow Rate 6 12/09/23 17:17 BMI result Body Mass Index 19.3 <Savita Mcallister PA-C - Last Filed: 12/13/23 08:26> Const: General: comfortable, no acute distress and alert <Savita Mcallister PA-C - Last Filed: 12/13/23 08:26> Orientation/consciousness: patient oriented x3 <RODO Bowden Last Filed: 12/13/23 08:26> Resp: Effort & Inspection: normal respiratory effort <RODO Bowden Last Filed: 12/13/23 08:26> GI: Other: ostomy pink, no output in appliance KRYSTAL Drain serous output and removed <RODO Bowden Last Filed: 12/13/23 08:26> Inspection: Yes distended (mild) and Yes incision (clean) <RODO Bowden Last Filed: 12/13/23 08:26> Palpation (GI): Soft to palpation, Tenderness to palpation present (GI) (mild incisional) and no guarding <RODO Bowden Last Filed: 12/13/23 08:26> Skin: General skin exam: no rashes or lesions noted <RODO Bowden Last Filed: 12/13/23 08:26> Neuro: General: patient oriented x3 and moves all extremities <Savita Mcallister PA-C - Last Filed: 12/13/23 08:26> Objective Data Active Medications Albuterol Sulfate (Albuterol Sulfate (0.083%) 2.5 Mg/3 Ml Vial.Neb) 2.5 mg INHALE ONCE PRN PRN Reason: Shortness of Breath/Wheezing Calcium Carbonate (Calcium Carbonate 750 Mg Tab.Chew) 750 mg PO Q4H PRN PRN Reason: Heartburn Last Admin: 12/11/23 15:22 Dose: 750 mg Documented By: DONTE Heparin Sodium (Porcine) (Heparin Sodium,Porcine 5,000 Unit/Ml Vial) 5,000 unit SUBCUT Q12H [facility] Last Admin: 12/12/23 21:07 Dose: 5,000 unit Documented By: YUSUF Hydromorphone HCl (Hydromorphone Hcl 0.5 Mg/0.5 Ml Syringe) 0.5 mg IVPUSH Q4H PRN; Protocol PRN Reason: Pain, Severe (Pain Scale 7-10) Last Admin: 12/13/23 05:49 Dose: 0.5 mg Documented By: YUSUF Piperacillin Sod/Tazobactam (Sod 3.375 gm/ Sodium Chloride) 50 mls @ 100 mls/hr IV Q6H [facility] Last Infusion: 12/13/23 06:48 Dose: Infused Documented By: YUSUF Lactated Ringer's (Lr) 1,000 mls @ 100 mls/hr IVCONT .Q10H [facility] Last Admin: 12/13/23 01:25 Dose: 100 mls/hr Documented By: YUSUF Acetaminophen (Ofirmev) 1,000 mg in 100 mls @ 400 mls/hr IV Q6H [facility] Last Infusion: 12/13/23 06:37 Dose: Infused Documented By: YUSUF Melatonin (Melatonin 3 Mg Tablet) 6 mg PO BEDTIME PRN PRN Reason: Insomnia Last Admin: 12/11/23 00:42 Dose: 6 mg Documented By: NIR Comments: unable to scan pt wristband Metoclopramide HCl (Metoclopramide Hcl 10 Mg/2 Ml Vial) 10 mg IVPUSH Q6H PRN PRN Reason: Nausea and Vomiting Naloxone HCl (Naloxone Hcl 0.4 Mg/Ml Vial) 0.04 mg IVPUSH Q5M PRN PRN Reason: Excessive sedation or RR < 8 Nicotine (Nicotine 21 Mg Patch.Td24) 21 mg TRANSDERMA DAILY [facility] Last Admin: 12/12/23 06:53 Dose: 21 mg Documented By: SEFERINO Ondansetron HCl (Ondansetron Hcl 4 Mg/2 Ml Vial) 4 mg IVPUSH Q6H PRN PRN Reason: Nausea and Vomiting Last Admin: 12/12/23 00:39 Dose: 4 mg Documented By: ANDKARL Oxycodone HCl (Oxycodone Hcl Immed Release 5 Mg Tablet) 10 mg PO Q4H PRN PRN Reason: Pain, Moderate(Pain Scale 4-6) Last Admin: 12/13/23 04:26 Dose: 10 mg Documented By: YUSUF Pharmacy Consult (Consult Rx Etoh Phenob Im/Po) 1 each MISCELLANE ONCE PRN; Protocol PRN Reason: Consult order Phenobarbital (Phenobarbital 15 Mg Tablet) 15 mg PO BID [facility]; Protocol Stop: 12/13/23 21:01 Last Admin: 12/12/23 21:07 Dose: 15 mg Documented By: YUSUF Phenobarbital (Phenobarbital 15 Mg Tablet) 15 mg PO DAILY [facility]; Protocol Stop: 12/15/23 09:01 Sodium Chloride (0.9 % Sodium Chloride Flush 3 Ml Syringe) 3 ml IVFLUSH QSHIFT [facility] Last Admin: 12/12/23 23:45 Dose: Not Given Documented By: YUSUF Non-Admin Reason: IV Running <Savita Mcallister PA-C - Last Filed: 12/13/23 08:26> Labs CBC & Chem 7: 12/12/23 05:29 12/12/23 05:29 <Savita Mcallister PA-C - Last Filed: 12/13/23 08:26> Procedures Date of Service Date of Service: 12/13/23 <Savita Mcallister PA-C - Last Filed: 12/13/23 08:26> 12/13/23 <Joel Bueno MD - Last Filed: 12/13/23 09:58> Progress Note: A&P Assessment and plan (1) Diverticulitis of intestine with abscess: Status: Acute <Savita Mcallister PA-C - Last Filed: 12/13/23 08:26> Assessment and Plan: Feels much better this morning Small amounts of flatus via the stoma Abdomen soft and benign KRYSTAL drain serous Clear liquids today and advance slowly as tolerated Okay to DC KRYSTAL drain Looks well clinically Seen and examined independently <Joel Bueno MD - Last Filed: 12/13/23 09:58> Assessment and Plan: POD #4 s/p Hand assisted laparoscopic sigmoid resection, extensive lysis of adhesions, end-colostomy for Acute sigmoid diverticulitis, with intramural abscess, abscesses in the attached mesentery, marked induration, inflammatory process in the mesentery. Improved this AM without further nausea/vomiting. VSS. Abd exam very mildly distended, soft, incision clean. Will advance back to clear liquids. Cont IVF, IV abx. Encouraged to increase ambulation. Ostomy education. Await return of GI function. KRYSTAL drain removed. <Savita Mcallister PA-C - Last Filed: 12/13/23 08:26> Time Spent With Patient Time: Total time managing care of this patient today ____ minutes. <Savita Mcallister PA-C - Last Filed: 12/13/23 08:26> Quality Stroke Does the patient have a stroke diagnosis?: No <Savita Mcallister PA-C - Last Filed: 12/13/23 08:26> VTE Prior VTE?: No <Savita Mcallister PA-C - Last Filed: 12/13/23 08:26> VTE Risk Level:: Surgical - high <Savita Mcallister PA-C - Last Filed: 12/13/23 08:26> VTE Device Contraindication: N/A - Device Ordered <Savita Mcallister PA-C - Last Filed: 12/13/23 08:26> VTE Drug Contraindication: N/A - Med Ordered <Savita Mcallister PA-C - Last Filed: 12/13/23 08:26>
[2023-12-13] MEDS: PHENobarbitaL 15 MG TABLET PO ×2 (09:22→20:19)
[2023-12-13] MEDS: Heparin Sodium,Porcine 5,000 UNIT/ML VIAL 5000 UNIT SUBCUT ×2 (09:23→20:19)
[2023-12-13] MEDS: Nicotine 21 MG PATCH.TD24 TRANSDERMA (09:23)
--- NOTE | 2023-12-13 14:46 | HO.OSTOMY ---
Ostomy Consult: Follow Up Teaching 43yr old male admitted to [facility] on 12/09/23 see H&P for detailed history and admission. Consult for new ostomy teaching. ?He had an End Colostomy creation on 12/09/[address] Bueno. ?Upon entry into patient's room, he is lying in his bed, he is alert and oriented x 3, he currently has no complaints. ?Introductions were completed, he is agreeable to continuing with teaching. ? We discussed his pain control at 5/10 at the current moment, he reports increasing the use of his IS and ambulating the entire unit (1x today so far). He reports understanding to a goal of 4 plus walks throughout the day. ?We began by discussing general knowledge about the Colostomy and questions he had. ?We discussed opening and closing the ostomy pouch. He was able to independently provide a return demonstration on an empty pouch. ?He had not yet emptied his pouch only bowel sweat is noted. We discussed the importance of emptying pouch when 1/3 to 1/2 full, how to empty pouch, and lining water with toilet paper to prevent splash back. With an empty Coloplast pouch he performed a demonstration. He was also educated on when to contact glueline worker/Dr Bueno's office/seek emergency medical treatment. Aware that Rx written for pouches and rings will be sent by Outpt nurse to [place] for home delivery. Reviewed written education with patient and left at bedside for further review. ?He did watch the education videos supplied by [facility] yesterday and reports feeling very comfortable. Permission was granted for pouch assessment and circumfrential white moisture was noted - he was agreeable to a pouch change. Stoma a red and moist with scattered areas of slough measuring 30mm x 35mm - remains viable. He participated in the [facility] change and had several questions that led to further discussion. He was changed into a Coloplast 1 piece [id number] - no barrier ring used. He reported having no questions at this time. ?Patient was made aware that I will return to bedside later in week for ongoing education - however to note patient seems to have a good understanding of care and material at this time. ?He will benefit from VNA services at time of discharge. ?All questions and concerns addressed at this time. Midline is noted for erythema - he reports provider assessed this am. Next teaching session goals: Demonstrate open and close independently Steps to a pouch change he is able to recall We discussed the following steps: 1. Empty pouch before pouch change 2. Remove pouch using push/pull technique from top to bottom 3. Cleanse stoma and skin with tap water only - no soap or baby wipes 4. Pat dry 5. Measure stoma and cut new pouch no more than 1/8 inch larger than stoma and no smaller than stoma 6. If instructed by your ostomy nurse stretch Anup seal to the size of the stoma and press onto skin around stoma (up to the edge of the stoma but not onto the stoma) 7. Press the new pouch into place and hold for several minutes (close pouch tail) 8. Empty pouch when 1/3 to 1/2 full 9. Change pouch twice weekly on a schedule (for example, every Tuesday and ) and as needed for any leaking (feels like intense itch or burn at edge of stoma) 10. May order pre-cut pouches (already cut to size of stoma) once stoma measures the same size consistently. ?
[2023-12-13 15:00] VITALS: O2SAT 95
[2023-12-13 15:22] VITALS: BP 124/66; PULSE 73; RESP 20; TEMP 36.2; O2SAT 95
[2023-12-13] MEDS: 0.9 % Sodium Chloride Flush 3 ML SYRINGE IVFLUSH (15:25)
[2023-12-13 19:13] VITALS: BP 137/71; PULSE 73; RESP 20; TEMP 36.9; O2SAT 96
[2023-12-13] MEDS: Melatonin 3 MG TABLET 6 MG PO (22:33)
[2023-12-14] MEDS: HYDROmorphone HCl 0.5 MG/0.5 ML SYRINGE IVPUSH ×6 (00:43→23:30)
[2023-12-14] MEDS: oxyCODONE HCl Immed Release 5 MG TABLET 10 MG PO ×3 (02:32→12:41)
[2023-12-14 02:53] VITALS: BP 135/72; PULSE 82; RESP 16; TEMP 36.6; O2SAT 95
[2023-12-14] MEDS: Piperacillin Sodium/Tazobactam 3.375 GM in 0.9 % Sodium Chloride 50 ML IV ×4 (05:04→23:32)
[2023-12-14] MEDS: Acetaminophen 1,000 MG/100 ML PIGGYBACK 400 MG IV ×4 (06:27→23:31)
[2023-12-14 07:49] VITALS: BP 137/73; PULSE 76; RESP 18; TEMP 36.2; O2SAT 94
[2023-12-14] MEDS: Nicotine 21 MG PATCH.TD24 TRANSDERMA (08:07)
[2023-12-14] MEDS: PHENobarbitaL 15 MG TABLET PO (08:07)
--- NOTE | 2023-12-14 08:08 | HO.STUDENTPN ---
Subjective Subjective Date of Service: 12/14/23 <[facility] - Last Filed: 12/14/23 14:26> 12/15/23 <Savita Mcallister PA-C - Last Filed: 12/16/23 10:55> Review of Systems 43 year old cisgender male admitted status post Elizabeth's procedure for severe inflammatory changes intramural abscess. Pt reports feeling better then yesterday. Still having some discomfort rated pain as 4-5/10. Pt reports that he feels a gas bubble in his lower abdomen, not able to pass gas nor stool yet. Pt reports that he has been ambulating. [facility] Last Filed: 12/14/23 14:26> Constitutional slight fatigue, no fever or chills <[facility] - Last Filed: 12/14/23 14:26> Respiratory no SOB, no dyspnea, some coughing due to hx of smoking <[facility] - Last Filed: 12/14/23 14:26> Gastrointestinal No nasuea, no vomitting. <[facility] - Last Filed: 12/14/23 14:26> Genitourinary no dysuria, no flank pain <[facility] - Last Filed: 12/14/23 14:26> Musculoskeletal no joint pain <[facility] - Last Filed: 12/14/23 14:26> Neurologic no tingling or numbness, no dizziness or MENDEZ <[facility] - Last Filed: 12/14/23 14:26> Psychiatric no sweating <[facility] - Last Filed: 12/14/23 14:26> Physical Exam Vital Signs: Vital Signs: Last Vital Signs Temp 97.2 F 12/14/23 07:49 Pulse 76 12/14/23 07:49 Resp 18 12/14/23 07:49 BP 137/73 12/14/23 07:49 Pulse Ox 94 12/14/23 07:49 O2 Del Method Room Air 12/14/23 07:49 O2 Flow Rate 6 12/09/23 17:17 BMI result Body Mass Index 19.3 <[facility] - Last Filed: 12/14/23 14:26> Const: Other: NAD, well appearing, alert, interactive <Sandrine Ahmad - Last Filed: 12/14/23 14:26> Resp: Other: Normal respiratory effort, no wheezing or rhonchi appreciated. <[facility] - Last Filed: 12/14/23 14:26> Cardio: Other: RRR, normal S1/S2 <[facility] - Last Filed: 12/14/23 14:26> GI: Other: Slight distension, hyperactive bowel sounds noted. <[facility] - Last Filed: 12/14/23 14:26> Skin: Other: No rashes or lesions. Erythema around marta, well healing. Stoma is pink. <[facility] - Last Filed: 12/14/23 14:26> Objective Data Active Medications Albuterol Sulfate (Albuterol Sulfate (0.083%) 2.5 Mg/3 Ml Vial.Neb) 2.5 mg INHALE ONCE PRN PRN Reason: Shortness of Breath/Wheezing Calcium Carbonate (Calcium Carbonate 750 Mg Tab.Chew) 750 mg PO Q4H PRN PRN Reason: Heartburn Last Admin: 12/11/23 15:22 Dose: 750 mg Documented By: DONTE Heparin Sodium (Porcine) (Heparin Sodium,Porcine 5,000 Unit/Ml Vial) 5,000 unit SUBCUT Q12H [facility] Last Admin: 12/13/23 20:19 Dose: 5,000 unit Documented By: SEFERINO Hydromorphone HCl (Hydromorphone Hcl 0.5 Mg/0.5 Ml Syringe) 0.5 mg IVPUSH Q4H PRN; Protocol PRN Reason: Pain, Severe (Pain Scale 7-10) Last Admin: 12/14/23 05:05 Dose: 0.5 mg Documented By: SEFERINO Piperacillin Sod/Tazobactam (Sod 3.375 gm/ Sodium Chloride) 50 mls @ 100 mls/hr IV Q6H [facility] Last Infusion: 12/14/23 05:43 Dose: Infused Documented By: SEFERINO Lactated Ringer's (Lr) 1,000 mls @ 100 mls/hr IVCONT .Q10H [facility] Last Admin: 12/13/23 22:29 Dose: 100 mls/hr Documented By: SEFERINO Acetaminophen (Ofirmev) 1,000 mg in 100 mls @ 400 mls/hr IV Q6H [facility] Last Infusion: 12/14/23 07:22 Dose: Infused Documented By: EWA Melatonin (Melatonin 3 Mg Tablet) 6 mg PO BEDTIME PRN PRN Reason: Insomnia Last Admin: 12/13/23 22:33 Dose: 6 mg Documented By: SEFERINO Metoclopramide HCl (Metoclopramide Hcl 10 Mg/2 Ml Vial) 10 mg IVPUSH Q6H PRN PRN Reason: Nausea and Vomiting Naloxone HCl (Naloxone Hcl 0.4 Mg/Ml Vial) 0.04 mg IVPUSH Q5M PRN PRN Reason: Excessive sedation or RR < 8 Nicotine (Nicotine 21 Mg Patch.Td24) 21 mg TRANSDERMA DAILY [facility] Last Admin: 12/13/23 09:23 Dose: 21 mg Documented By: BROYang Ondansetron HCl (Ondansetron Hcl 4 Mg/2 Ml Vial) 4 mg IVPUSH Q6H PRN PRN Reason: Nausea and Vomiting Last Admin: 12/12/23 00:39 Dose: 4 mg Documented By: LIZ Oxycodone HCl (Oxycodone Hcl Immed Release 5 Mg Tablet) 10 mg PO Q4H PRN PRN Reason: Pain, Moderate(Pain Scale 4-6) Last Admin: 12/14/23 06:26 Dose: 10 mg Documented By: SEFERINO Pharmacy Consult (Consult Rx Etoh Phenob Im/Po) 1 each MISCELLANE ONCE PRN; Protocol PRN Reason: Consult order Phenobarbital (Phenobarbital 15 Mg Tablet) 15 mg PO DAILY [facility]; Protocol Stop: 12/15/23 09:01 Sodium Chloride (0.9 % Sodium Chloride Flush 3 Ml Syringe) 3 ml IVFLUSH QSHIFT [facility] Last Admin: 12/14/23 08:01 Dose: Not Given Documented By: EWA Non-Admin Reason: IV Running <Sandrine Ahmad - Last Filed: 12/14/23 14:26> Labs CBC & Chem 7: 12/12/23 05:29 12/12/23 05:29 <Sandrine Ahmad - Last Filed: 12/14/23 14:26> Assessment and Plan (1) Diverticulitis of intestine with abscess: Status: Acute <Sandrine Ahmad - Last Filed: 12/14/23 14:26> Assessment and Plan: Pt is currently ambulating, encourage pt to continue ambulating. Wait for pt to pass gas and stool. Continue providing pain management for comfort. Continue clear liquid diet. <Sandrine Escobarlalitha - Last Filed: 12/14/23 14:26> Pt is currently ambulating, encourage pt to continue ambulating. Wait for pt to pass gas and stool. Continue providing pain management for comfort. Continue clear liquid diet. Patient doing well post op. <Savita Mcallister PA-C - Last Filed: 12/16/23 10:55> Quality Stroke Does the patient have a stroke diagnosis?: No <Sandrine Escobarlalitha - Last Filed: 12/14/23 14:26> VTE Prior VTE?: No <Sandrinesa Escobarfaustinod - Last Filed: 12/14/23 14:26> VTE Risk Level:: Surgical - high <Sandrine Escobarlalitha - Last Filed: 12/14/23 14:26> VTE Device Contraindication: N/A - Device Ordered <Sandrine Escobarlalitha - Last Filed: 12/14/23 14:26> VTE Drug Contraindication: N/A - Med Ordered <Sandrine faustinod - Last Filed: 12/14/23 14:26>
--- NOTE | 2023-12-14 09:07 | P.PNGS_ITS ---
Subjective Subjective Date of Service: 12/14/23 <Savita Mcallister PA-C - Last Filed: 12/14/23 09:10> 12/14/23 <Joel Bueno MD - Last Filed: 12/14/23 10:12> Interval history: Having some gas pains. Denies flatus or stool from ostomy. Tolerating liquids, denies belching. <Savita Mcallister PA-C - Last Filed: 12/14/23 09:10> Physical Exam 2 Vital Signs: Vital Signs: Last Vital Signs Temp 97.2 F 12/14/23 07:49 Pulse 76 12/14/23 07:49 Resp 18 12/14/23 07:49 BP 137/73 12/14/23 07:49 Pulse Ox 94 12/14/23 07:49 O2 Del Method Room Air 12/14/23 07:49 O2 Flow Rate 6 12/09/23 17:17 BMI result Body Mass Index 19.3 <Savita Mcallister PA-C - Last Filed: 12/14/23 09:10> Const: General: comfortable, no acute distress and alert <Savita Mcallister PA-C - Last Filed: 12/14/23 09:10> Orientation/consciousness: patient oriented x3 <Savita Mcallister PA-C - Last Filed: 12/14/23 09:10> Resp: Effort & Inspection: normal respiratory effort <Savita Mcallister PA-C - Last Filed: 12/14/23 09:10> GI: Other: ostomy viable appearing, no output <Savita Mcallister PA-C - Last Filed: 12/14/23 09:10> Inspection: Yes distended and Yes incision (clean, some erythema centrally of midline incision) <Savita Mcallister PA-C - Last Filed: 12/14/23 09:10> Palpation (GI): Soft to palpation and Tenderness to palpation present (GI) (mild incisional) <RODO Bowden Last Filed: 12/14/23 09:10> Percussion: Yes tympanic to percussion <RODO Bowden Last Filed: 12/14/23 09:10> Skin: General skin exam: no rashes or lesions noted <Savita Mcallister PA-C - Last Filed: 12/14/23 09:10> Neuro: General: patient oriented x3 and moves all extremities <Savita Mcallister PA-C - Last Filed: 12/14/23 09:10> Objective Data Active Medications Albuterol Sulfate (Albuterol Sulfate (0.083%) 2.5 Mg/3 Ml Vial.Neb) 2.5 mg INHALE ONCE PRN PRN Reason: Shortness of Breath/Wheezing Calcium Carbonate (Calcium Carbonate 750 Mg Tab.Chew) 750 mg PO Q4H PRN PRN Reason: Heartburn Last Admin: 12/11/23 15:22 Dose: 750 mg Documented By: DONTE Heparin Sodium (Porcine) (Heparin Sodium,Porcine 5,000 Unit/Ml Vial) 5,000 unit SUBCUT Q12H [facility] Last Admin: 12/13/23 20:19 Dose: 5,000 unit Documented By: SEFERINO Hydromorphone HCl (Hydromorphone Hcl 0.5 Mg/0.5 Ml Syringe) 0.5 mg IVPUSH Q4H PRN; Protocol PRN Reason: Pain, Severe (Pain Scale 7-10) Last Admin: 12/14/23 05:05 Dose: 0.5 mg Documented By: SEFERINO Piperacillin Sod/Tazobactam (Sod 3.375 gm/ Sodium Chloride) 50 mls @ 100 mls/hr IV Q6H [facility] Last Infusion: 12/14/23 05:43 Dose: Infused Documented By: SEFERINO Lactated Ringer's (Lr) 1,000 mls @ 100 mls/hr IVCONT .Q10H [facility] Last Admin: 12/13/23 22:29 Dose: 100 mls/hr Documented By: SEFERINO Acetaminophen (Ofirmev) 1,000 mg in 100 mls @ 400 mls/hr IV Q6H [facility] Last Infusion: 12/14/23 07:22 Dose: Infused Documented By: LUIS ENM Melatonin (Melatonin 3 Mg Tablet) 6 mg PO BEDTIME PRN PRN Reason: Insomnia Last Admin: 12/13/23 22:33 Dose: 6 mg Documented By: SEFERINO Metoclopramide HCl (Metoclopramide Hcl 10 Mg/2 Ml Vial) 10 mg IVPUSH Q6H PRN PRN Reason: Nausea and Vomiting Naloxone HCl (Naloxone Hcl 0.4 Mg/Ml Vial) 0.04 mg IVPUSH Q5M PRN PRN Reason: Excessive sedation or RR < 8 Nicotine (Nicotine 21 Mg Patch.Td24) 21 mg TRANSDERMA DAILY [facility] Last Admin: 12/14/23 08:07 Dose: 21 mg Documented By: EWA Ondansetron HCl (Ondansetron Hcl 4 Mg/2 Ml Vial) 4 mg IVPUSH Q6H PRN PRN Reason: Nausea and Vomiting Last Admin: 12/12/23 00:39 Dose: 4 mg Documented By: LIZ Oxycodone HCl (Oxycodone Hcl Immed Release 5 Mg Tablet) 10 mg PO Q4H PRN PRN Reason: Pain, Moderate(Pain Scale 4-6) Last Admin: 12/14/23 06:26 Dose: 10 mg Documented By: SEFERINO Pharmacy Consult (Consult Rx Etoh Phenob Im/Po) 1 each MISCELLANE ONCE PRN; Protocol PRN Reason: Consult order Phenobarbital (Phenobarbital 15 Mg Tablet) 15 mg PO DAILY [facility]; Protocol Stop: 12/15/23 09:01 Last Admin: 12/14/23 08:07 Dose: 15 mg Documented By: EWA Sodium Chloride (0.9 % Sodium Chloride Flush 3 Ml Syringe) [facility] Last Admin: 12/14/23 08:01 Dose: Not Given Documented By: EWA Non-Admin Reason: IV Running <Savita Mcallister PA-C - Last Filed: 12/14/23 09:10> Labs CBC & Chem 7: 12/12/23 05:29 12/12/23 05:29 <Savita Mcallister PA-C - Last Filed: 12/14/23 09:10> Procedures Date of Service Date of Service: 12/14/23 <Savita Mcallister PA-C - Last Filed: 12/14/23 09:10> 12/14/23 <Joel Bueno MD - Last Filed: 12/14/23 10:12> Progress Note: A&P Assessment and plan (1) Diverticulitis of intestine with abscess: Status: Acute <Savita Mcallister PA-C - Last Filed: 12/14/23 09:10> Assessment and Plan: Says he had some pain last night Passing small amounts of flatus Abdomen soft No stools yet Ambulate Exam benign Await return of GI function Continue IV antibiotics Seen and examined independently <Joel Bueno MD - Last Filed: 12/14/23 10:12> Assessment and Plan: POD #5 s/p Hand assisted laparoscopic sigmoid resection, extensive lysis of adhesions, end-colostomy for Acute sigmoid diverticulitis, with intramural abscess, abscesses in the attached mesentery, marked induration, inflammatory process in the mesentery. No evidence of return of GI function, slow to recover expected due to intraabdominal infection/surgery and narcotics. Remains mildly distended on exam. Continue clear liquids for now. Cont IVF, IV abx. Encouraged to increase ambulation/activity. Ostomy education. Await return of GI function. <Savita Mcallister PA-C - Last Filed: 12/14/23 09:10> Time Spent With Patient Time: Total time managing care of this patient today ____ minutes. <Savita Mcallister PA-C - Last Filed: 12/14/23 09:10> Quality Stroke Does the patient have a stroke diagnosis?: No <Savita Mcallister PA-C - Last Filed: 12/14/23 09:10> VTE Prior VTE?: No <Savita Mcallister PA-C - Last Filed: 12/14/23 09:10> VTE Risk Level:: Surgical - high <Savita Mcallister PA-C - Last Filed: 12/14/23 09:10> VTE Device Contraindication: N/A - Device Ordered <Savita Mcallister PA-C - Last Filed: 12/14/23 09:10> VTE Drug Contraindication: N/A - Med Ordered <Savita Mcallister PA-C - Last Filed: 12/14/23 09:10>
[2023-12-14] MEDS: Lactated Ringers 1,000 ML 100 ML IVCONT ×2 (09:30→19:30)
[2023-12-14] MEDS: Heparin Sodium,Porcine 5,000 UNIT/ML VIAL 5000 UNIT SUBCUT ×2 (09:36→22:36)
--- NOTE | 2023-12-14 09:49 | HO.OSTOMY ---
Ostomy Consult: Follow up Teaching 43yr old male admitted to [facility] on 12/09/23 see H&P for detailed history and admission.? Consult for new ostomy teaching. ?He had an End Colostomy creation on 12/09/[address] Bueno. ?Upon entry into patient room he was in bed - he was easily arousable but did not open eyes to conversation. When asked how he felt over all he reported feeling unwell but unable to identify how. His abdomen was assessed increased erythema noted around the midline incision. Stoma remains red moist with scattered slough. Still no output no gas I put a cover over his filter yesterday so we could more definitively determine gas output, todays assessment reveals he has not produced gas nor stool. He reports ambulation throughout the day yesterday but not yet today, IS use encouraged. ? I will continue to follow up with patient for continued teaching needs when stoma function starts. TT to General Surgery KATHY Bowden with above details.
--- NOTE | 2023-12-14 11:02 | MHC.CM.PN ---
Per MD, patient not medically cleared for dc. DC plan remains home w/ [facility] when medically cleared. [facility] updated. CM will continue to follow.
[2023-12-14 15:05] VITALS: BP 137/73; PULSE 91; RESP 18; TEMP 36.3; O2SAT 97
[2023-12-14 23:40] VITALS: BP 164/79; PULSE 82; RESP 16; TEMP 36.6; O2SAT 94
[2023-12-15] MEDS: HYDROmorphone HCl 0.5 MG/0.5 ML SYRINGE IVPUSH ×5 (04:50→22:05)
[2023-12-15] MEDS: Lactated Ringers 1,000 ML 100 ML IVCONT ×2 (05:59→16:33)
[2023-12-15] MEDS: Piperacillin Sodium/Tazobactam 3.375 GM in 0.9 % Sodium Chloride 50 ML IV ×4 (06:00→23:29)
[2023-12-15] MEDS: Acetaminophen 1,000 MG/100 ML PIGGYBACK 400 MG IV (06:00)
[2023-12-15 07:24] VITALS: BP 129/66; PULSE 75; RESP 16; TEMP 36.1; O2SAT 94
--- NOTE | 2023-12-15 07:38 | P.PNGS_ITS ---
Subjective Subjective Date of Service: 12/15/23 <Savita Mcallister PA-C - Last Filed: 12/15/23 08:20> 12/15/23 <Joel Bueno MD - Last Filed: 12/15/23 09:41> Interval history: Now passing flatus and stool via ostomy. Gas pains improved. Still taking dilaudid frequently. Feels hungry. <Savita Mcallister PA-C - Last Filed: 12/15/23 08:20> Physical Exam 2 Vital Signs: Vital Signs: Last Vital Signs Temp 97.0 F 12/15/23 07:24 Pulse 75 12/15/23 07:24 Resp 16 12/15/23 07:24 BP 129/66 12/15/23 07:24 Pulse Ox 94 12/15/23 07:24 O2 Del Method Room Air 12/15/23 07:24 O2 Flow Rate 6 12/09/23 17:17 BMI result Body Mass Index 19.3 <Savita Mcallister PA-C - Last Filed: 12/15/23 08:20> Const: General: comfortable, no acute distress and alert <Savita Mcallister PA-C - Last Filed: 12/15/23 08:20> Orientation/consciousness: patient oriented x3 <Savita Mcallister PA-C - Last Filed: 12/15/23 08:20> Resp: Effort & Inspection: normal respiratory effort <Savita Mcallister PA-C - Last Filed: 12/15/23 08:20> GI: Other: incisional erythema improved ostomy now with stool output <Savita Mcallister PA-C - Last Filed: 12/15/23 08:20> Inspection: Yes distended (mild) <RODO Bowden Last Filed: 12/15/23 08:20> Palpation (GI): Soft to palpation, Tenderness to palpation present (GI) (mild) and no guarding <RODO Bowden Last Filed: 12/15/23 08:20> Skin: General skin exam: no rashes or lesions noted <RODO Bowden Last Filed: 12/15/23 08:20> Neuro: General: patient oriented x3 <Savita Mcallister PA-C - Last Filed: 12/15/23 08:20> Objective Data Active Medications Albuterol Sulfate (Albuterol Sulfate (0.083%) 2.5 Mg/3 Ml Vial.Neb) 2.5 mg INHALE ONCE PRN PRN Reason: Shortness of Breath/Wheezing Calcium Carbonate (Calcium Carbonate 750 Mg Tab.Chew) 750 mg PO Q4H PRN PRN Reason: Heartburn Last Admin: 12/11/23 15:22 Dose: 750 mg Documented By: DONTE Heparin Sodium (Porcine) (Heparin Sodium,Porcine 5,000 Unit/Ml Vial) 5,000 unit SUBCUT Q12H [facility] Last Admin: 12/14/23 22:36 Dose: 5,000 unit Documented By: CHRISTI Hydromorphone HCl (Hydromorphone Hcl 0.5 Mg/0.5 Ml Syringe) 0.5 mg IVPUSH Q4H PRN; Protocol PRN Reason: Pain, Severe (Pain Scale 7-10) Last Admin: 12/15/23 04:50 Dose: 0.5 mg Documented By: CHRISTI Piperacillin Sod/Tazobactam (Sod 3.375 gm/ Sodium Chloride) 50 mls @ 100 mls/hr IV Q6H [facility] Last Infusion: 12/15/23 07:06 Dose: Infused Documented By: CHRISTI Lactated Ringer's (Lr) 1,000 mls @ 100 mls/hr IVCONT .Q10H [facility] Last Infusion: 12/15/23 07:06 Dose: 100 mls/hr Documented By: CHRISTI Acetaminophen (Ofirmev) 1,000 mg in 100 mls @ 400 mls/hr IV Q6H [facility] Last Infusion: 12/15/23 06:18 Dose: Infused Documented By: CHRISTI Ketorolac Tromethamine (Ketorolac Tromethamine 30 Mg/Ml Vial) 30 mg IVPUSH Q6H PRN PRN Reason: Pain, Mild (Pain Scale 1-3) Melatonin (Melatonin 3 Mg Tablet) 6 mg PO BEDTIME PRN PRN Reason: Insomnia Last Admin: 12/13/23 22:33 Dose: 6 mg Documented By: SEFERINO Metoclopramide HCl (Metoclopramide Hcl 10 Mg/2 Ml Vial) 10 mg IVPUSH Q6H PRN PRN Reason: Nausea and Vomiting Naloxone HCl (Naloxone Hcl 0.4 Mg/Ml Vial) 0.04 mg IVPUSH Q5M PRN PRN Reason: Excessive sedation or RR < 8 Nicotine (Nicotine 21 Mg Patch.Td24) 21 mg TRANSDERMA DAILY [facility] Last Admin: 12/14/23 08:07 Dose: 21 mg Documented By: EWA Ondansetron HCl (Ondansetron Hcl 4 Mg/2 Ml Vial) 4 mg IVPUSH Q6H PRN PRN Reason: Nausea and Vomiting Last Admin: 12/12/23 00:39 Dose: 4 mg Documented By: LIZ Oxycodone HCl (Oxycodone Hcl Immed Release 5 Mg Tablet) 10 mg PO Q4H PRN PRN Reason: Pain, Moderate(Pain Scale 4-6) Last Admin: 12/14/23 12:41 Dose: 10 mg Documented By: EWA Pharmacy Consult (Consult Rx Etoh Phenob Im/Po) 1 each MISCELLANE ONCE PRN; Protocol PRN Reason: Consult order Phenobarbital (Phenobarbital 15 Mg Tablet) 15 mg PO DAILY [facility]; Protocol Stop: 12/15/23 09:01 Last Admin: 12/14/23 08:07 Dose: 15 mg Documented By: EWA Sodium Chloride (0.9 % Sodium Chloride Flush 3 Ml Syringe) [facility] Last Admin: 12/15/23 00:05 Dose: Not Given Documented By: CHRISTI Non-Admin Reason: IV Running <Savita Mcallister PA-C - Last Filed: 12/15/23 08:20> Labs CBC & Chem 7: 12/12/23 05:29 12/12/23 05:29 <Savita Mcallister PA-C - Last Filed: 12/15/23 08:20> Microbiology Microbiology Results: Microbiology 12/09/23 07:53 Blood Culture - Final Blood - Venous No growth after 5 days. 12/09/23 07:53 Blood Culture - Final Blood - Venous No growth after 5 days. <Savita Mcallister PA-C - Last Filed: 12/15/23 08:20> Procedures Date of Service Date of Service: 12/15/23 <Savita Mcallister PA-C - Last Filed: 12/15/23 08:20> 12/15/23 <Joel Bueno MD - Last Filed: 12/15/23 09:41> Progress Note: A&P Assessment and plan (1) Diverticulitis of intestine with abscess: Status: Acute <Savita Mcallister PA-C - Last Filed: 12/15/23 08:20> Assessment and Plan: Feels much better Has stool from the ostomy, with flatus Abdomen is soft Looks well Diet as tolerated Seen and examined independently <Joel Bueno MD - Last Filed: 12/15/23 09:41> Assessment and Plan: Now with stool via ostomy, gas pains resolved. Will advance to full liquids and then solids if tolerating, distention improves. Incision with less erythema this morning. Tylenol and motrin PO ATC to helpd decrease IV narcotic amount. Patient comfortable with plan. Cont IVabx, dec IVF. <Savita Mcallister PA-C - Last Filed: 12/15/23 08:20> Time Spent With Patient Time: Total time managing care of this patient today ____ minutes. <Savita Mcallister PA-C - Last Filed: 12/15/23 08:20> Quality Stroke Does the patient have a stroke diagnosis?: No <Savita Mcallister PA-C - Last Filed: 12/15/23 08:20> VTE Prior VTE?: No <Savita Mcallister PA-C - Last Filed: 12/15/23 08:20> VTE Risk Level:: Surgical - high <Savita Mcallister PA-C - Last Filed: 12/15/23 08:20> VTE Device Contraindication: N/A - Device Ordered <Savita Mcallister PA-C - Last Filed: 12/15/23 08:20> VTE Drug Contraindication: N/A - Med Ordered <Savita Mcallister PA-C - Last Filed: 12/15/23 08:20>
[2023-12-15] MEDS: Nicotine 21 MG PATCH.TD24 TRANSDERMA (08:11)
[2023-12-15] MEDS: PHENobarbitaL 15 MG TABLET PO (08:12)
[2023-12-15 09:18] VITALS: RESP 17
[2023-12-15] MEDS: Heparin Sodium,Porcine 5,000 UNIT/ML VIAL 5000 UNIT SUBCUT ×2 (09:18→22:05)
[2023-12-15] MEDS: oxyCODONE HCl Immed Release 5 MG TABLET 10 MG PO (11:27)
[2023-12-15] MEDS: Ibuprofen 600 MG TABLET PO ×2 (11:27→17:58)
[2023-12-15 13:34] VITALS: RESP 16
[2023-12-15] MEDS: Acetaminophen 325 MG TABLET 650 MG PO ×2 (13:34→19:57)
[2023-12-15 15:36] VITALS: BP 131/76; PULSE 84; RESP 18; TEMP 36.6; O2SAT 96
--- NOTE | 2023-12-15 15:38 | HO.OSTOMY ---
Ostomy Consult: Follow Up Teaching 43yr old male admitted to [facility] on 12/09/23 see H&P for detailed history and admission. Consult for new ostomy teaching. ?He had an End Colostomy creation on 12/09/[address] Bueno. ?Upon entry into patient's room, he is lying in his bed, he is alert and oriented x 3, he currently has no complaints. He is agreeable to continuing with teaching. ? We discussed his pain control at 5/10 at the current moment, he reports increasing the use of his IS and ambulating the entire unit multiple times. ?We began by discussing general knowledge about the Colostomy and questions he had. ?We discussed opening and closing the ostomy pouch. He was able to independently provide a return demonstration on an empty pouch. ?He had not yet emptied his pouch his pouch was assessed and he was noted to have gas in the pouch along with liquid brown stool. He was agreeable to going into bathroom to empty. Patient was able to empty pouch independently with me there for standby. He demonstrated clear understanding of pouch and emptying. We discussed the importance of emptying pouch when 1/3 to 1/2 full, how to empty pouch, and lining water with toilet paper to prevent splash back. He was able to verbally walk me through a pouch change and had several questions that lead to further discussion. He reports feeling confident to go home likely tomorrow and he will have [facility] support. Supplies left at bedside and patient reports his ostomy book was already sent home with his mother. He was also educated on when to contact rib cutter/Dr Bueno's office/seek emergency medical treatment. Aware that Rx written for pouches and rings will be sent by Outpt nurse to [facility] for home delivery. Pouch was not due to be changed and no leaking noted. The stoma a red and moist with scattered areas of slough - remains viable. He reported having no questions at this time. ?He will benefit from [facility]NA services at time of discharge. ?All questions and concerns addressed at this time. Erythema at midline continues to resolve and is not increasing at todays assessment. We discussed the following steps: 1. Empty pouch before pouch change 2. Remove pouch using push/pull technique from top to bottom 3. Cleanse stoma and skin with tap water only - no soap or baby wipes 4. Pat dry 5. Measure stoma and cut new pouch no more than 1/8 inch larger than stoma and no smaller than stoma 6. If instructed by your ostomy nurse stretch Anup seal to the size of the stoma and press onto skin around stoma (up to the edge of the stoma but not onto the stoma) 7. Press the new pouch into place and hold for several minutes (close pouch tail) 8. Empty pouch when 1/3 to 1/2 full 9. Change pouch twice weekly on a schedule (for example, every Tuesday and ) and as needed for any leaking (feels like intense itch or burn at edge of stoma) 10. May order pre-cut pouches (already cut to size of stoma) once stoma measures the same size consistently. ?
[2023-12-15 23:23] VITALS: BP 138/73; PULSE 76; RESP 16; TEMP 36.9; O2SAT 95
[2023-12-15] MEDS: 0.9 % Sodium Chloride Flush 3 ML SYRINGE IVFLUSH (23:29)
[2023-12-16] MEDS: Acetaminophen 325 MG TABLET 650 MG PO ×2 (02:17→08:11)
[2023-12-16] MEDS: Ibuprofen 600 MG TABLET PO ×2 (02:17→10:55)
[2023-12-16] MEDS: HYDROmorphone HCl 0.5 MG/0.5 ML SYRINGE IVPUSH (02:17)
[2023-12-16] MEDS: Piperacillin Sodium/Tazobactam 3.375 GM in 0.9 % Sodium Chloride 50 ML IV (04:54)
[2023-12-16] MEDS: Lactated Ringers 1,000 ML 100 ML IVCONT (04:54)
--- NOTE | 2023-12-16 06:55 | HO.STUDENTPN ---
Subjective Subjective Date of Service: 12/16/23 <Sandrine Van - Last Filed: 12/16/23 07:30> 12/16/23 <Savita Mcallister PA-C - Last Filed: 12/16/23 07:40> 12/16/23 <Joel Bueno MD - Last Filed: 12/16/23 09:20> Interval History: Overnight events: No overnight events per nurse. 43 yo cisgender male Status post day 7 for Elizabeth's procedure for severe inflammatory changes intramural abscesss. Pt reports that he is feeling btter then yesterday. Pt reports he had 2 stools in his colostomy bag once at 1pm and 2nd episode around 1 am. Pt reports stool in colostomy bag was black-brown, pt denied blood. Pt was able to tolerate solid food yesterday pt with no cramping, indigestion, acid reflux, bloating or belching. Pt denies N/V, SOB.. Pt has been amulating well. Pt is using incentive spirometer throughout the day. Pt reports 3/10 in lower back that started when he came to the hospital. <Sandrine aVn - Last Filed: 12/16/23 07:30> Overnight events: No overnight events per nurse. Pt reports that he is feeling btter then yesterday. Pt reports he had 2 stools in his colostomy bag once at 1pm and 2nd episode around 1 am. Pt reports stool in colostomy bag was black-brown, pt denied blood. Pt was able to tolerate solid food yesterday pt with no cramping, indigestion, acid reflux, bloating or belching. Pt denies N/V, SOB.. Pt has been amulating well. Pt is using incentive spirometer throughout the day. <Savita Mcallister PA-C - Last Filed: 12/16/23 07:40> Constitutional No fever, no chills. <Sandrine Van - Last Filed: 12/16/23 07:30> Cardiovascular Cardiovascular: Reports as per HPI <Sandrine Van - Last Filed: 12/16/23 07:30> No palpitations <Sandrine Van - Last Filed: 12/16/23 07:30> Respiratory normal cough due to hx of smoking, no wehezing or dyspnea <[facility] - Last Filed: 12/16/23 07:30> Gastrointestinal Gastrointestinal: Reports as per HPI <[facility] - Last Filed: 12/16/23 07:30> Decreased appetite this morning (pt reports this is normal for him) <[facility] - Last Filed: 12/16/23 07:30> Genitourinary Genitourinary: Denies hematuria, Denies difficulty urinating and Denies dysuria <[facility] - Last Filed: 12/16/23 07:30> Neurologic No numbness, tingling, weakness <[facility] - Last Filed: 12/16/23 07:30> Physical Exam Vital Signs: Vital Signs: Last Vital Signs Temp 98.4 F 12/15/23 23:23 Pulse 76 12/15/23 23:23 Resp 16 12/15/23 23:23 BP 138/73 12/15/23 23:23 Pulse Ox 95 12/15/23 23:23 O2 Del Method Room Air 12/15/23 23:23 O2 Flow Rate 6 12/09/23 17:17 BMI result Body Mass Index 19.3 <[facility] - Last Filed: 12/16/23 07:30> Const: Other: Pt closed during duration of the exam. Not in distress, pt was answering all questions. <[facility] - Last Filed: 12/16/23 07:30> Resp: Other: Normal respiratory effort, no wheezing, no rhonchi <[facility] - Last Filed: 12/16/23 07:30> Cardio: Other: RRR, nl S1/S2 <[facility] - Last Filed: 12/16/23 07:30> GI: Other: slight distention, no tenderness to palpation, no guarding. Slight erythema, no drainage around marta incision, colostomy bag with stool present (dark brown). <[facility] - Last Filed: 12/16/23 07:30> Other: slight distention, no tenderness to palpation, no guarding. Slight erythema at midline incision, no drainage, colostomy bag with stool present (dark brown). <Savita Mcallister PA-C - Last Filed: 09/27/24 07:40> Skin: Other: Roasecea present on patients cheeks and upper forhead.(Pt reports this is normal and he has usual flares pt usually takes Prosacea for rash). <Sandrine Teixeirad - Last Filed: 12/16/23 07:30> Neuro: Other: oriented x3 <Sandrine Ahmad - Last Filed: 12/16/23 07:30> Objective Data Active Medications Acetaminophen (Acetaminophen 325 Mg Tablet) 650 mg PO Q6H COUNT INCLUDES THE [facility] Last Admin: 12/16/23 02:17 Dose: 650 mg Documented By: CHRISTI Albuterol Sulfate (Albuterol Sulfate (0.083%) 2.5 Mg/3 Ml Vial.Neb) 2.5 mg INHALE ONCE PRN PRN Reason: Shortness of Breath/Wheezing Calcium Carbonate (Calcium Carbonate 750 Mg Tab.Chew) 750 mg PO Q4H PRN PRN Reason: Heartburn Last Admin: 12/11/23 15:22 Dose: 750 mg Documented By: DONTE Heparin Sodium (Porcine) (Heparin Sodium,Porcine 5,000 Unit/Ml Vial) 5,000 unit SUBCUT Q12H COUNT INCLUDES THE [facility] Last Admin: 12/15/23 22:05 Dose: 5,000 unit Documented By: CHRISTI Hydromorphone HCl (Hydromorphone Hcl 0.5 Mg/0.5 Ml Syringe) 0.5 mg IVPUSH Q4H PRN; Protocol PRN Reason: Pain, Severe (Pain Scale 7-10) Last Admin: 12/16/23 02:17 Dose: 0.5 mg Documented By: CHRISTI Piperacillin Sod/Tazobactam (Sod 3.375 gm/ Sodium Chloride) 50 mls @ 100 mls/hr IV Q6H COUNT INCLUDES THE [facility] Last Infusion: 12/16/23 05:27 Dose: Infused Documented By: CHRISTI Lactated Ringer's (Lr) 1,000 mls @ 100 mls/hr IVCONT .Q10H COUNT INCLUDES THE [facility] Last Infusion: 12/16/23 05:27 Dose: 100 mls/hr Documented By: CHRISTI Ibuprofen (Ibuprofen 600 Mg Tablet) 600 mg PO Q8H COUNT INCLUDES THE [facility] Last Admin: 12/16/23 02:17 Dose: 600 mg Documented By: CHRISTI Melatonin (Melatonin 3 Mg Tablet) 6 mg PO BEDTIME PRN PRN Reason: Insomnia Last Admin: 12/13/23 22:33 Dose: 6 mg Documented By: SEFERINO Metoclopramide HCl (Metoclopramide Hcl 10 Mg/2 Ml Vial) 10 mg IVPUSH Q6H PRN PRN Reason: Nausea and Vomiting Naloxone HCl (Naloxone Hcl 0.4 Mg/Ml Vial) 0.04 mg IVPUSH Q5M PRN PRN Reason: Excessive sedation or RR < 8 Nicotine (Nicotine 21 Mg Patch.Td24) 21 mg TRANSDERMA DAILY COUNT INCLUDES THE [facility] Last Admin: 12/15/23 08:11 Dose: 21 mg Documented By: COTEMA Ondansetron HCl (Ondansetron Hcl 4 Mg/2 Ml Vial) 4 mg IVPUSH Q6H PRN PRN Reason: Nausea and Vomiting Last Admin: 12/12/23 00:39 Dose: 4 mg Documented By: ANDERM Oxycodone HCl (Oxycodone Hcl Immed Release 5 Mg Tablet) 10 mg PO Q4H PRN PRN Reason: Pain, Moderate(Pain Scale 4-6) Last Admin: 12/15/23 11:27 Dose: 10 mg Documented By: COTEMA Pharmacy Consult (Consult Rx Etoh Phenob Im/Po) 1 each MISCELLANE ONCE PRN; Protocol PRN Reason: Consult order Sodium Chloride (0.9 % Sodium Chloride Flush 3 Ml Syringe) 3 ml IVFLUSH QSHIFT COUNT INCLUDES THE [facility] Last Admin: 12/15/23 23:29 Dose: 3 ml Documented By: LYSJohn <Sandrine lalitha - Last Filed: 12/16/23 07:30> Labs CBC & Chem 7: 12/12/23 05:29 12/12/23 05:29 <Sandrinesa Van - Last Filed: 12/16/23 07:30> Assessment and Plan (1) Diverticulitis of intestine with abscess: Status: Acute <Sandrine Van - Last Filed: 12/16/23 07:30> Assessment and Plan: Tolerating diet Feels well He states that he is ready to go home Abdomen soft and benign Stoma functioning well with good output of stool and gas Stoma care emphasized to him, follow up instructions given Seen and examined independently <Joel Bueno MD - Last Filed: 12/16/23 09:20> Assessment and Plan: Continue pain management, continue monitoring pt eating solid foods, continue IV antibiotics. Offer Prosacea for rosacea rash. <Sandrine Van - Last Filed: 12/16/23 07:30> Continue pain management, continue monitoring pt eating solid foods, continue IV antibiotics. Offer Prosacea for rosacea rash. Tolerateing solid diet. Pain control improved but needed IV dilaudid last night. He is participating in ostomy care. VSS. Abd exam benign with ostomy output, incisional erythema improved. Encouraged PO oxycodone this am for pain, if remains comfortable stable for dc to home today with VNA services. Pt comfortable with plan. <Savita Mcallister PA-C - Last Filed: 12/16/23 07:40> Quality Stroke Does the patient have a stroke diagnosis?: No <Sandrine Van - Last Filed: 12/16/23 07:30> VTE Prior VTE?: No <Sandrine Van - Last Filed: 12/16/23 07:30> VTE Risk Level:: Surgical - high <Sandrine Van - Last Filed: 12/16/23 07:30> VTE Device Contraindication: N/A - Device Ordered <Sandrine Van - Last Filed: 12/16/23 07:30> VTE Drug Contraindication: N/A - Med Ordered <Sandrine Van - Last Filed: 12/16/23 07:30>
[2023-12-16 07:15] VITALS: BP 152/79; PULSE 68; RESP 16; TEMP 36; O2SAT 96
[2023-12-16] MEDS: Nicotine 21 MG PATCH.TD24 TRANSDERMA (08:11)
[2023-12-16] MEDS: 0.9 % Sodium Chloride Flush 3 ML SYRINGE IVFLUSH (08:12)
--- NOTE | 2023-12-16 10:16 | MHC.CM.PN ---
Patient medically cleared for dc home w/ SN services through [facility]. Patient's friend will transport home. RN aware. Patient will be sent w/ ostomy supplies. [facility] aware of dc.
[2023-12-16] MEDS: Heparin Sodium,Porcine 5,000 UNIT/ML VIAL 5000 UNIT SUBCUT (10:55)
--- NOTE | 2023-12-16 11:04 | PM.DS ---
DS: Providers Provider Date of Service: 12/16/23 Date of admission: 12/09/23 12:27 Date of discharge: 12/16/23 [facility] Attending physician on admission: Joel Bueno Consults: 12/09/23 17:16 Consult to Hospitalist Routine Comment: Consulting Provider: Hospitalist Reason For Exam: heavy drinker, currently depressed 12/09/23 19:39 Addiction Medicine Routine Consulting Provider: Addiction Covering Reason for consultation: meets positive alcohol screening 12/12/23 13:24 Consult to Ostomy Care Routine Attending physician on discharge: Joel Bueno DS: Diagnosis Discharge Diagnosis (1) Diverticulitis of intestine with abscess: Status: Acute DS: Summary Hospital Course Hospital Course: HPI AT ADMISSION: Ronald Wooten is a 43 year old male with PMH of prostate CA, ETOH abuse, smoker who presented to the ED with complaints of lower abdominal pain. He reports about a week and a half ago he did heavy lifting at work and developed b/l groin pain. Over the next week or so the pain gradually worsened and spread into his lower abdomen and back. He was scheduled for a colonoscopy yesterday and attempted to do his prep on Tuesday night. He reports the pain worsened with every bowel movement. Due to the pain he did not show up for his colonoscopy yesterday. This morning the pain became severe and he felt he could no longer manage the pain at home and he sought evaluation in the ED. Work up included CBC, BMP, LFTs which was significant for 19.6. CT scan abd/pelvis was obtained which showed soft tissue thickening involving the rectosigmoid colon with pericolonic inflammatory changes and an intramural abscess measuring 4.4 x 3.7 cm containing gas. He denies fever, chills, nausea, vomiting, hematochezia, melena. He had a colonoscopy here in 05/14 and had multiple larger polyps removed, all negative for malignancy. He was told to have repeat colonoscopy in 6 months due to the polyp size. He reports persistent severe abd pain today. He reports smoking a half a pack to a pack of cigarettes a day and drinking 3-6 beers daily with up to 12 beers on the weekend with a few vodka nips. He denies prior abdominal surgery. HOSPITAL COURSE: He was admitted to the surgical service for treatment of the sigmoid diverticulitis with intramural abscess. It was discussed that he would likely not improve without surgery and it was therefore recommended to proceed with KEATON sigmoid resection, likely end colostomy, possible ileostomy. He was added onto the OR schedule for that day. He was started on IVF and IV zosyn. Hospitalist consult was obtained for management of his medical comorbidities including ETOH abuse and was started on CIWA precautions and phenobarbitol protocol. Addiction medicine was also consulted. On 12/09/23, hand assisted laparoscopic sigmoid resection, extensive lysis of adhesions, end-colostomy was performed by Dr. Bueno without immediate complication. Acute sigmoid diverticulitis, with intramural abscess, abscesses in the attached mesentery, marked induration, severe inflammatory process in the mesentery. The patient tolerated the procedure well. He had a slow but uncomplicated recovery course. On POD #1 his fenton was removed. He had slow return of GI function and therefore he was continued on clear liquids until POD #6 until he started to pass flatus and then stool from his ostomy. He was ambulated and activity was increased throughout his post op course. His KRYSTAL drain had scant nonpurulent output and was removed. Ostomy education was performed. He was weaned off IV analgesics. On the day of discharge, he was tolerating a solid diet without nausea or vomiting, had good GI function and was ambulating without difficulty. His pain was controlled on oral analgesics. He was hemodynamically stable with clean incision and viable ostomy with good output. He was discharged to home on 12/16/23 in stable condition with VNA services. He was discharged on an oral course of Augmentin. He is to follow up in the office in 1-2 weeks. Status at Discharge Functional status at discharge: independent ambulation Overall status at discharge: patient is progressing back to baseline Time Attestation Discharge Coordination Time (in mins): 50 Quality: Safe Use of Opioids Does Pt have an Active Cancer Diagnosis on the Problem List?: No Quality: Stroke Does the patient have a stroke diagnosis?: No Physical Exam Vital Signs: Vital Signs: Last Vital Signs Temp 96.8 F 12/16/23 07:15 Pulse 68 12/16/23 07:15 Resp 16 12/16/23 07:15 BP 152/79 H 12/16/23 07:15 Pulse Ox 96 12/16/23 07:15 O2 Del Method Room Air 12/16/23 07:15 O2 Flow Rate 6 12/09/23 17:17 BMI result Body Mass Index 19.3 Const: General: comfortable, no acute distress and alert Orientation/consciousness: patient oriented x3 Resp: Effort & Inspection: normal respiratory effort GI: Other: colostomy beefy red, liquid stool in appliance incision with some very mild pale erythema centrally no further drainage from central incision where marta removed and seroma drained Inspection: Yes distended (mild, softly ) Palpation (GI): Soft to palpation, Tenderness to palpation present (GI) and no guarding Skin: General skin exam: no rashes or lesions noted Neuro: General: patient oriented x3 and moves all extremities DS: Data Data Completed and Pending Completed studies during hospitalization [Text1]: 12/09/23 16:44 Surgical [PTH] Routine Sigmoid colon, segmental excision: Hypertrophic diverticulitis and diverticulosis with mural and mesenteric abscess formation with extensive acute hemorrhagic serositis and adhesions Discharge Plan Discharge Anticipated Discharge Date/Time: 12/15/23 14:20 Patient Disposition: Home Health Service Discharge Diagnosis: sigmoid diverticulitis with abscess Referrals: [facility] [Outside] - 3-5 Days ([facility] will call you to schedule nursing visits. ) Sundar Botello, KAMILA-BC [Primary Care Provider] - 1 Week Joel Bueno MD [Physician] - 2 Weeks Discharge Medications: New oxycodone 5 mg tablet 5 mg PO Q4H PRN (Reason: pain) Qty: 24 0RF Rx Instructions: Partial Fill upon patient request. amoxicillin-pot clavulanate 875-125 mg tablet 1 tab PO BID Qty: 8 0RF Continued ibuprofen 200 mg Tablet 600 mg PO Q6H PRN (Reason: Pain) Discharge Orders: Discharge Order (Routine); Ordered 12/16/23 Ordered By: Savita Mcallister Diet: Advance to usual diet Activity on Discharge: No heavy lifting Stand Alone Forms: Patient Portal Discharge page, Work/School Release Print Language: Lebanese Activity Restrictions/Additional Instructions: If the incision area is tender, you may apply an ice pack for short intervals (No more than 20 minutes on, followed by at least 20 minutes off). Do not apply heat. Do not use creams, lotions, or topical antibiotics. These can cause infection or allergic reaction. Ok to shower. You have marta closing your incision and these will be removed approximately 10-14 days after surgery. NO HEAVY LIFTING (>10lbs) or strenuous activity. Follow up in office. ([phone]) Call Your Doctor If: -Your temperature exceeds 101.5? F -You experience excessive pain or swelling -You have an unexpected reaction to medication -You have excessive bleeding -You experience continued vomiting/nausea -Your incision begins to separate -Your incision shows signs of infection such as increased redness, swelling, excessive pain, drainage (light blood or clear fluid is normal) or heat Care Plan Goals: Return to baseline health and resume normal activities following recovery period. Health Concerns: diverticulitis with abscess ETOH abuse Plan of Treatment: s/p KEATON sigmoid resection, end colostomy Assessment: Doing well post op. Discharge Date/Time: 12/16/23 12:42
--- NOTE | 2023-12-19 14:26 | W.MHC.F2F ---
Service Date Service Date: 12/19/23 Encounter Date of encounter: 12/16/23 Reasons for Services Signs and symptoms assessed: abdominal pain, PO intake, incision appearance, colostomy output Reason for long term: wound care and postoperative assessment and/or care Homebound: Leaving the home is medically contraindicated at this time without the asist of a device and/or another person due th the listed conditions above and below. Reason homebound: weakness related to hospital stay and unable to drive Homebound supporting statement: Mr. Wooten is s/p jacquelyn procedure for sigmoid diverticulitis with abscess. He will need VNA for colostomy care. Certification: Based on the above findings, I certify that this patient is confined to the home and needs intermittent long term care, physical therapy and/or speech therapy, or continues to need occupational therapy. The patient is under my care, and I have initiated the establishment of the plan of care. The patient will be followed by a physician who will periodically review the plan of care. Time Spent With Patient Time: Total time managing care of this patient today ____ minutes.
== END 2023-12-16 12:42 | disposition home health service (06) | DRG 231 ==
LOC: HO.ED 12:33 → HO.EDOVER 12:44 → HO.S3 14:48
PROVIDERS: Surgery; Admitting Provider Physician Assistant Surgical; Emergency Provider Emergency Medicine; PCP Nurse Practitioner Family; Visit Provider Physician Assistant Surgical
PROC: 0DTE0ZZ Resection of Large Intestine, Open Approach (ICD-10-PCS; principal; 2023-12-09 15:30)
DX: K57.20 Diverticulitis of large intestine with perforation and abscess without bleeding (principal); F10.20 Alcohol dependence, uncomplicated; N40.0 Benign prostatic hyperplasia without lower urinary tract symptoms; F17.210 Nicotine dependence, cigarettes, uncomplicated; Z20.822 Contact with and (suspected) exposure to COVID-19; K66.0 Peritoneal adhesions (postprocedural) (postinfection); Z71.6 Tobacco abuse counseling; Z85.46 Personal history of malignant neoplasm of prostate; G89.18 Other acute postprocedural pain
CPT/HCPCS: 0241U; 36415; 74177; 80048; 80053; 81001; 83605; 83690; 85025; 85027; 86850; 86900; 86901; 87040; 88307; 99284; C1758; J0131; J1100; J1170; J1644; J2250; J2270; J2405; J2543; J2560; J2704; J2795; J3010; J3411; J7120; Q9967

== ENCOUNTER → 2023-12-09 12:27 | Outpatient (BNV) | payer OTHER, SELFPAY | PROVIDERS: Admitting Provider Physician Assistant Surgical; Emergency Provider Emergency Medicine; PCP Nurse Practitioner Family; Visit Provider Surgery | DX: K57.80 Diverticulitis of intestine, part unspecified, with perforation and abscess without bleeding (principal) | CPT/HCPCS: 44206; 99024; 99222; 99499; G0180 ==

== ENCOUNTER → 2023-12-09 12:27 | Outpatient (BNV) | payer OTHER, SELFPAY | PROVIDERS: Admitting Provider Physician Assistant Surgical; Emergency Provider Emergency Medicine; PCP Nurse Practitioner Family; Visit Provider Student in an Organized Health Care Education/Training Program | DX: K57.80 Diverticulitis of intestine, part unspecified, with perforation and abscess without bleeding (principal); F10.20 Alcohol dependence, uncomplicated | CPT/HCPCS: 99232; 99499 ==

== ENCOUNTER 2023-12-22 08:32 | Outpatient (AMB) | payer OTHER, SELFPAY ==
[2023-12-22 08:33] VITALS: BP 102/60; PULSE 84; O2SAT 94; BMI 19.1
--- NOTE | 2023-12-22 08:33 | MHC.PC.OV ---
Vital Signs 12/22/23 08:33 Height 6 ft 2 in Weight 149 lb 2 oz BMI 19.1 BP 102/60 Blood Pressure Location Lt brachial Position Sitting Pulse 84 Pulse Source Pulse Oximeter Pulse Oximetry (%) 94 Intake Visit Reasons: HDF F/UP Intake Note: pt is here for HDF f/up Securities Clerk Required: No Accompanied by: Self / Same As Patient Allergies carisoprodol [From [facility]] Allergy (Unknown, Verified 12/22/23 08:34) SYNCOPE Tobacco use date assessed: 12/22/23 Dental Screening Dental Screen Date: 09/06/23 HPI HDF F/UP HPI Details Pt was seen in the ER on 12/08 c/o abdominal pain. WBC count was 19.6. CTshowed soft tissue thickening involving the rectosigmoid colon with pericolonic inflammatory changes and an intramural abscess measuring 4.4 x 3.7 cm containing gas. Pt was started on IV fluids and zosyn. On 12/08 pt underwent hand assisted laparoscopic sigmoid resection, extensive lysis of adhesions, end-colostomy. Acute sigmoid diverticulitis, with intramural abscess, abscesses in the attached mesentery, marked induration, severe inflammatory process in the mesentery. The patient tolerated the procedure well. Pt had slow return of GI function and was continued on clear liquids until POD 6 until he started to pass flatus and then stool from his ostomy. KRYSTAL drain had scant nonpurulent output and was removed. Pt was d/c on 12/15 on augmentin. Pt reports that he has not been drinking alcohol AT ALL. He reports doing well overall. Pt reports that there is less hardness around his incisions. Denies fever, chills, ad N/V. Reports stool output. [facility] Medical History (Updated 12/22/23 @ 10:01 by ALEXSANDRA Kapoor) History of open sigmoidectomy Sliding hiatal hernia Tubular adenoma of colon Tobacco dependence Alcohol dependence BPH (benign prostatic hyperplasia) Surgical History History of esophagogastroduodenoscopy (EGD) H/O colonoscopy Hx of prostate biopsy Family History Mother Substance use disorder Mental health disorder Father Substance use disorder Mental health disorder Maternal Aunt Substance use disorder Mental health disorder Paternal Uncle Substance use disorder Mental health disorder Paternal Aunt Substance use disorder Mental health disorder Maternal Uncle Substance use disorder Mental health disorder Brother Substance use disorder Mental health disorder Sister Substance use disorder Mental health disorder Social History Household Members: Significant Other Housing: Apartment Are you a primary career law clerk to a significant other at home: No Do you presently have visiting nurse or other home services: No Alcohol intake: current Alcohol intake frequency: 3 or more drinks per day Alcohol type: beer and hard liquor Patient Tobacco Use Status: Current everyday Tobacco user Tobacco use type: Cigarette Cigarette Packs Per Day: 1 Cigarettes Per Day: 20.0 e-Cigarette/Vaping Use: Never Used Second Hand Smoke Exposure: Yes Substance Use Type: Marijuana service: No Current occupational status: employed 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 Gary Flores, Steph Marc, Robert Solis and colleagues, with an educational jennie from [employer]. ADAIR-7 Assessment Billing ADAIR-7 Assessment Tool: pt declined-do not bill Review of Systems Const Reports as per HPI Physical exam (Primary Care) Vital Signs: Last Vital Signs Pulse 84 12/22/23 08:33 BP 102/60 12/22/23 08:33 Pulse Ox 94 12/22/23 08:33 BMI result Body Mass Index 19.1 Tobacco/Smoking Status: Tobacco use Status Tobacco use date assessed 12/22/23 12/22/23 08:35 Patient Tobacco Use Status Current everyday Tobacco 12/22/23 08:35 Tobacco use type Cigarette 12/22/23 08:35 e-Cigarette/Vaping Use Never Used 12/22/23 08:35 Thrive Assessment: Date of Thrive Assessment Date Thrive assessed 12/10/23 12/22/23 08:35 Const General: cooperative Orientation/consciousness: patient oriented x3 Resp Effort & Inspection: normal respiratory effort Auscultation: wheezes scattered wheezes Cardio Rate: regular rate Rhythm: regular rhythm Heart sounds: S1 normal heart sound present and S2 normal heart sound present Skin Other: just superior to umbilicus with small vertical incision, well approximated, marta intact, longer verticle incision just inferior to umbilicus, marta intact, well approximated, scant amount of bloody drainage, RLQ with single staple to horizontal lap site, no signs of infection, induration around each lap site/incision. left abd colostomy with currently minimal stool noted. stoma pink. faint induration around lap sites/incisions (especially to lower, longer incision), no severe tenderness with palpation, or surrounding erythema. (mrata intact) Neuro General: patient oriented x3 Psych Appearance: grossly normal Mental Status: mental status grossly normal Speech and movement: Normal speech and movement present Affect: normal affect Attitude: cooperative Thought process: Normal thought process present Thought content: Normal thought content present Insight: Good insight present (Psych) Judgement: Good judgement present (Psych) Coding Level of Care Code Est Pt Level 4 (68897) Diagnoses Diverticulitis of intestine with abscess K57.80 Abscess of sigmoid colon K63.0 Alcohol abuse F10.10 History of open sigmoidectomy Z98.890; Z90.49 Assessment & Plan Assessment & Plan (1) Diverticulitis of intestine with abscess: Code(s): K57.80 - Diverticulitis of intestine, part unspecified, with perforation and abscess without bleeding Category: Medical Plan: Labs ordered, following up with general surgery (2) Abscess of sigmoid colon: Code(s): K63.0 - Abscess of intestine Category: Medical Plan: Following up with general surgery (3) Alcohol abuse: Code(s): F10.10 - Alcohol abuse, uncomplicated Category: Social Hx Plan: Continue to abstain from alcohol (4) History of open sigmoidectomy: Comment: with colostomy Code(s): Z98.890 - Other specified postprocedural states; Z90.49 - Acquired absence of other specified parts of digestive tract Category: Medical Plan: Following up with general surgery Plan The patient agreed to the use of a medical planner for this encounter. Scribed for ALEXSANDRA Chinchilla by tavia Diaz scribe, on 12/22/2023 at 08:50 EST. Orders: Orders Complete Blood Count Auto Diff Today K57.80 - Diverticulitis of intestine, part unspecified, with perforation and abscess without bleeding Comprehensive Met. Panel Today K57.80 - Diverticulitis of intestine, part unspecified, with perforation and abscess without bleeding
== END 2023-12-22 14:53 | disposition home or self-care (01) ==
PROVIDERS: PCP Nurse Practitioner Family; Visit Provider Nurse Practitioner Family
DX: K57.80 Diverticulitis of intestine, part unspecified, with perforation and abscess without bleeding (principal); K63.0 Abscess of intestine; F10.10 Alcohol abuse, uncomplicated; Z98.890 Other specified postprocedural states; Z90.49 Acquired absence of other specified parts of digestive tract

== ENCOUNTER → 2023-12-22 08:32 | Outpatient (BNVA) | payer OTHER, SELFPAY | PROVIDERS: PCP Nurse Practitioner Family; Visit Provider Nurse Practitioner Family ==

== ENCOUNTER 2023-12-22 09:14 | Outpatient (REF) | payer OTHER, SELFPAY ==
[2023-12-22 13:04] LABS: MANUAL DIFF FLAG NO
[2023-12-22 13:06] LABS: Basophils Percent Auto 0.5 % (0-2); Eosinophils Absolute Auto 0.3 X10*3/uL (0.0-0.4); Eosinophils Percent Auto 3.1 % (0-4); Hematocrit 39.7 % (42.0-52.0); Hemoglobin 13.1 g/dl (14.0-18.0); Imm Gran Abs Auto 0.14 X10*3/uL (0.00-0.03); Imm Gran Pct Auto 1.6 % (0.0-0.4); Lymphocytes Absolute Auto 1.4 X10*3/uL (1.2-4.9); Lymphocytes Percent Auto 15.6 % (20-40); Mean Corpuscular Hemoglobin 33.8 pg (27.0-33.0); Mean Corpuscular Volume 102.3 fL (80.0-98.0); Mean Platelet Volume 9.9 fL (9.4-12.4); Neutrophils Percent Auto 68.2 % (45-73); Platelet Count 632 X10*3/uL (160-400); Red Blood Count 3.88 X10*6/uL (4.60-5.80); Red Cell Distribution Width 13.3 % (11.0-16.0); White Blood Count 8.8 X10*3/uL (4.8-10.8)
[2023-12-22 13:38] LABS: Alanine Aminotransferase 33 U/L (0-40); Albumin Level 3.6 g/dL (3.5-5.0); Alkaline Phosphatase 47 U/L (39-117); Anion Gap 14 (12-20); Aspartate Amino Transferase 46 U/L (5-37); Bilirubin Total 0.2 mg/dL (0.0-1.0); Blood Urea Nitrogen 12 mg/dL (9-16); Calcium 9.3 mg/dL (8.4-10.2); Carbon Dioxide 24 mmol/L (22-29); Chloride 103 mmol/L (96-108); Estimated Glomerular Filt Rate > 60; Glucose Random 76 mg/dL (60-115); Potassium 3.9 mmol/L (3.3-5.1); Sodium 137 mmol/L (135-145); Total Protein 6.9 g/dL (6.5-8.0)
== END 2023-12-22 09:15 | disposition home or self-care (01) ==
LOC: HO.HMGCLDS 09:14
PROVIDERS: PCP Nurse Practitioner Family; Visit Provider Nurse Practitioner Family
DX: K57.80 Diverticulitis of intestine, part unspecified, with perforation and abscess without bleeding (principal); K63.0 Abscess of intestine; F10.10 Alcohol abuse, uncomplicated; Z98.890 Other specified postprocedural states; Z90.49 Acquired absence of other specified parts of digestive tract
CPT/HCPCS: 36415; 80053; 85025; 99212

== ENCOUNTER 2023-12-23 11:13 | Outpatient (REF) | payer OTHER, SELFPAY ==
[2023-12-23 13:03] LABS: MANUAL DIFF FLAG NO
[2023-12-23 13:10] LABS: Basophils Absolute Auto 0.1 X10*3/uL (0.0-0.2); Basophils Percent Auto 0.5 % (0-2); Eosinophils Absolute Auto 0.3 X10*3/uL (0.0-0.4); Eosinophils Percent Auto 2.9 % (0-4); Hematocrit 38.4 % (42.0-52.0); Hemoglobin 12.9 g/dl (14.0-18.0); Imm Gran Pct Auto 1.1 % (0.0-0.4); Lymphocytes Absolute Auto 1.7 X10*3/uL (1.2-4.9); Lymphocytes Percent Auto 18.9 % (20-40); Mean Corpuscular HGB Conc 33.6 g/dl (31.0-36.0); Mean Corpuscular Hemoglobin 34.3 pg (27.0-33.0); Mean Corpuscular Volume 102.1 fL (80.0-98.0); Mean Platelet Volume 9.4 fL (9.4-12.4); Monocytes Percent Auto 11.3 % (2-11); Neutrophils Percent Auto 65.3 % (45-73); Platelet Count 630 X10*3/uL (160-400); Red Blood Count 3.76 X10*6/uL (4.60-5.80); Red Cell Distribution Width 13.3 % (11.0-16.0); White Blood Count 9.2 X10*3/uL (4.8-10.8)
[2023-12-23 14:00] LABS: Alanine Aminotransferase 32 U/L (0-40); Albumin Level 3.7 g/dL (3.5-5.0); Alkaline Phosphatase 48 U/L (39-117); Anion Gap 11 (12-20); Aspartate Amino Transferase 33 U/L (5-37); Bilirubin Total 0.1 mg/dL (0.0-1.0); Blood Urea Nitrogen 15 mg/dL (9-16); Calcium 8.8 mg/dL (8.4-10.2); Carbon Dioxide 29 mmol/L (22-29); Chloride 105 mmol/L (96-108); Estimated Glomerular Filt Rate > 60; Potassium 3.8 mmol/L (3.3-5.1); Sodium 141 mmol/L (135-145); Total Protein 6.9 g/dL (6.5-8.0)
[2023-12-23 14:27] LABS: Glucose Random 52 mg/dL (60-115)
== END 2023-12-23 11:14 | disposition home or self-care (01) ==
LOC: HO.HMGCLDS 11:13
PROVIDERS: PCP Nurse Practitioner Family; Visit Provider Nurse Practitioner Family
DX: Z98.890 Other specified postprocedural states (principal); Z90.49 Acquired absence of other specified parts of digestive tract; K57.80 Diverticulitis of intestine, part unspecified, with perforation and abscess without bleeding
CPT/HCPCS: 36415; 80053; 85025

== ENCOUNTER 2023-12-29 10:57 | Outpatient (AMB) | payer OTHER, SELFPAY ==
--- NOTE | 2023-12-29 11:10 | MHC.OFFVIS ---
Intake Visit Reasons: s/p Colon Resection Laparoscopic Assist Intake Note: This patient presents for post-op assessment status post Hand assisted laparoscopic sigmoid resection, extensive lysis of adhesions, end-colostomy. Pt c/o; reports slow healing. Denies bleeding, oozing. No longer taking rx pain meds. State Director Required: No Allergies carisoprodol [From [facility]] Allergy (Unknown, Verified 12/29/23 11:11) SYNCOPE HPI HPI s/p Colon Resection Laparoscopic Assist: Details: 43-year-old male here for a postop follow-up. He had undergone emergency hand assisted laparoscopic sigmoid resection with end colostomy for severe diverticulitis with abscesses last 03/09/2024. He tolerated procedure well and was discharged on postop day number 8. He says he has been doing well at home since then. His stoma has been functioning well. He has good oral intake He admits to continues to smoke. He says has been sober since he had the surgery. [facility] Medical History History of open sigmoidectomy Sliding hiatal hernia Tubular adenoma of colon Tobacco dependence Alcohol dependence BPH (benign prostatic hyperplasia) Surgical History Hx of surgical procedure (~12/09/23) History of esophagogastroduodenoscopy (EGD) H/O colonoscopy Hx of prostate biopsy Family History Mother Substance use disorder Mental health disorder Father Substance use disorder Mental health disorder Maternal Aunt Substance use disorder Mental health disorder Paternal Uncle Substance use disorder Mental health disorder Paternal Aunt Substance use disorder Mental health disorder Maternal Uncle Substance use disorder Mental health disorder Brother Substance use disorder Mental health disorder Sister Substance use disorder Mental health disorder Social History Household Members: Significant Other Housing: Apartment Are you a primary medical care evaluation specialist to a significant other at home: No Do you presently have visiting nurse or other home services: No Alcohol intake: current Alcohol intake frequency: 3 or more drinks per day Alcohol type: beer and hard liquor Patient Tobacco Use Status: Current everyday Tobacco user Tobacco use type: Cigarette Cigarette Packs Per Day: 1 Cigarettes Per Day: 20.0 e-Cigarette/Vaping Use: Never Used Second Hand Smoke Exposure: Yes Substance Use Type: Marijuana service: No Current occupational status: employed 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 Current occupational exposures/hazards: No Cognitive needs: No Hearing needs: No Vision needs: No Review of Systems Const Denies chills and Denies fever(s) Card Denies chest pain Resp Denies cough GI Details: Has stoma Physical Exam Const General: comfortable and no acute distress Resp Effort & Inspection: normal respiratory effort GI Other: Incisions well healed, marta intact, colostomy functioning well Palpation (GI): Soft to palpation, not firm and nontender Assessment & Plan Assessment & Plan (1) Diverticulitis of intestine with abscess: Code(s): K57.80 - Diverticulitis of intestine, part unspecified, with perforation and abscess without bleeding Category: Medical Plan: Status post hand assisted laparoscopic sigmoid resection with end colostomy. He is doing very well. I removed all his skin marta. His incisions are well healed. His stoma is functioning well. I will see him again in the office for another wound check in about 1 month. Coding Level of Care Code Global (92355) Diagnoses Diverticulitis of intestine with abscess K57.80
== END 2023-12-29 11:20 | disposition home or self-care (01) ==
PROVIDERS: PCP Nurse Practitioner Family; Visit Provider Surgery
DX: K57.80 Diverticulitis of intestine, part unspecified, with perforation and abscess without bleeding (principal)
CPT/HCPCS: 99024

== ENCOUNTER → 2023-12-29 10:57 | Outpatient (BNVA) | payer OTHER, SELFPAY | PROVIDERS: PCP Nurse Practitioner Family; Visit Provider Surgery | DX: K57.80 Diverticulitis of intestine, part unspecified, with perforation and abscess without bleeding (principal) | CPT/HCPCS: 99212 ==

== ENCOUNTER → 2024-02-02 15:02 | Outpatient (BNVA) | payer OTHER, SELFPAY | PROVIDERS: PCP Nurse Practitioner Family; Visit Provider Surgery ==

== ENCOUNTER 2024-02-08 15:49 | Outpatient (AMB) | payer OTHER, SELFPAY ==
[2024-02-08 15:51] VITALS: BP 110/70; PULSE 87; O2SAT 96; BMI 19.5
--- NOTE | 2024-02-08 15:51 | MHC.PC.OV ---
Vital Signs 02/08/24 15:51 Height 6 ft 2 in Weight 152 lb BMI 19.5 BP 110/70 Blood Pressure Location Lt brachial Position Sitting Pulse 87 Pulse Source Pulse Oximeter Pulse Oximetry (%) 96 Intake Visit Reasons: follow up per isabelle Sweet Note: pt is here for f/up Alignment Specialist Required: No Accompanied by: Self / Same As Patient Allergies carisoprodol [From [facility]] Allergy (Unknown, Verified 02/08/24 15:51) SYNCOPE Tobacco use date assessed: 12/22/23 Dental Screening Dental Screen Date: 09/06/23 HPI follow up per isabelle HPI Details On 12/08 pt underwent hand assisted laparoscopic sigmoid resection, extensive lysis of adhesions, end-colostomy. Pt was a alcoholic. He reports having 1 beer since his hospital discharge. He has seen his GS approx one month ago, pt seems to be going in the right direction. Pt reports his colostomy is active, liquid, sometimes more solid, denies any ABD pain, fevers, chills, N/V, tolerating diet. He does report feeling some tightness pointing to his lower ABD. Next follow up with his GS is tomorrow. ? colon screen in the future and reversal of colostomy. [facility] Medical History History of open sigmoidectomy Sliding hiatal hernia Tubular adenoma of colon Tobacco dependence Alcohol dependence BPH (benign prostatic hyperplasia) Surgical History Hx of surgical procedure (~12/09/23) History of esophagogastroduodenoscopy (EGD) H/O colonoscopy Hx of prostate biopsy Family History Mother Substance use disorder Mental health disorder Father Substance use disorder Mental health disorder Maternal Aunt Substance use disorder Mental health disorder Paternal Uncle Substance use disorder Mental health disorder Paternal Aunt Substance use disorder Mental health disorder Maternal Uncle Substance use disorder Mental health disorder Brother Substance use disorder Mental health disorder Sister Substance use disorder Mental health disorder Social History Household Members: Significant Other Housing: Apartment Are you a primary career manager to a significant other at home: No Do you presently have visiting nurse or other home services: No Alcohol intake: current Alcohol intake frequency: 3 or more drinks per day Alcohol type: beer and hard liquor Patient Tobacco Use Status: Current everyday Tobacco user Tobacco use type: Cigarette Cigarette Packs Per Day: 1 Cigarettes Per Day: 20.0 e-Cigarette/Vaping Use: Never Used Second Hand Smoke Exposure: Yes Substance Use Type: Marijuana service: No Current occupational status: employed 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 Gary Flores, Steph Marc, Robert Solis and colleagues, with an educational jennie from [employer]. Physical exam (Primary Care) Vital Signs: Last Vital Signs Pulse 87 02/08/24 15:51 BP 110/70 02/08/24 15:51 Pulse Ox 96 02/08/24 15:51 BMI result Body Mass Index 19.5 Tobacco/Smoking Status: Tobacco use Status Tobacco use date assessed 12/22/23 02/08/24 15:53 Patient Tobacco Use Status Current everyday Tobacco 02/08/24 15:53 Tobacco use type Cigarette 02/08/24 15:53 e-Cigarette/Vaping Use Never Used 02/08/24 15:53 Thrive Assessment: Date of Thrive Assessment Date Thrive assessed 12/10/23 02/08/24 15:53 Const General: cooperative, healthy appearing, comfortable and no acute distress Resp Effort & Inspection: normal respiratory effort Auscultation: clear to auscultation bilaterally (slightly dim) Cardio Rate: regular rate Rhythm: regular rhythm Heart sounds: S1 normal heart sound present, S2 normal heart sound present and no murmurs GI Other: stoma is pink, bag recently changed (no stool currently), BS present, no tenderness with palpation, faint induration noted to lower mid abd (not raised), inferior to umbilicus . No surrounding erythema, swelling, ecchymosis. Psych Appearance: grossly normal Mental Status: mental status grossly normal Speech and movement: Normal speech and movement present Affect: normal affect Attitude: cooperative Thought process: Normal thought process present Thought content: Normal thought content present Insight: Good insight present (Psych) Judgement: Good judgement present (Psych) Coding Level of Care Code Est Pt Level 3 (29387) Diagnoses Diverticulitis of intestine with abscess K57.80 History of open sigmoidectomy Z98.890; Z90.49 Alcohol abuse F10.10 Assessment & Plan Assessment & Plan (1) Diverticulitis of intestine with abscess: Code(s): K57.80 - Diverticulitis of intestine, part unspecified, with perforation and abscess without bleeding Category: Medical Plan: tolerating a diet (2) History of open sigmoidectomy: Comment: with colostomy, active, stoma pink Code(s): Z98.890 - Other specified postprocedural states; Z90.49 - Acquired absence of other specified parts of digestive tract Category: Medical Plan: following up with GS tomorrow (3) Alcohol abuse: Code(s): F10.10 - Alcohol abuse, uncomplicated Category: Social Hx Plan: pt is not drinking and knows the dangers of ETOH abuse Orders: Orders Complete Blood Count Auto Diff Today K57.80 - Diverticulitis of intestine, part unspecified, with perforation and abscess without bleeding, Z90.49 - Acquired absence of other specified parts of digestive tract, Z98.890 - Other specified postprocedural states Comprehensive Met. Panel Today K57.80 - Diverticulitis of intestine, part unspecified, with perforation and abscess without bleeding, Z90.49 - Acquired absence of other specified parts of digestive tract, Z98.890 - Other specified postprocedural states
== END 2024-02-08 16:51 | disposition home or self-care (01) ==
PROVIDERS: PCP Nurse Practitioner Family; Visit Provider Nurse Practitioner Family
DX: K57.80 Diverticulitis of intestine, part unspecified, with perforation and abscess without bleeding (principal); Z98.890 Other specified postprocedural states; Z90.49 Acquired absence of other specified parts of digestive tract; F10.10 Alcohol abuse, uncomplicated

== ENCOUNTER → 2024-02-08 15:49 | Outpatient (BNVA) | payer OTHER, SELFPAY | PROVIDERS: PCP Nurse Practitioner Family; Visit Provider Nurse Practitioner Family | DX: K57.80 Diverticulitis of intestine, part unspecified, with perforation and abscess without bleeding (principal); F10.10 Alcohol abuse, uncomplicated; Z98.890 Other specified postprocedural states; Z90.49 Acquired absence of other specified parts of digestive tract | CPT/HCPCS: 99212 ==

== ENCOUNTER 2024-02-09 11:15 | Outpatient (AMB) | payer OTHER, SELFPAY ==
--- NOTE | 2024-02-09 11:16 | A.OFFVIS_ITS ---
Vital Signs 02/09/24 11:19 Height 6 ft 2 in Weight 154 lb BMI 19.8 Intake Visit Reasons: 1 month follow up Intake Note: This patient presents for a one month follow-up. Pt c/o; reports no complaints. Performing Arts Technicians Required: No Accompanied by: Self / Same As Patient Allergies carisoprodol [From [facility]] Allergy (Unknown, Verified 02/09/24 11:20) SYNCOPE Medication List - Last Reconciled 02/09/24 by Joel Bueno MD No Known Home Meds HPI HPI 1 month follow up: Details: 43-year-old males here for follow-up after emergency Elizabeth's procedure last 12/09/2023 for severe diverticulitis with intramural abscess and phlegmon. He says he has been doing well. His colostomy has been functioning well. He has had no problems with this. He says that he has been sober since the time of the surgery. He does admit to being a smoker. [facility] Medical History Colostomy in place History of open sigmoidectomy Sliding hiatal hernia Tubular adenoma of colon Tobacco dependence Alcohol dependence BPH (benign prostatic hyperplasia) Surgical History Hx of surgical procedure (~12/09/23) History of esophagogastroduodenoscopy (EGD) H/O colonoscopy Hx of prostate biopsy Family History Mother Substance use disorder Mental health disorder Father Substance use disorder Mental health disorder Maternal Aunt Substance use disorder Mental health disorder Paternal Uncle Substance use disorder Mental health disorder Paternal Aunt Substance use disorder Mental health disorder Maternal Uncle Substance use disorder Mental health disorder Brother Substance use disorder Mental health disorder Sister Substance use disorder Mental health disorder Social History Household Members: Significant Other Housing: Apartment Are you a primary dog day care attendant to a significant other at home: No Do you presently have visiting nurse or other home services: No Alcohol intake: current Alcohol intake frequency: 3 or more drinks per day Alcohol type: beer and hard liquor Patient Tobacco Use Status: Current everyday Tobacco user Tobacco use type: Cigarette Cigarette Packs Per Day: 1 Cigarettes Per Day: 20.0 e-Cigarette/Vaping Use: Never Used Second Hand Smoke Exposure: Yes Substance Use Type: Marijuana service: No Current occupational status: employed 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 Current occupational exposures/hazards: No Cognitive needs: No Hearing needs: No Vision needs: No Review of Systems Const Denies chills and Denies fever(s) Card Denies chest pain, Denies dyspnea and Denies dyspnea on exertion Resp Denies cough, Denies dyspnea and Denies dyspnea on exertion GI Denies hematochezia and Denies change in bowel habits Denies hematuria and Denies difficulty urinating Musc Denies back pain and Denies limited range of motion Neuro Denies focal weakness and Denies convulsions Psych Denies depression and Denies mood swings Physical Exam Vital Signs: BMI result Body Mass Index 19.8 Const General: comfortable and no acute distress Orientation/consciousness: patient oriented x3 Neck Neck: Yes no lymphadenopathy Resp Auscultation: clear to auscultation bilaterally Cardio Rhythm: regular rhythm GI Other: Colostomy in the left side, functioning well Palpation (GI): Soft to palpation, nontender and no guarding Neuro General: patient oriented x3 Assessment & Plan Assessment & Plan (1) Colostomy in place: Code(s): Z93.3 - Colostomy status Category: Medical Plan: He is status post sigmoid resection and end colostomy for diverticulitis with phlegmon and intramural abscess He is doing very well postoperatively I am going to schedule him for a colonoscopy via the stoma in the rectum prior to reversing his stoma. I explained to him the technique of this procedure. I reviewed the risks including but not limited to bleeding and perforation, as well as the benefits and alternatives. He has given consent Coding Level of Care Code Est Pt Level 3 (75853) Diagnoses Colostomy in place Z93.3
[2024-02-09 11:19] VITALS: BMI 19.8
== END 2024-02-09 11:29 | disposition home or self-care (01) ==
PROVIDERS: PCP Nurse Practitioner Family; Visit Provider Surgery
DX: Z93.3 Colostomy status (principal)
CPT/HCPCS: 99024

== ENCOUNTER → 2024-02-09 11:15 | Outpatient (BNVA) | payer OTHER, SELFPAY | PROVIDERS: PCP Nurse Practitioner Family; Visit Provider Surgery | DX: Z93.3 Colostomy status (principal) | CPT/HCPCS: 99212 ==

== ENCOUNTER 2024-03-02 12:30 | Day surgery (SDC) | payer OTHER, SELFPAY ==
[2024-03-02 12:43] VITALS: BMI 19.0
[2024-03-02 12:46] VITALS: BP 114/73; PULSE 94; RESP 18; TEMP 36.8; O2SAT 100
--- NOTE | 2024-03-02 13:00 | MHC.SHP ---
Pre-Procedural Eval Section A - 24 Hr Update-Section A only Date of Service: 03/02/24 The patient is an INPATIENT: No Changes since office visit: No Cold of Flu in the past 2 weeks, No New Medical Problems, No Changes in Medication and No Patient answered all questions The patient has been examined within 24 hours of the surgical procedure. The History & Physical has been completed within 30 days and I have reviewed it.: Yes Section B - Complete if H&P > 30 days Chief Complaint: Colostomy status Allergies: Allergies Allergy/AdvReac Type Severity Reaction Status Date / Time carisoprodol [From [facility]] Allergy Unknown SYNCOPE Verified 02/09/24 11:20 Plan I have reviewed the history and physical and performed a pertinent physical examination on my patient. No changes have occurred unless specified. Time Spent With Patient Time: Total time managing care of this patient today ____ minutes.
--- NOTE | 2024-03-02 13:02 | HO.ANESPROP2 ---
Documented by User: Ana Marinelli NP 02/29/24 13:41 HPI - Anesthesia Eval Consult details Narrative: 43yo M for Colonoscopy with possible Polypectomy,via stoma and rectum s/p colon resect with ostomy 11/2023 with GA-ETT 7 PMFSH Active Problems Active Problems: All Active Problems Colostomy in place (Acute) History of open sigmoidectomy (Acute) Diverticulitis of intestine with abscess (Acute) Dermatitis (Acute) Encounter for routine adult physical exam with abnormal findings (Acute) Sliding hiatal hernia (Acute) Tubular adenoma of colon (Acute) Adenocarcinoma of prostate (Acute) Alcohol use disorder, moderate, dependence (Acute) History of prostatitis (Acute) BPH (benign prostatic hyperplasia) (Acute) Elevated PSA (Acute) Elevated bilirubin (Acute) Elevated liver enzymes (Acute) Alcohol abuse (Acute) Screening for colon cancer (Acute) Physical exam (Acute) COVID-19 (Acute) Family history of prostate cancer (Acute) Past Medical History Medical History Colostomy in place History of open sigmoidectomy Sliding hiatal hernia Tubular adenoma of colon Tobacco dependence Alcohol dependence BPH (benign prostatic hyperplasia) Family History Family History Mother Substance use disorder Mental health disorder Father Substance use disorder Mental health disorder Maternal Aunt Substance use disorder Mental health disorder Paternal Uncle Substance use disorder Mental health disorder Paternal Aunt Substance use disorder Mental health disorder Maternal Uncle Substance use disorder Mental health disorder Brother Substance use disorder Mental health disorder Sister Substance use disorder Mental health disorder Family history of problems with anesthesia: No Surgical History Surgical History Hx of surgical procedure (~12/09/23) History of esophagogastroduodenoscopy (EGD) H/O colonoscopy Hx of prostate biopsy History of Problems with Anesthesia: No Social History Social History Household Members: Significant Other Housing: Apartment Are you a primary health care liaison to a significant other at home: No Do you presently have visiting nurse or other home services: No Alcohol intake: current Alcohol intake frequency: 3 or more drinks per day Alcohol type: beer and hard liquor Patient Tobacco Use Status: Current everyday Tobacco user Tobacco use type: Cigarette Cigarette Packs Per Day: 1 Cigarettes Per Day: 20.0 e-Cigarette/Vaping Use: Never Used Second Hand Smoke Exposure: Yes Use of substances other than those prescribed or required for medical reasons: Yes Substance Use Type: Marijuana Substance Use Type Other:: last smoked 03/01/24 0000 Advance Directives: No Advance Directives Information Provided: Yes service: No Current occupational status: employed 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 Current occupational exposures/hazards: No Cognitive needs: No Hearing needs: No Vision needs: No Meds Allergies Allergy/AdvReac Type Severity Reaction Status Date / Time carisoprodol [From SOMA] Allergy Unknown SYNCOPE Verified 02/09/24 11:20 Home Medications ?Medication ?Instructions ?Recorded ?Confirmed ?Last Taken ?Type famotidine 20 mg tablet 20 mg PO BEDTIME 03/01/24 Unknown History omeprazole 20 mg capsule,delayed 20 mg PO DAILY 03/01/24 Unknown History release Assessment and Plan Assessment Anesthesia Assessment: Chart Reviewed Final Anesthetic Review Family History of Problems with Anesthesia: No History of Problems with Anesthesia: No Documented by User: Maria E Torres DO 03/02/24 13:03 [facility] Past Medical History Medical History Colostomy in place History of open sigmoidectomy Sliding hiatal hernia Tubular adenoma of colon Tobacco dependence Alcohol dependence BPH (benign prostatic hyperplasia) Family History Family History Mother Substance use disorder Mental health disorder Father Substance use disorder Mental health disorder Maternal Aunt Substance use disorder Mental health disorder Paternal Uncle Substance use disorder Mental health disorder Paternal Aunt Substance use disorder Mental health disorder Maternal Uncle Substance use disorder Mental health disorder Brother Substance use disorder Mental health disorder Sister Substance use disorder Mental health disorder Family history of problems with anesthesia: No Surgical History Surgical History Hx of surgical procedure (~12/09/23) History of esophagogastroduodenoscopy (EGD) H/O colonoscopy Hx of prostate biopsy History of Problems with Anesthesia: No Social History Social History Household Members: Significant Other Housing: Apartment Are you a primary health care liaison to a significant other at home: No Do you presently have visiting nurse or other home services: No Alcohol intake: current Alcohol intake frequency: 3 or more drinks per day Alcohol type: beer and hard liquor Patient Tobacco Use Status: Current everyday Tobacco user Tobacco use type: Cigarette Cigarette Packs Per Day: 1 Cigarettes Per Day: 20.0 e-Cigarette/Vaping Use: Never Used Second Hand Smoke Exposure: Yes Use of substances other than those prescribed or required for medical reasons: Yes Substance Use Type: Marijuana Substance Use Type Other:: last smoked 03/01/24 0000 Advance Directives: No Advance Directives Information Provided: Yes service: No Current occupational status: employed 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 Current occupational exposures/hazards: No Cognitive needs: No Hearing needs: No Vision needs: No Meds Allergies Allergy/AdvReac Type Severity Reaction Status Date / Time carisoprodol [From SOMA] Allergy Unknown SYNCOPE Verified 02/09/24 11:20 Home Medications ?Medication ?Instructions ?Recorded ?Confirmed ?Last Taken ?Type famotidine 20 mg tablet 20 mg PO BEDTIME 03/01/24 Unknown History omeprazole 20 mg capsule,delayed 20 mg PO DAILY 03/01/24 Unknown History release Exam Exam Date and Time: 03/02/24 1300 Height,Weight and Vital Signs: Height 6 ft 1 in Weight 65.317 kg Airway Mallampati Class: I TM Dist: >3cm Neck ROM: Full Loose/Missing/Broken Teeth: No (patient denies any loose or broken teeth) Heart: S1S2 Lungs: CTAB Assessment and Plan Assessment Anesthesia Assessment: Anesthesia Plan Discussed and Chart Reviewed Final Anesthetic Review Family History of Problems with Anesthesia: No History of Problems with Anesthesia: No NPO: Yes ASA Class: II Final Preanesthetic Review: No Changes in Pt Med Stat, Meds/Allgs Chart Reviewed, Consent Obtained/Reviewed and Anes Risks/Benef Reviewed Patient Risk: Low Procedure Risk: Low Anesthetic Plan Anesthetic Plan: MAC: and Agree w/ Assess. and Plan Disposition: Standard PACU
[2024-03-02] MEDS: Lactated Ringers 1,000 ML 100 ML IVCONT (13:16)
--- NOTE | 2024-03-02 13:47 | W.PM.OPN ---
Operative Note Operative Note Date of Service: 03/02/24 Narrative: Preop diagnosis: Status post Elizabeth's procedure for severe diverticular abscess in the sigmoid Postop diagnosis: The same, with note of occasional diverticuli in the left colon; no polyps seen; rectal pouch about 20 cm long Procedure: Colonoscopy via the stoma and the rectum Surgeon: Joel Bueno MD The patient is a 43 year male he had undergone emergency Elizabeth's procedure for severe diverticular abscess last November,. He is here for a colonoscopy prior to reversal of his colostomy. He had colonoscopy with Dr. Juan in April, showing polyps. The patient understood the technique of the planned procedure as well as the risks, benefits, and alternatives. He was brought to the operating room. He was placed in left lateral decubitus position under monitored anesthesia care. A surgical time-out was done. A full digital rectal exam was done. There were no palpable anal lesions. The the tip of the Olympus colonoscope was gently introduced through the anal orifice and advanced with insufflation to the very end of the Elizabeth's pouch. The rectal pouch was about 20 cm in length. I proceeded to examined the entire distal sigmoid and rectum carefully. There were no lesions seen. There was no diverticulosis noted. The rectum in the anal canal was unremarkable and the scope was then withdrawn completely with desufflation The patient was then placed supine. The scope was gently introduced through the colostomy and advanced with insufflation all the of the right colon. The cecum was intubated. The cecum was identified via visualization of the ileocecal valve as well as the appendiceal orifice. The cecal mucosa was unremarkable. The scope was gradually withdrawn with careful examination of the entire colonic mucosa being done with scope withdrawal. The patient had adequate bowel prep so it was unlikely that any lesion may have been missed. I did not see any polyp or any lesion throughout the entire colon. He did have scattered diverticuli in the left colon. There were no polyps or any lesions seen. The scope was then withdrawn completely with desufflation. The patient tolerated the procedure well. There were no immediate complications. The patient was transferred to the recovery room with stable vital signs.
[2024-03-02 13:51] VITALS: BP 93/60; PULSE 78; RESP 16; TEMP 36.3; O2SAT 100
[2024-03-02 14:05] VITALS: BP 123/73; PULSE 53; RESP 16; TEMP 36.3; O2SAT 100
== END 2024-03-02 15:10 | disposition home or self-care (01) ==
PROVIDERS: PCP Nurse Practitioner Family; Visit Provider Surgery
PROC: 0DBE8ZZ Excision of Large Intestine, Via Natural or Artificial Opening Endoscopic (ICD-10-PCS; CPT 44388; principal; 2024-03-02 14:20)
DX: Z12.11 Encounter for screening for malignant neoplasm of colon (principal); Z86.0101 Personal history of adenomatous and serrated colon polyps; Z93.3 Colostomy status; K57.30 Diverticulosis of large intestine without perforation or abscess without bleeding; K21.9 Gastro-esophageal reflux disease without esophagitis; F10.20 Alcohol dependence, uncomplicated; R74.8 Abnormal levels of other serum enzymes; Z79.899 Other long term (current) drug therapy; Z88.8 Allergy status to other drugs, medicaments and biological substances
CPT/HCPCS: 44388; J2003; J2704

== ENCOUNTER → 2024-03-02 12:30 | Outpatient (BNV) | payer OTHER, SELFPAY | PROVIDERS: PCP Nurse Practitioner Family; Visit Provider Surgery | DX: Z93.3 Colostomy status (principal) | CPT/HCPCS: 44388; 45330 ==

== ENCOUNTER 2024-03-15 10:14 | Outpatient (AMB) | payer OTHER, SELFPAY ==
--- NOTE | 2024-03-15 10:15 | MHC.OFFVIS ---
Vital Signs 03/15/24 10:19 Height 6 ft 1 in Weight 153 lb BMI 20.2 BP 143/73 H Blood Pressure Location Rt brachial Position Sitting Pulse 71 Intake Visit Reasons: S/P colonoscopy via stoma & rectum Intake Note: This patient presents for post-op assessment status post colonoscocpy via stoma and rectum. Pt c/o: reports no complaints. Pt inquiring about next steps in txt. Preschool Principal Required: No Accompanied by: Self / Same As Patient Allergies carisoprodol [From SOMA] Allergy (Unknown, Verified 03/15/24 10:20) SYNCOPE Medication List - Last Reconciled 03/15/24 by Joel Bueno MD famotidine 20 mg PO BEDTIME omeprazole 20 mg PO DAILY sodium,potassium,mag sulfates 17.5-3.13-1.6 gram (Suprep Bowel Prep Kit) DILUTE; drink full amount early evening before AND next morning at least 2 hr before procedure; follow w 960 mL water PO HPI HPI S/P colonoscopy via stoma & rectum: Details: 43-year-old males here for follow-up after emergency Elizabeth's procedure last 12/09/2023 for severe diverticulitis with intramural abscess and phlegmon. He says he has been doing well. His colostomy has been functioning well. He has had no problems with this. He used to drink alcohol heavily but says that he has been sober since the time of the surgery. He does admit to being a smoker. He had undergone a colonoscopy via the stoma in the rectum last 03/02/2024. This showed the rectal pouch to be about 20 cm. There was note of some diverticulosis in the left colon. [facility] Medical History Colostomy in place History of open sigmoidectomy Sliding hiatal hernia Tubular adenoma of colon Tobacco dependence Alcohol dependence BPH (benign prostatic hyperplasia) Surgical History Hx of surgical procedure (~12/09/23) History of esophagogastroduodenoscopy (EGD) H/O colonoscopy Hx of prostate biopsy Family History Mother Substance use disorder Mental health disorder Father Substance use disorder Mental health disorder Maternal Aunt Substance use disorder Mental health disorder Paternal Uncle Substance use disorder Mental health disorder Paternal Aunt Substance use disorder Mental health disorder Maternal Uncle Substance use disorder Mental health disorder Brother Substance use disorder Mental health disorder Sister Substance use disorder Mental health disorder Social History Household Members: Significant Other Housing: Apartment Are you a primary floor care technician to a significant other at home: No Do you presently have visiting nurse or other home services: No Alcohol intake: current Alcohol intake frequency: 3 or more drinks per day Alcohol type: beer and hard liquor Patient Tobacco Use Status: Current everyday Tobacco user Tobacco use type: Cigarette Cigarette Packs Per Day: 1 Cigarettes Per Day: 20.0 e-Cigarette/Vaping Use: Never Used Second Hand Smoke Exposure: Yes Substance Use Type: Marijuana service: No Current occupational status: employed 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 Current occupational exposures/hazards: No Cognitive needs: No Hearing needs: No Vision needs: No Review of Systems Const Denies chills and Denies fever(s) Card Denies chest pain, Denies dyspnea and Denies dyspnea on exertion Resp Denies cough, Denies dyspnea and Denies dyspnea on exertion GI Details: Has a colostomy Denies hematochezia and Denies change in bowel habits Denies hematuria and Denies difficulty urinating Musc Denies back pain and Denies limited range of motion Neuro Denies focal weakness and Denies convulsions Psych Denies depression and Denies mood swings Physical Exam Vital Signs: Last Vital Signs Pulse 71 03/15/24 10:19 BP 143/73 H 03/15/24 10:19 BMI result Body Mass Index 20.2 Const General: comfortable and no acute distress Orientation/consciousness: patient oriented x3 Neck Neck: Yes no lymphadenopathy Resp Auscultation: clear to auscultation bilaterally Cardio Rhythm: regular rhythm GI Other: Colostomy in the left abdomen Palpation (GI): Soft to palpation, nontender and no guarding Neuro General: patient oriented x3 Assessment & Plan Assessment & Plan (1) Colostomy in place: Code(s): Z93.3 - Colostomy status Category: Medical Plan: He had undergone emergency hand assisted laparoscopic Elizabeth's procedure last November, for severe sigmoid diverticulitis with phlegmon and intramural abscess. He has been doing well since then. His colonoscopy 2 weeks ago was unremarkable I had a long discussion with him about the technique of hand assisted reversal of his ostomy, possible conversion to open, possible diverting loop ileostomy. I explained the risks including but not limited to bleeding, infections, bowel injury, staple line or anastomotic leak, blood clots, pneumonia, abscess formation, inherent risks of anesthesia, as well as the benefits and alternatives. I also explained to him what to expect postoperatively. He understands that if he has a diverting loop ileostomy, he we will need another surgery to reverse this. He says he understands the above fully. He used to drink heavily but has been sober since his surgery. I counseled him on the benefits of smoking cessation. Medications: New sodium,potassium,mag sulfates 17.5-3.13-1.6 gram (Suprep Bowel Prep Kit) DILUTE; drink full amount early evening before AND next morning at least 2 hr before procedure; follow w 960 mL water PO 354 mL 0RF Coding Level of Care Code Est Pt Level 4 (46203) Diagnoses Colostomy in place Z93.3
[2024-03-15 10:19] VITALS: BP 143/73; PULSE 71; BMI 20.2
== END 2024-03-15 10:45 | disposition home or self-care (01) ==
PROVIDERS: PCP Nurse Practitioner Family; Visit Provider Surgery
DX: Z93.3 Colostomy status (principal)
CPT/HCPCS: 99214

== ENCOUNTER → 2024-03-15 10:14 | Outpatient (BNVA) | payer OTHER, SELFPAY | PROVIDERS: PCP Nurse Practitioner Family; Visit Provider Surgery | DX: Z93.3 Colostomy status (principal) | CPT/HCPCS: 99212 ==

== ENCOUNTER 2024-04-17 07:16 | Inpatient (IN) | payer OTHER, SELFPAY ==
[2024-04-06 13:10] VITALS: BP 109/69; PULSE 68; RESP 20; O2SAT 100; BMI 19.8
[2024-04-06 14:14] LABS: Hematocrit 42.6 % (42.0-52.0); Hemoglobin 15.2 g/dl (14.0-18.0); Mean Corpuscular HGB Conc 35.7 g/dl (31.0-36.0); Mean Corpuscular Hemoglobin 32.1 pg (27.0-33.0); Mean Corpuscular Volume 89.9 fL (80.0-98.0); Mean Platelet Volume 10.8 fL (9.4-12.4); Platelet Count 206 X10*3/uL (160-400); Red Blood Count 4.74 X10*6/uL (4.60-5.80); Red Cell Distribution Width 12.1 % (11.0-16.0); White Blood Count 4.8 X10*3/uL (4.8-10.8)
[2024-04-06 14:32] LABS: Anion Gap 11 (12-20); Carbon Dioxide 27 mmol/L (22-29); Chloride 106 mmol/L (96-108); Potassium 4.1 mmol/L (3.3-5.1); Sodium 140 mmol/L (135-145)
--- NOTE | 2024-04-16 09:42 | HO.ANESPROP2 ---
Documented by User: Ana Marinelli NP 04/16/24 09:43 HPI - Anesthesia Eval Consult details Narrative: 44yo M for Hand Assist Laparoscopic Colostomy Reversal,possible open,possible Diverting Loop Ileostomy s/p Colonoscopy with possible Polypectomy,via stoma and rectum with MAC s/p colon resect with ostomy 11/2023 with GA-ETT 7 PMFSH Active Problems Active Problems: All Active Problems Diverticulitis of intestine with abscess (Acute) Dermatitis (Acute) Encounter for routine adult physical exam with abnormal findings (Acute) Adenocarcinoma of prostate (Acute) Alcohol use disorder, moderate, dependence (Acute) History of prostatitis (Acute) BPH (benign prostatic hyperplasia) (Acute) Elevated PSA (Acute) Elevated bilirubin (Acute) Elevated liver enzymes (Acute) Alcohol abuse (Acute) Screening for colon cancer (Acute) Physical exam (Acute) COVID-19 (Acute) Family history of prostate cancer (Acute) Colostomy in place (Acute) History of open sigmoidectomy (Acute) Sliding hiatal hernia (Acute) Tubular adenoma of colon (Acute) Past Medical History Medical History Prostate cancer Depression Colostomy in place History of open sigmoidectomy Sliding hiatal hernia Tubular adenoma of colon Tobacco dependence Alcohol dependence BPH (benign prostatic hyperplasia) Family History Family History Mother Substance use disorder Mental health disorder Father Substance use disorder Mental health disorder Maternal Aunt Substance use disorder Mental health disorder Paternal Uncle Substance use disorder Mental health disorder Paternal Aunt Substance use disorder Mental health disorder Maternal Uncle Substance use disorder Mental health disorder Brother Substance use disorder Mental health disorder Sister Substance use disorder Mental health disorder Family history of problems with anesthesia: No Surgical History Surgical History Hx of surgical procedure (~12/09/23) History of esophagogastroduodenoscopy (EGD) H/O colonoscopy Hx of prostate biopsy History of Problems with Anesthesia: No Social History Social History Household Members: Significant Other Housing: Apartment Are you a primary housekeeper child care to a significant other at home: No Do you presently have visiting nurse or other home services: No Alcohol intake: current Alcohol intake frequency: former alcohol drinker Alcohol type: beer and hard liquor Patient Tobacco Use Status: Current everyday Tobacco user Tobacco use type: Cigarette Cigarette Packs Per Day: 1 Cigarettes Per Day: 1 Years Smoked: 25 e-Cigarette/Vaping Use: Never Used Second Hand Smoke Exposure: Yes Use of substances other than those prescribed or required for medical reasons: Yes Substance Use Type: Marijuana Substance Use Type Other:: smokes marijuana daily Substance Use Frequency: Daily Have you been hit, kicked, punched, or otherwise hurt by someone within the past year? 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 Current occupational exposures/hazards: No Cognitive needs: No Hearing needs: No Vision needs: No Meds Allergies Allergy/AdvReac Type Severity Reaction Status Date / Time carisoprodol [From SOMA] Allergy Intermediate SYNCOPE Verified 04/17/24 06:23 Home Medications ?Medication ?Instructions ?Recorded ?Confirmed ?Last Taken ?Type famotidine 20 mg tablet 20 mg PO BEDTIME 03/01/24 04/06/24 04/16/24 History omeprazole 20 mg capsule,delayed 20 mg PO DAILY 03/01/24 04/06/24 04/16/24 History release Exam Height,Weight and Vital Signs: Height 6 ft 1 in Weight 68.039 kg Last Vital Signs Pulse 68 04/06/24 13:10 Resp 20 04/06/24 13:10 BP 109/69 04/06/24 13:10 Pulse Ox 100 04/06/24 13:10 O2 Del Method Room Air 04/06/24 13:10 Pertinent Lab Results Pertinent Lab Results: Laboratory Tests 04/06/24 13:43 WBC 4.8 RBC 4.74 D Hgb 15.2 Hct 42.6 MCV 89.9 MCH 32.1 MCHC 35.7 RDW 12.1 Plt Count 206 D MPV 10.8 Absolute Nucleated RBC 0.000 Nucleated RBC % (auto) 0.0 Sodium 140 Potassium 4.1 Chloride 106 Carbon Dioxide 27 Anion Gap 11 L Narrative Narrative: EKG 09/2023 Vent. Rate : 081 BPM Atrial Rate : 081 BPM P-R Int : 148 ms QRS Dur : 100 ms QT Int : 370 ms P-R-T Axes : 072 070 067 degrees QTc Int : 429 ms Normal sinus rhythm with sinus arrhythmia Normal ECG When compared with ECG of 09-NOV-2021 12:10, No significant change was found Assessment and Plan Assessment Anesthesia Assessment: Chart Reviewed Final Anesthetic Review Family History of Problems with Anesthesia: No History of Problems with Anesthesia: No Documented by User: Priscilla Morrison MD 04/17/24 08:53 PMFSH Past Medical History Medical History Prostate cancer Depression Colostomy in place History of open sigmoidectomy Sliding hiatal hernia Tubular adenoma of colon Tobacco dependence Alcohol dependence BPH (benign prostatic hyperplasia) Family History Family History Mother Substance use disorder Mental health disorder Father Substance use disorder Mental health disorder Maternal Aunt Substance use disorder Mental health disorder Paternal Uncle Substance use disorder Mental health disorder Paternal Aunt Substance use disorder Mental health disorder Maternal Uncle Substance use disorder Mental health disorder Brother Substance use disorder Mental health disorder Sister Substance use disorder Mental health disorder Surgical History Surgical History Hx of surgical procedure (~12/09/23) History of esophagogastroduodenoscopy (EGD) H/O colonoscopy Hx of prostate biopsy Social History Social History Household Members: Significant Other Housing: Apartment Are you a primary housekeeper child care to a significant other at home: No Do you presently have visiting nurse or other home services: No Alcohol intake: current Alcohol intake frequency: former alcohol drinker Alcohol type: beer and hard liquor Patient Tobacco Use Status: Current everyday Tobacco user Tobacco use type: Cigarette Cigarette Packs Per Day: 1 Cigarettes Per Day: 1 Years Smoked: 25 e-Cigarette/Vaping Use: Never Used Second Hand Smoke Exposure: Yes Use of substances other than those prescribed or required for medical reasons: Yes Substance Use Type: Marijuana Substance Use Type Other:: smokes marijuana daily Substance Use Frequency: Daily Have you been hit, kicked, punched, or otherwise hurt by someone within the past year? 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 Current occupational exposures/hazards: No Cognitive needs: No Hearing needs: No Vision needs: No Meds Allergies Allergy/AdvReac Type Severity Reaction Status Date / Time carisoprodol [From SOMA] Allergy Intermediate SYNCOPE Verified 04/17/24 06:23 Home Medications ?Medication ?Instructions ?Recorded ?Confirmed ?Last Taken ?Type famotidine 20 mg tablet 20 mg PO BEDTIME 03/01/24 04/06/24 04/16/24 History omeprazole 20 mg capsule,delayed 20 mg PO DAILY 03/01/24 04/06/24 04/16/24 History release Exam Airway Mallampati Class: II TM Dist: <=3cm Neck ROM: Limited Heart: rrr Lungs: cta Assessment and Plan Assessment Anesthesia Assessment: Anesthesia Plan Discussed Final Anesthetic Review NPO: Yes ASA Class: III Final Preanesthetic Review: No Changes in Pt Med Stat, Meds/Allgs Chart Reviewed, Consent Obtained/Reviewed and Anes Risks/Benef Reviewed Patient Risk: Intermediate Procedure Risk: Low Anesthetic Plan Anesthetic Plan: GA and Regional Block Disposition: Standard PACU
[2024-04-17] VITALS (16 sets, daily range): BP systolic 118–167; BP diastolic 51–86; PULSE 56–85; RESP 14–20; TEMP 36.7–37; O2SAT 97–100; BMI 19.0
[2024-04-17] MEDS: Lactated Ringers 1,000 ML 100 ML IVCONT ×3 (06:29→22:25)
--- NOTE | 2024-04-17 07:17 | MHC.SHP ---
Pre-Procedural Eval Section A - 24 Hr Update-Section A only Date of Service: 04/17/24 Section B - Complete if H&P > 30 days Chief Complaint: Colostomy status Details of Present Illness: has a colostomy after Jacquelyn's procedure for diverticulitis last Nov 2023, here for reversal Relevant Family History (Specify if Yes): No Relevant Social History: None Present Medications: see Short Stay Collaborative assessment Medical History: Significant History (elevated PSA, hx of ETOH abuse) History of Previous Operations: Relevant previous surgery/procedure and date(s) (jacquelyn's procedure Nov 2023) Allergies: Allergies Allergy/AdvReac Type Severity Reaction Status Date / Time carisoprodol [From SOMA] Allergy Intermediate SYNCOPE Verified 04/17/24 06:23 Review of Systems Sugical H&P ROS: Negative: Constitution, Cardiovascular, Respiratory and Gastrointestinal Exam Surgical H&P Exam: Normal: Heart and Normal: Lungs and Significant Findings: Abdomen (colostomy on left) Plan Diagnosis/Plan: Unchanged I have reviewed the history and physical and performed a pertinent physical examination on my patient. No changes have occurred unless specified. Time Spent With Patient Time: Total time managing care of this patient today ____ minutes.
--- NOTE | 2024-04-17 10:44 | W.PM.OPN ---
Operative Note Operative Note Date of Service: 04/17/24 Narrative: Preop diagnosis: Colostomy in place, status post Elizabeth's procedure for diverticulitis Postop diagnosis: The same Procedure: Hand assisted laparoscopic reversal of end colostomy, extensive lysis of adhesions, flexible sigmoidoscopy Surgeon: Joel Bueno MD learning and development assistant: KATHY Mcallister The patient is a 44-year-old male who had undergone sigmoid resection for diverticular abscess last November,. He is here for reversal of his end colostomy. He understands the technique of the planned procedure as well as the risks, benefits, and alternatives. He was brought to the operating room. He was placed in modified lithotomy my position under general anesthesia via endotracheal tube. A Oleary catheter was inserted. A TAP block was done by the anesthesiologist I closed the end colostomy with a running silk stitch. Of the abdomen was prepped and draped in the usual sterile fashion. Surgical time-out had been done. The patient received Cefotan 2 g IV preoperatively I made a short low midline incision using blade 15. This carried down through the full-thickness of the skin and subcutaneous fat. The fascia was incised. The peritoneum was entered. The fascial layer was fibrotic from his previous incision. I positioned the Praneeth wound retractor he had I attached the GelPort along with the insufflating port. We insufflated the pressure of 15 mm Hg. We used a 10 mm 30 degree laparoscope. With laparoscopic visualization I inserted a 5/12 mm port in the epigastric area below the subcostal margin. We removed the laparoscope into this epigastric port. I then inserted a 5/12 mm port in the right lower quadrant through a small stab incision. The patient was placed in a steep head-down position. We reflected the bowel loops away from the pelvis with my hand through the GelPort. There was note of extensively adherent bowel loops of the pelvis. We had to carefully divide this and freed this up using the Endo scissors as well as LigaSure. This part of the procedure took a little bit of time. Eventually was able to reflect all the bowel loops from the pelvis and excise the entire lower pelvis. He is able to see the sigmoid stump. This has markedly adherent as well so we had to divide the peritoneal attachments as well as adhesions to free up the stump. This was done with the LigaSure. This part of procedure also took an extended period of time. Eventually, I able to mobilize the long rectosigmoid stump. Because of the length, I decided to make this shorter by dissecting more of the rectosigmoid stump. I carefully created a mesenteric window more distal in the rectosigmoid. I then used an Endo-SIDNEY 60 mm stapler to divide this. I resected this sigmoid stump using the her and this was delivered. We therefore had a new staple line. I had to divide more of the adhesions to carefully expose this remaining stump We then proceeded to free up the colostomy. We desufflated he had I made an incision around the stoma on the skin with a blade 15. This carried down with electrocautery through the full-thickness of the skin and subcutaneous fat down to the fascia. I carefully dissected the subcutaneous layer to expose the fascia and identified the interface between the fascial edge and the serosa of the colostomy. Once we as able to identify this, I proceeded to do sharp dissection with Metzenbaum scissors as well as electrocautery to separate the serosa of the colon wall of the fascial edges. We proceeded with this carefully and slowly. We dissected through the entire abdominal wall. There were more adhesions tethering the stoma to the peritoneal layer so we had to do more adhesions to lysis opening into the peritoneal cavity. I examined the stump. This appeared viable. I excise the stump itself using the SIDNEY 60 mm stapler. We then excised the staple line to enter the lumen. I define the lumen circumferentially along with the bowel wall. I was able to dilate this using the dilators to 28 mm. I therefore made pursestring using the Prolene stitch. The anvil was positioned into the lumen and the pursestring was tightened. We cleaned up some of the excess fatty tissue from the stump until I felt that we had a good history of the entire pursestring I then proceeded to drop the stump back into the peritoneal cavity. We closed the fascia of the ostomy incision with a running Maxon 1 stitch We then re-insufflated and reattached the Praneeth wound retractor as well as the GelPort With laparoscopic visualization, I proceeded to retract the bowel loops away from the pelvis. We were able to see the staple line of the rectosigmoid stump. However, it appeared that this was too long to advance the EEA apparatus towards the end. Furthermore, as there was note of some serosal tears on this staple line. I therefore proceeded to resect more of the stump he had I retracted the stump with tension and I divided more of the peritoneum surrounding this. There was note of fibrotic changes in the area so to be careful with freeing up this remaining stump. I was able to then created a mesenteric window and divided he was rectosigmoid stump using the Endo-SIDNEY 60 mm stapler. We now had a very short stump really very close to the pelvic floor The historian research assistant then proceeded to advance the dilator towards the staple line. We then used the he had mm EEA circular stapler apparatus and this was inserted through the rectum and advanced towards the staple line. We attached the anvil into the staple line and activated the stapler. We fired the circular stapler, making sure that there were no structures caught between the staplers. We tested the anastomosis. This appeared to be without any significant tension. He anastomotic line appeared viable without any signs of ischemia. We proceeded to do a flexible sigmoidoscope to examined the anastomosis. The historian research assistant advanced the colonoscope with gentle insufflation all the way past the anastomotic line. This appeared patent and nonischemic. We insufflated with the anastomotic line immersed in irrigation fluid and there was no bubbling. The anastomosis was also tested earlier with a bulb syringe with insufflation and there was no bubbling noted. The circular staple lines were examined and there appeared to be 2 intact and thick anastomotic donuts. We irrigated the pelvis. We made sure that there was note to do hemostasis. I examined the left colon and there was no tension along this and there was no evidence of any injury I examined the small bowel loops were earlier tethered towards the pelvis. There was no evidence of any bowel injury. The entire abdominal cavity examined with the scope and there was no other pathology, no any evidence of any bowel injury Once hemostasis was confirmed, we proceeded to desufflate. We closed the fascia with a running Maxon 1 stitch. Examined the fascial closure laparoscopically through the epigastric port and there was no bowel caught by the sutures We removed all ports. All incisions were irrigated. All skin incisions were closed with skin marta. Iodoform packing was positioned into the subcutaneous layer of the colostomy incision in between the marta Dressings were applied. The procedure was then completed The patient tolerated the procedure well. There were no immediate complications. Initial and final counts of sponges and instruments were correct. Estimated blood loss was about 150 cc The patient was extubated without difficulty and transferred to the recovery room with stable vital signs.
--- NOTE | 2024-04-17 11:22 | PHA.MEDREC ---
Pharmacy Consult ? Medication Reconciliation Pharmacy has reviewed the medication reconciliation completed by nursing.
[2024-04-17] MEDS: HYDROmorphone HCl 0.5 MG/0.5 ML SYRINGE 0.25 MG IVPUSH (11:55)
[2024-04-17] MEDS: Nicotine 14 MG PATCH.TD24 TRANSDERMA (13:49)
[2024-04-17] MEDS: HYDROmorphone HCl 0.5 MG/0.5 ML SYRINGE IVPUSH ×4 (13:52→23:16)
--- NOTE | 2024-04-17 14:40 | PM.EVENT ---
Event Note Date of Service: 04/17/24 Event Note: Seen postop Status post reversal of colostomy, extensive lysis of adhesions Says he was adequate pain control Stable vital signs Abdomen is soft Good urine output, clear Pain management Incentive spirometry Patient says that he has been sober for 4 months Time Spent With Patient Time: Total time managing care of this patient today ____ minutes.
[2024-04-17] MEDS: Acetaminophen 1,000 MG/100 ML PIGGYBACK 400 MG IV ×2 (15:05→22:23)
--- NOTE | 2024-04-17 18:01 | PC.NURSE ---
Pt doing well at this time, states he will try and ambulate after dinner with staff.
[2024-04-17] MEDS: oxyCODONE HCl Immed Release 5 MG TABLET PO (19:30)
[2024-04-17] MEDS: Famotidine 20 MG TABLET PO (19:30)
[2024-04-17] MEDS: 0.9 % Sodium Chloride Flush 3 ML SYRINGE IVFLUSH (22:27)
[2024-04-18] MEDS: HYDROmorphone HCl 0.5 MG/0.5 ML SYRINGE IVPUSH ×4 (02:45→14:37)
[2024-04-18 03:09] VITALS: BP 135/78; PULSE 61; RESP 16; TEMP 36.5; O2SAT 96
[2024-04-18] MEDS: Acetaminophen 1,000 MG/100 ML PIGGYBACK 400 MG IV ×4 (04:07→21:35)
[2024-04-18 06:51] LABS: MANUAL DIFF FLAG NO
[2024-04-18 07:01] LABS: Basophils Percent Auto 0.1 % (0-2); Eosinophils Percent Auto 0.1 % (0-4); Hematocrit 38.4 % (42.0-52.0); Hemoglobin 13.2 g/dl (14.0-18.0); Imm Gran Abs Auto 0.03 X10*3/uL (0.00-0.03); Imm Gran Pct Auto 0.3 % (0.0-0.4); Lymphocytes Absolute Auto 1.2 X10*3/uL (1.2-4.9); Lymphocytes Percent Auto 12.4 % (20-40); Mean Corpuscular HGB Conc 34.4 g/dl (31.0-36.0); Mean Corpuscular Hemoglobin 31.4 pg (27.0-33.0); Mean Corpuscular Volume 91.2 fL (80.0-98.0); Mean Platelet Volume 11.7 fL (9.4-12.4); Monocytes Absolute Auto 1.3 X10*3/uL (0.1-1.2); Monocytes Percent Auto 13.9 % (2-11); Neutrophils Absolute Auto 6.9 x10*3/uL (2.0-8.3); Neutrophils Percent Auto 73.2 % (45-73); Platelet Count 171 X10*3/uL (160-400); Red Blood Count 4.21 X10*6/uL (4.60-5.80); Red Cell Distribution Width 12.1 % (11.0-16.0); White Blood Count 9.4 X10*3/uL (4.8-10.8)
[2024-04-18 07:14] LABS: Anion Gap 12 (12-20); Blood Urea Nitrogen 7 mg/dL (9-16); Calcium 8.9 mg/dL (8.4-10.2); Carbon Dioxide 27 mmol/L (22-29); Chloride 102 mmol/L (96-108); Creatinine Clr Calc Pharmacy 112.6; Estimated Glomerular Filt Rate > 60; Glucose Fasting 108 mg/dL (60-99); Potassium 3.7 mmol/L (3.3-5.1); Sodium 137 mmol/L (135-145)
[2024-04-18 07:21] VITALS: BP 129/72; PULSE 67; RESP 16; TEMP 36.2; O2SAT 96
[2024-04-18] MEDS: oxyCODONE HCl Immed Release 5 MG TABLET PO ×2 (07:35→17:12)
[2024-04-18] MEDS: Omeprazole 20 MG CAPSULE.DR PO (07:35)
[2024-04-18] MEDS: Nicotine 14 MG PATCH.TD24 TRANSDERMA (07:35)
--- NOTE | 2024-04-18 07:39 | P.PNGS_ITS ---
Subjective Subjective Date of Service: 04/18/24 <Savita Mcallister PA-C - Last Filed: 04/18/24 07:42> 04/18/24 <Joel Bueno MD - Last Filed: 04/18/24 08:25> Interval history: Pain well controlled. Denies flatus. Tolerating liquids without nausea. Has not been OOB yet. <Savita Mcallister PA-C - Last Filed: 04/18/24 07:42> Physical Exam 2 Vital Signs: Vital Signs: Last Vital Signs Temp 97.1 F 04/18/24 07:21 Pulse 67 04/18/24 07:21 Resp 16 04/18/24 07:21 BP 129/72 04/18/24 07:21 Pulse Ox 96 04/18/24 07:21 O2 Del Method Room Air 04/18/24 07:21 O2 Flow Rate 6 04/17/24 12:42 BMI result Body Mass Index 19.0 <Savita Mcallister PA-C - Last Filed: 04/18/24 07:42> Const: General: comfortable, no acute distress and alert <Savita Mcallister PA-C - Last Filed: 04/18/24 07:42> Orientation/consciousness: patient oriented x3 <RODO Bowden Last Filed: 04/18/24 07:42> Resp: Effort & Inspection: normal respiratory effort <Savita Mcallister PA-C - Last Filed: 04/18/24 07:42> GI: Inspection: No distended and Yes incision (dressings intact) <Savita Mcallister PA-C - Last Filed: 04/18/24 07:42> Palpation (GI): Soft to palpation, Tenderness to palpation present (GI) (mild incisional) and no guarding <Savita Mcallister PA-C - Last Filed: 04/18/24 07:42> Percussion: Yes normal to percussion <RODO Bowden Last Filed: 04/18/24 07:42> Skin: General skin exam: no rashes or lesions noted <Savita Mcallister PA-C - Last Filed: 04/18/24 07:42> Neuro: General: patient oriented x3 and moves all extremities <Savita Mcallister PA-C - Last Filed: 04/18/24 07:42> Objective Data Active Medications Calcium Carbonate (Calcium Carbonate 750 Mg Tab.Chew) 750 mg PO Q4H PRN PRN Reason: Heartburn Famotidine (Famotidine 20 Mg Tablet) 20 mg PO BEDTIME [facility] Last Admin: 04/17/24 19:30 Dose: 20 mg Documented By: REGGIE Heparin Sodium (Porcine) (Heparin Sodium,Porcine 5,000 Unit/Ml Vial) 5,000 unit SUBCUT Q12H [facility] Hydromorphone HCl (Hydromorphone Hcl 0.5 Mg/0.5 Ml Syringe) 0.5 mg IVPUSH Q3H PRN; Protocol PRN Reason: Pain, Severe (Pain Scale 7-10) Last Admin: 04/18/24 06:25 Dose: 0.5 mg Documented By: REGGIE Lactated Ringer's (Lr) 1,000 mls @ 100 mls/hr IVCONT .Q10H [facility] Last Admin: 04/17/24 22:25 Dose: 100 mls/hr Documented By: REGGIE Acetaminophen (Ofirmev) 1,000 mg in 100 mls @ 400 mls/hr IV Q6H [facility] Last Infusion: 04/18/24 04:25 Dose: Infused Documented By: REGGIE Magnesium Hydroxide (Milk Of Magnesia 30 Ml Oral.Susp) 30 ml PO DAILY PRN PRN Reason: Constipation Melatonin (Melatonin 3 Mg Tablet) 6 mg PO BEDTIME PRN PRN Reason: Insomnia Nicotine (Nicotine 14 Mg Patch.Td24) 14 mg TRANSDERMA DAILY [facility] Last Admin: 04/18/24 07:35 Dose: 14 mg Documented By: SEFERINO Omeprazole (Omeprazole 20 Mg Capsule.Dr) 20 mg PO DAILY [facility] Last Admin: 04/18/24 07:35 Dose: 20 mg Documented By: SEFERINO Ondansetron HCl (Ondansetron Hcl 4 Mg/2 Ml Vial) 4 mg IVPUSH Q6H PRN PRN Reason: Nausea and Vomiting Oxycodone HCl (Oxycodone Hcl Immed Release 5 Mg Tablet) 5 mg PO Q4H PRN PRN Reason: Pain, Moderate(Pain Scale 4-6) Last Admin: 04/18/24 07:35 Dose: 5 mg Documented By: SEFERINO Sodium Chloride (0.9 % Sodium Chloride Flush 3 Ml Syringe) 3 ml IVFLUSH [facility] Last Admin: 04/18/24 07:20 Dose: Not Given Documented By: EWA Non-Admin Reason: IV Running <Savita Mcallister PA-C - Last Filed: 04/18/24 07:42> Labs CBC & Chem 7: 04/18/24 05:28 04/18/24 05:28 <Savita Mcallister PA-C - Last Filed: 04/18/24 07:42> Labs: Laboratory Results - last 24 hr 04/18/24 05:28 MCV 91.2 MCH 31.4 MCHC 34.4 RDW 12.1 Plt Count 171 MPV 11.7 Immature Gran % (Auto) 0.3 Neut % (Auto) 73.2 H Lymph % (Auto) 12.4 L [place] % (Auto) 13.9 H Eos % (Auto) 0.1 Baso % (Auto) 0.1 Lymph # (Auto) 1.2 Valley # (Auto) 1.3 H Eos # (Auto) 0.0 Baso # (Auto) 0.0 Abs Immat Gran (auto) 0.03 Absolute Neuts (auto) 6.9 Absolute Nucleated RBC 0.000 Nucleated RBC % (auto) 0.0 Anion Gap 12 Estim Creat Clear Calc 112.6 Estimated GFR > 60 Fasting Glucose 108 H Calcium 8.9 <Savita Mcallister PA-C - Last Filed: 04/18/24 07:42> Procedures Date of Service Date of Service: 04/18/24 <Savita Mcallister PA-C - Last Filed: 04/18/24 07:42> 04/18/24 <Joel Bueno MD - Last Filed: 04/18/24 08:25> Progress Note: A&P Assessment and plan (1) Colostomy in place: Status: Acute <Savita Mcallister PA-C - Last Filed: 04/18/24 07:42> Assessment and Plan: Seems to have adequate pain control Denies flatus Good urine output Abdomen is soft Ambulate Pain management Await return of GI function Okay to DC Fenton today Has known enlarged prostate Seen and examined independently Looks well overall <Joel Bueno MD - Last Filed: 04/18/24 08:25> (2) History of colostomy reversal: Status: Acute <Savita Mcallister PA-C - Last Filed: 04/18/24 07:42> Assessment and Plan: POD #1 s/p Hand assisted laparoscopic reversal of end colostomy, extensive lysis of adhesions, flexible sigmoidoscopy. Doing well post op. Pain well controlled, tolerating liquids. VSS. Abd exam benign with appropriate post op tenderness, dressings intact, nondistended. Dc fenton. Dec IVF. Encouraged OOB/ambulation and increasing activity, incentive use. Advance diet once evidence of GI function. Patient comfortable with plan. <Savita Mcallister PA-C - Last Filed: 04/18/24 07:42> Time Spent With Patient Time: Total time managing care of this patient today ____ minutes. <Savita Mcallister PA-C - Last Filed: 04/18/24 07:42> Quality Stroke Does the patient have a stroke diagnosis?: No <Savita Mcallister PA-C - Last Filed: 04/18/24 07:42> VTE Prior VTE?: No <Savita Mcallister PA-C - Last Filed: 04/18/24 07:42> VTE Risk Level:: Medical - moderate - high <Savita Mcallister PA-C - Last Filed: 04/18/24 07:42> VTE Device Contraindication: N/A - Device Ordered <Savita Mcallister PA-C - Last Filed: 04/18/24 07:42> VTE Drug Contraindication: N/A - Med Ordered <RODO Bowden Last Filed: 04/18/24 07:42>
[2024-04-18] MEDS: Lactated Ringers 1,000 ML 100 ML IVCONT ×2 (08:28→18:22)
--- NOTE | 2024-04-18 08:31 | HO.POSTANES ---
Post Anesthesia Evaluation Post Anesthesia Evaluation Date of Service: 04/18/24 Vital Signs: Vital Signs Temp Pulse Resp BP Pulse Ox O2 Del Method 04/18/24 07:21 97.1 F 67 16 129/72 96 Room Air 04/18/24 03:09 97.7 F 61 16 135/78 96 Room Air Anesthesia: General Endotracheal-GETA Mental Status: Awake Pain Control: Satisfactory Nausea/Vomiting: None Hydration: Adequate Anesthesia-Related Issues: No Anes. Related Issues
--- NOTE | 2024-04-18 08:40 | PC.NURSE ---
Oleary cath removed as per order , pt tolerated well
[2024-04-18] MEDS: Heparin Sodium,Porcine 5,000 UNIT/ML VIAL 5000 UNIT SUBCUT ×2 (09:52→21:36)
--- NOTE | 2024-04-18 11:23 | MHC.CM.PN ---
PT LIVES WITH S/O IS INDEPNDENT HAS NO SERVICES AND HAS OWN RIDE HOME WHEN DCD DC PLAN HOME NO SERVICES
[2024-04-18 13:18] VITALS: BMI 19.0
--- NOTE | 2024-04-18 15:09 | PM.EVENT ---
Event Note Date of Service: 04/18/24 Event Note: Seen on afternoon rounds Says he was adequate pain control Had been ambulating Denies flatus Tolerating clear liquids Abdomen is soft Looks well overall Await full return of GI function Continue pain management Ambulation Time Spent With Patient Time: Total time managing care of this patient today ____ minutes.
[2024-04-18 15:33] VITALS: BP 143/70; PULSE 58; RESP 20; TEMP 37.4; O2SAT 98
[2024-04-18 19:23] VITALS: BP 136/75; PULSE 77; RESP 20; TEMP 37.3; O2SAT 98
[2024-04-18] MEDS: Famotidine 20 MG TABLET PO (21:35)
[2024-04-18] MEDS: Melatonin 3 MG TABLET 6 MG PO (21:42)
[2024-04-18] MEDS: 0.9 % Sodium Chloride Flush 3 ML SYRINGE IVFLUSH (21:43)
[2024-04-19] MEDS: HYDROmorphone HCl 0.5 MG/0.5 ML SYRINGE IVPUSH ×3 (01:56→21:30)
[2024-04-19 03:05] VITALS: BP 123/64; PULSE 57; RESP 16; TEMP 36.3; O2SAT 95
[2024-04-19] MEDS: Lactated Ringers 1,000 ML 100 ML IVCONT ×2 (04:27→14:52)
[2024-04-19] MEDS: Acetaminophen 1,000 MG/100 ML PIGGYBACK 400 MG IV ×4 (04:29→21:29)
--- NOTE | 2024-04-19 07:09 | PM.PNGS ---
Subjective Subjective Date of Service: 04/19/24 <Kyree Franki - Last Filed: 04/19/24 07:40> 04/19/24 <Savita Mcallister PA-C - Last Filed: 04/19/24 07:48> 04/19/24 <Joel Bueno MD - Last Filed: 04/19/24 08:08> Interval history: patient seen and examined this morning States pain is 7/10 this morning but pain is more tolerable than yesterday. Tolerating liquids well Urinating without difficulty Has been OOB No bowel movement or flatulence Endorses gas bubbling <Kyree Franki - Last Filed: 04/19/24 07:40> patient seen and examined this morning States pain is 7/10 this morning but is gas pains and heartburn Tolerating liquids well Urinating without difficulty Has been OOB No bowel movement or flatulence Endorses gas bubbling <Savita Mcallister PA-C - Last Filed: 04/19/24 07:48> Physical Exam Vital Signs: Vital Signs: Last Vital Signs Temp 97.4 F 04/19/24 03:05 Pulse 57 04/19/24 03:05 Resp 16 04/19/24 03:05 BP 123/64 04/19/24 03:05 Pulse Ox 95 04/19/24 03:05 O2 Del Method Room Air 04/19/24 03:05 O2 Flow Rate 6 04/17/24 12:42 BMI result Body Mass Index 19.0 <Kyree Franki - Last Filed: 04/19/24 07:40> Const: Orientation/consciousness: patient oriented x3 <Savita Mcallister PA-C - Last Filed: 04/19/24 07:48> Resp: Effort & Inspection: normal respiratory effort <Savita Mcallister PA-C - Last Filed: 04/19/24 07:48> GI: Other: incisions clean wound norman at old colostomy site advanced <RODO Bowden Last Filed: 04/19/24 07:48> Inspection: No distended <RODO Bowden Last Filed: 04/19/24 07:48> Palpation (GI): Soft to palpation and no guarding <Savita Mcallister PA-C - Last Filed: 04/19/24 07:48> Skin: General skin exam: no rashes or lesions noted <Savita Mcallister PA-C - Last Filed: 04/19/24 07:48> Neuro: General: patient oriented x3 and moves all extremities <Savita Mcallister PA-C - Last Filed: 04/19/24 07:48> Objective Data Active Medications Calcium Carbonate (Calcium Carbonate 750 Mg Tab.Chew) 750 mg PO Q4H PRN PRN Reason: Heartburn Famotidine (Famotidine 20 Mg Tablet) 20 mg PO BEDTIME [facility] [place] Last Admin: 04/18/24 21:35 Dose: 20 mg Documented By: CHRISTI Heparin Sodium (Porcine) (Heparin Sodium,Porcine 5,000 Unit/Ml Vial) 5,000 unit SUBCUT Q12H [facility] [place] Last Admin: 04/18/24 21:36 Dose: 5,000 unit Documented By: CHRISTI Hydromorphone HCl (Hydromorphone Hcl 0.5 Mg/0.5 Ml Syringe) 0.5 mg IVPUSH Q3H PRN; Protocol PRN Reason: Pain, Severe (Pain Scale 7-10) Last Admin: 04/19/24 01:56 Dose: 0.5 mg Documented By: CHRISTI Lactated Ringer's (Lr) 1,000 mls @ 60 mls/hr IVCONT .[id number] [facility] Last Infusion: 04/19/24 04:22 Dose: Infused Documented By: CHRISTI Acetaminophen (Ofirmev) 1,000 mg in 100 mls @ 400 mls/hr IV Q6H [facility] [place] Last Infusion: 04/19/24 05:18 Dose: Infused Documented By: CHRISTI Lidocaine (Lidocaine 4 % Patch Adh..Patch) 1 patch TRANSDERMA DAILY PRN; Protocol PRN Reason: back pain Magnesium Hydroxide (Milk Of Magnesia 30 Ml Oral.Susp) 30 ml PO DAILY PRN PRN Reason: Constipation Melatonin (Melatonin 3 Mg Tablet) 6 mg PO BEDTIME PRN PRN Reason: Insomnia Last Admin: 04/18/24 21:42 Dose: 6 mg Documented By: CHRISTI Nicotine (Nicotine 14 Mg Patch.Td24) 14 mg TRANSDERMA DAILY [facility] [place] Last Admin: 04/18/24 07:35 Dose: 14 mg Documented By: SEFERINO Omeprazole (Omeprazole 20 Mg Capsule.Dr) 20 mg PO DAILY [facility] Last Admin: 04/18/24 07:35 Dose: 20 mg Documented By: SEFERINO Ondansetron HCl (Ondansetron Hcl 4 Mg/2 Ml Vial) 4 mg IVPUSH Q6H PRN PRN Reason: Nausea and Vomiting Oxycodone HCl (Oxycodone Hcl Immed Release 5 Mg Tablet) 5 mg PO Q4H PRN PRN Reason: Pain, Moderate(Pain Scale 4-6) Last Admin: 04/18/24 17:12 Dose: 5 mg Documented By: EWA Sodium Chloride (0.9 % Sodium Chloride Flush 3 Ml Syringe) 3 ml IVFLUSH QSHIFT [facility] Last Admin: 04/18/24 21:43 Dose: 3 ml Documented By: CHRISTI <[facility] - Last Filed: 04/19/24 07:40> Labs CBC & Chem 7: 04/18/24 05:28 04/18/24 05:28 <[facility] - Last Filed: 04/19/24 07:40> Labs: Laboratory Results - last 24 hr 04/18/24 05:28 Anion Gap 12 Estim Creat Clear Calc 112.6 Estimated GFR > 60 Fasting Glucose 108 H Calcium 8.9 <[facility] - Last Filed: 04/19/24 07:40> Procedures Date of Service Date of Service: 04/19/24 <[facility] - Last Filed: 04/19/24 07:40> 04/19/24 <Savita Mcallister PA-C - Last Filed: 04/19/24 07:48> 04/19/24 <Joel Bueno MD - Last Filed: 04/19/24 08:08> Progress Note: A&P Assessment and plan (1) History of colostomy reversal: Status: Acute <[facility] - Last Filed: 04/19/24 07:40> Assessment and Plan: Says he feels well Denies flatus Tolerating clear liquids Abdomen is soft and benign I removed most of the packing, left [address]ings changed Ambulate Await return of GI function Seen and examined independently Clinically looks well <Joel Bueno MD - Last Filed: 04/19/24 08:08> Assessment and Plan: POD #2 s/p Hand assisted laparoscopic reversal of end colostomy, extensive lysis of adhesions, flexible sigmoidoscopy. Doing well post op. C/o gas and heartburn, incisional pain is tolerable, tolerating liquids. VSS. Abd exam benign with appropriate post op tenderness, incisions are clean, wound norman advanced, abd nondistended. Encouraged OOB/ambulation and increasing activity, incentive use. Advance diet once evidence of GI function. Patient comfortable with plan. <Savita Mcallister PA-C - Last Filed: 04/19/24 07:48> Time Spent With Patient Time: Total time managing care of this patient today ____ minutes. <[facility] - Last Filed: 04/19/24 07:40> Quality Stroke Does the patient have a stroke diagnosis?: No <[facility] - Last Filed: 04/19/24 07:40> VTE Prior VTE?: No <[facility] - Last Filed: 04/19/24 07:40> VTE Risk Level:: Medical - moderate - high <[facility] - Last Filed: 04/19/24 07:40> VTE Device Contraindication: N/A - Device Ordered <[facility] - Last Filed: 04/19/24 07:40> VTE Drug Contraindication: N/A - Med Ordered <[facility] - Last Filed: 04/19/24 07:40>
[2024-04-19] MEDS: Calcium Carbonate 750 MG TAB.CHEW PO ×2 (07:48→18:03)
[2024-04-19] MEDS: oxyCODONE HCl Immed Release 5 MG TABLET PO (07:48)
[2024-04-19] MEDS: Omeprazole 20 MG CAPSULE.DR PO (07:48)
[2024-04-19 07:49] VITALS: BP 120/73; PULSE 55; RESP 12; TEMP 36.4; O2SAT 96
[2024-04-19] MEDS: Nicotine 14 MG PATCH.TD24 TRANSDERMA (07:49)
[2024-04-19] MEDS: 0.9 % Sodium Chloride Flush 3 ML SYRINGE IVFLUSH ×2 (07:50→23:37)
[2024-04-19] MEDS: Heparin Sodium,Porcine 5,000 UNIT/ML VIAL 5000 UNIT SUBCUT ×2 (11:06→21:28)
--- NOTE | 2024-04-19 15:46 | PM.EVENT ---
Event Note Date of Service: 04/19/24 Event Note: Seen on afternoon rounds Feels well Good pain control Has been ambulating Tolerating clear liquids Abdomen is soft and benign He says he has not passed flatus Continue ambulating Await return of GI function Clinically doing well Time Spent With Patient Time: Total time managing care of this patient today ____ minutes.
[2024-04-19 15:53] VITALS: BP 154/78; PULSE 51; RESP 18; TEMP 37; O2SAT 97
[2024-04-19] MEDS: Magnesium Hydrox/Alum Hydrox 30 ML ORAL.SUSP PO (18:07)
[2024-04-19] MEDS: Famotidine 20 MG TABLET PO (19:50)
[2024-04-19 20:00] VITALS: BP 146/76; PULSE 59; RESP 18; TEMP 36.6; O2SAT 97
[2024-04-20] MEDS: HYDROmorphone HCl 0.5 MG/0.5 ML SYRINGE IVPUSH ×4 (00:58→20:26)
[2024-04-20] MEDS: Lactated Ringers 1,000 ML 60 ML IVCONT (01:06)
[2024-04-20 03:50] VITALS: BP 139/77; PULSE 71; RESP 18; TEMP 36.4; O2SAT 96
[2024-04-20] MEDS: Acetaminophen 1,000 MG/100 ML PIGGYBACK 400 MG IV ×4 (04:53→21:31)
--- NOTE | 2024-04-20 06:50 | PM.PNGS ---
Subjective Subjective Date of Service: 04/20/24 <[facility] - Last Filed: 04/20/24 07:01> 04/20/24 <Savita Mcallister PA-C - Last Filed: 04/20/24 07:38> 04/20/24 <Joel Bueno MD - Last Filed: 04/20/24 13:46> Interval history: Patient seen and examined this morning. States he is feeling okay and pain is not bad. Pain is 5/10 this morning. Urinating without difficulty, no BM or flatulence. Denies chest pain or shortness of breath, denies fevers or chills. Tolerating diet well. <[facility] - Last Filed: 04/20/24 07:01> Physical Exam Vital Signs: Vital Signs: Last Vital Signs Temp 97.6 F 04/20/24 03:50 Pulse 71 04/20/24 03:50 Resp 18 04/20/24 03:50 BP 139/77 04/20/24 03:50 Pulse Ox 96 04/20/24 03:50 O2 Del Method Room Air 04/20/24 03:50 O2 Flow Rate 6 04/17/24 12:42 BMI result Body Mass Index 19.0 <[facility] - Last Filed: 04/20/24 07:01> Const: Other: Well appearing male. laying in bed, awake, in no acute distress <[facility] - Last Filed: 04/20/24 07:01> HEENT: Other: no scleral icterus noted <[facility] - Last Filed: 04/20/24 07:01> Resp: Other: Lungs clear to auscultation bilaterally <[facility] - Last Filed: 04/20/24 07:01> Cardio: Other: Regular rate and rhythm. <[facility] - Last Filed: 04/20/24 07:01> GI: Other: Abdomen soft and non distended. slight tenderness to palpation of incision site. Bowel sounds appreciated. <[facility] - Last Filed: 04/20/24 07:01> Other: Abdomen soft and non distended. slight tenderness to palpation of incision site. Bowel sounds appreciated. incisions clean, all wound norman removed <Savita Mcallister PA-C - Last Filed: 04/20/24 07:38> Palpation (GI): no guarding <Savita Mcallister PA-C - Last Filed: 04/20/24 07:38> Skin: Other: No rash or lesions noted. <[facility] - Last Filed: 04/20/24 07:01> Neuro: Other: Alert and orientated. <Kyree Franki - Last Filed: 04/20/24 07:01> Objective Data Active Medications Al Hydroxide/Mg Hydroxide (Magnesium Hydrox/Alum Hydrox 30 Ml Oral.Susp) 30 ml PO Q6H PRN PRN Reason: heartburn Last Admin: 04/19/24 18:07 Dose: 30 ml Documented By: YUSUF Calcium Carbonate (Calcium Carbonate 750 Mg Tab.Chew) 750 mg PO Q4H PRN PRN Reason: Heartburn Last Admin: 04/19/24 18:03 Dose: 750 mg Documented By: YUSUF Famotidine (Famotidine 20 Mg Tablet) 20 mg PO BEDTIME [facility] Last Admin: 04/19/24 19:50 Dose: 20 mg Documented By: YUSUF Heparin Sodium (Porcine) (Heparin Sodium,Porcine 5,000 Unit/Ml Vial) 5,000 unit SUBCUT Q12H [facility] Last Admin: 04/19/24 21:28 Dose: 5,000 unit Documented By: YUSUF Hydromorphone HCl (Hydromorphone Hcl 0.5 Mg/0.5 Ml Syringe) 0.5 mg IVPUSH Q3H PRN; Protocol PRN Reason: Pain, Severe (Pain Scale 7-10) Last Admin: 04/20/24 04:53 Dose: 0.5 mg Documented By: YUSUF Lactated Ringer's (Lr) 1,000 mls @ 60 mls/hr IVCONT .[id number] [facility] Last Admin: 04/20/24 01:06 Dose: 60 mls/hr Documented By: YUSUF Acetaminophen (Ofirmev) 1,000 mg in 100 mls @ 400 mls/hr IV Q6H [facility] Last Infusion: 04/20/24 05:51 Dose: Infused Documented By: YUSUF Lidocaine (Lidocaine 4 % Patch Adh..Patch) 1 patch TRANSDERMA DAILY PRN; Protocol PRN Reason: back pain Magnesium Hydroxide (Milk Of Magnesia 30 Ml Oral.Susp) 30 ml PO DAILY PRN PRN Reason: Constipation Melatonin (Melatonin 3 Mg Tablet) 6 mg PO BEDTIME PRN PRN Reason: Insomnia Last Admin: 04/18/24 21:42 Dose: 6 mg Documented By: CHRISTI Nicotine (Nicotine 14 Mg Patch.Td24) 14 mg TRANSDERMA DAILY [facility] Last Admin: 04/19/24 07:49 Dose: 14 mg Documented By: EWA Omeprazole (Omeprazole 20 Mg Capsule.Dr) 20 mg PO DAILY [facility] Last Admin: 04/19/24 07:48 Dose: 20 mg Documented By: EWA Ondansetron HCl (Ondansetron Hcl 4 Mg/2 Ml Vial) 4 mg IVPUSH Q6H PRN PRN Reason: Nausea and Vomiting Oxycodone HCl (Oxycodone Hcl Immed Release 5 Mg Tablet) 5 mg PO Q4H PRN PRN Reason: Pain, Moderate(Pain Scale 4-6) Last Admin: 04/19/24 07:48 Dose: 5 mg Documented By: EWA Sodium Chloride (0.9 % Sodium Chloride Flush 3 Ml Syringe) 3 ml IVFLUSH QSHIFT [facility] Last Admin: 04/19/24 23:37 Dose: 3 ml Documented By: YUSUF <[facility] - Last Filed: 04/20/24 07:01> Labs CBC & Chem 7: 04/18/24 05:28 04/18/24 05:28 <[facility] - Last Filed: 04/20/24 07:01> Procedures Date of Service Date of Service: 04/20/24 <[facility] - Last Filed: 04/20/24 07:01> 04/20/24 <Savita Mcallister PA-C - Last Filed: 04/20/24 07:38> 04/20/24 <Joel Bueno MD - Last Filed: 04/20/24 13:46> Progress Note: A&P Assessment and plan (1) History of colostomy reversal: Status: Acute <Kyree Doan - Last Filed: 04/20/24 07:01> Assessment and Plan: Has had good pain control Tolerating clear liquids well, but denies flatus Ambulating Looks well, says he had a good night We will try on full liquids Await full return of GI function Abdomen is soft and benign Clinically doing very well He had and examined independently <Joel Bueno MD - Last Filed: 04/20/24 13:46> Assessment and Plan: POD 3 s/p Hand assisted laparoscopic reversal of end colostomy, extensive lysis of adhesions, flexible sigmoidoscopy. Doing well post op. Abdominal exam benign, dressings intact. Patient ambulating well. Will continue bowel regimen, continue pain regimen. Tolerating liquids, will increase diet once evidence of bowel function. 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 <[facility] - Last Filed: 04/20/24 07:01> POD 3 s/p Hand assisted laparoscopic reversal of end colostomy, extensive lysis of adhesions, flexible sigmoidoscopy. Doing well post op. VSS. Abdominal exam remains benign with clean incisions, all wound norman removed. Patient ambulating well. Will continue bowel regimen, continue pain regimen. Advance to full liquids, dc IVF. Continue Incentive spiromoter, continue with activity. Hopefully home in next 1-2 days when moving bowels and tolerating solid diet. patient comfortable with plan. <Savita Mcallister PA-C - Last Filed: 04/20/24 07:38> Time Spent With Patient Time: Total time managing care of this patient today ____ minutes. <[facility] Franki - Last Filed: 04/20/24 07:01> Quality Stroke Does the patient have a stroke diagnosis?: No <[facility]bjcxo[facility] - Last Filed: 04/20/24 07:01> VTE Prior VTE?: No <Frclpv[facility] Franki - Last Filed: 04/20/24 07:01> VTE Risk Level:: Medical - moderate - high <Qpbuny-KI-Deqrkfp-Ah Franki - Last Filed: 04/20/24 07:01> VTE Device Contraindication: N/A - Device Ordered <[facility] - Last Filed: 04/20/24 07:01> VTE Drug Contraindication: N/A - Med Ordered <Ndeoua[facility] Franki - Last Filed: 04/20/24 07:01>
[2024-04-20 07:27] VITALS: BP 145/79; PULSE 57; RESP 16; TEMP 36.3; O2SAT 97
[2024-04-20] MEDS: Omeprazole 20 MG CAPSULE.DR PO (08:07)
[2024-04-20] MEDS: Nicotine 14 MG PATCH.TD24 TRANSDERMA (08:07)
[2024-04-20] MEDS: 0.9 % Sodium Chloride Flush 3 ML SYRINGE IVFLUSH ×2 (08:07→20:25)
[2024-04-20] MEDS: oxyCODONE HCl Immed Release 5 MG TABLET PO ×2 (08:14→14:24)
[2024-04-20] MEDS: Heparin Sodium,Porcine 5,000 UNIT/ML VIAL 5000 UNIT SUBCUT ×2 (10:29→21:31)
--- NOTE | 2024-04-20 11:21 | MHC.CLN ---
NUTRITION PATIENT IS S/P REVERSAL OF COLOSTOMY. DIET ADVANCED TODAY TO FULL LIQUIDS. ADDING ENSURE TID TO PROMOTE NUTRITIONAL INTAKE. SUPPLEMENT PROVIDES 1050 KCALS, 60 G PROTEIN. FOLLOW FOR DIET ADVANCEMENT AND PO INTAKE.
--- NOTE | 2024-04-20 14:31 | MHC.CM.PN ---
EMR REVIEWED AND PER MD ROUNDS, PT HAS NOT BEEN MEDICALLY CLEARED FOR DC HOME, NO SERVICES. PT WILL TRANSPORT VIA [facility].
[2024-04-20 15:02] VITALS: BP 130/72; PULSE 68; RESP 18; TEMP 36.7; O2SAT 96
--- NOTE | 2024-04-20 15:16 | PM.EVENT ---
Event Note Date of Service: 04/20/24 Event Note: Patient is seen on afternoon rounds Has been passing flatus Tolerating regular diet Abdomen is soft Looks well Says he has good pain control Says he is ready to be discharged and wants to go home today Instructions reinforced with patient Time Spent With Patient Time: Total time managing care of this patient today ____ minutes.
[2024-04-20] MEDS: Magnesium Hydrox/Alum Hydrox 30 ML ORAL.SUSP PO (15:32)
[2024-04-20 19:55] VITALS: BP 160/76; PULSE 76; RESP 18; TEMP 36.6; O2SAT 97
[2024-04-20] MEDS: Famotidine 20 MG TABLET PO (20:25)
[2024-04-20] MEDS: Docusate Sodium 100 MG CAPSULE PO (20:25)
[2024-04-20 20:26] VITALS: RESP 18
[2024-04-20] MEDS: ondansetron HCL 4 MG/2 ML VIAL IVPUSH (20:34)
[2024-04-20 22:21] VITALS: RESP 16
--- NOTE | 2024-04-21 00:33 | PC.NURSE ---
Assumed care of patient at 19:00. Pt is A&Ox4. Seen on s3 s/p colostomy reversal on 04/17. 20:00 hour lyric writer was present in this patient's room and observed pt have an episode of large volume emesis appearing to be his dinner. Pt stated to lyric writer he had not passed gas since ~15:30. Does have +BSx4. Abdomen soft, round, non-distended, appropriately tender to palpation at abdominal surgical incisions that remain c/d/i without redness or drainage. Prn zofran was given per MAR with +effect reported by pt. Covering Dr. Kauffman was notified with written orders given to lyric writer to reduce patient's diet from regular to clears. Discussed with the patient who was agreeable. No further episodes of n/v per pt. Pain is well managed per pt and non-verbal indicators, patient observed sleeping in bed on rounds with breathing that remains even and unlabored without distress. Safety measures and call mott in place. Patient rings appropriately to make needs known. Plan of care continues.
[2024-04-21] MEDS: HYDROmorphone HCl 0.5 MG/0.5 ML SYRINGE IVPUSH ×3 (01:04→18:41)
[2024-04-21 03:46] VITALS: BP 137/74; PULSE 82; RESP 18; TEMP 36.2; O2SAT 96
[2024-04-21] MEDS: Acetaminophen 1,000 MG/100 ML PIGGYBACK 400 MG IV ×2 (03:56→10:10)
[2024-04-21 05:39] VITALS: RESP 16
[2024-04-21 08:00] VITALS: BP 122/72; PULSE 68; RESP 18; TEMP 36.3; O2SAT 98
--- NOTE | 2024-04-21 08:19 | P.PNGS_ITS ---
Subjective Subjective Date of Service: 04/21/24 Interval history: Patient had an episode of nausea and vomiting last evening after eating dinner which he attributed to his hiatal hernia. This morning he feels much improved with no further nausea. He would like to try regular diet again. Physical Exam 2 Vital Signs: Vital Signs: Last Vital Signs Temp 97.1 F 04/21/24 03:46 Pulse 82 04/21/24 03:46 Resp 16 04/21/24 05:39 BP 137/74 04/21/24 03:46 Pulse Ox 96 04/21/24 03:46 O2 Del Method Room Air 04/21/24 03:46 O2 Flow Rate 6 04/17/24 12:42 BMI result Body Mass Index 19.0 Const: Other: Well appearing male. laying in bed, awake, in no acute distress HEENT: Other: no scleral icterus noted Resp: Other: Lungs clear to auscultation bilaterally Cardio: Other: Regular rate and rhythm. GI: Other: Abdominal incisions are clean and dry. Dressing in the left lower quadrant is dry with minimal discharge on dressing. No erythema in the skin. Palpation (GI): no guarding Skin: Other: No rash or lesions noted. Neuro: Other: Alert and orientated. Objective Data Active Medications Al Hydroxide/Mg Hydroxide (Magnesium Hydrox/Alum Hydrox 30 Ml Oral.Susp) 30 ml PO Q6H PRN PRN Reason: heartburn Last Admin: 04/20/24 15:32 Dose: 30 ml Documented By: ALONZO Calcium Carbonate (Calcium Carbonate 750 Mg Tab.Chew) 750 mg PO Q4H PRN PRN Reason: Heartburn Last Admin: 04/19/24 18:03 Dose: 750 mg Documented By: YUSUF Docusate Sodium (Docusate Sodium 100 Mg Capsule) 100 mg PO BID [facility] Last Admin: 04/20/24 20:25 Dose: 100 mg Documented By: ALVARO Famotidine (Famotidine 20 Mg Tablet) 20 mg PO BEDTIME [facility] Last Admin: 04/20/24 20:25 Dose: 20 mg Documented By: ALVARO Heparin Sodium (Porcine) (Heparin Sodium,Porcine 5,000 Unit/Ml Vial) 5,000 unit SUBCUT Q12H [facility] Last Admin: 04/20/24 21:31 Dose: 5,000 unit Documented By: ALVARO Hydromorphone HCl (Hydromorphone Hcl 0.5 Mg/0.5 Ml Syringe) 0.5 mg IVPUSH Q3H PRN; Protocol PRN Reason: Pain, Severe (Pain Scale 7-10) Last Admin: 04/21/24 05:09 Dose: 0.5 mg Documented By: NADINE Acetaminophen (Ofirmev) 1,000 mg in 100 mls @ 400 mls/hr IV Q6H [facility] Last Infusion: 04/21/24 04:17 Dose: Infused Documented By: NADINE Lidocaine (Lidocaine 4 % Patch Adh..Patch) 1 patch TRANSDERMA DAILY PRN; Protocol PRN Reason: back pain Magnesium Hydroxide (Milk Of Magnesia 30 Ml Oral.Susp) 30 ml PO DAILY PRN PRN Reason: Constipation Melatonin (Melatonin 3 Mg Tablet) 6 mg PO BEDTIME PRN PRN Reason: Insomnia Last Admin: 04/18/24 21:42 Dose: 6 mg Documented By: CHRISTI Nicotine (Nicotine 14 Mg Patch.Td24) 14 mg TRANSDERMA DAILY [facility] Last Admin: 04/20/24 08:07 Dose: 14 mg Documented By: ALONZO Omeprazole (Omeprazole 20 Mg Capsule.Dr) 20 mg PO DAILY [facility] Last Admin: 04/20/24 08:07 Dose: 20 mg Documented By: ALONZO Ondansetron HCl (Ondansetron Hcl 4 Mg/2 Ml Vial) 4 mg IVPUSH Q6H PRN PRN Reason: Nausea and Vomiting Last Admin: 04/20/24 20:34 Dose: 4 mg Documented By: ALVARO Oxycodone HCl (Oxycodone Hcl Immed Release 5 Mg Tablet) 5 mg PO Q4H PRN PRN Reason: Pain, Moderate(Pain Scale 4-6) Last Admin: 04/20/24 14:24 Dose: 5 mg Documented By: SEFERINO Sodium Chloride (0.9 % Sodium Chloride Flush 3 Ml Syringe) 3 ml IVFLUSH QSHIFT [facility] Last Admin: 04/20/24 20:25 Dose: 3 ml Documented By: ALVARO Labs 04/18/24 05:28 04/18/24 05:28 Procedures Date of Service Date of Service: 04/21/24 Progress Note: A&P Assessment and plan (1) History of colostomy reversal: Status: Acute (2) Diverticulitis of intestine with abscess: Status: Acute Plan Pod 4 following hand assisted reversal of colostomy. He is much improved this morning with no further nausea or vomiting. We will advance his diet to regular. If this is well-tolerated he may be able to be discharged later today. Patient expressed understanding and agrees with the plan. Time Spent With Patient Time: Total time managing care of this patient today ____ minutes. Quality Stroke Does the patient have a stroke diagnosis?: No VTE Prior VTE?: No VTE Risk Level:: Medical - moderate - high VTE Device Contraindication: N/A - Device Ordered VTE Drug Contraindication: N/A - Med Ordered
[2024-04-21] MEDS: oxyCODONE HCl Immed Release 5 MG TABLET PO ×3 (08:52→19:55)
[2024-04-21] MEDS: Nicotine 14 MG PATCH.TD24 TRANSDERMA (08:52)
[2024-04-21] MEDS: Docusate Sodium 100 MG CAPSULE PO ×2 (08:52→19:55)
[2024-04-21] MEDS: Omeprazole 20 MG CAPSULE.DR PO (08:52)
[2024-04-21] MEDS: 0.9 % Sodium Chloride Flush 3 ML SYRINGE IVFLUSH ×3 (08:54→19:55)
[2024-04-21] MEDS: Heparin Sodium,Porcine 5,000 UNIT/ML VIAL 5000 UNIT SUBCUT ×2 (10:09→22:50)
[2024-04-21 15:14] VITALS: BP 134/78; PULSE 64; RESP 20; TEMP 36.8; O2SAT 96
[2024-04-21] MEDS: Magnesium Hydrox/Alum Hydrox 30 ML ORAL.SUSP PO (18:02)
[2024-04-21] MEDS: Famotidine 20 MG TABLET PO (19:55)
[2024-04-21 19:58] VITALS: BP 117/66; PULSE 65; RESP 18; TEMP 36.4; O2SAT 97
[2024-04-21] MEDS: Melatonin 3 MG TABLET 6 MG PO (22:50)
[2024-04-21 23:50] VITALS: RESP 18
[2024-04-22] MEDS: HYDROmorphone HCl 0.5 MG/0.5 ML SYRINGE IVPUSH (00:18)
[2024-04-22 00:48] VITALS: RESP 16
[2024-04-22 03:28] VITALS: BP 119/80; PULSE 72; RESP 16; TEMP 36.6; O2SAT 98
[2024-04-22] MEDS: oxyCODONE HCl Immed Release 5 MG TABLET PO (03:59)
[2024-04-22 07:45] VITALS: BP 116/77; PULSE 58; RESP 16; TEMP 36.5; O2SAT 97
--- NOTE | 2024-04-22 08:38 | MHC.CM.PN ---
Patient has been medically cleared for dc to home today, self care.
--- NOTE | 2024-04-22 08:41 | P.PNGS_ITS ---
Subjective Subjective Date of Service: 04/22/24 Interval history: Patient feels much improved this morning. Passing flatus and has passed a small bowel movement. Tolerated regular diet all day yesterday without further nausea or vomiting. Physical Exam 2 Vital Signs: Vital Signs: Last Vital Signs Temp 97.7 F 04/22/24 07:45 Pulse 58 04/22/24 07:45 Resp 16 04/22/24 07:45 BP 116/77 04/22/24 07:45 Pulse Ox 97 04/22/24 07:45 O2 Del Method Room Air 04/22/24 07:45 O2 Flow Rate 6 04/17/24 12:42 BMI result Body Mass Index 19.0 Const: General: no acute distress Nutritional Appearance: well nourished GI: Other: Wounds are clean, dry and intact. Palpation (GI): no guarding Skin: Other: No rash or lesions noted. Objective Data Active Medications Al Hydroxide/Mg Hydroxide (Magnesium Hydrox/Alum Hydrox 30 Ml Oral.Susp) 30 ml PO Q6H PRN PRN Reason: heartburn Last Admin: 04/21/24 18:02 Dose: 30 ml Documented By: BASSAM Calcium Carbonate (Calcium Carbonate 750 Mg Tab.Chew) 750 mg PO Q4H PRN PRN Reason: Heartburn Last Admin: 04/19/24 18:03 Dose: 750 mg Documented By: YUSUF Docusate Sodium (Docusate Sodium 100 Mg Capsule) 100 mg PO BID [facility] Last Admin: 04/21/24 19:55 Dose: 100 mg Documented By: ALVARO Famotidine (Famotidine 20 Mg Tablet) 20 mg PO BEDTIME [facility] Last Admin: 04/21/24 19:55 Dose: 20 mg Documented By: ALVARO Heparin Sodium (Porcine) (Heparin Sodium,Porcine 5,000 Unit/Ml Vial) 5,000 unit SUBCUT Q12H [facility] Last Admin: 04/21/24 22:50 Dose: 5,000 unit Documented By: ALVARO Hydromorphone HCl (Hydromorphone Hcl 0.5 Mg/0.5 Ml Syringe) 0.5 mg IVPUSH Q3H PRN; Protocol PRN Reason: Pain, Severe (Pain Scale 7-10) Last Admin: 04/22/24 00:18 Dose: 0.5 mg Documented By: NADINE Lidocaine (Lidocaine 4 % Patch Adh..Patch) 1 patch TRANSDERMA DAILY PRN; Protocol PRN Reason: back pain Magnesium Hydroxide (Milk Of Magnesia 30 Ml Oral.Susp) 30 ml PO DAILY PRN PRN Reason: Constipation Melatonin (Melatonin 3 Mg Tablet) 6 mg PO BEDTIME PRN PRN Reason: Insomnia Last Admin: 04/21/24 22:50 Dose: 6 mg Documented By: ALVARO Nicotine (Nicotine 14 Mg Patch.Td24) 14 mg TRANSDERMA DAILY [facility] Last Admin: 04/21/24 08:52 Dose: 14 mg Documented By: BASSAM Omeprazole (Omeprazole 20 Mg Capsule.) 20 mg PO DAILY [facility] Last Admin: 04/21/24 08:52 Dose: 20 mg Documented By: BASSAM Ondansetron HCl (Ondansetron Hcl 4 Mg/2 Ml Vial) 4 mg IVPUSH Q6H PRN PRN Reason: Nausea and Vomiting Last Admin: 04/20/24 20:34 Dose: 4 mg Documented By: ALVARO Oxycodone HCl (Oxycodone Hcl Immed Release 5 Mg Tablet) 5 mg PO Q4H PRN PRN Reason: Pain, Moderate(Pain Scale 4-6) Last Admin: 04/22/24 03:59 Dose: 5 mg Documented By: ALVARO Sodium Chloride (0.9 % Sodium Chloride Flush 3 Ml Syringe) 3 ml IVFLUSH QSHIFT [facility] Last Admin: 04/21/24 19:55 Dose: 3 ml Documented By: ALVARO Labs 04/18/24 05:28 04/18/24 05:28 Procedures Date of Service Date of Service: 04/22/24 Progress Note: A&P Assessment and plan (1) History of colostomy reversal: Status: Acute (2) Diverticulitis of intestine with abscess: Status: Acute Plan Pod 5 following hand assisted reversal of colostomy. He is much improved this morning with no further nausea or vomiting. He tolerating regular diet without further nausea or vomiting. He is passing flatus and BM and feels ready for discharge. He will follow up with Dr. Bueno in 1-2 weeks. Time Spent With Patient Time: Total time managing care of this patient today ____ minutes. No Severe Sepsis: No Severe Sepsis Quality Stroke Does the patient have a stroke diagnosis?: No VTE Prior VTE?: No VTE Risk Level:: Medical - moderate - high VTE Device Contraindication: N/A - Device Ordered VTE Drug Contraindication: N/A - Med Ordered
[2024-04-22] MEDS: Nicotine 14 MG PATCH.TD24 TRANSDERMA (09:41)
[2024-04-22] MEDS: Omeprazole 20 MG CAPSULE.DR PO (09:42)
[2024-04-22] MEDS: Docusate Sodium 100 MG CAPSULE PO (09:42)
[2024-04-22] MEDS: 0.9 % Sodium Chloride Flush 3 ML SYRINGE IVFLUSH (09:42)
--- NOTE | 2024-04-22 12:48 | P.DS_ITS ---
DS: Providers Provider Date of Service: 04/22/24 Date of admission: 04/17/24 07:16 Date of discharge: 04/22/24 Primary care physician: ALEXSANDRA Juarez Attending physician on admission: Joel Bueno Attending physician on discharge: Sundar Kauffman DS: Diagnosis Discharge Diagnosis (1) History of colostomy reversal: Status: Acute (2) Diverticulitis of intestine with abscess: Status: Acute DS: Summary Hospital Course Hospital Course: HPI AT ADMISSION: The patient is a 44-year-old male who had undergone sigmoid resection for diverticular abscess last November,. He had a pre op colonoscopy via the stoma and the rectum 03/13 which showed occasional diverticuli in the left colon, no polyps seen. He now presents for reversal of his end colostomy. HOSPITAL COURSE: On 04/17/14 hand assisted laparoscopic reversal of end colostomy, extensive lysis of adhesions, flexible sigmoidoscopy was performed by Dr. Bueno without complication. The patient tolerated the procedure well and was admitted to the medical/surgical floor for observation. He had an uncomplicated recovery course. He was started on a clear liquid diet post op. His fenton was removed on POD #1. His activity was increased. He remained inpatient until POD #5 while awaiting GI function, toleration of solid diet. On the day of discharge, he was tolerating a solid diet without nausea or vomiting. He was passing flatus and had good bowel movements. He was ambulating without difficulty. He was hemodynamically stable with a benign abd exam and clean incisions. He was discharged to home on 04/22/24 in stable condition. He is to follow up in the office in 2 weeks. Status at Discharge Functional status at discharge: independent ambulation Overall status at discharge: patient is progressing back to baseline Time Attestation Discharge Coordination Time (in mins): 45 Quality: Safe Use of Opioids Does Pt have an Active Cancer Diagnosis on the Problem List?: No Quality: Stroke Does the patient have a stroke diagnosis?: No Physical Exam Vital Signs: Vital Signs: Last Vital Signs Temp 97.7 F 04/22/24 07:45 Pulse 58 04/22/24 07:45 Resp 16 04/22/24 07:45 BP 116/77 04/22/24 07:45 Pulse Ox 97 04/22/24 07:45 O2 Del Method Room Air 04/22/24 07:45 O2 Flow Rate 6 04/17/24 12:42 BMI result Body Mass Index 19.0 Const: General: comfortable, no acute distress and alert Orientation/consciousness: patient oriented x3 GI: Inspection: No distended and Yes incision (clean, marta intact) Palpation (GI): Soft to palpation, Tenderness to palpation present (GI) (mild incisional) and no guarding Skin: General skin exam: no rashes or lesions noted Neuro: General: patient oriented x3 and moves all extremities DS: Data Data Completed and Pending Completed studies during hospitalization [Text1]: Pending at discharge 04/17/24 08:54 Surgical [PTH] Routine A. Rectum, stump, excision: Rectal tissue within normal limits. B. Colostomy, reversal: Enterocutaneous tissue with patchy chronic inflammation and mild vascular congestion. C. Anastomotic donuts: Colonic tissue within normal limits. Procedures Bypass Sigmoid Colon to Cutaneous, Open Approach (12/09/23) Excision of Sigmoid Colon, Open Approach (12/09/23) Introduction of Anesthetic Agent into Peripheral Nerves and Plexi, Percutaneous Approach (12/09/23) Release Sigmoid Colon, Open Approach (12/09/23) Discharge Plan Discharge Anticipated Discharge Date/Time: 04/21/24 11:08 Patient Disposition: Home, Self-Care Discharge Diagnosis: s/p colostomy reversal Referrals: Sundar Botello FNP-TORIBIO [Primary Care Provider] - 1 Week Joel Bueno MD [Physician] - 2 Weeks Discharge Medications: New docusate sodium [Colace] 100 mg capsule 100 mg PO BID PRN (Reason: constipation) Qty: 30 0RF oxycodone 5 mg tablet 5 mg PO Q4H PRN (Reason: pain (scale score 7-10)) Qty: 24 0RF Rx Instructions: Partial Fill upon patient request. ibuprofen 600 mg tablet 600 mg PO Q6H PRN (Reason: pain) Qty: 30 0RF Continued famotidine 20 mg tablet 20 mg PO BEDTIME omeprazole 20 mg capsule,delayed release(DR/EC) 20 mg PO DAILY Discharge Orders: Discharge Order (Routine); Ordered 04/22/24 Ordered By: Sundar Kauffman Diet: Advance to usual diet Activity on Discharge: No heavy lifting Stand Alone Forms: Patient Portal Discharge page Print Language: Guamanian Activity Restrictions/Additional Instructions: If the incision area is tender, you may apply an ice pack for short intervals (No more than 20 minutes on, followed by at least 20 minutes off). Do not apply heat. Do not use creams, lotions, or topical antibiotics. These can cause infection or allergic reaction. Okay to applied dry dressings with gauze to incision Ok to shower. You have marta closing your incision and these will be removed approximately 10-14 days after surgery. Can keep the old colostomy site covered if it continues to drain. NO HEAVY LIFTING (>10lbs) or strenuous activity. Follow up in office. ([phone]) Call Your Doctor If: -Your temperature exceeds 101.5? F -You experience excessive pain or swelling -You have an unexpected reaction to medication -You have excessive bleeding -You experience continued vomiting/nausea -Your incision begins to separate -Your incision shows signs of infection such as increased redness, swelling , excessive pain, drainage (light blood or clear fluid is normal) or heat Care Plan Goals: Return to baseline health and resume normal activities following recovery period. Health Concerns: hx of sigmoid diverticulitis with abscess, s/p KEATON sigmoid resection, end colostomy Plan of Treatment: s/p KEATON colostomy reversal F/u in office in 1-2 weeks. Assessment: Doing well post op. Patient Instructions: Open Colostomy Reversal (DC) Discharge Date/Time: 04/22/24 09:47
== END 2024-04-22 09:47 | disposition home or self-care (01) | DRG 223 ==
LOC: HO.SSSA 07:31 → HO.S3 12:34
PROVIDERS: Anesthesiology; Physician Assistant Surgical; Admitting Provider Surgery; PCP Nurse Practitioner Family; Visit Provider Surgery
PROC: 0DBE4ZZ Excision of Large Intestine, Percutaneous Endoscopic Approach (ICD-10-PCS; CPT 44227; principal; 2024-04-17 07:30)
DX: Z43.3 Encounter for attention to colostomy (principal); F17.210 Nicotine dependence, cigarettes, uncomplicated; Z71.6 Tobacco abuse counseling; G89.18 Other acute postprocedural pain; K66.0 Peritoneal adhesions (postprocedural) (postinfection); Z79.899 Other long term (current) drug therapy
CPT/HCPCS: 36415; 80048; 80051; 85025; 85027; 88304; 88305; C1758; J0131; J0665; J1100; J1171; J1644; J1920; J2003; J2405; J2704; J2795; J3010; J7120

== ENCOUNTER → 2024-05-03 12:02 | Outpatient (BNVA) | payer OTHER, SELFPAY | PROVIDERS: PCP Nurse Practitioner Family; Visit Provider Surgery | DX: Z98.890 Other specified postprocedural states (principal) | CPT/HCPCS: 99212 ==

== ENCOUNTER 2024-05-03 12:03 | Outpatient (AMB) | payer OTHER, SELFPAY ==
--- NOTE | 2024-05-03 12:02 | A.OFFVIS_ITS ---
Vital Signs 05/03/24 12:10 Height 6 ft 2 in Weight 153 lb 4 oz BMI 19.7 BP 129/60 Blood Pressure Location Rt brachial Position Sitting Pulse 75 Intake Visit Reasons: stitches removal S/P reversal colostomy Intake Note: This patient presents for staple removal status post colostomy reversal. Pt c/o; no concerns. 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 He tolerated procedure well. He was discharged on postop day 5. He says he has been doing well at home. He has good oral intake. He has good bowel movements. He had been sober for several months but says that he had been drinking again since he was discharged. [facility] Medical History Prostate cancer Depression Colostomy in place History of open sigmoidectomy Sliding hiatal hernia Tubular adenoma of colon Tobacco dependence Alcohol dependence BPH (benign prostatic hyperplasia) Surgical History History of colostomy reversal Hx of surgical procedure (~12/09/23) History of esophagogastroduodenoscopy (EGD) H/O colonoscopy Hx of prostate biopsy Family History Mother Substance use disorder Mental health disorder Father Substance use disorder Mental health disorder Maternal Aunt Substance use disorder Mental health disorder Paternal Uncle Substance use disorder Mental health disorder Paternal Aunt Substance use disorder Mental health disorder Maternal Uncle Substance use disorder Mental health disorder Brother Substance use disorder Mental health disorder Sister Substance use disorder Mental health disorder Social History Household Members: Friend(s) Housing: House Are you a primary health care recruiter to a significant other at home: No Do you presently have visiting nurse or other home services: No Alcohol intake: current Alcohol intake frequency: former alcohol drinker Alcohol type: beer and hard liquor Patient Tobacco Use Status: Current everyday Tobacco user Tobacco use type: Cigarette Cigarette Packs Per Day: 1 Cigarettes Per Day: 15 Years Smoked: 25 e-Cigarette/Vaping Use: Never Used Second Hand Smoke Exposure: Yes Substance Use Type: Marijuana service: No Current occupational status: employed 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 Current occupational exposures/hazards: No Cognitive needs: No Hearing needs: No Vision needs: No Review of Systems Const Denies chills and Denies fever(s) Card Denies chest pain Resp Denies cough GI Denies abdominal pain and Denies hematochezia Physical Exam Vital Signs: Last Vital Signs Pulse 75 05/03/24 12:10 BP 129/60 05/03/24 12:10 BMI result Body Mass Index 19.7 Const Other: Smells of alcohol General: comfortable and no acute distress Resp Effort & Inspection: normal respiratory effort GI Other: All incisions are well healed, marta intact, no signs of infection or hernia Palpation (GI): Soft to palpation, not firm and no guarding Assessment & Plan Assessment & Plan (1) History of colostomy reversal: Comment: Hand assisted laparoscopic reversal of end colostomy, extensive lysis of adhesions, flexible sigmoidoscopy 04/17/24 Code(s): Z98.890 - Other specified postprocedural states Category: Surgical Plan: Status post reversal of his colostomy. He is doing well postoperatively. All incisions are well healed. I removed all his skin marta I told him to avoid lifting anything more than 20 lb for at least 3-4 more weeks. He has been drinking again so I advised him about the benefits of He can follow up on a p.r.n. basis. He is to continue to follow up with his primary care physician. Coding Level of Care Code Global (96486) Diagnoses History of colostomy reversal Z98.890
[2024-05-03 12:10] VITALS: BP 129/60; PULSE 75; BMI 19.7
== END 2024-05-03 12:12 | disposition home or self-care (01) ==
PROVIDERS: PCP Nurse Practitioner Family; Visit Provider Surgery
DX: Z98.890 Other specified postprocedural states (principal)
CPT/HCPCS: 99024

== ENCOUNTER 2024-05-10 13:39 | Outpatient (AMB) | payer OTHER, SELFPAY ==
[2024-05-10 14:32] VITALS: BP 104/60; PULSE 60; O2SAT 96; BMI 19.5
--- NOTE | 2024-05-10 14:32 | A.OFFPC_ITS ---
Vital Signs 05/10/24 14:32 Height 6 ft 2 in Weight 152 lb BMI 19.5 BP 104/60 Blood Pressure Location Lt brachial Position Sitting Pulse 60 Pulse Source Pulse Oximeter Pulse Oximetry (%) 96 Oxygen Delivery Method Room Air Intake Visit Reasons: 3m follow up Allergies carisoprodol [From [facility]] Allergy (Intermediate, Verified 05/10/24 14:33) SYNCOPE Medication List - Last Reconciled 05/10/24 by JOYCE KapoorP- docusate sodium (Colace) 100 mg PO BID PRN famotidine 20 mg PO BEDTIME ibuprofen 600 mg PO Q6H PRN omeprazole 20 mg PO DAILY Tobacco use date assessed: 05/10/24 Dental Screening Dental Screen Date: 05/10/24 Did you have a dental visit in the last 12 months?: Yes Did you have a dental problem in the last 6 months where you did not have access to dental care?: No Was dental information given to patient?: Yes HPI 3m follow up HPI Details Chief Complaint Abdominal tightness History of Present Illness The patient is a 44-year-old male presenting with abdominal tightness following a colostomy reversal. The reversal surgery was performed on April 17, 2024, to address severe diverticulitis. The patient reports that the sensation of tight ness in the abdomen has persisted. He denies experiencing fevers, chills, diarrhea, or constipation postoperatively. Notably, no complications were observed immediately post-surgery. The incision and stoma closure were noted with no signs of infection or drainage. Some scabbing is present without erythema or pain upon palpation. Bowel sounds are audible. The patient acknowledges a history of severe diverticulitis, previously managed by colostomy, with the reversal subsequently carried out successfully. Emphasis has been placed on the critical nature of abstaining from alcohol due to his height ened risk of serious health complications related to alcohol consumption. Social History - Abstains from alcohol, emphasized as v ital to health Health Maintenance - Reinforced abstinence from alcohol to prevent severe health complications Review of Systems - Gastrointestinal: Denies fevers, chill s, diarrhea, constipation Physical Exam General: Cooperative, healthy appearing, comfortable, no acute distress and well developed Orientation: Patient oriented x3 Limitations: No limitations Head: Normal to inspection Ears: Hearing grossly normal bilaterally Nose: Normal external nose present Face and sinus: Normal facial exam Eyes: Appearance normal, both eyes and all related structures Neck: Normal visual inspection and Yes full ROM Respiratory: Normal respiratory effort and able to speak in complete sentences. Clear to auscultation bilaterally Cardiovascular: Regular rate and rhythm. Normal S1 and S2 GI: Normal to inspection. Soft to palpation and nontender. Incision and stoma closure noted (healing), scabbed, no drainage, no erythema. No signs of infection, some scabbing noted, no drainage, no pain with palpation, no erythema. Skin: No rashes or lesions noted Neuro: Patient oriented x3 Extremities: Normal to inspection Results Plan - Monitor postoperative recovery, focusi ng on incision and stoma healing - Emphasize strict avoidance of alcohol consumption - Observational management of abdominal tightness, which is likely due to the healing process - Schedule further evaluation if symptom s persist or new symptoms develop Discussion Notes I discussed the patient's current postoperative status, noting the absence of complications and the likely causation of the abdominal tightness as part of the healing process. We talked about the critical need for abstinence from alcohol, highlighting the potentially fatal consequences if this is not adhered to. I reassured the patient that the healing process typically involves some discomfort, emphasizing that the current presentation shows no signs of infection. Follow-up care was outlined, including potential further evaluations should symptoms evolve. Patient Instructions - Monitor for any new symptoms such as f ever, increased pain, or significant changes in bowel habits - Completely avoid alcohol, as it poses a significant health risk - Contact our office if the sensation of tightness worsens or other symptoms arise - Attend follow-up appointments as sched uled to monitor recovery progress [facility] Medical History Prostate cancer Depression Colostomy in place History of open sigmoidectomy Sliding hiatal hernia Tubular adenoma of colon Tobacco dependence Alcohol dependence BPH (benign prostatic hyperplasia) Surgical History History of colostomy reversal Hx of surgical procedure (~12/09/23) History of esophagogastroduodenoscopy (EGD) H/O colonoscopy Hx of prostate biopsy Family History Mother Substance use disorder Mental health disorder Father Substance use disorder Mental health disorder Maternal Aunt Substance use disorder Mental health disorder Paternal Uncle Substance use disorder Mental health disorder Paternal Aunt Substance use disorder Mental health disorder Maternal Uncle Substance use disorder Mental health disorder Brother Substance use disorder Mental health disorder Sister Substance use disorder Mental health disorder Social History Household Members: Friend(s) Housing: House Are you a primary pet caretaker to a significant other at home: No Do you presently have visiting nurse or other home services: No Alcohol intake: current Alcohol intake frequency: former alcohol drinker Alcohol type: beer and hard liquor Patient Tobacco Use Status: Current everyday Tobacco user Tobacco use type: Cigarette Cigarette Packs Per Day: 1 Cigarettes Per Day: 15 Years Smoked: 25 e-Cigarette/Vaping Use: Never Used Second Hand Smoke Exposure: Yes Substance Use Type: Marijuana service: No Current occupational status: employed 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 55081 - PHQ-9 Billing: Patient declined-do not bill Source: Developed by Drs. Gary Flores, Robert Moarles and colleagues, with an educational jennie from [employer]. Thrive Questionnaire Date Thrive assessed: 04/18/24 ADAIR-7 AMB Questionnaire ADAIR-7 Date ADAIR - 7 assessed: 12/22/23 Source: Developed by Drs. Gary Flores, Robert Morales and colleagues, with an educational jennie from [employer]. Physical exam (Primary Care) Vital Signs: Last Vital Signs Pulse 60 05/10/24 14:32 BP 104/60 05/10/24 14:32 Pulse Ox 96 05/10/24 14:32 Oxygen Delivery Method Room Air 05/10/24 14:32 BMI result Body Mass Index 19.5 Tobacco/Smoking Status: Tobacco use Status Tobacco use date assessed 05/10/24 05/10/24 14:36 Patient Tobacco Use Status Current everyday Tobacco 05/10/24 14:32 Tobacco use type Cigarette 05/10/24 14:32 e-Cigarette/Vaping Use Never Used 05/10/24 14:32 Thrive Assessment: Date of Thrive Assessment Date Thrive assessed 04/18/24 05/10/24 14:32 Coding Level of Care Code Est Pt Level 3 (73536) Diagnoses History of colostomy reversal Z98.890 Alcohol dependence F10.20 Assessment & Plan Assessment & Plan (1) History of colostomy reversal: Comment: Hand assisted laparoscopic reversal of end colostomy, extensive lysis of adhesions, flexible sigmoidoscopy 04/17/24 Code(s): Z98.890 - Other specified postprocedural states Category: Surgical (2) Alcohol dependence: Comment: currently drinking minimal alcohol Code(s): F10.20 - Alcohol dependence, uncomplicated Category: Medical Plan . Orders: Orders Complete Blood Count Auto Diff Today F10.20 - Alcohol dependence, uncomplicated, Z98.890 - Other specified postprocedural states Lipid Panel Today F10.20 - Alcohol dependence, uncomplicated, Z98.890 - Other specified postprocedural states Ethanol Today F10.20 - Alcohol dependence, uncomplicated, Z98.890 - Other specified postprocedural states Comprehensive Met. Panel Today F10.20 - Alcohol dependence, uncomplicated, Z98.890 - Other specified postprocedural states
== END 2024-05-10 15:10 | disposition home or self-care (01) ==
PROVIDERS: PCP Nurse Practitioner Family; Visit Provider Nurse Practitioner Family
DX: Z98.890 Other specified postprocedural states (principal); F10.20 Alcohol dependence, uncomplicated

== ENCOUNTER → 2024-05-10 13:39 | Outpatient (BNVA) | payer OTHER, SELFPAY | PROVIDERS: PCP Nurse Practitioner Family; Visit Provider Nurse Practitioner Family | DX: F10.20 Alcohol dependence, uncomplicated (principal); Z98.890 Other specified postprocedural states | CPT/HCPCS: 99212 ==